=== PATIENT | male | born 1955 | race Caucasian/White ===

== ENCOUNTER 2018-05-02 15:52 | Emergency (ER) | payer SELFPAY ==
[2018-05-02] VITALS (10 sets, daily range): BP systolic 91–157; BP diastolic 58–110; PULSE 111–120; RESP 15–28; TEMP 36.8–37.7; O2SAT 89–100; BMI 18.8
[2018-05-02] MEDS: Midazolam 2 MG/2 ML Syringe IV ×2 (15:52→18:49)
--- NOTE | 2018-05-02 16:00 | EKG12_ITS ---
Test Reason : Blood Pressure : / mmHG Vent. Rate : 111 BPM Atrial Rate : 117 BPM P-R Int : 128 ms QRS Dur : 068 ms QT Int : 480 ms P-R-T Axes : 043 053 072 degrees QTc Int : 652 ms Sinus tachycardia Low voltage QRS Nonspecific ST and T wave abnormality Abnormal ECG Confirmed by FELICITAS MAHER, LOUISA ([id number]), editorial assistant LALO RASHID ([id number] on 05/07/2018 9:44:56 AM Referred By: CLEVELAND/MONAE Confirmed By:LOUISA POLK MD
--- NOTE | 2018-05-02 16:07 | RAD_ITS ---
STUDY: X-RAY CHEST REASON FOR EXAM: Male, 63 years old. Status post fall 2 days ago with swelling and edema to the face TECHNIQUE: Single AP portable view of the chest. COMPARISON: None. FINDINGS: There is a massive amounts of subcutaneous emphysema throughout the soft tissues of the chest and neck. Unsure if there is also pneumomediastinum. Pneumothorax cannot be excluded. Lungs appear to be hyperinflated with flattened hemidiaphragms. Normal size heart. Normal mediastinum and april. Normal visualized pulmonary arteries. Normal visualized aortic arch and descending thoracic aorta. Normal visualized thoracic spine. Normal visualized ribs, clavicles, and shoulders. There is no demonstrated abnormality of the visualized soft tissue structures of the upper abdomen. RAD/Chest 1 View (Portable) IMPRESSION: Massive amounts of subcutaneous emphysema seen throughout the soft tissues of the chest and neck as well as the abdomen. Pneumothorax and pneumomediastinum cannot be excluded. Recommend CT chest to further evaluate. N.B. : The above information has been verbally conveyed by Ash Ricardo DO to Meng Barrios MD, on 05/02/2018 17:08:37 (ET). Electronically Signed: Ash Ricardo DO at 17:09 EST Tel , Service support ,
[2018-05-02] MEDS: Rocuronium Bromide 50 MG/5 ML Vial 40 MG IV (16:20)
[2018-05-02] MEDS: Etomidate 20 MG/10 ML Vial IV (16:20)
--- NOTE | 2018-05-02 16:35 | RAD_ITS ---
STUDY: X-RAY CHEST REASON FOR EXAM: Male, 63 years old. ET tube placement with NG-tube placement TECHNIQUE: Single AP portable view of the chest. COMPARISON: Chest x-ray earlier FINDINGS: ET tube has been placed with tip terminating roughly 3 cm from the noreen. Enteric tube is seen with tip below the left hemidiaphragm. Remainder is unchanged as compared to exam from roughly 30 minutes earlier. RAD/Chest 1 View (Portable) IMPRESSION: As above Electronically Signed: Ash Ricardo DO at 16:52 EST Tel , Service support ,
--- NOTE | 2018-05-02 16:43 | CT_ITS ---
STUDY: CT CHEST WITHOUT CONTRAST REASON FOR EXAM: Male, 63 years old. Fall. Facial swelling and edema. Extensive crepitus RADIATION DOSAGE (If Supplied By Facility): CTDIvol = ( 8.93 ) mGy, DLP = ( 343.80 ) mGycm TECHNIQUE: Transaxial imaging was performed without the administration of intravenous contrast material. Individualized dose optimization techniques were used for this CT. COMPARISON: Plain films earlier FINDINGS: Appropriate positioning of ET tube and enteric tube. As seen on plain film, massive amounts of subcutaneous emphysema seen throughout the soft tissues of the chest, arms and neck and face. Extensive pneumomediastinum. There is possible pneumopericardium. Extensive air tracking into the neck region. There is a large right pneumothorax. No evidence of left-sided pneumothorax. There is left lower lobe and left upper lobe airspace disease however. There is pneumoperitoneum as well within or around the stomach, pancreas and kidneys. CT/Chest without Contrast IMPRESSION: 1. Massive amounts of subcutaneous emphysema seen throughout the tissues and muscles of the chest, arms, neck and face. 2. Moderate to large right pneumothorax. Placement of chest tube is recommended 3. Pneumomediastinum with possible pneumopericardium. 4. Bilateral airspace disease. 5. Pneumoperitoneum. Free air noted around the pancreas and kidneys as well as below the hemidiaphragms. I discussed the chest x-ray findings with the ordering provider, this provider was already aware of the pneumothorax and we discussed on the phone. Electronically Signed: Ash Ricardo DO at 17:39 EST Tel , Service support ,
[2018-05-02 17:05] LABS: Absolute Lymphocyte Count 0.54 X10^3/ul (0.83-4.51); Absolute Neutrophil Count 4.8 X10^3/uL (2.0-7.7); Basophil# 0.02 X10^3/uL; Basophil% 0.4 % (0-1); Eosinophil# 0.03 X10^3/uL; Eosinophils% 0.5 % (0-5); Hematocrit 38.9 % (40-54); Hemoglobin 13.5 g/dl (13.0-16.5); Lymphocyte # 0.54 X10^3/ul (4.0); Lymphocyte % 9.5 % (19-41); Mean Corp Hgb Conc 34.7 g/gl (32-36); Mean Corpuscular Volume 106.6 fL (80-94); Mean Platelet Vol. 11.9 fl (6.2-12.0); Monocyte# 0.25 X10^3/uL; Monocyte% 4.4 % (0-10); Neutrophil # 4.81 X10^3/uL (2.7-7.7); RBC Distribution Width CV 15.6 % (11.6-14.6); RBC Distribution Width SD 60.3 fl (35.1-43.9); Red Blood Count 3.65 M/mm3 (4.6-6.2); White Blood Count 5.7 K/mm3 (4.4-11.0)
--- NOTE | 2018-05-02 17:05 | CT_ITS ---
STUDY: CT BRAIN WITHOUT CONTRAST REASON FOR EXAM: Male, 63 years old. Fall. Edema. RADIATION DOSAGE (If Supplied By Facility): CTDIvol = ( 44.99 ) mGy, DLP = ( 829.85 ) mGycm TECHNIQUE: Transaxial CT imaging of the brain was performed without administration of intravenous contrast material. Individualized dose optimization techniques were used for this CT. COMPARISON: February 18, [address] dated May 03, 1999 and . FINDINGS: There is extensive subcutaneous emphysema throughout the soft tissues of the neck and face and overlying the calvarium. There is a nasal bone fracture. There is mild cerebral atrophy with widening of the extra-axial spaces and ventricular dilatation. Normal white matter tracts of the cerebral hemispheres. Normal basal ganglia and thalami. Normal brainstem. Normal cerebellum. There is no intracranial hemorrhage. There are there is opacification of the left maxillary and ethmoid sinuses. No findings of an acute ischemic infarction. Normal visualized paranasal sinuses. CT/Brain/Head without Contrast IMPRESSION: Chronic involutional changes of the brain. No acute intracranial process. Extensive subcutaneous emphysema likely related to findings within the chest. Nasal bone fracture. Opacification of the left maxillary and ethmoid sinuses consistent with a history of sinusitis. Electronically Signed: Mary Jo Quintana MD at 17:25 EST Tel , Service support ,
[2018-05-02 17:16] LABS: ALB/GLOB Ratio 0.8 RATIO (0.9-2.4); AST(SGOT) 78 U/L (15-37); Alanine Aminotransfer ALT/SGPT 24 U/L (16-61); Alkaline Phosphatase 162 U/L (45-117); Anion Gap 18 (5-15); BUN 26 mg/dL (7-18); BUN/Creat Ratio 17.7 RATIO (10-20); Calcium,Total 7.7 mg/dL (8.5-10.1); Chloride 89 mmol/L (98-107); Creatinine, Serum 1.47 mg/dL (0.70-1.30); EST Glomerular Filtration Rate 51 mL/min (>60); Est Glom Filt Rate - Afr Amer 62 mL/min (>60); Estimated Creatinine Clearance 38.06 ml/min; Globulin 3.9 g/dL (2.2-4.2); Glucose 109 mg/dL (74-106); Potassium 2.8 mmol/L (3.5-5.1); Protein, Total 6.9 g/dL (6.4-8.2); Sodium Level 132 mmol/L (136-145)
[2018-05-02 17:19] LABS: Differential Indicated SCAN CRITERIA MET; POSITIVE COUNT NO; POSITIVE DIFFERENTIAL YES; POSITIVE MORPHOLOGY NO
[2018-05-02 17:31] LABS: International Normalized Ratio 1.4; Partial Thromboplast Time 33.2 Seconds (24.1-36.2); Prothrombin Time (Protime)PT. 17.4 SECONDS (11.7-14.9)
[2018-05-02] MEDS: Propofol 200 MG/20 ML Vial IV BOLUS (17:40)
[2018-05-02 18:16] LABS: Platelet Count 50 K/mm3 (150-450)
[2018-05-02 18:17] LABS: Anisocytosis 1+; Macrocytosis 1+; Platelet Estimate MKD DEC (ADEQ)
--- NOTE | 2018-05-02 18:17 | ED.RN ---
LAB CALL WITH CRITICAL VALUE PLATELET COUNT OF 50. VALUE VERBALLY REPORTED TO AKOSUA RANGEL AND DR. GUTHRIE.
--- NOTE | 2018-05-02 18:45 | RAD_ITS ---
STUDY: X-RAY CHEST REASON FOR EXAM: Male, 63 years old. Pneumothorax. Chest tube placement. TECHNIQUE: Single AP portable view of the chest. COMPARISON: Multiple chest x-rays and chest CT earlier FINDINGS: Stable appearance of ET tube and enteric tube. Placement of right chest tube. Very difficult to evaluate for pneumothorax given the massive amounts of subcutaneous emphysema and pneumomediastinum. However, there appears to be no evidence of a significant right pneumothorax. Remainder is unchanged RAD/Chest 1 View (Portable) IMPRESSION: As above Electronically Signed: Ash Ricardo DO at 19:08 EST Tel , Service support ,
[2018-05-02] MEDS: 0.9% Normal Saline 1,000 ML 1000 ML IV (18:49)
--- NOTE | 2018-05-02 18:59 | ED.DCSUM_ITS ---
- ER Visit Summary Date of Service: 05/02/18 Chief Complaint: Fall and shortness of breath History of Present Illness: The patient is a 63 M who presents after a fall that occurred 2 days ago. Patient states he tripped and fell. Patient denies hitting his head or losing consciousness. Patient thinks he hit his chest. Patient states he has been having some difficulty breathing since the fall. Patient came to the emergency department today because of the increased swelling into his face. Patient denies any nausea or vomiting. Patient denies any recent fevers or chills. Physical Examination: Initial vital signs showed a blood pressure 131/98, temperature of 98.3, heart rate of 115, respiratory rate of 23, and pulse oximeter of 89% on room air. Oral mucosa is pink and moist. There is a large amount of subcutaneous emphysema over the face, neck, chest, upper extremities, and abdomen. Trachea appeared to be midline. Heart was regular and tachycardic with distant heart sounds. Lungs are diminished bilaterally. Abdomen is soft. There is no tenderness. Extremities are intact. There are no foreign bodies noted. There is good range of motion. Strength is 5/5 bilaterally upper and lower extremities. There are no sensory deficits noted. Test Results: Portable chest x-ray was obtained. There is a large amount of subcutaneous air. CT scan of the chest was obtained. There is a large right pneumothorax. There is also pneumomediastinum, pneumopericardium, and pneumoperitoneum along with a large amount of subcutaneous air. CT scan of the brain was obtained. There is no acute intracranial abnormality noted. There is a nasal bone fracture noted. There is subcutaneous air noted in the face and scalp. EKG showed sinus tachycardia with a rate of 111. There is an occasional PVC noted. There are no acute ST or T wave changes. CBC showed a platelet count of 50. White blood cell count and hemoglobin are normal. Comprehensive metabolic profile showed a sodium 132, potassium was 2.8, chloride of 89, BUN of 26, and creatinine of 1.47. INR was 1.4. PTT was 33.2. Troponin was normal. Emergency Department Course and Treatment: Patient was advised of the need for endotracheal intubation to protect his airway. Patient was agreeable with this. The risks and benefits were discussed with the patient and he agreed to this. Patient was given etomidate 20 mg and rocuronium 40 mg IV. A 7.5 endotracheal tube was placed to 26 cm at the lip. There was good color change noted. Breath sounds were equal bilaterally. There was no air noted in the epigastrium. Patient was started on a Versed drip. After the patient returned from CT scan of his chest, a right thoracostomy tube was placed. Patient's was advised of the risks and benefits of the procedure. gave written consent. The right chest wall was anesthetized with 1% plain lidocaine. The right chest wall was prepped and draped in a sterile manner. A small incision was made with a #10 blade. A 28 [place] thoracostomy tube was inserted into the fourth and fifth intercostal space on the right. There is good air return. The tube was sutured in place with 3-0 silk sutures. An occlusive dressing was applied to the chest tube site. Patient required further sedation with propofol 200 mg total. Patient was also given a dose of 10 mg of etomidate after the procedure to maintain sedation. The case was discussed with Dr. Oglesby. He felt that the patient would benefit from transfer to a trauma facility given the pneumopericardium, pneumomediastinum, and pneumoperitoneum. Case was discussed with Dr. Castle at [facility]. She accepted the transfer to the emergency department there. Patient's understood and was agreeable with the plan. All questions were answered. Critical care time: 104 minutes. This was exclusive of procedure time. Disposition: Transfer to [facility] Impression: 1. Right pneumothorax 2. Pneumomediastinum 3. Pneumopericardium 4. Pneumoperitoneum 5. Acute kidney injury 6. Nasal fracture This note was generated with [employer] dictation software. It may contain incorrect words, spelling, and punctuation that were not noted in review of the chart prior to signing ED Disposition - Plan for ED Patient: Disposition: [facility] Diagnosis: Pneumothorax, right, Pneumomediastinum, Pneumopericardium, Nasal fracture, Subcutaneous emphysema due to trauma, Acute kidney injury Referrals: Care Physician,No Primary [Primary Care Provider] -
--- NOTE | 2018-05-02 18:59 | ED.RN ---
pt restless, even after diprovan bolus x2. versed gtt increased slowly. concerned at bedside for patient trying to sit up in bed. versed at max rate, x1 dose of etomidate given. has left for home- will notify when more information of pt's transfer.
[2018-05-02 19:11] LABS: Mucous, Urine 0 SEEN /hpf (<or=2+)
[2018-05-02 19:14] LABS: Color, Urine Amber (Yellow); Glucose, Dipstick Normal (Normal); Ketone-Dipstick 5 mg/dl (Negative); Leukocyte Esterase-Dipstick 100 /ul (Negative); Nitrite-Dipstick Positive (Negative); Occult Blood-Urine 250 /ul (Negative); Protein-Dipstick 100 mg/dl (Negative); Urine Clarity Cloudy (Clear); Urine Urobilinogen 4 mg/dl (Normal)
[2018-05-02 19:15] LABS: Urine Bilirubin Dipstick 3 mg/dL (Negative)
[2018-05-02 19:17] LABS: Red Blood Cells-Urine > 100 SEEN /hpf (0-5); Squamous Epithelial Cells - UA 0-5 SEEN /hpf (0-5); White Blood Cells 0-5 SEEN /hpf (0-5)
[2018-05-02 19:18] LABS: Bacteria 1+ /hpf (None Seen)
[2018-05-02 19:20] LABS: Fine Granular Cast- Urine 0-5 SEEN /lpf (0-5)
[2018-05-02] MEDS: Etomidate 20 MG/10 ML Vial 10 MG IV (20:16)
--- NOTE | 2018-05-02 20:21 | ED.RN ---
spoke with , Cady to inform of pt transfer.
== END 2018-05-02 20:19 | disposition short-term general hospital (02) ==
PROVIDERS: Emergency Provider Emergency Medicine
DX: S27.0XXA Traumatic pneumothorax, initial encounter (principal); T79.7XXA Traumatic subcutaneous emphysema, initial encounter; S26.99XA Other injury of heart, unspecified with or without hemopericardium, initial encounter; S02.2XXA Fracture of nasal bones, initial encounter for closed fracture; N17.9 Acute kidney failure, unspecified; Z79.899 Other long term (current) drug therapy; W01.0XXA Fall on same level from slipping, tripping and stumbling without subsequent striking against object, initial encounter; Y93.01 Activity, walking, marching and hiking; Y92.009 Unspecified place in unspecified non-institutional (private) residence as the place of occurrence of the external cause; Y99.8 Other external cause status
CPT/HCPCS: 31500; 32551; 51702; 70450; 71045; 71250; 80053; 81001; 84484; 85025; 85610; 85730; 93005; 94002; 94760; 96365; 96366; 96375; 96376; 99251; 99285; J7030; A4216; G0463

== ENCOUNTER 2018-06-10 14:53 | Inpatient (IN) | payer MEDICARE, SELFPAY ==
[2018-05-02 15:54] VITALS: BMI 18.8
[2018-06-10 15:33] VITALS: BP 103/67; PULSE 75; RESP 16; TEMP 37.1; O2SAT 98; BMI 19.5
[2018-06-10 15:49] VITALS: O2SAT 94
--- NOTE | 2018-06-10 16:52 | PCM.PROGNOTE ---
<Shawanda Marie - Last Filed: 06/10/18 17:08> Subjective: Patient seen and examined. Transfer today from LTAC to rehab unit for further therapy. He currently complains of diarrhea which he states he has had for the past month while at LTAC. Also complains of itching of arms and legs at bedtime. Denies shortness of breath. Denies other current complaints. - Physical Exam General: Alert, Oriented x3, Cooperative HEENT: Atraumatic, PERRLA, EOMI, Normocephalic, - - Trach intact. Oral: Dry Mucosa Neck: Supple, No JVD, Negative Carotid Bruits Lungs: Diminished, - - Scattered rhonchi Cardiovascular: Regular rate, Regular Rhythm, Normal S1, Normal S2, No murmurs Abdomen: Bowel Sounds Present, Soft, Non Tender, Non-Distended, - - PEG tube in place. Extremities: No clubbing, No cyanosis, No edema, Capillary Refill Less than 3 Seconds Skin: No rashes, No breakdown Musculoskeletal: No Tenderness to Palpation of Joints or Extremities Neurological: Cranial nerves II-XII grossly intact, Neuro grossly intact Psych/Mental Status: Normal Affect, Appropriate Vital Signs Pulse Ox 94 06/10/18 15:49 Oxygen Flow Rate (L/min) 6 Weight: 128 lb 1.417 oz Body Mass Index (BMI) 19.5 Medical Necessity - Tobacco Use Smoking Status: Current every day smoker Assessment/Plan All Active Problems Hypokalemia (Acute) Pancytopenia (Acute) Hypophosphatemia (Acute) Hypomagnesemia (Acute) 1. Debility following lengthy hospitalization/LTAC due to fall related to ETOH abuse resulting in subsequent pneumothorax status post tracheostomy and PEG tube placement-initially presented to [facility] ER 05/02/18 due to fall and shortness of breath. He was intubated and transferred to trauma facility at that time due to pneumopericardium, pneumomediastinum, pneumoperitoneum. Following release from [facility] he was transferred to LTAC where he states he has been for the past month and a half. He is status post PEG tube placement and currently n.p.o. PT/OT/ST. 2. Hypotension-patient on midodrine, continue and follow BPs. 3. Bipolar disorder-continue Seroquel, Lamictal regimen. 4. Chronic alcohol abuse -has not used the past 1.5 months since being hospitalized. Encouraged continued cessation. Continue folic acid, thiamine supplementation. 5. Tobacco dependence-encouraged cessation. Nicotine replacement patch. 6. GERD- Continue famotidine. 7. Moderate protein calorie malnutrition-BMI 19.5. NPO w/ PEG TF. Nutrition consult. DVT prophylaxis- Lovenox sc This patient was seen by BEE BairdC under the supervision of Dr. Mason. <Brenda Mason - Last Filed: 06/10/18 20:20> - Physical Exam Vital Signs Pulse Ox 94 06/10/18 15:49 Oxygen Flow Rate (L/min) 6 Weight: 58.1 kg Body Mass Index (BMI) 19.5 Assessment/Plan This patient was seen in conjunction with Shawanda Marie NP. I have independently interviewed and examined the patient and reviewed pertinent historical, laboratory, and other data. Please refer to her note for patient's presentation, findings, and recommendations. Consult for medical management 63-year-old male with past medical history of alcohol and nicotine dependence who presented to the [facility] ED on 05/02/18 after a fall and was found to be short of breath. Patient was found to have extensive subcutaneous emphysema from the head to toes, presented with pneumopericardium, pneumomediastinum, pneumoperitoneum. Patient was intubated transferred to [facility]. He subsequently got chest tube placement, managed on mechanical ventilator. He also received tracheostomy and PEG tube placement. His stay in [facility] was protracted. He was eventually transferred to LTAC and is being transferred here for acute rehab. Of note is that patient also developed acute C. difficile was being treated for VAP. He is reported to have completed C. diff treatment. He developed hypotension and was on midodrine. Patient denied any complaints at the time of being seen. Physical Exam: Gen: Comfortable, not pale, not jaundiced, alert oriented x3 HEENT: s/p tracheostomy CVS:HS I +II, regular, no murmurs RESP: CTA GI: PEG tube in situ, BS present and normal, soft, nontender, no palpable organs. EXT:No edema ASSESSMENT: 1. Debility 2. Dysphagia status post PEG tube 3. Hypertension, on Midodrine 4. History of chronic alcohol use disorder 5. Moderate protein energy malnutrition secondary to chronic alcohol use 6. Recent tobacco dependence, patient has quit 7. GERD Plan: Continue on symptomatic, conservative treatment Code Visit Inpatient E&M: 10133 Subs Hosp L2
--- NOTE | 2018-06-10 17:08 | PN_ITS ---
<Shawanda Marie - Last Filed: 06/10/18 17:08> Subjective: Patient seen and examined. Transfer today from LTAC to rehab unit for further therapy. He currently complains of diarrhea which he states he has had for the past month while at LTAC. Also complains of itching of arms and legs at bedtime. Denies shortness of breath. Denies other current complaints. - Physical Exam General: Alert, Oriented x3, Cooperative HEENT: Atraumatic, PERRLA, EOMI, Normocephalic, - - Trach intact. Oral: Dry Mucosa Neck: Supple, No JVD, Negative Carotid Bruits Lungs: Diminished, - - Scattered rhonchi Cardiovascular: Regular rate, Regular Rhythm, Normal S1, Normal S2, No murmurs Abdomen: Bowel Sounds Present, Soft, Non Tender, Non-Distended, - - PEG tube in place. Extremities: No clubbing, No cyanosis, No edema, Capillary Refill Less than 3 Seconds Skin: No rashes, No breakdown Musculoskeletal: No Tenderness to Palpation of Joints or Extremities Neurological: Cranial nerves II-XII grossly intact, Neuro grossly intact Psych/Mental Status: Normal Affect, Appropriate Vital Signs Pulse Ox 94 06/10/18 15:49 Oxygen Flow Rate (L/min) 6 Weight: 128 lb 1.417 oz Body Mass Index (BMI) 19.5 Medical Necessity - Tobacco Use Smoking Status: Current every day smoker Assessment/Plan All Active Problems Hypokalemia (Acute) Pancytopenia (Acute) Hypophosphatemia (Acute) Hypomagnesemia (Acute) 1. Debility following lengthy hospitalization/[facility] due to fall related to ETOH abuse resulting in subsequent pneumothorax status post tracheostomy and PEG tube placement-initially presented to [facility] ER 05/02/18 due to fall and shortness of breath. He was intubated and transferred to trauma facility at that time due to pneumopericardium, pneumomediastinum, pneumoperitoneum. Following release from [facility] he was transferred to LTAC where he states he has been for the past month and a half. He is status post PEG tube placement and currently n.p.o. PT/OT/ST. 2. Hypotension-patient on midodrine, continue and follow BPs. 3. Bipolar disorder-continue Seroquel, Lamictal regimen. 4. Chronic alcohol abuse -has not used the past 1.5 months since being hospitalized. Encouraged continued cessation. Continue folic acid, thiamine supplementation. 5. Tobacco dependence-encouraged cessation. Nicotine replacement patch. 6. GERD- Continue famotidine. 7. Moderate protein calorie malnutrition-BMI 19.5. NPO w/ PEG TF. Nutrition consult. DVT prophylaxis- Lovenox sc This patient was seen by BEE BairdC under the supervision of Dr. Mason. <Brenda Mason - Last Filed: 06/10/18 20:20> - Physical Exam Vital Signs Pulse Ox 94 06/10/18 15:49 Oxygen Flow Rate (L/min) 6 Weight: 58.1 kg Body Mass Index (BMI) 19.5 Assessment/Plan This patient was seen in conjunction with Shawanda Marie NP. I have independently interviewed and examined the patient and reviewed pertinent historical, laboratory, and other data. Please refer to her note for patient's presentation, findings, and recommendations. Consult for medical management 63-year-old male with past medical history of alcohol and nicotine dependence who presented to the [facility] ED on 05/02/18 after a fall and was found to be short of breath. Patient was found to have extensive subcutaneous emphysema from the head to toes, presented with pneumopericardium, pneumomediastinum, pneumoperitoneum. Patient was intubated transferred to [facility]. He subsequently got chest tube placement, managed on mechanical ventilator. He also received tracheostomy and PEG tube placement. His stay in [facility] was protracted. He was eventually transferred to LTAC and is being transferred here for acute rehab. Of note is that patient also developed acute C. difficile was being treated for VAP. He is reported to have completed C. diff treatment. He developed hypotension and was on midodrine. Patient denied any complaints at the time of being seen. Physical Exam: Gen: Comfortable, not pale, not jaundiced, alert oriented x3 HEENT: s/p tracheostomy CVS:HS I +II, regular, no murmurs RESP: CTA GI: PEG tube in situ, BS present and normal, soft, nontender, no palpable organs. EXT:No edema ASSESSMENT: 1. Debility 2. Dysphagia status post PEG tube 3. Hypertension, on Midodrine 4. History of chronic alcohol use disorder 5. Moderate protein energy malnutrition secondary to chronic alcohol use 6. Recent tobacco dependence, patient has quit 7. GERD Plan: Continue on symptomatic, conservative treatment Code Visit Inpatient E&M: 36988 Subs Hosp L2
--- NOTE | 2018-06-10 18:56 | NURSING ---
pt. transferred from [facility]. admitted to [facility]. Went over calling staff with pt. before trying to get out of bed. Bed is in lowest position, call light within reach. PA attached and Bed alarm on.
[2018-06-10] MEDS: Pivot 1.5 Cal 1,000 ML BOTTLE 360 ML GT ×2 (19:31→22:11)
[2018-06-10 19:45] VITALS: BP 111/69; PULSE 86; RESP 17; TEMP 36.9; O2SAT 94
[2018-06-10 22:00] VITALS: O2SAT 94
[2018-06-10] MEDS: clonazePAM 1 MG Tablet 2 MG GT (22:06)
[2018-06-10] MEDS: lamoTRIgine 25 MG Tablet 12.5 MG GT (22:07)
[2018-06-10] MEDS: MELATONIN 3 MG TABLET 1.5 MG GT (22:10)
[2018-06-10] MEDS: Famotidine 20 MG Tablet GT (22:10)
[2018-06-10] MEDS: Chlorhexidine 480 ML 15 ML PO (22:10)
[2018-06-10] MEDS: Midodrine HCl 5 MG Tablet GT (22:11)
[2018-06-10] MEDS: QUEtiapine 25 MG Tablet 50 MG GT (22:12)
[2018-06-11] VITALS (8 sets, daily range): BP systolic 111–123; BP diastolic 65–85; PULSE 70–89; RESP 16–18; TEMP 36.6–36.8; O2SAT 85–96
[2018-06-11 06:19] LABS: Absolute Lymphocyte Count 1.41 X10^3/ul (0.83-4.51); Absolute Neutrophil Count 9.1 X10^3/uL (2.0-7.7); Basophil# 0.02 X10^3/uL; Basophil% 0.2 % (0-1); Eosinophils% 0.9 % (0-5); Hematocrit 31.9 % (40-54); Hemoglobin 10.2 g/dl (13.0-16.5); Lymphocyte # 1.41 X10^3/ul (4.0); Lymphocyte % 12.8 % (19-41); Mean Corpuscular Hgb 32.2 pg (27.0-32.0); Mean Corpuscular Volume 100.6 fL (80-94); Mean Platelet Vol. 11.2 fl (6.2-12.0); Monocyte# 0.38 X10^3/uL; Monocyte% 3.5 % (0-10); Neutrophil # 9.07 X10^3/uL (2.7-7.7); Neutrophil % 82.5 % (47-70); Platelet Count 223 K/mm3 (150-450); RBC Distribution Width SD 58.5 fl (35.1-43.9); Red Blood Count 3.17 M/mm3 (4.6-6.2)
[2018-06-11] MEDS: Midodrine HCl 5 MG Tablet GT ×3 (06:21→20:45)
[2018-06-11 06:30] LABS: POSITIVE COUNT NO; POSITIVE DIFFERENTIAL NO; POSITIVE MORPHOLOGY NO
[2018-06-11 07:04] LABS: AST(SGOT) 182 U/L (15-37); Alanine Aminotransfer ALT/SGPT 388 U/L (16-61); Albumin, Serum 3.3 g/dL (3.2-5.0); Alkaline Phosphatase 238 U/L (45-117); Anion Gap 6 (5-15); BUN 40 mg/dL (7-18); BUN/Creat Ratio 56.6 RATIO (10-20); Bilirubin, Direct 0.12 mg/dL (0.00-0.30); Calcium,Total 8.9 mg/dL (8.5-10.1); Chloride 103 mmol/L (98-107); Creatinine, Serum 0.71 mg/dL (0.70-1.30); EST Glomerular Filtration Rate 119 mL/min (>60); Est Glom Filt Rate - Afr Amer 144 mL/min (>60); Estimated Creatinine Clearance 86.38 ml/min; Glucose 96 mg/dL (74-106); Magnesium 1.8 mg/dL (1.6-2.6); Potassium 4.3 mmol/L (3.5-5.1); Protein, Total 8.3 g/dL (6.4-8.2); Sodium Level 135 mmol/L (136-145)
[2018-06-11] MEDS: Enoxaparin 40 MG/0.4 ML Syringe SC (08:37)
[2018-06-11] MEDS: Folic Acid 1 MG Tablet GT (08:38)
[2018-06-11] MEDS: lamoTRIgine 25 MG Tablet 12.5 MG GT ×2 (08:40→20:42)
[2018-06-11] MEDS: Famotidine 20 MG Tablet GT ×2 (08:41→20:44)
[2018-06-11] MEDS: Thiamine Hydrochloride 100 MG Tablet GT (08:42)
[2018-06-11] MEDS: Chlorhexidine 480 ML 15 ML PO ×2 (08:42→20:35)
[2018-06-11] MEDS: Pivot 1.5 Cal 1,000 ML BOTTLE 360 ML GT (08:44)
[2018-06-11] MEDS: clonazePAM 1 MG Tablet 2 MG GT ×2 (08:48→20:43)
--- NOTE | 2018-06-11 12:39 | CASEMGMT ---
SW reviewed student social work psychosocial assessment. ANTONY Higgins
--- NOTE | 2018-06-11 12:45 | PCM.HP.STD ---
History of Present Illness Date of Admission: 06/10/18 Chief Complaint: Debility The patient is a 63 year old right-handed male, who was admitted to the rehab unit after a prolonged hospitalization. He initially experienced a fall on May 02, 2018 which resulted in rib fractures and a pneumothorax. He presented to [facility] ER and was sent to [facility], where he experienced a complicated illness including alcohol withdrawal, as well as pneumonia and ultimately required a tracheostomy, PEG tube placement and was initially sent to [facility] in [place]. He did recover, he lives at home with his in a one-story house but he does have a basement laundry room. He was felt appropriate for acute inpatient rehab and was transferred to the [facility] acute inpatient rehab unit. He has no significant complaints now. He still has a tracheostomy tube but he has a speaking valve in during the daytime, but it is out at night. He is still receiving PEG tube feedings, he denies any chest pain or pain with inspiration at this point. He is a prior smoker, he is on a low-dose nicotine patch and he denies any cravings for nicotine at this point. He also understands that he needs to discontinue use of alcohol. Goal of rehab is latter-day of prior level of functional independence Past Medical History Past Medical History (Chronic Problems): Chronic Problems Chronic back pain (Chronic) Colon polyps (Chronic) Bipolar disorder (Chronic) Alcoholism /alcohol abuse (Chronic) started drinking Tequila in 1999 and drinks a fifth a day with beer chasers Urinary and bowel incontinence (Chronic) Smoking addiction (Chronic) Malnutrition (Chronic) Allergies codeine Allergy (Verified 05/02/18 15:59) Itching Home Medications: Ambulatory Orders Medication Instructions Recorded Clonazepam [Klonopin] 2 mg GT BID 01/18/13 Lamotrigine [Lamictal Xr] 25 mg GT DAILY 01/18/13 Quetiapine Fumarate [Seroquel] 25 mg PO DAILY 01/18/13 Zolpidem Tartrate [Ambien] 10 mg PO QHS 02/18/15 Quetiapine Fumarate 50 mg GT QHS 05/02/18 Chlorhexidine 15 mls PO BID 06/10/18 Duoneb 3 ml INHALATION Q6H PRN PRN 06/10/18 Famotidine [Pepcid] 20 mg GT BID 06/10/18 Folic Acid 1 mg GT DAILY 06/10/18 Magnesium Oxide [Mag-Ox 400] 400 mg PO DAILY 06/10/18 Melatonin 1.5 mg GT QHS 06/10/18 Meloxicam [Mobic] 7.5 mg PO DAILY 06/10/18 Midodrine HCl 5 mg GT TID 06/10/18 Nicotine [Nicotine Patch] 1 each TD DAILY 06/10/18 Thiamine Hydrochloride [Vitamin B1] 100 mg GT DAILY 06/10/18 Surgical History: - - colonoscopy and removal of polyp Psychiatric History: Bipolar Smoking Status: Current every day smoker Tobacco Use: Cigarettes Alcohol: Heavy Drugs: None - *Family History Maternal History Items: - - pt unable to give me FH at this time Review of Systems Constitutional: Denies: Chills, Fever, Weight Change HEENT: Reports: Difficulty Swallowing. Denies: Head Aches, Sinus Congestion, Sinus Drainage Cardiovascular: Denies: Chest Pain, Palpitations Respiratory: Reports: Cough Gastrointestinal: Denies: Abdominal Pain, Nausea, Vomiting Genitourinary: Denies: Dysuria Musculoskeletal: Denies: Joint Pain, Joint Tenderness Skin: Denies: Rash, Wounds Neurological: Denies: Numbness, Tingling, Focal weakness Psychiatric: Denies: Anxiety, Depression, Homicidal Ideations, Suicidal Ideations Hematologic/ Lymphatic: Denies: Easy Bruising, Easy Bleeding VTE Information - Inpt Only VTE Present on Admission: Yes VTE Pharm Prophylaxis ordered?: Yes - Physical Exam General: Alert, Oriented x3, Cooperative, No apparent distress HEENT: Atraumatic, PERRLA, EOMI Neck: Supple Lungs: Clear to auscultation Cardiovascular: Regular rate Abdomen: Bowel Sounds Present Extremities: No Calf Tenderness Neurological: Cranial nerves II-XII grossly intact - Tracheostomy site is clear. PEG site is clear. Psych/Mental Status: Normal Affect Vital Signs Temp Pulse Resp BP Pulse Ox 36.8 C 84 17 114/66 92 06/11/18 07:18 06/11/18 07:18 06/11/18 07:18 06/11/18 07:18 06/11/18 09:37 Oxygen Flow Rate (L/min) 3 Oxygen Delivery Method Trach Collar Weight: 58.1 kg Body Mass Index (BMI) 19.5 Intake and Output for Last 24 Hours 06/09/18 06/10/18 06/11/18 23:59 23:59 23:59 Intake Total 560 / 560 Output Total 150 / 150 Balance 560 / 560 -150 / -150 Laboratory Tests Past 24 Hrs 06/11/18 06/11/18 05:34 05:34 WBC 11.0 RBC 3.17 L Hgb 10.2 L Hct 31.9 L MCV 100.6 H MCH 32.2 H MCHC 32.0 RDW 16.0 H RDW Differential 58.5 H Plt Count 223 MPV 11.2 Immature Gran % (Auto) 0.100 Neut % (Auto) 82.5 H Lymph % (Auto) 12.8 L [place] % (Auto) 3.5 Eos % (Auto) 0.9 Baso % (Auto) 0.2 Absolute Neuts (auto) 9.1 H Absolute Lymphs (auto) 1.41 Total Counted Not Reportable Sodium 135 L Potassium 4.3 Chloride 103 Carbon Dioxide 26.0 Anion Gap 6 BUN 40 H Creatinine 0.71 Estim Creat Clear Calc 86.38 Est GFR (MDRD) Af Amer 144 Est GFR (MDRD) Non-Af 119 BUN/Creatinine Ratio 56.6 H Glucose 96 Calcium 8.9 Magnesium 1.8 Total Bilirubin 0.40 Direct Bilirubin 0.12 AST 182 H ALT 388 H Alkaline Phosphatase 238 H Total Protein 8.3 H Albumin 3.3 Globulin 5.0 H Assessment/Plan All Active Problems Hypokalemia (Acute) Pancytopenia (Acute) Hypophosphatemia (Acute) Hypomagnesemia (Acute) Debility status post prolonged hospitalization initially due to rib fractures and pneumothorax complicated by ventilator dependent pneumonia requiring tracheostomy and PEG tube placement. Now improved. Previously functionally independent, goal of rehab is latter-day of prior level of functional independence. Plan: Physical therapy for gait and balance Occupational therapies for ADLs Speech therapy Consult pulmonary for tracheostomy weaning Continue PEG feedings for now as his swallowing mechanism improves can wean from tube feeds DVT prophylaxis: Lovenox Bowel protocol PRN analgesics Tobacco use disorder: Nicotine patch for 1 more week and then discontinue Alcohol use disorder: Currently abstaining
--- NOTE | 2018-06-11 12:48 | CASEMGMT ---
PT does have Health care POA listing his Daughter Anne Kumari as POA. Copy on pt chart. ANTONY Higgins
--- NOTE | 2018-06-11 12:51 | HP.PCM_ITS ---
History of Present Illness Date of Admission: 06/10/18 Chief Complaint: Debility The patient is a 63 year old right-handed male, who was admitted to the rehab unit after a prolonged hospitalization. He initially experienced a fall on May 02, 2018 which resulted in rib fractures and a pneumothorax. He presented to [facility] ER and was sent to [facility], where he experienced a complicated illness including alcohol withdrawal, as well as pneumonia and ultimately required a tracheostomy, PEG tube placement and was initially sent to [facility] in [place]. He did recover, he lives at home with his in a one-story house but he does have a basement laundry room. He was felt appropriate for acute inpatient rehab and was transferred to the [facility] acute inpatient rehab unit. He has no significant complaints now. He still has a tracheostomy tube but he has a speaking valve in during the daytime, but it is out at night. He is still receiving PEG tube feedings, he denies any chest pain or pain with inspiration at this point. He is a prior smoker, he is on a low-dose nicotine patch and he denies any cravings for nicotine at this point. He also understands that he needs to discontinue use of alcohol. Goal of rehab is mu-ism of prior level of functional independence Past Medical History Past Medical History (Chronic Problems): Chronic Problems Chronic back pain (Chronic) Colon polyps (Chronic) Bipolar disorder (Chronic) Alcoholism /alcohol abuse (Chronic) started drinking Tequila in 1999 and drinks a fifth a day with beer chasers Urinary and bowel incontinence (Chronic) Smoking addiction (Chronic) Malnutrition (Chronic) Allergies codeine Allergy (Verified 05/02/18 15:59) Itching Home Medications: Ambulatory Orders Medication Instructions Recorded Clonazepam [Klonopin] 2 mg GT BID 01/18/13 Lamotrigine [Lamictal Xr] 25 mg GT DAILY 01/18/13 Quetiapine Fumarate [Seroquel] 25 mg PO DAILY 01/18/13 Zolpidem Tartrate [Ambien] 10 mg PO QHS 02/18/15 Quetiapine Fumarate 50 mg GT QHS 05/02/18 Chlorhexidine 15 mls PO BID 06/10/18 Duoneb 3 ml INHALATION Q6H PRN PRN 06/10/18 Famotidine [Pepcid] 20 mg GT BID 06/10/18 Folic Acid 1 mg GT DAILY 06/10/18 Magnesium Oxide [Mag-Ox 400] 400 mg PO DAILY 06/10/18 Melatonin 1.5 mg GT QHS 06/10/18 Meloxicam [Mobic] 7.5 mg PO DAILY 06/10/18 Midodrine HCl 5 mg GT TID 06/10/18 Nicotine [Nicotine Patch] 1 each TD DAILY 06/10/18 Thiamine Hydrochloride [Vitamin B1] 100 mg GT DAILY 06/10/18 Surgical History: - - colonoscopy and removal of polyp Psychiatric History: Bipolar Smoking Status: Current every day smoker Tobacco Use: Cigarettes Alcohol: Heavy Drugs: None - *Family History Maternal History Items: - - pt unable to give me FH at this time Review of Systems Constitutional: Denies: Chills, Fever, Weight Change HEENT: Reports: Difficulty Swallowing. Denies: Head Aches, Sinus Congestion, Sinus Drainage Cardiovascular: Denies: Chest Pain, Palpitations Respiratory: Reports: Cough Gastrointestinal: Denies: Abdominal Pain, Nausea, Vomiting Genitourinary: Denies: Dysuria Musculoskeletal: Denies: Joint Pain, Joint Tenderness Skin: Denies: Rash, Wounds Neurological: Denies: Numbness, Tingling, Focal weakness Psychiatric: Denies: Anxiety, Depression, Homicidal Ideations, Suicidal Idea tions Hematologic/ Lymphatic: Denies: Easy Bruising, Easy Bleeding VTE Information - Inpt Only VTE Present on Admission: Yes VTE Pharm Prophylaxis ordered?: Yes - Physical Exam General: Alert, Oriented x3, Cooperative, No apparent distress HEENT: Atraumatic, PERRLA, EOMI Neck: Supple Lungs: Clear to auscultation Cardiovascular: Regular rate Abdomen: Bowel Sounds Present Extremities: No Calf Tenderness Neurological: Cranial nerves II-XII grossly intact - Tracheostomy site is clear. PEG site is clear. Psych/Mental Status: Normal Affect Vital Signs Temp Pulse Resp BP Pulse Ox 36.8 C 84 17 114/66 92 06/11/18 07:18 06/11/18 07:18 06/11/18 07:18 06/11/18 07:18 06/11/18 09:37 Oxygen Flow Rate (L/min) 3 Oxygen Delivery Method Trach Collar Weight: 58.1 kg Body Mass Index (BMI) 19.5 Intake and Output for Last 24 Hours 06/09/18 06/10/18 06/11/18 23:59 23:59 23:59 Intake Total 560 / 560 Output Total 150 / 150 Balance 560 / 560 -150 / -150 Laboratory Tests Past 24 Hrs 06/11/18 06/11/18 05:34 05:34 WBC 11.0 RBC 3.17 L Hgb 10.2 L Hct 31.9 L MCV 100.6 H MCH 32.2 H MCHC 32.0 RDW 16.0 H RDW Differential 58.5 H Plt Count 223 MPV 11.2 Immature Gran % (Auto) 0.100 Neut % (Auto) 82.5 H Lymph % (Auto) 12.8 L [place] % (Auto) 3.5 Eos % (Auto) 0.9 Baso % (Auto) 0.2 Absolute Neuts (auto) 9.1 H Absolute Lymphs (auto) 1.41 Total Counted Not Reportable Sodium 135 L Potassium 4.3 Chloride 103 Carbon Dioxide 26.0 Anion Gap 6 BUN 40 H Creatinine 0.71 Estim Creat Clear Calc 86.38 Est GFR (MDRD) Af Amer 144 Est GFR (MDRD) Non-Af 119 BUN/Creatinine Ratio 56.6 H Glucose 96 Calcium 8.9 Magnesium 1.8 Total Bilirubin 0.40 Direct Bilirubin 0.12 AST 182 H ALT 388 H Alkaline Phosphatase 238 H Total Protein 8.3 H Albumin 3.3 Globulin 5.0 H Assessment/Plan All Active Problems Hypokalemia (Acute) Pancytopenia (Acute) Hypophosphatemia (Acute) Hypomagnesemia (Acute) Debility status post prolonged hospitalization initially due to rib fractures and pneumothorax complicated by ventilator dependent pneumonia requiring tracheostomy and PEG tube placement. Now improved. Previously functionally independent, goal of rehab is mu-ism of prior level of functional independence. Plan: Physical therapy for gait and balance Occupational therapies for ADLs Speech therapy Consult pulmonary for tracheostomy weaning Continue PEG feedings for now as his swallowing mechanism improves can wean from tube feeds DVT prophylaxis: Lovenox Bowel protocol PRN analgesics Tobacco use disorder: Nicotine patch for 1 more week and then discontinue Alcohol use disorder: Currently abstaining
--- NOTE | 2018-06-11 12:52 | REHABEVAL_ITS ---
Admission Information Status Changes from Prescreening?: No changes Identified Actual Problem List:: Infection, Falls, Alteration in Nutrition, Mobility Impaired, Self Care Deficit, Alteration/ Air Exchange, Ineffect.D/C Plan r/t Psy Potential Problem List:: DVT, Bleeding, Infection, UTI, Aspiration, Falls, Skin Integrity, Depression Risk of Complications DVT: LMWH, SIRISHA Hose, Sequential Compression Device Bleeding: Monitor Lab Values, Nursing to Teach Precautions for anti-coagulation therapy., Wound, if applicable, to be assessed every shift., Stroke patients assessed for lethargy or change in status. Infection: Clinical Staff to Monitor for S/S of infection:, S/S of infection include fever, redness, warmth, etc. Urinary Tract Infection: Monitor for frequency, burning, discomfort, or incontinence., Nursing will obtain urine sample for urinalysis and C&S when ordered. Aspiration: Clinical staff will monitor for coughing, drooling, congestion., Speech will evaluate swallowing and dsyphasia., Nursing will monitor patient swallowing during meals. Falls: Patient will be evaluated for Fall Precautions, Patient will be placed on Fall Precautions as indicated per protocol. Skin Breakdown: Nursing will assess skin daily using assessment tool., Nursing will place on Skin Breakdown Precautions as indicated. Pain: Clinical staff will assess patient's pain level per protocol., Medications will be given, if needed, and the pain level reassessed., Other methods: Massage, distraction, decrease stimulus, etc. used PRN. Plan of Care Patient requires physician specializing in physical medicine and rehab oversight to provide close medical supervision of rehab issues including: Pain Management, Sleep Problems, Bowel and Bladder, Medical and co-morbidity Management, DVT prophylaxis, Rehabilitation Leadership, Coordination of treatment team Patient needs Physical Therapy: For a minimum of 1 hour, At least 5 out of 7 days Patient needs Physical Therapy to improve:: Mobility, Mobility, Mobility, Strengthening, Transfers, Stretching, ROM, Endurance, Stairs, Gait, Balance Patient needs Occupational Therapy: For a minimum of 1 hour, At least 5 out of 7 days Patient needs Occupational Therapy to improve ADL's incl.: Eating, Grooming, Bathing, Dressing, Toileting, Toilet transfers, Community Reintegration, Higher functioning activities, Household tasks, Adaptive Equipment, Splinting, Other activities as determined Patient requires speech therapy: For a minimum of 1 hour, At least 5 out of 7 days Patient requires speech therapy for: Swallowing, Cognition, Language Skills, Compensatory Strategies Patient requires 24/ Rehabilitation Nursing for: Pain Issues, Identifying and preventing risk factors, Monitoring and reporting current medical conditions, Assisting with ambulation, transfer, and all ADL's, Teaching patients about disease process and medications, Family teaching, Providing safe environment, Bowel and Bladder Issues, Skin integrity, Medication Management Patient needs Digital Coordinator/ Case Management for: Discharge Planning, Arranging Home Equipment or Services, Family Interventions Patient needs Dietary and Nutrition Services for: Adequate Nutrition, Nutritional Supplements, Nutritional Education Goals Patient will remain: free from falls, or injury at time of discharge. Patient will perform bed mobility at: MOD I level of assist. Patient will complete transfers from bed to chair at: MOD I level of assist. Patient will ambulate: 100 feet, with MOD I assist, with LRD Patient will complete upper body dressing at: MOD I level of assist. Patient will complete lower body dressing at: MOD I level of assist. Patient will complete toileting at: MOD I level of assist. Patient will perform bathing at: MOD I level of assist. Patient will complete grooming at: MOD I level of assist. Patient will complete home management skills at: MOD I level of assist. Patient will achieve: 12 stairs, at MOD I assist Patient will have pain level of: of 3 or less Patient's skin will: remain intact, free from infection. Patient will receive: adequate nutrition. Discharge Planning Pt Prognosis for Sig. Practical Improv. w/in Reasonable Time: Good Anticipated D/C Destination: Home with Outpt Therapy Was Preadmission Assessment Accurate?: Yes
[2018-06-11] MEDS: Jevity 1.5. 1,000 ML Bottle 320 ML GT ×2 (13:56→18:06)
--- NOTE | 2018-06-11 14:36 | PCM.CONS.PUL ---
Problem List (1) Chronic back pain Status: Chronic (2) Colon polyps Status: Chronic (3) Bipolar disorder Status: Chronic (4) Alcoholism /alcohol abuse Status: Chronic Comment: started drinking Tequila in 1999 and drinks a fifth a day with beer chasers (5) Smoking addiction Status: Chronic (6) Malnutrition Status: Chronic Qualifiers: Malnutrition type: protein-calorie malnutrition Protein-calorie malnutrition severity: mild Qualified Code(s): E44.1 - Mild protein-calorie malnutrition (7) Chronic respiratory failure Status: Chronic Qualifiers: Respiratory failure complication: unspecified whether with hypoxia or hypercapnia Qualified Code(s): J96.10 - Chronic respiratory failure, unspecified whether with hypoxia or hypercapnia Reason for Consult Date of Consultation: 06/11/18 Reason for Consultation: Tracheostomy management History of Present Illness: The patient is a 63 year old M, with past medical history listed below, who presented to [facility] on 06/10/2018 secondary to need for rehab stay. Patient reportedly had experienced a fall on May 02, 2018 with rib fractures and a pneumothorax. Patient had presented to the ER at [facility] and was transferred to [place] for further evaluation. Patient had a complicated course that was reviewed in medical records (over 120 pages) that were sent with the patient. Ultimately, this required a tracheostomy, [facility] Patient has been treated for C. difficile and pneumonia previously. Patient has been transferred to the rehab unit for recovery and hopes to go home. Patient really has no complaints at this time. Patient is reporting that he is been on the PMV through the day. Patient is unaware if he is ever been. Patient states he can cough and it is productive to his mouth. Patient uses a Yankauer to suction it. Patient has no complaints of pain or shortness of breath. Patient does report a history of smoking, but is unaware if he is ever had pulmonary function testing. Patient does have a history of alcoholism in the past, but is not had benzodiazepines in quite some time. Patient is currently on Midodrin secondary to low blood pressure. Patient is also on a nicotine patch and Seroquel. Patient does have a past medical history significant for bipolar disorder. Review of systems otherwise negative x10 systems. Past Medical History Past Medical History (Chronic Problems): Chronic Problems Chronic respiratory failure (Chronic) Chronic back pain (Chronic) Colon polyps (Chronic) Bipolar disorder (Chronic) Alcoholism /alcohol abuse (Chronic) started drinking Tequila in 1999 and drinks a fifth a day with beer chasers Urinary and bowel incontinence (Chronic) Smoking addiction (Chronic) Malnutrition (Chronic) Allergies codeine Allergy (Verified 05/02/18 15:59) Itching Home Medications: Ambulatory Orders Medication Instructions Recorded Clonazepam [Klonopin] 2 mg GT BID 01/18/13 Lamotrigine [Lamictal Xr] 25 mg GT DAILY 01/18/13 Quetiapine Fumarate [Seroquel] 25 mg PO DAILY 01/18/13 Zolpidem Tartrate [Ambien] 10 mg PO QHS 02/18/15 Quetiapine Fumarate 50 mg GT QHS 05/02/18 Chlorhexidine 15 mls PO BID 06/10/18 Duoneb 3 ml INHALATION Q6H PRN PRN 06/10/18 Famotidine [Pepcid] 20 mg GT BID 06/10/18 Folic Acid 1 mg GT DAILY 06/10/18 Magnesium Oxide [Mag-Ox 400] 400 mg PO DAILY 06/10/18 Melatonin 1.5 mg GT QHS 06/10/18 Meloxicam [Mobic] 7.5 mg PO DAILY 06/10/18 Midodrine HCl 5 mg GT TID 06/10/18 Nicotine [Nicotine Patch] 1 each TD DAILY 06/10/18 Thiamine Hydrochloride [Vitamin B1] 100 mg GT DAILY 06/10/18 Surgical History: - - colonoscopy and removal of polyp Psychiatric History: Bipolar Smoking Status: Current every day smoker Tobacco Use: Cigarettes Alcohol: Heavy Drugs: None - *Family History Maternal History Items: - - pt unable to give me FH at this time Review of Systems Comment: See HPI Objective: No chest x-rays available for review. Previous records did show hyperinflation. - Physical Exam General: Alert, Oriented x3, Cooperative, No apparent distress, - - Appears older than stated age. Thin build. Fair voice quality. HEENT: Atraumatic, PERRLA, EOMI, Normocephalic, - - Slight temporal wasting. Oral: Moist Mucosa, No Gingival or Mucosal Lesions/ Ulcerations, - - Edentulous Neck: Supple, No JVD, No Nodes, Trachea Midline, - - Size 6?0 Shiley trach is clean, dry and intact. Lungs: No rhonchi, No wheeze, No rales, Diminished, - - Symmetric expansion. No dullness to percussion. Cardiovascular: Regular rate, Regular Rhythm, Normal S1, Normal S2, No murmurs, No rub noted, No Gallop Abdomen: Bowel Sounds Present, Soft, Non Tender, Non-Distended Extremities: No clubbing, No cyanosis, No edema, Capillary Refill Less than 3 Seconds Skin: No rashes, No breakdown Musculoskeletal: No Tenderness to Palpation of Joints or Extremities Lymphatic: No Cervical, Supraclavicular, or Inguinal Adenopathy Neurological: Cranial nerves II-XII grossly intact, Neuro grossly intact, Motor Exam 5/5 strength throughout Psych/Mental Status: Normal Affect, Appropriate Vital Signs Temp Pulse Resp BP Pulse Ox 36.8 C 84 17 114/66 92 06/11/18 07:18 06/11/18 07:18 06/11/18 07:18 06/11/18 07:18 06/11/18 09:37 Oxygen Flow Rate (L/min) 3 Oxygen Delivery Method Trach Collar Weight: 58.1 kg Body Mass Index (BMI) 19.5 Intake and Output for Last 24 Hours 06/09/18 06/10/18 06/11/18 23:59 23:59 23:59 Intake Total 560 / 560 320 / 320 Output Total 150 / 150 Balance 560 / 560 170 / 170 Laboratory Tests Past 24 Hrs 06/11/18 06/11/18 05:34 05:34 WBC 11.0 RBC 3.17 L Hgb 10.2 L Hct 31.9 L MCV 100.6 H MCH 32.2 H MCHC 32.0 RDW 16.0 H RDW Differential 58.5 H Plt Count 223 MPV 11.2 Immature Gran % (Auto) 0.100 Neut % (Auto) 82.5 H Lymph % (Auto) 12.8 L [place] % (Auto) 3.5 Eos % (Auto) 0.9 Baso % (Auto) 0.2 Absolute Neuts (auto) 9.1 H Absolute Lymphs (auto) 1.41 Total Counted Not Reportable Sodium 135 L Potassium 4.3 Chloride 103 Carbon Dioxide 26.0 Anion Gap 6 BUN 40 H Creatinine 0.71 Estim Creat Clear Calc 86.38 Est GFR (MDRD) Af Amer 144 Est GFR (MDRD) Non-Af 119 BUN/Creatinine Ratio 56.6 H Glucose 96 Calcium 8.9 Magnesium 1.8 Total Bilirubin 0.40 Direct Bilirubin 0.12 AST 182 H ALT 388 H Alkaline Phosphatase 238 H Total Protein 8.3 H Albumin 3.3 Globulin 5.0 H Assessment/Plan All Active Problems Hypokalemia (Acute) Pancytopenia (Acute) Hypophosphatemia (Acute) Hypomagnesemia (Acute) RECOMMENDATIONS: 1. Trach collar as necessary to keep saturations greater than 90% 2. Potential capping of trach for 12 hours starting tomorrow 3. No sputum culture at this time 4. Aggressive pulmonary toileting, no vest given recent rib fractures 5. Likely okay to initiate speech therapy tomorrow with capping trial IMPRESSIONS: 1. Chronic respiratory failure secondary to pneumothorax secondary to rib fractures secondary to fall Patient appears to be in relatively good position at this time. Patient is tolerating PMV during the day and has reasonable voice quality. Patient is able to cough secretions into his mouth indicating that the patient may tolerate a capping trial in the near future. Will attempt to cap his trach tomorrow through the day. Will need aggressive pulmonary toileting. Vest will not be a good option given recent rib fractures. Likely okay to initiate speech therapy tomorrow. Low clinical suspicion for active infection. We will hold off on any chest imaging at this time. 2. Hypertension/bipolar disorder/history of alcohol abuse/tobacco dependence/GERD/malnutrition/debility Complicates care, management, recovery and prognosis. Defer to hospitalist. Likely okay to discontinue thiamine. Code Visit Inpatient E&M: 20113 Init Hosp L3 - Extensive time reviewing records
--- NOTE | 2018-06-11 17:16 | EKG12_ITS ---
Test Reason : CP Blood Pressure : / mmHG Vent. Rate : 077 BPM Atrial Rate : 077 BPM P-R Int : 128 ms QRS Dur : 066 ms QT Int : 384 ms P-R-T Axes : 049 055 079 degrees QTc Int : 434 ms Normal sinus rhythm Normal ECG When compared with ECG of 02-MAY-2018 16:05, No significant change was found Confirmed by CHRIS MAHER, JENNIFER ([id number]), city editor LALO RASHID ([id number] on 06/13/2018 9:57:13 AM Referred By: Elio Scott Confirmed By:JENNIFER PEREZ MD
[2018-06-11] MEDS: MELATONIN 3 MG TABLET 1.5 MG GT (20:43)
[2018-06-11] MEDS: QUEtiapine 25 MG Tablet 50 MG GT (20:44)
--- NOTE | 2018-06-12 01:36 | NURSING ---
Pt found in bed with foam boots and SCDs removed at end of bed. Pt refused staff to reapply boots. Staff expressed significance of foam boots and SCDs but pt continued to refuse.
[2018-06-12 06:20] VITALS: O2SAT 90
--- NOTE | 2018-06-12 06:30 | NURSING ---
pt found with trach pulled and on floor beside bed by staff. SpO2 was 93% and no SOB exhibited. Pt had no signs of distress. Nursing Mail Handlers Supervisor and Respiratory were alerted. Respiratory came to room after talking with Dr Colon. Dr Colon told Respiratory to dress trach site and O2 @ 2L added via nasal cannula. Dr Colon stated he would come to pt room as Dr Colon intended to cap trach this a.m. IS performed x3 and 1500 was reached by pt. Pt tolerated well and is in bed with no s/sx of discomfort or distress.
[2018-06-12 06:35] VITALS: O2SAT 98
[2018-06-12] MEDS: Jevity 1.5. 1,000 ML Bottle 320 ML GT ×4 (06:39→18:22)
[2018-06-12] MEDS: Enoxaparin 40 MG/0.4 ML Syringe SC (06:39)
[2018-06-12] MEDS: Midodrine HCl 5 MG Tablet GT ×3 (06:39→22:30)
--- NOTE | 2018-06-12 06:43 | CPS ---
CALLED AT 0618 TO REHAB UNIT [id number]. NURSING STATING THAT PATIENT HAD REMOVED TRACH SOMETIME WITHIN THE PAST HOUR. ARRIVED AT 0620: TRACH WAS ON FLOOR, PATIENT SATS WERE 90% ON ROOM AIR (WITH TRACH COLLAR STILL RUNNING). INSTRUCTED PER TO DRESS TRACH SITE. XEROFORM DRESSING WITH NON WOVEN GAUZE PLACED AND TAPED. INSTRUCTED PATIENT TO PLACE PRESSURE OVER SITE WHEN COUGHING. PATIENT ALSO PLACED ON NASAL CANNULA AT 3LPM, SATS AT 97% AND DECREASED TO 2LPM. NURSED AWARE.
[2018-06-12 08:00] VITALS: BP 100/66; PULSE 84; RESP 17; TEMP 36.9; O2SAT 95
[2018-06-12] MEDS: Thiamine Hydrochloride 100 MG Tablet GT (08:38)
[2018-06-12] MEDS: Famotidine 20 MG Tablet GT ×2 (08:39→22:30)
[2018-06-12] MEDS: Folic Acid 1 MG Tablet GT (08:39)
[2018-06-12] MEDS: clonazePAM 1 MG Tablet 2 MG GT ×2 (08:39→22:30)
[2018-06-12] MEDS: lamoTRIgine 25 MG Tablet 12.5 MG GT ×2 (08:39→22:29)
[2018-06-12] MEDS: Chlorhexidine 480 ML 15 ML PO ×2 (08:39→22:31)
--- NOTE | 2018-06-12 10:07 | PN_ITS ---
Subjective: Patient did okay overnight. Patient has required minimal nasal cannula oxygen to maintain saturations. This morning, patient pulled out his tracheostomy. Patient appeared to tolerate it well. Dressing was placed and patient was evaluated afterwards. Patient reports slightly worse voice, but no respiratory distress has been reported. - Physical Exam General: Alert, Oriented x3, Cooperative, No apparent distress, - - Appears older than stated age. Speaking in full sentences. HEENT: Atraumatic, PERRLA, EOMI, Normocephalic, - - No scleral icterus or injection noted. Oral: Moist Mucosa, No Gingival or Mucosal Lesions/ Ulcerations Neck: Supple, No JVD, No Nodes, Trachea Midline, - - Ostomy is clean, dry and intact. Lungs: No wheeze, No rales, Diminished, Rhonchi - Scattered, but improved with coughing. Cardiovascular: Regular rate, Regular Rhythm, Normal S1, Normal S2, No murmurs, No rub noted, No Gallop Abdomen: Bowel Sounds Present, Soft, Non Tender, Non-Distended Extremities: No clubbing, No cyanosis, No edema, Capillary Refill Less than 3 Seconds Skin: - - No significant change compared to previous Musculoskeletal: No Tenderness to Palpation of Joints or Extremities Lymphatic: No Cervical, Supraclavicular, or Inguinal Adenopathy Neurological: Cranial nerves II-XII grossly intact, Neuro grossly intact Psych/Mental Status: Normal Affect, Appropriate Vital Signs Temp Pulse Resp BP Pulse Ox 36.6 C 70 18 111/65 98 06/11/18 19:44 06/11/18 22:00 06/11/18 19:44 06/11/18 19:44 06/12/18 06:35 Oxygen Flow Rate (L/min) 2 Oxygen Delivery Method Nasal Cannula Weight: 55.792 kg Body Mass Index (BMI) 19.5 Intake and Output for Last 24 Hours 06/10/18 06/11/18 06/12/18 23:59 23:59 23:59 Intake Total 1120 / 1120 560 / 560 0 / 0 Output Total 500 / 500 550 / 550 Balance 1120 / 1120 60 / 60 -550 / -550 Medical Necessity - Tobacco Use Smoking Status: Current every day smoker Tobacco Use: Cigarettes Assessment/Plan All Active Problems Hypokalemia (Acute) Pancytopenia (Acute) Hypophosphatemia (Acute) Hypomagnesemia (Acute) RECOMMENDATIONS: 1. Nasal cannula oxygen as necessary to keep saturations greater than 90% 2. Continue with dressing, can be changed as necessary for secretions 3. No sputum culture at this time 4. Aggressive pulmonary toileting, no vest given recent rib fractures 5. Will reevaluate patient on Sunday or Sunday for healing IMPRESSIONS: 1. Chronic respiratory failure secondary to pneumothorax secondary to rib fractures secondary to fall Patient was doing well yesterday. Patient has removed his tracheostomy this morning, but appears to be tolerating well. Dressing has been applied and patient is not reporting any respiratory distress. High clinical suspicion the patient will tolerate decannulation and, although not optimal, will proceed with dressing in place. We will reevaluate the wound in 2-3 days to ensure appropriate healing. Incentive spirometer and Acapella to help with secretions. Dressing can be changed if soiled with secretions or daily. 2. Hypertension/bipolar disorder/history of alcohol abuse/tobacco depende nce/GERD/malnutrition/debility Complicates care, management, recovery and prognosis. Defer to hospitalist. Likely okay to discontinue thiamine. Code Visit Inpatient E&M: 45708 Subs Hosp L2
[2018-06-12 11:16] LABS: Bedside Glucose 168 mg/dL (70-110)
[2018-06-12 22:00] VITALS: BP 99/58; PULSE 82; RESP 18; TEMP 36.8; O2SAT 98
[2018-06-12] MEDS: MELATONIN 3 MG TABLET 1.5 MG GT (22:29)
[2018-06-12] MEDS: QUEtiapine 25 MG Tablet 50 MG GT (22:30)
[2018-06-13] MEDS: Enoxaparin 40 MG/0.4 ML Syringe SC (05:35)
[2018-06-13] MEDS: Midodrine HCl 5 MG Tablet GT ×3 (05:35→21:46)
[2018-06-13] MEDS: Jevity 1.5. 1,000 ML Bottle 320 ML GT ×4 (05:36→18:58)
[2018-06-13 06:18] LABS: AST(SGOT) 132 U/L (15-37); Alanine Aminotransfer ALT/SGPT 290 U/L (16-61); Alkaline Phosphatase 201 U/L (45-117); Anion Gap 7 (5-15); BUN 24 mg/dL (7-18); BUN/Creat Ratio 37.2 RATIO (10-20); Bilirubin, Direct 0.16 mg/dL (0.00-0.30); Calcium,Total 9.6 mg/dL (8.5-10.1); Chloride 102 mmol/L (98-107); Creatinine, Serum 0.65 mg/dL (0.70-1.30); EST Glomerular Filtration Rate 132 mL/min (>60); Est Glom Filt Rate - Afr Amer 160 mL/min (>60); Glucose 89 mg/dL (74-106); Potassium 3.8 mmol/L (3.5-5.1); Sodium Level 137 mmol/L (136-145)
[2018-06-13] MEDS: lamoTRIgine 25 MG Tablet 12.5 MG GT ×2 (09:13→21:46)
[2018-06-13] MEDS: Folic Acid 1 MG Tablet GT (09:13)
[2018-06-13] MEDS: Famotidine 20 MG Tablet GT ×2 (09:13→21:46)
[2018-06-13] MEDS: Thiamine Hydrochloride 100 MG Tablet GT (09:13)
[2018-06-13] MEDS: Chlorhexidine 480 ML 15 ML PO ×2 (09:15→21:44)
[2018-06-13] MEDS: clonazePAM 1 MG Tablet 2 MG GT ×2 (09:18→21:45)
[2018-06-13 10:00] VITALS: BP 100/57; PULSE 82; RESP 18; TEMP 36.8; O2SAT 93
--- NOTE | 2018-06-13 12:53 | PN.NEURO_ITS ---
Subjective: Staffed in team meeting. Doing well. is present, questions answered. He apparently inadvertently pulled his trach out yesterday when he was changing his shirt, but has been doing very well from a respiratory standpoint overnight. Pulmonary aware. Speech therapy plans to do a swallow evaluation with liquids today because he is complaining of some urinary frequency which is likely due to the frequency of free water boluses in association with his PEG feedings. Otherwise he is doing very well from the physical therapy and occupational therapy standpoint. He does complain of some pain, due to his mildly elevated liver enzymes he understands that Tylenol is suboptimal, after discussion with the team as well as the patient and his all agreed to a low dose of fentanyl patch, 12.5 mcg. - Physical Exam General: Alert, Oriented x3, Cooperative, No apparent distress HEENT: PERRLA, EOMI Musculoskeletal: No Tenderness to Palpation of Joints or Extremities Neurological: Cranial nerves II-XII grossly intact Psych/Mental Status: Normal Affect, Alert and oriented to time, place, person, mood and affect Vital Signs Temp Pulse Resp BP Pulse Ox 36.8 C 82 18 100/57 L 93 06/13/18 10:00 06/13/18 10:00 06/13/18 10:00 06/13/18 10:00 06/13/18 10:00 Oxygen Flow Rate (L/min) 2 Oxygen Delivery Method Nasal Cannula Weight: 55.792 kg Body Mass Index (BMI) 19.5 Intake and Output for Last 24 Hours 06/11/18 06/12/18 06/13/18 23:59 23:59 23:59 Intake Total 560 / 560 3420 / 3420 1120 / 1120 Output Total 500 / 500 1300 / 1300 500 / 500 Balance 60 / 60 2120 / 2120 620 / 620 Laboratory Tests Past 24 Hrs 06/13/18 05:40 Sodium 137 Potassium 3.8 Chloride 102 Carbon Dioxide 28.0 Anion Gap 7 BUN 24 H Creatinine 0.65 L Estim Creat Clear Calc 90.60 Est GFR (MDRD) Af Amer 160 Est GFR (MDRD) Non-Af 132 BUN/Creatinine Ratio 37.2 H Glucose 89 Calcium 9.6 Total Bilirubin 0.50 Direct Bilirubin 0.16 AST 132 H ALT 290 H Alkaline Phosphatase 201 H Total Protein 8.0 Albumin 3.0 L Globulin 5.0 H Medical Necessity - Tobacco Use Smoking Status: Current every day smoker Tobacco Use: Cigarettes Assessment/Plan All Active Problems Hypokalemia (Acute) Pancytopenia (Acute) Hypophosphatemia (Acute) Hypomagnesemia (Acute) Debility status post prolonged hospitalization initially due to rib fractures and pneumothorax complicated by ventilator dependent pneumonia requiring tracheostomy and PEG tube placement. Now improved. Previously functionally independent, goal of rehab is christianity of prior level of functional independence. Plan: Physical therapy for gait and balance Occupational therapies for ADLs Speech therapy: Today speech therapy plans on reevaluating for possible thin liquids. Consult pulmonary for tracheostomy weaning. 06/13: Trach inadvertently pulled out yesterday by the patient when he was changing his shirt. He has done very well overnight however. Cdl Service Technician aware, continue to monitor. Continue PEG feedings for now as his swallowing mechanism improves can wean from tube feeds DVT prophylaxis: Lovenox Bowel protocol PRN analgesics Tobacco use disorder: Nicotine patch for 1 more week and then discontinue Alcohol use disorder: Currently abstaining Elevated LFTs: Avoid Tylenol although these appear to be improving and are only mildly elevated.
--- NOTE | 2018-06-13 13:04 | CASEMGMT ---
Team meeting held in pt room with pt and in attendance. Pt is receiving PT/OT/ST and progressing with therapy. No d/c date has been set at this time. Pt plans to return home with his at time of d/c and can assist at home as needed. Will continue with treatment plan at this time and reteam on Sunday. ANTONY Higgins
[2018-06-13 18:30] VITALS: O2SAT 98
[2018-06-13] MEDS: QUEtiapine 25 MG Tablet 50 MG GT (21:46)
[2018-06-13] MEDS: MELATONIN 3 MG TABLET 1.5 MG GT (21:46)
[2018-06-13 22:00] VITALS: BP 90/50; PULSE 68; RESP 16; TEMP 36.9; O2SAT 91
[2018-06-14] MEDS: Jevity 1.5. 1,000 ML Bottle 320 ML GT ×2 (05:56→09:11)
[2018-06-14] MEDS: Enoxaparin 40 MG/0.4 ML Syringe SC (05:56)
[2018-06-14] MEDS: Midodrine HCl 5 MG Tablet GT ×3 (05:56→21:32)
--- NOTE | 2018-06-14 06:04 | NURSING ---
O2 sats only 89%. O2 applied at 2L NC. Pt informed that probably once he is up the O2 can come off. No resp distress signs or symptoms
--- NOTE | 2018-06-14 06:06 | NURSING ---
O2 sats up to 94%
[2018-06-14 06:32] VITALS: O2SAT 95
--- NOTE | 2018-06-14 06:55 | NURSING ---
Reviewed and agree with LPNs fims and handoff
[2018-06-14 08:14] VITALS: BP 100/60; PULSE 76; RESP 18; TEMP 36.8; O2SAT 94
[2018-06-14] MEDS: Folic Acid 1 MG Tablet GT (09:11)
[2018-06-14] MEDS: Thiamine Hydrochloride 100 MG Tablet GT (09:11)
[2018-06-14] MEDS: clonazePAM 1 MG Tablet 2 MG GT ×2 (09:11→21:31)
[2018-06-14] MEDS: lamoTRIgine 25 MG Tablet 12.5 MG GT ×2 (09:11→21:31)
[2018-06-14] MEDS: Famotidine 20 MG Tablet GT ×2 (09:11→21:30)
[2018-06-14] MEDS: Chlorhexidine 480 ML 15 ML PO ×2 (09:31→21:29)
--- NOTE | 2018-06-14 12:20 | PCM.PN.PUL ---
Subjective: Patient has done well since his last visit. Patient continues to have a moist cough, but is able to cough secretions into his mouth. Patient was able to be weaned to room air earlier today. - Physical Exam General: Alert, Oriented x3, Cooperative, No apparent distress, - - No conversational dyspnea noted HEENT: Atraumatic, PERRLA, EOMI, Normocephalic Oral: Moist Mucosa, No Gingival or Mucosal Lesions/ Ulcerations Neck: Supple, No JVD, No Nodes, Trachea Midline, - - Ostomy almost completely sealed Lungs: No wheeze, No rales, Diminished, Rhonchi - Improved with cough Cardiovascular: Regular rate, Regular Rhythm, Normal S1, Normal S2, No murmurs, No rub noted, No Gallop Abdomen: Bowel Sounds Present, Soft, Non Tender, Non-Distended Extremities: No clubbing, No cyanosis, No edema Skin: No rashes, No breakdown Musculoskeletal: No Tenderness to Palpation of Joints or Extremities Lymphatic: No Cervical, Supraclavicular, or Inguinal Adenopathy Neurological: Cranial nerves II-XII grossly intact, Neuro grossly intact, Motor Exam 5/5 strength throughout Psych/Mental Status: Alert and oriented to time, place, person, mood and affect Vital Signs Temp Pulse Resp BP Pulse Ox 36.8 C 76 18 100/60 94 06/14/18 08:14 06/14/18 08:14 06/14/18 08:14 06/14/18 08:14 06/14/18 08:14 Oxygen Flow Rate (L/min) 2 Oxygen Delivery Method Room Air Weight: 55.338 kg Body Mass Index (BMI) 19.5 Intake and Output for Last 24 Hours 06/12/18 06/13/18 06/14/18 23:59 23:59 23:59 Intake Total 3420 / 3420 2880 / 2880 580 / 580 Output Total 1300 / 1300 1000 / 1000 450 / 450 Balance 2120 / 2120 1880 / 1880 130 / 130 Medical Necessity - Tobacco Use Smoking Status: Current every day smoker Tobacco Use: Cigarettes Assessment/Plan All Active Problems Hypokalemia (Acute) Pancytopenia (Acute) Hypophosphatemia (Acute) Hypomagnesemia (Acute) RECOMMENDATIONS: 1. Nasal cannula oxygen as necessary to keep saturations greater than 90% 2. Continue with dressing, can be changed as necessary for secretions 3. Walking oximetry prior to discharge 4. Hemodynamically stable on room air. Will sign off from a pulmonary perspective. Please call with any further issues. IMPRESSIONS: 1. Chronic respiratory failure secondary to pneumothorax secondary to rib fractures secondary to fall Patient has been decannulated for 2 days. Tracheostomy appears to be almost completely healed already. Patient does have a moist cough, but no other signs such as fever, chills or other constitutional symptoms have been noted to signify acute infectious process. Patient should have a walking oximetry prior to discharge to be sure that the saturations are controlled. Otherwise, patient currently hemodynamically stable on room air. Will sign off from a critical care/pulmonary perspective. 2. Hypertension/bipolar disorder/history of alcohol abuse/tobacco dependence/GERD/malnutrition/debility Complicates care, management, recovery and prognosis. Defer to hospitalist. Likely okay to discontinue thiamine. Code Visit Inpatient E&M: 30350 Subs Hosp L2
[2018-06-14] MEDS: Jevity 1.5. 1,000 ML Bottle 350 ML GT ×2 (14:57→18:16)
[2018-06-14 20:01] VITALS: BP 106/64; PULSE 74; RESP 16; TEMP 36.6; O2SAT 95
[2018-06-14] MEDS: MELATONIN 3 MG TABLET 1.5 MG GT (21:30)
[2018-06-14] MEDS: QUEtiapine 25 MG Tablet 50 MG GT (21:32)
[2018-06-15] MEDS: Enoxaparin 40 MG/0.4 ML Syringe SC (05:38)
[2018-06-15] MEDS: Midodrine HCl 5 MG Tablet GT ×3 (05:38→22:25)
[2018-06-15] MEDS: Jevity 1.5. 1,000 ML Bottle 350 ML GT ×3 (05:39→14:20)
[2018-06-15 07:00] VITALS: O2SAT 95
[2018-06-15 07:18] VITALS: BP 103/54; PULSE 69; RESP 18; TEMP 36.8; O2SAT 95
[2018-06-15] MEDS: clonazePAM 1 MG Tablet 2 MG GT ×2 (10:49→22:23)
[2018-06-15] MEDS: Folic Acid 1 MG Tablet GT (10:49)
[2018-06-15] MEDS: Famotidine 20 MG Tablet GT ×2 (10:50→22:25)
[2018-06-15] MEDS: lamoTRIgine 25 MG Tablet 12.5 MG GT ×2 (10:50→22:23)
[2018-06-15] MEDS: Chlorhexidine 480 ML 15 ML PO ×2 (10:50→22:29)
[2018-06-15] MEDS: Thiamine Hydrochloride 100 MG Tablet GT (10:50)
[2018-06-15 20:58] VITALS: BP 111/62; PULSE 72; RESP 19; TEMP 36.8; O2SAT 97
[2018-06-15 22:00] VITALS: PULSE 72
[2018-06-15] MEDS: MELATONIN 3 MG TABLET 1.5 MG GT (22:24)
[2018-06-15] MEDS: QUEtiapine 25 MG Tablet 50 MG GT (22:25)
[2018-06-16] MEDS: Midodrine HCl 5 MG Tablet GT ×3 (05:22→21:19)
[2018-06-16] MEDS: Jevity 1.5. 1,000 ML Bottle 350 ML GT ×3 (05:22→14:42)
[2018-06-16] MEDS: Enoxaparin 40 MG/0.4 ML Syringe SC (05:22)
[2018-06-16 06:50] VITALS: O2SAT 90
[2018-06-16 10:00] VITALS: BP 115/60; PULSE 76; RESP 19; TEMP 36.8; O2SAT 96
[2018-06-16] MEDS: lamoTRIgine 25 MG Tablet 12.5 MG GT ×2 (10:48→21:21)
[2018-06-16] MEDS: Folic Acid 1 MG Tablet GT (10:48)
[2018-06-16] MEDS: Thiamine Hydrochloride 100 MG Tablet GT (10:49)
[2018-06-16] MEDS: Famotidine 20 MG Tablet GT ×2 (10:49→21:20)
[2018-06-16] MEDS: Chlorhexidine 480 ML 15 ML PO ×2 (10:50→21:20)
[2018-06-16] MEDS: clonazePAM 1 MG Tablet 2 MG GT ×2 (10:53→21:21)
--- NOTE | 2018-06-16 15:07 | NURSING ---
changed dressing to trach site, cleaned stoma with NS, reapplied gauze dressing and paper tape, site clean dry, intact, no S/S of infection, pt tolerated well.
[2018-06-16 19:19] VITALS: BP 106/61; PULSE 80; RESP 16; TEMP 36.8; O2SAT 98
[2018-06-16] MEDS: QUEtiapine 25 MG Tablet 50 MG GT (21:19)
[2018-06-16] MEDS: MELATONIN 3 MG TABLET 1.5 MG GT (21:20)
[2018-06-16] MEDS: hydrOXYzine 10 MG Tablet GT (21:46)
[2018-06-16 22:00] VITALS: PULSE 80
[2018-06-17 05:55] VITALS: O2SAT 91
[2018-06-17 06:05] LABS: Anion Gap 7 (5-15); BUN 18 mg/dL (7-18); Calcium,Total 9.3 mg/dL (8.5-10.1); Chloride 104 mmol/L (98-107); Creatinine, Serum 0.67 mg/dL (0.70-1.30); EST Glomerular Filtration Rate 128 mL/min (>60); Est Glom Filt Rate - Afr Amer 155 mL/min (>60); Estimated Creatinine Clearance 87.18 ml/min; Glucose 86 mg/dL (74-106); Potassium 3.9 mmol/L (3.5-5.1); Sodium Level 139 mmol/L (136-145)
[2018-06-17] MEDS: Enoxaparin 40 MG/0.4 ML Syringe SC (06:24)
[2018-06-17] MEDS: Midodrine HCl 5 MG Tablet GT ×3 (06:24→22:33)
[2018-06-17] MEDS: Jevity 1.5. 1,000 ML Bottle 350 ML GT ×3 (06:27→15:00)
[2018-06-17 07:15] VITALS: O2SAT 91
[2018-06-17 09:11] VITALS: BP 100/59; PULSE 85; RESP 18; TEMP 36.4; O2SAT 96
[2018-06-17] MEDS: clonazePAM 1 MG Tablet 2 MG GT ×2 (10:01→22:34)
[2018-06-17] MEDS: Folic Acid 1 MG Tablet GT (10:01)
[2018-06-17] MEDS: lamoTRIgine 25 MG Tablet 12.5 MG GT ×2 (10:02→22:34)
[2018-06-17] MEDS: Thiamine Hydrochloride 100 MG Tablet GT (10:02)
[2018-06-17] MEDS: Famotidine 20 MG Tablet GT ×2 (10:02→22:33)
--- NOTE | 2018-06-17 10:10 | CASEMGMT ---
Social Work: Team meeting held. Patient's and daughter present for team meeting as well. Patient progressing well in therapy and is able to transfer and ambulate at [facility]. Patient is able to perform all ADL's at [facility]. Discussed [facility] and tentative D/C planned for Sunday 06/25. Patient and family agreeable to plan for D/C on Sunday 06/25. Patient to return home with and assistance of children. Will re team on Saturday 06/24 to finalize D/C plan. SW to follow to assist as needed with D/C planning. PLAN: Patient to return home with on Sunday06/25/18. MICHELLE Marrero
[2018-06-17] MEDS: Chlorhexidine 480 ML 15 ML PO ×2 (11:31→22:33)
--- NOTE | 2018-06-17 13:29 | PN.NEURO_ITS ---
Subjective: No issues overnight. Care discussed with the nursing staff. Staff in the team meeting today. All questions were answered. Further therapy details per PT/ST/OT notes. Pulmonology signed off, was following for post trach issues. Trach site stable. Status post PEG. Has been started on feeding by mouth per ST and pulmonology clearance. - Physical Exam General: Alert HEENT: Normocephalic Neck: Supple Lungs: Normal air movement Cardiovascular: Normal S1, Normal S2 Abdomen: Bowel Sounds Present, - - S/P PEG Extremities: No cyanosis Neurological: Cranial nerves II-XII grossly intact, Deep Tendon Reflexes 2+/4 and Symmetrical, Neuro grossly intact, Motor Exam 5/5 strength throughout, Muscle tone normal, Sensory exam intact to light touch and pain, Coordination normal Psych/Mental Status: Normal Affect Vital Signs Temp Pulse Resp BP Pulse Ox 97.6 F L 85 18 100/59 L 96 06/17/18 09:11 06/17/18 09:11 06/17/18 09:11 06/17/18 09:11 06/17/18 09:11 Oxygen Flow Rate (L/min) 2 Oxygen Delivery Method Room Air Weight: 57.1 kg Body Mass Index (BMI) 19.5 Intake and Output for Last 24 Hours 06/15/18 06/16/18 06/17/18 23:59 23:59 23:59 Intake Total 710 / 710 690 / 690 450 / 450 Output Total 1200 / 1200 1210 / 1210 Balance 710 / 710 -510 / -510 -760 / -760 Laboratory Tests Past 24 Hrs 06/17/18 05:34 Sodium 139 Potassium 3.9 Chloride 104 Carbon Dioxide 28.0 Anion Gap 7 BUN 18 Creatinine 0.67 L Estim Creat Clear Calc 87.18 Est GFR (MDRD) Af Amer 155 Est GFR (MDRD) Non-Af 128 BUN/Creatinine Ratio 27.0 H Glucose 86 Calcium 9.3 Medical Necessity - Tobacco Use Smoking Status: Current every day smoker Tobacco Use: Cigarettes Assessment/Plan All Active Problems Hypokalemia (Acute) Pancytopenia (Acute) Hypophosphatemia (Acute) Hypomagnesemia (Acute) 63-year-old male with PMH EtOH abuse, tobacco abuse, bipolar disorder, admitted to [facility] on 06/10/2018 with debility, for greater than 3 hours therapy daily with a goal of returning back home at or near his prior level of functional independence. Patient had a fall on May 02, 2018, had rib fracture and pneumothorax, initial admission at [facility] ED, and was later transferred to [facility], hospital course there was complicated by alcohol withdrawal, pneumonia requiring tracheostomy and PEG placement. Plan ?PT for gait stability ?OT for ADLs ?Analgesics as needed ?Bowel protocol ?Bipolar mood disorder?on lamotrigine and quetiapine, Klonopin ?EtOH abuse- counseling provided thiamine ?OH?on midodrine ?Tobacco abuse?counseling provided, was a nicotine patch ?Chronic respiratory failure secondary to pneumothorax due to rib fracture secondary to fall-pulmonology consult obtain recommendations followed. Patient pulled out his tracheostomy tube on 06/12/2018, has been decannulated since. Tracheostomy site has been healing well. ?Status post PEG?PEG tube care per nursing, oral feed has been restarted per speech therapy and pulmonology recommendations. Retail Worker consult. Discussed with family the patient might be discharged with the PEG tube and would need outpatient GI/surgery consult for further PEG management. ?GI/DVT prophylaxis?on famotidine/enoxaparin ?Fall precautions ?Further medical management hospitalist recommendation ?Follow-up with PCP, pulmonology and GI/surgery for PEG tube as outpatient on discharge
--- NOTE | 2018-06-17 13:30 | PCM.PN.HOSP ---
Subjective: Patient is a 63-year-old gentleman with a history of chronic alcohol abuse admitted to the inpatient rehab unit with significant debility following hospitalization at [facility] complicated by pneumopericardium pneumomediastinum as well as pneumoperitoneum following traumatic fall Objective: GENERAL: cooperative HEENT: Atraumatic; moist oral mucosa EYES; Anicteric, Normal Conjunctiva NECK; supple, normal thyroid, no distended JVD. RESPIRATORY: Diminished to auscultation bilaterally, CARDIOVASCULAR: Regular S1 S2, no audible murmurs GI: soft, non-tender, normoactive bowel sounds, : No Renal angle tenderness; EXTREMITIES: No edema, no clubbing, no cyanosis. MUSCULOSKELETAL: No Joint Tenderness; no muscle waisting NEURO: Awake; no lateralizing signs. SKIN: No Rash PSYCH; Normal affect Vitals/I&O's: Vital Signs Temp Pulse Resp BP Pulse Ox 97.6 F L 85 18 100/59 L 96 06/17/18 09:11 06/17/18 09:11 06/17/18 09:11 06/17/18 09:11 06/17/18 09:11 Oxygen Flow Rate (L/min) 2 Oxygen Delivery Method Room Air Weight: 57.1 kg Body Mass Index (BMI) 19.5 Intake and Output for Last 24 Hours 06/15/18 06/16/18 06/17/18 23:59 23:59 23:59 Intake Total 710 / 710 690 / 690 450 / 450 Output Total 1200 / 1200 1210 / 1210 Balance 710 / 710 -510 / -510 -760 / -760 Laboratory Results 06/17/18 05:34: Sodium 139, Potassium 3.9, Chloride 104, Carbon Dioxide 28.0, Anion Gap 7, BUN 18, Creatinine 0.67 L, Estim Creat Clear Calc 87.18, Est GFR (MDRD) Af Amer 155, Est GFR (MDRD) Non-Af 128, BUN/Creatinine Ratio 27.0 H, Glucose 86, Calcium 9.3 Current Medications Albuterol/Ipratropium (Duoneb) 3 ml INHALATION Q6H PRN PRN PRN Reason: CONGESTION Bisacodyl (Dulcolax) 10 mg RECTAL .PRN X 1 PRN PRN Reason: Constipation Chlorhexidine Gluconate (Peridex) 15 ml PO BID [facility] Last Admin: 06/17/18 11:31 Dose: 15 ml Clonazepam (Klonopin) 2 mg GT BID [facility] Last Admin: 06/17/18 10:01 Dose: 2 mg Emollient Ointment (Eucerin Intensive Repair) 1 applic TOPICAL 4X/DAY PRN PRN; Protocol PRN Reason: ITCHING Last Admin: 06/14/18 21:42 Dose: 1 applicatio Enoxaparin Sodium (Lovenox) 40 mg SC DAILY@0600 [facility] Last Admin: 06/17/18 06:24 Dose: 40 mg Enteral Nutritional Formula (Jevity 1.5) 350 ml GT 0600,1000,1400,1800 [facility] Last Admin: 06/17/18 10:30 Dose: 350 ml Famotidine (Pepcid) 20 mg GT BID [facility] Last Admin: 06/17/18 10:02 Dose: 20 mg Fentanyl (Duragesic Patch) 12 mcg TRANSDERM. Q3D [facility] Last Admin: 06/16/18 12:51 Dose: 12 mcg Folic Acid (Folic Acid) 1 mg GT DAILY [facility] Last Admin: 06/17/18 10:01 Dose: 1 mg Hydroxyzine HCl (Atarax Tablet) 10 mg GT QHS PRN PRN Reason: ITCHING Last Admin: 06/16/18 21:46 Dose: 10 mg Lamotrigine (Lamictal Chew) 12.5 mg GT BID [facility] Last Admin: 06/17/18 10:02 Dose: 12.5 mg Loperamide HCl (Imodium) 2 mg GT Q2H PRN PRN PRN Reason: Diarrhea Magnesium Hydroxide (Milk Of Magnesia) 30 ml PO .PRN X 1 PRN PRN Reason: Constipation Melatonin (Melatonin) 1.5 mg GT QHS [facility] Last Admin: 06/16/18 21:20 Dose: 1.5 mg Midodrine (Proamatine) 5 mg GT TID [facility] Last Admin: 06/17/18 06:24 Dose: 5 mg Nutritional Formula (Lactose Free) (Ensure Enlive) 120 ml PO 4X/DAY [facility] Quetiapine Fumarate (Seroquel) 50 mg GT QHS [facility] Last Admin: 06/16/18 21:19 Dose: 50 mg Senna/Docusate Sodium (Senokot-S, Christina-Colace) 2 tablet PO BID PRN PRN Reason: CONSTIPATION Thiamine HCl (Vitamin B1) 100 mg GT DAILY [facility] Last Admin: 06/17/18 10:02 Dose: 100 mg Medical Necessity - Tobacco Use Smoking Status: Current every day smoker Tobacco Use: Cigarettes Assessment/Plan All Active Problems Hypokalemia (Acute) Pancytopenia (Acute) Hypophosphatemia (Acute) Hypomagnesemia (Acute) Patient is a 63-year-old gentleman with a history of chronic alcohol abuse admitted to the inpatient rehab unit with significant debility following hospitalization at [facility] complicated by pneumopericardium pneumomediastinum as well as pneumoperitoneum following traumatic fall 1. Physical debility secondary to fall complicated by pneumopericardium pneumomediastinum as well as pneumoperitoneum 2. Abnormal liver function tests ??Residual effect of shock liver monitoring LFTs which are trending down 3. Chronic alcohol abuse counseled on cessation 4. Bipolar disorder patient is on Seroquel as well as Lamictal did continue 5. Tobacco dependence counseled on cessation, offered nicotine patch for tobacco cravings 6. Moderate protein calorie malnutrition with low BMI of 19.5 consult was placed to crew team member 7. GERD patient is on PPI 8. Episodic hypotension patient is on Midodrin 9. DVT prophylaxis SC Lovenox Code Visit Inpatient E&M: 68129 Subs Hosp L2
--- NOTE | 2018-06-17 13:35 | PN_ITS ---
Subjective: Patient is a 63-year-old gentleman with a history of chronic alcohol abuse admitted to the inpatient rehab unit with significant debility following hospitalization at [facility] complicated by pneumopericardium pneumomediastinum as well as pneumoperitoneum following traumatic fall Objective: GENERAL: cooperative HEENT: Atraumatic; moist oral mucosa EYES; Anicteric, Normal Conjunctiva NECK; supple, normal thyroid, no distended JVD. RESPIRATORY: Diminished to auscultation bilaterally, CARDIOVASCULAR: Regular S1 S2, no audible murmurs GI: soft, non-tender, normoactive bowel sounds, : No Renal angle tenderness; EXTREMITIES: No edema, no clubbing, no cyanosis. MUSCULOSKELETAL: No Joint Tenderness; no muscle waisting NEURO: Awake; no lateralizing signs. SKIN: No Rash PSYCH; Normal affect Vitals/I&O's: Vital Signs Temp Pulse Resp BP Pulse Ox 97.6 F L 85 18 100/59 L 96 06/17/18 09:11 06/17/18 09:11 06/17/18 09:11 06/17/18 09:11 06/17/18 09:11 Oxygen Flow Rate (L/min) 2 Oxygen Delivery Method Room Air Weight: 57.1 kg Body Mass Index (BMI) 19.5 Intake and Output for Last 24 Hours 06/15/18 06/16/18 06/17/18 23:59 23:59 23:59 Intake Total 710 / 710 690 / 690 450 / 450 Output Total 1200 / 1200 1210 / 1210 Balance 710 / 710 -510 / -510 -760 / -760 Laboratory Results 06/17/18 05:34: Sodium 139, Potassium 3.9, Chloride 104, Carbon Dioxide 28.0, Anion Gap 7, BUN 18, Creatinine 0.67 L, Estim Creat Clear Calc 87.18, Est GFR (MDRD) Af Amer 155, Est GFR (MDRD) Non-Af 128, BUN/Creatinine Ratio 27.0 H, Glucose 86, Calcium 9.3 Current Medications Albuterol/Ipratropium (Duoneb) 3 ml INHALATION Q6H PRN PRN PRN Reason: CONGESTION Bisacodyl (Dulcolax) 10 mg RECTAL .PRN X 1 PRN PRN Reason: Constipation Chlorhexidine Gluconate (Peridex) 15 ml PO BID [facility] Last Admin: 06/17/18 11:31 Dose: 15 ml Clonazepam (Klonopin) 2 mg GT BID [facility] Last Admin: 06/17/18 10:01 Dose: 2 mg Emollient Ointment (Eucerin Intensive Repair) 1 applic TOPICAL 4X/DAY PRN PRN; Protocol PRN Reason: ITCHING Last Admin: 06/14/18 21:42 Dose: 1 applicatio Enoxaparin Sodium (Lovenox) 40 mg SC DAILY@0600 [facility] Last Admin: 06/17/18 06:24 Dose: 40 mg Enteral Nutritional Formula (Jevity 1.5) 350 ml GT 0600,1000,1400,1800 [facility] Last Admin: 06/17/18 10:30 Dose: 350 ml Famotidine (Pepcid) 20 mg GT BID [facility] Last Admin: 06/17/18 10:02 Dose: 20 mg Fentanyl (Duragesic Patch) 12 mcg TRANSDERM. Q3D [facility] Last Admin: 06/16/18 12:51 Dose: 12 mcg Folic Acid (Folic Acid) 1 mg GT DAILY [facility] Last Admin: 06/17/18 10:01 Dose: 1 mg Hydroxyzine HCl (Atarax Tablet) 10 mg GT QHS PRN PRN Reason: ITCHING Last Admin: 06/16/18 21:46 Dose: 10 mg Lamotrigine (Lamictal Chew) 12.5 mg GT BID [facility] Last Admin: 06/17/18 10:02 Dose: 12.5 mg Loperamide HCl (Imodium) 2 mg GT Q2H PRN PRN PRN Reason: Diarrhea Magnesium Hydroxide (Milk Of Magnesia) 30 ml PO .PRN X 1 PRN PRN Reason: Constipation Melatonin (Melatonin) 1.5 mg GT QHS [facility] Last Admin: 06/16/18 21:20 Dose: 1.5 mg Midodrine (Proamatine) 5 mg GT TID [facility] Last Admin: 06/17/18 06:24 Dose: 5 mg Nutritional Formula (Lactose Free) (Ensure Enlive) 120 ml PO 4X/DAY [facility] Quetiapine Fumarate (Seroquel) 50 mg GT QHS [facility] Last Admin: 06/16/18 21:19 Dose: 50 mg Senna/Docusate Sodium (Senokot-S, Christina-Colace) 2 tablet PO BID PRN PRN Reason: CONSTIPATION Thiamine HCl (Vitamin B1) 100 mg GT DAILY [facility] Last Admin: 06/17/18 10:02 Dose: 100 mg Medical Necessity - Tobacco Use Smoking Status: Current every day smoker Tobacco Use: Cigarettes Assessment/Plan All Active Problems Hypokalemia (Acute) Pancytopenia (Acute) Hypophosphatemia (Acute) Hypomagnesemia (Acute) Patient is a 63-year-old gentleman with a history of chronic alcohol abuse admitted to the inpatient rehab unit with significant debility following hospitalization at [facility] complicated by pneumopericardium pneumomediastinum as well as pneumoperitoneum following traumatic fall 1. Physical debility secondary to fall complicated by pneumopericardium pneumomediastinum as well as pneumoperitoneum 2. Abnormal liver function tests ??Residual effect of shock liver monitoring LFTs which are trending down 3. Chronic alcohol abuse counseled on cessation 4. Bipolar disorder patient is on Seroquel as well as Lamictal did continue 5. Tobacco dependence counseled on cessation, offered nicotine patch for tobacco cravings 6. Moderate protein calorie malnutrition with low BMI of 19.5 consult was placed to economist research assistant 7. GERD patient is on PPI 8. Episodic hypotension patient is on Midodrin 9. DVT prophylaxis SC Lovenox Code Visit Inpatient E&M: 60589 Subs Hosp L2
--- NOTE | 2018-06-17 14:00 | NURSING ---
Dr. arrington aware of liver enzymes trending down and no further orders.
[2018-06-17 20:11] VITALS: BP 101/52; PULSE 69; RESP 18; TEMP 36.6; O2SAT 98
[2018-06-17] MEDS: MELATONIN 3 MG TABLET 1.5 MG GT (22:33)
[2018-06-17] MEDS: QUEtiapine 25 MG Tablet 50 MG GT (22:33)
[2018-06-18] MEDS: Midodrine HCl 5 MG Tablet GT ×3 (06:56→21:57)
[2018-06-18] MEDS: Jevity 1.5. 1,000 ML Bottle 350 ML GT ×3 (06:56→15:16)
[2018-06-18] MEDS: Enoxaparin 40 MG/0.4 ML Syringe SC (06:56)
[2018-06-18 09:49] VITALS: BP 89/55; PULSE 60; RESP 16; TEMP 36.4; O2SAT 95
[2018-06-18] MEDS: Thiamine Hydrochloride 100 MG Tablet GT (09:50)
[2018-06-18] MEDS: Famotidine 20 MG Tablet GT ×2 (09:50→21:57)
[2018-06-18] MEDS: lamoTRIgine 25 MG Tablet 12.5 MG GT ×2 (09:50→21:57)
[2018-06-18] MEDS: Folic Acid 1 MG Tablet GT (09:50)
[2018-06-18] MEDS: Chlorhexidine 480 ML 15 ML PO ×2 (09:51→21:53)
--- NOTE | 2018-06-18 10:04 | NURSING ---
Held 1000 dose of Klonopin pt too sleepy hard to wake up, took medications and went right back to sleep.
--- NOTE | 2018-06-18 14:44 | PCM.PN.NEU ---
Subjective: No issues overnight. Care discussed with nursing staff. - Physical Exam General: Alert HEENT: Normocephalic Neck: Supple Lungs: Normal air movement Cardiovascular: Normal S1, Normal S2 Abdomen: Bowel Sounds Present Extremities: No cyanosis Neurological: Cranial nerves II-XII grossly intact, Deep Tendon Reflexes 2+/4 and Symmetrical, Neuro grossly intact, Motor Exam 5/5 strength throughout, Muscle tone normal, Sensory exam intact to light touch and pain, Coordination normal Psych/Mental Status: Normal Affect Vital Signs Temp Pulse Resp BP Pulse Ox 97.6 F L 60 16 89/55 L 95 06/18/18 09:49 06/18/18 09:49 06/18/18 09:49 06/18/18 09:49 06/18/18 09:49 Oxygen Flow Rate (L/min) 2 Oxygen Delivery Method Room Air Weight: 57.1 kg Body Mass Index (BMI) 19.5 Intake and Output for Last 24 Hours 06/16/18 06/17/18 06/18/18 23:59 23:59 23:59 Intake Total 690 / 690 2009 830 / 830 Output Total 1200 / 1200 2110 / 2110 400 / 400 Balance -510 / -510 -100 / -100 430 / 430 Medical Necessity - Tobacco Use Smoking Status: Current every day smoker Tobacco Use: Cigarettes Assessment/Plan All Active Problems Hypokalemia (Acute) Pancytopenia (Acute) Hypophosphatemia (Acute) Hypomagnesemia (Acute) 63-year-old male with PMH EtOH abuse, tobacco abuse, bipolar disorder, admitted to [facility] on 06/10/2018 with debility, for greater than 3 hours therapy daily with a goal of returning back home at or near his prior level of functional independence. Patient had a fall on May 02, 2018, had rib fracture and pneumothorax, initial admission at [facility] ED, and was later transferred to [facility], hospital course there was complicated by alcohol withdrawal, pneumonia requiring tracheostomy and PEG placement. Plan ?PT for gait stability ?OT for ADLs ?Analgesics as needed ?Bowel protocol ?Bipolar mood disorder?on lamotrigine and quetiapine, Klonopin ?EtOH abuse- counseling provided, on thiamine ?Labs?reviewed, abnormal LFTs, trending down. AST/ALT?182/388 --> 132/290. Probably EtOH induced. Will repeat LFTs. ?OH?on midodrine ?Tobacco abuse?counseling provided, was a nicotine patch ?Chronic respiratory failure secondary to pneumothorax due to rib fracture secondary to fall-pulmonology consult obtain recommendations followed. Patient pulled out his tracheostomy tube on 06/12/2018, has been decannulated since. Tracheostomy site has been healing well. ?Status post PEG?PEG tube care per nursing, oral feed has been restarted per speech therapy and pulmonology recommendations. Crew Leader Gluing consult. Discussed with family the patient might be discharged with the PEG tube and would need outpatient GI/surgery consult for further PEG management. ?GI/DVT prophylaxis?on famotidine/enoxaparin ?Fall precautions ?Further medical management hospitalist recommendation ?Follow-up with PCP, pulmonology and GI/surgery for PEG tube as outpatient on discharge
--- NOTE | 2018-06-18 14:47 | PN.NEURO_ITS ---
Subjective: No issues overnight. Care discussed with nursing staff. - Physical Exam General: Alert HEENT: Normocephalic Neck: Supple Lungs: Normal air movement Cardiovascular: Normal S1, Normal S2 Abdomen: Bowel Sounds Present Extremities: No cyanosis Neurological: Cranial nerves II-XII grossly intact, Deep Tendon Reflexes 2+/4 and Symmetrical, Neuro grossly intact, Motor Exam 5/5 strength throughout, Muscle tone normal, Sensory exam intact to light touch and pain, Coordination normal Psych/Mental Status: Normal Affect Vital Signs Temp Pulse Resp BP Pulse Ox 97.6 F L 60 16 89/55 L 95 06/18/18 09:49 06/18/18 09:49 06/18/18 09:49 06/18/18 09:49 06/18/18 09:49 Oxygen Flow Rate (L/min) 2 Oxygen Delivery Method Room Air Weight: 57.1 kg Body Mass Index (BMI) 19.5 Intake and Output for Last 24 Hours 06/16/18 06/17/18 06/18/18 23:59 23:59 23:59 Intake Total 690 / 690 2009 830 / 830 Output Total 1200 / 1200 2110 / 2110 400 / 400 Balance -510 / -510 -100 / -100 430 / 430 Medical Necessity - Tobacco Use Smoking Status: Current every day smoker Tobacco Use: Cigarettes Assessment/Plan All Active Problems Hypokalemia (Acute) Pancytopenia (Acute) Hypophosphatemia (Acute) Hypomagnesemia (Acute) 63-year-old male with PMH EtOH abuse, tobacco abuse, bipolar disorder, admitted to [facility] on 06/10/2018 with debility, for greater than 3 hours therapy daily with a goal of returning back home at or near his prior level of functional independence. Patient had a fall on May 02, 2018, had rib fracture and pneumothorax, initial admission at [facility] ED, and was later transferred to [facility], hospital course there was complicated by alcohol withdrawal, pneumonia requiring tracheostomy and PEG placement. Plan ?PT for gait stability ?OT for ADLs ?Analgesics as needed ?Bowel protocol ?Bipolar mood disorder?on lamotrigine and quetiapine, Klonopin ?EtOH abuse- counseling provided, on thiamine ?Labs?reviewed, abnormal LFTs, trending down. AST/ALT?182/388 --> 132/290. Probably EtOH induced. Will repeat LFTs. ?OH?on midodrine ?Tobacco abuse?counseling provided, was a nicotine patch ?Chronic respiratory failure secondary to pneumothorax due to rib fracture secondary to fall-pulmonology consult obtain recommendations followed. Patient pulled out his tracheostomy tube on 06/12/2018, has been decannulated since. Tracheostomy site has been healing well. ?Status post PEG?PEG tube care per nursing, oral feed has been restarted per speech therapy and pulmonology recommendations. Hse Coordinator consult. Discussed with family the patient might be discharged with the PEG tube and would need outpatient GI/surgery consult for further PEG management. ?GI/DVT prophylaxis?on famotidine/enoxaparin ?Fall precautions ?Further medical management hospitalist recommendation ?Follow-up with PCP, pulmonology and GI/surgery for PEG tube as outpatient on discharge
[2018-06-18] MEDS: clonazePAM 1 MG Tablet 2 MG GT (21:56)
[2018-06-18] MEDS: MELATONIN 3 MG TABLET 1.5 MG GT (21:57)
[2018-06-18] MEDS: QUEtiapine 25 MG Tablet 50 MG GT (21:57)
[2018-06-18 22:00] VITALS: BP 97/51; PULSE 65; RESP 18; TEMP 36.6; O2SAT 94
[2018-06-18 22:22] LABS: AST(SGOT) 79 U/L (15-37); Alanine Aminotransfer ALT/SGPT 218 U/L (16-61); Alkaline Phosphatase 189 U/L (45-117); Bilirubin, Direct 0.12 mg/dL (0.00-0.30); Globulin 4.6 g/dL (2.2-4.2); Protein, Total 7.6 g/dL (6.4-8.2)
--- NOTE | 2018-06-19 02:53 | NURSING ---
REVIEWED AND AGREE WITH CLERICAL ADMINISTRATIVE ASSISTANT'S FIM AND HANDOFF CHARTING.
[2018-06-19] MEDS: Enoxaparin 40 MG/0.4 ML Syringe SC (05:51)
[2018-06-19] MEDS: Midodrine HCl 5 MG Tablet GT (05:51)
[2018-06-19 07:24] VITALS: BP 94/58; PULSE 76; RESP 16; TEMP 36.7; O2SAT 96
--- NOTE | 2018-06-19 07:46 | RAD_ITS ---
STUDY: SWALLOWING STUDY REASON FOR EXAM: Male, 63 years old. Dysphagia. TECHNIQUE: The examination was performed with Speech Pathology in attendance. Under fluoroscopic observation, the patient ingested thin barium, thick barium, barium pudding, various barium coated foods. FLUOROSCOPY TIME: 3:58 minutes/seconds RADIOLOGIST INVOLVEMENT: Radiologist was present and providing direct supervision. COMPARISON: None. FINDINGS: Fluoroscopy services provided for clinical procedure. Please refer to operating physician's procedure note for additional detail. RAD/Swallowing Function w/Video IMPRESSION: Fluoroscopy services provided for clinical procedure. Please refer to operating physician's procedure note for additional detail. The swallow study findings were discussed with the patient by the speech pathologist at the conclusion of the examination. Please see speech pathology report for more information and recommendations. Electronically Signed: Jeanmarie Garces MD at 15:34 EDT , Service support ,
--- NOTE | 2018-06-19 10:13 | PCM.PN.HOSP ---
Subjective: Patient has been cleared to begin oral feeding. Objective: GENERAL: cooperative HEENT: Atraumatic; EYES; Anicteric, Normal Conjunctiva NECK; supple, normal thyroid, RESPIRATORY: Diminished to auscultation bilaterally, CARDIOVASCULAR: Regular S1 S2, GI: soft, non-tender, normoactive bowel sounds, : No Renal angle tenderness; EXTREMITIES: No edema, no clubbing, no cyanosis. NEURO: Awake; no lateralizing signs. SKIN: No Rash PSYCH; Normal affect Vitals/I&O's: Vital Signs Temp Pulse Resp BP Pulse Ox 98.1 F 76 16 94/58 L 96 06/19/18 07:24 06/19/18 07:24 06/19/18 07:24 06/19/18 07:24 06/19/18 07:24 Oxygen Flow Rate (L/min) 2 Oxygen Delivery Method Room Air Weight: 56.7 kg Body Mass Index (BMI) 19.5 Intake and Output for Last 24 Hours 06/17/18 06/18/18 06/19/18 23:59 23:59 23:59 Intake Total 2009 1190 / 1190 Output Total 2110 / 2110 400 / 400 500 / 500 Balance -100 / -100 790 / 790 -500 / -500 Laboratory Results 06/18/18 21:54: Total Bilirubin 0.30, Direct Bilirubin 0.12, AST 79 H, ALT 218 H, Alkaline Phosphatase 189 H, Total Protein 7.6, Albumin 3.0 L, Globulin 4.6 H Current Medications Albuterol/Ipratropium (Duoneb) 3 ml INHALATION Q6H PRN PRN PRN Reason: CONGESTION Bisacodyl (Dulcolax) 10 mg RECTAL .PRN X 1 PRN PRN Reason: Constipation Chlorhexidine Gluconate (Peridex) 15 ml PO BID [facility] Last Admin: 06/18/18 21:53 Dose: 15 ml Clonazepam (Klonopin) 2 mg GT BID [facility] Last Admin: 06/18/18 21:56 Dose: 2 mg Emollient Ointment (Eucerin Intensive Repair) 1 applic TOPICAL 4X/DAY PRN PRN; Protocol PRN Reason: ITCHING Last Admin: 06/14/18 21:42 Dose: 1 applicatio Enoxaparin Sodium (Lovenox) 40 mg SC DAILY@0600 [facility] Last Admin: 06/19/18 05:51 Dose: 40 mg Enteral Nutritional Formula (Jevity 1.5) 350 ml GT 0600,1000,1400,1800 [facility] Last Admin: 06/19/18 05:51 Dose: Not Given Famotidine (Pepcid) 20 mg GT BID [facility] Last Admin: 06/18/18 21:57 Dose: 20 mg Fentanyl (Duragesic Patch) 12 mcg TRANSDERM. Q3D [facility] Last Admin: 06/16/18 12:51 Dose: 12 mcg Folic Acid (Folic Acid) 1 mg GT DAILY [facility] Last Admin: 06/18/18 09:50 Dose: 1 mg Hydroxyzine HCl (Atarax Tablet) 10 mg GT QHS PRN PRN Reason: ITCHING Last Admin: 06/16/18 21:46 Dose: 10 mg Lamotrigine (Lamictal Chew) 12.5 mg GT BID [facility] Last Admin: 06/18/18 21:57 Dose: 12.5 mg Loperamide HCl (Imodium) 2 mg GT Q2H PRN PRN PRN Reason: Diarrhea Magnesium Hydroxide (Milk Of Magnesia) 30 ml PO .PRN X 1 PRN PRN Reason: Constipation Melatonin (Melatonin) 1.5 mg GT QHS [facility] Last Admin: 06/18/18 21:57 Dose: 1.5 mg Midodrine (Proamatine) 5 mg GT TID [facility] Last Admin: 06/19/18 05:51 Dose: 5 mg Nutritional Formula (Lactose Free) (Ensure Enlive) 120 ml PO 4X/DAY [facility] Last Admin: 06/18/18 21:36 Dose: Not Given Quetiapine Fumarate (Seroquel) 50 mg GT QHS [facility] Last Admin: 06/18/18 21:57 Dose: 50 mg Senna/Docusate Sodium (Senokot-S, Christina-Colace) 2 tablet PO BID PRN PRN Reason: CONSTIPATION Thiamine HCl (Vitamin B1) 100 mg GT DAILY [facility] Last Admin: 06/18/18 09:50 Dose: 100 mg Medical Necessity - Tobacco Use Smoking Status: Current every day smoker Tobacco Use: Cigarettes Assessment/Plan All Active Problems Hypokalemia (Acute) Pancytopenia (Acute) Hypophosphatemia (Acute) Hypomagnesemia (Acute) Patient is a 63-year-old gentleman with a history of chronic alcohol abuse admitted to the inpatient rehab unit with significant debility following hospitalization at [facility] complicated by pneumopericardium pneumomediastinum as well as pneumoperitoneum following traumatic fall 1. Physical debility secondary to fall complicated by pneumopericardium pneumomediastinum as well as pneumoperitoneum. Patient has been admitted to the inpatient rehab unit where he is currently undergoing physical therapy for significant debility patient was started on oral feed on 06/19/2018 2. Abnormal liver function tests ??Residual effect of shock liver monitoring LFTs which are trending down 3. Chronic alcohol abuse counseled on cessation 4. Bipolar disorder patient is on Seroquel as well as Lamictal did continue 5. Tobacco dependence counseled on cessation, offered nicotine patch for tobacco cravings 6. Moderate protein calorie malnutrition with low BMI of 19.5 consult was placed to manufacturing millwright 7. GERD patient is on PPI 8. Episodic hypotension patient is on Midodrin 9. DVT prophylaxis SC Lovenox Code Visit Inpatient E&M: 77622 Subs Hosp L2
[2018-06-19] MEDS: Famotidine 20 MG Tablet GT (10:29)
[2018-06-19] MEDS: Thiamine Hydrochloride 100 MG Tablet GT (10:29)
[2018-06-19] MEDS: lamoTRIgine 25 MG Tablet 12.5 MG GT (10:29)
[2018-06-19] MEDS: Folic Acid 1 MG Tablet GT (10:30)
[2018-06-19] MEDS: clonazePAM 1 MG Tablet 2 MG GT (10:30)
[2018-06-19] MEDS: Chlorhexidine 480 ML 15 ML PO ×2 (10:30→20:49)
[2018-06-19] MEDS: Jevity 1.5. 1,000 ML Bottle 350 ML GT (10:31)
--- NOTE | 2018-06-19 11:59 | NS ---
1.) Rec 350 mL Jevity 1.5 bolus feed if PO intake <50% at meals. Rec additional 350 mL bolus at 2200 for additional nutrition support. Rec 30mL H2O flush before and after each feeding to prevent clogging of tube. Each bolus feed will provide 525 calories, 22 g protein, and 266mL fluid (plus 60mL from flush). 2.) Continue Regular diet with texture as per speech. 3.) Weigh every other day. 4.) Will continue to offer ensure enlive on medpass as tolerated/desired by pt--thicken as needed; likes chocolate. Please call clinical dietitian w/ questions. Megha Morales MS, RDN, LD
--- NOTE | 2018-06-19 13:00 | SP.MBSS_ITS ---
PRIMARY / SECONDARY DIAGNOSIS: dysphagia (R13.12) REFERRING PHYSICIAN: Dr. Robbin Samuel MD CURRENT DIET: mechanical soft textures, nectar thickened liquids; Cuadra Water Protocol DENTITION: upper / lower dentures MENTAL STATUS: WNL RESPIRATORY STATUS: O2 via room air REASON FOR REFERRAL: The Patient is a 63 year old male referred for a modified barium swallow (MBS) study to objectively assess the Patients oropharyngeal swallow function under fluoroscopy secondary to concerns for silent aspiration status post pneumothorax requiring tracheostomy tube placement and recent (unplanned) decannulation. MEDICAL HISTORY: Alcohol abuse, chronic back pain, bipolar disorder, smoking addiction, and malnutrition. PREVIOUS MODIFIED BARIUM SWALLOW STUDY: None. ASSESSMENT PARAMETERS: The Patient participated in a Modified Barium Swallow (MBS) study on 06/19/2018. Dr. Garces was the radiologist present for this evaluation. This study was recorded in the lateral view and images were sent to PACs for storage. Scoring was completed through each trial using the 8-point Penetration-Aspiration Scale (PAS) and Videofluoroscopic Scale Score (VSS), and summarized via the Modified Barium Swallow Impairment Profile (MBSImP) and the Bolus Residue Scale (BRS), with severity scoring through the Dysphagia Severity Rating Scale (DSRS), and recommended diet textures through the International Dysphagia Diet Standardisation Initiative (IDDSI). RESULTS OF THE EVALUATION: The Patient presents with moderate to severe oropharyngeal dysphagia (DSRS: 5) with grade III SILENT aspiration of thin liquids and nectar thickened liquids status post pneumothorax requiring tracheostomy tube placement and recent (unplanned) decannulation. OBJECTIVE ASSESSMENT OF SWALLOW FUNCTION (QUANTITATIVE ? PER TRIAL): PENETRATION / ASPIRATION SCALE (VEE): 1 = does not enter airway 2 = enters airway/above vocal folds/ejected 3 = enters airway/above vocal folds/not ejected 4 = enters airway/contacts vocal folds/ejected 5 = enters airway/contacts vocal folds/not ejected 6 = enters airway/below vocal folds/ejected 7 = enters airway/below vocal folds/not ejected despite effort 8 = enters airway/below vocal folds/no effort VIDEOFLOROSCOPIC SCALE SCORE (VEE): Grade I = aspiration of material that has penetrated into the laryngeal vestibule, intact cough reflex Grade II = aspiration < 10 % of the bolus, intact cough reflex Grade III = aspiration of < 10 % of the bolus, reduced cough reflex or aspiration of > 10 % of the bolus, intact cough reflex Grade IV = aspiration of > 10 % of the bolus, reduced cough reflex PENETRATION / ASPIRATION SCALE (SCORE) WITH VIDEOFLOROSCOPIC SCALE SCORE: Thin liquid - 5 mL tsp.: NA* Thin liquids via cup (single sip): 5 Thin liquids via cup (single sip): 5 Thin liquids via cup (sequential swallows): 7 ? Grade II Thin liquids via cup (chin tuck): 5 Thin liquids via straw (chin tuck): 8 ? Grade III [place] thickened liquids via cup (single sip): 8 ? Grade III [place] thickened liquids via cup (single sip): 5 [place] thickened liquids via cup (single sip): 8* ? Grade III Honey thickened liquids via cup (single sip): 3 Honey thickened liquids via cup (single sip): 3 Pudding via spoon: 1 Regular textured cookie: NA* Honey thickened liquids via cup (single sip): 1 * denotes error during image capturing / upload to PACS OBJECTIVE ASSESSMENT OF SWALLOW FUNCTION (QUANTITATIVE ? AGGREGATE): MODIFIED BARIUM SWALLOW IMPAIRMENT PROFILE (MBSImP) LABIAL SEAL: 0 (of 4) no labial escape TONGUE CONTROL: 2 (of 3) posterior escape < 50% BOLUS PREPARATION / MASTICATION: 1 (of 3) slow prolonged; complete recollection BOLUS TRANSPORT / LINGUAL MOTION: 0 (of 4) brisk tongue motion ORAL RESIDUE: 2 (of 4) residue collection on oral structures INITIATION OF PHARYNGEAL SWALLOW: 3 (of 4) pyriforms SOFT PALATE ELEVATION: 0 (of 4) no bolus between soft palate & pharyngeal wall LARYNGEAL ELEVATION: 1 (of 3) partial superior movement / approximation ANTERIOR HYOID EXCURSION: 1 (of 2) partial movement EPIGLOTTIC MOVEMENT: 1 (of 2) partial inversion LARYNGEAL VESTIBULE CLOSURE: 1 (of 2) incomplete closure PHARYNGEAL STRIPPING WAVE: 0 (of 2) present / complete PE SEGMENT OPENIN (of 3) partial distension / duration / obstruction TONGUE BASE RETRACTION: 1 (of 4) trace column of contrast PHARYNGEAL RESIDUE: 2 (of 4) collection of residue ESOPHAGEAL BOLUS CLEARANCE: could not view BOLUS RESIDUE SCALE (BRS): 4 (of 6) residue in valleculae and piriform sinus DYSPHAGIA SEVERITY RATING SCALE (DSRS): 5 (moderate-severe) OBJECTIVE ASSESSMENT OF SWALLOW FUNCTION (QUALITATIVE): ORAL PREPARATORY PHASE: mild (albeit effective) mastication inefficiency with prolonged mastication; sufficient anterior oral containment; preserved management of breathing / bolus formation. ORAL TRANSITIONAL PHASE: sufficient bolus transportation; suboptimal oral clearance without side specific consolidation premature posterior bolus loss particularly during trials of less viscous textures. PHARYNGEAL PHASE: mild pharyngeal dyssynchrony contributing to prandial penetration / subsequent aspiration; reduced hyolaryngeal excursion and duration with insufficient laryngeal vestibule pressure generated to expel penetrated material; mild pharyngeal dysmotility primarily attributed to poor anterior hyoid excursion and elevation leading to suboptimal epiglottic deflection and reduced pharyngoesophageal segment opening and residue collecting in the vallecula and pyriforms; no signs of velopharyngeal impairments; prandial / post prandial SILENT aspiration of thin and nectar thickened liquids. ESOPHAGEAL PHASE: no obvious esophageal phase abnormalities observed. CONTRIBUTING / COMPLICATING FACTORS AND NOTABLE FINDINGS: very weak cued volitional cough intensity generated to expel penetrated material / tracheobronchial aspiration (dystussia vs. atussia), with very weak (x1) / absent (x3) cough in response to tracheobronchial aspiration (atussia). Scar tissue at previous tracheostomy site particularly following aspiration events, with barium outlining location. RESPONSE TO STRATEGIES: Insufficient effects noted from a variety of compensatory strategies implemented across the study (chin tuck, effort swallow, 3 second preparatory swallow, cued cough). RECOMMENDATIONS AND CONSIDERATIONS: The Patient was noted to SILENTLY aspirate with thin liquids, with clinical assessment at bedside relying on identification of classic overt signs and symptoms of aspiration considered unreliable. Would strongly discourage advancement past honey thickened liquids without completion of a repeat modified barium swallow study due to the extent of aspirate identified that was SILENT in nature. Recommend a repeat modified barium swallow study within 3 - 6 weeks(if clinically appropriate) to further assess the presence and extent of silent and overt aspiration prior to advancement to a less restrictive diet. Recommend continued implementation of the Cuadra Free Water Protocol (FFWP) with continued Patient and family education likely indicated. The Patient requires continued skilled speech-language intervention targeting diet texture management and training / implementation of recommended compensatory strategies; training and implementation of recommended oropharyngeal strengthening exercises to facilitate improved laryngeal vestibule closure / pressure, considerations for implementation of neuromuscular electrical stimulation (NMES) / VitalStim; continued training, implementation, and Patient / caregiver education regarding implementation of the Cuadra Free Water Protocol (FFWP); Patient and caregiver training targeting meal preparation / thickened liquid preparation if unable to advance to baseline diet textures prior to discharge. Results and recommendations were discussed with the Patient immediately following MBS completion, with the Patient verbalizing understanding and agreement with all recommendations and education provided. DIET TEXTURE RECOMMENDATIONS: Will recommend a regular ? soft textured (IDDSI: 6), honey thickened liquid (IDDSI: 3) diet RECOMMENDED COMPENSATORY STRATEGIES: Supervision, reduced bolus volume / rate of ingestion, seated upright at 90 degrees during PO intake, remain upright for 30-60 minutes post meal (GERD precaution), medications one at a time with a liquid chaser. IMAGE COUNT: [id number] Travon Brown M.A., CCC-MAP COMPILER MBSImP Certified, LSVT Certified [facility] Speech-Language Pathology Department [email or web address]
[2018-06-19] MEDS: Midodrine HCl 5 MG Tablet PO ×2 (13:07→20:53)
--- NOTE | 2018-06-19 16:00 | NURSING ---
Dr Dumont aware and agrees with dieticians tube feed recommendations. 2200 Jevity to be given d/t pt's weight.
--- NOTE | 2018-06-19 17:41 | NURSING ---
Reviewed and agree with SALES DRIVER's FIMS and handoff charting
[2018-06-19 19:24] VITALS: BP 108/62; PULSE 67; RESP 16; TEMP 36.6; O2SAT 96
[2018-06-19] MEDS: Famotidine 20 MG Tablet PO (20:50)
[2018-06-19] MEDS: MELATONIN 3 MG TABLET 1.5 MG PO (20:50)
[2018-06-19] MEDS: lamoTRIgine 25 MG Tablet 12.5 MG PO (20:51)
[2018-06-19] MEDS: clonazePAM 1 MG Tablet 2 MG PO (20:52)
[2018-06-19] MEDS: QUEtiapine 25 MG Tablet 50 MG PO (20:53)
[2018-06-19 22:00] VITALS: RESP 16
[2018-06-20 06:40] LABS: Anion Gap 6 (5-15); BUN 22 mg/dL (7-18); BUN/Creat Ratio 28.5 RATIO (10-20); Chloride 104 mmol/L (98-107); Creatinine, Serum 0.77 mg/dL (0.70-1.30); EST Glomerular Filtration Rate 108 mL/min (>60); Est Glom Filt Rate - Afr Amer 130 mL/min (>60); Estimated Creatinine Clearance 77.73 ml/min; Glucose 83 mg/dL (74-106); Potassium 3.7 mmol/L (3.5-5.1); Sodium Level 138 mmol/L (136-145)
[2018-06-20] MEDS: Enoxaparin 40 MG/0.4 ML Syringe SC (06:47)
[2018-06-20] MEDS: Midodrine HCl 5 MG Tablet PO ×3 (06:47→20:36)
[2018-06-20] MEDS: Jevity 1.5. 1,000 ML Bottle 350 ML GT ×2 (08:30→20:39)
[2018-06-20] MEDS: lamoTRIgine 25 MG Tablet 12.5 MG PO ×2 (09:35→20:38)
[2018-06-20] MEDS: Thiamine Hydrochloride 100 MG Tablet PO (09:35)
[2018-06-20] MEDS: Famotidine 20 MG Tablet PO ×2 (09:35→20:37)
[2018-06-20] MEDS: Folic Acid 1 MG Tablet PO (09:35)
[2018-06-20] MEDS: Chlorhexidine 480 ML 15 ML PO (09:41)
[2018-06-20] MEDS: clonazePAM 1 MG Tablet 2 MG PO ×2 (09:41→20:38)
[2018-06-20 10:00] VITALS: BP 101/59; PULSE 72; RESP 16; TEMP 36.6; O2SAT 100
--- NOTE | 2018-06-20 10:59 | PCM.PN.NEU ---
Subjective: No issues overnight. Care discussed with the nursing staff. - Physical Exam General: Alert HEENT: Normocephalic Neck: Supple Lungs: Normal air movement Cardiovascular: Normal S1, Normal S2 Abdomen: Bowel Sounds Present Extremities: No cyanosis Neurological: Cranial nerves II-XII grossly intact, Deep Tendon Reflexes 2+/4 and Symmetrical, Neuro grossly intact, Motor Exam 5/5 strength throughout, Muscle tone normal, Sensory exam intact to light touch and pain, Coordination normal Psych/Mental Status: Normal Affect Vital Signs Temp Pulse Resp BP Pulse Ox 97.9 F 72 16 101/59 L 100 06/20/18 10:00 06/20/18 10:00 06/20/18 10:00 06/20/18 10:00 06/20/18 10:00 Oxygen Flow Rate (L/min) 2 Oxygen Delivery Method Room Air Weight: 56.7 kg Body Mass Index (BMI) 19.5 Intake and Output for Last 24 Hours 06/18/18 06/19/18 06/20/18 23:59 23:59 23:59 Intake Total 1190 / 1190 1190 / 1190 120 / 120 Output Total 400 / 400 800 / 800 200 / 200 Balance 790 / 790 390 / 390 -80 / -80 Laboratory Tests Past 24 Hrs 06/20/18 06:12 Sodium 138 Potassium 3.7 Chloride 104 Carbon Dioxide 28.0 Anion Gap 6 BUN 22 H Creatinine 0.77 Estim Creat Clear Calc 77.73 Est GFR (MDRD) Af Amer 130 Est GFR (MDRD) Non-Af 108 BUN/Creatinine Ratio 28.5 H Glucose 83 Calcium 9.0 Medical Necessity - Tobacco Use Smoking Status: Current every day smoker Tobacco Use: Cigarettes Assessment/Plan All Active Problems Hypokalemia (Acute) Pancytopenia (Acute) Hypophosphatemia (Acute) Hypomagnesemia (Acute) 63-year-old male with PMH EtOH abuse, tobacco abuse, bipolar disorder, admitted to [facility] on 06/10/2018 with debility, for greater than 3 hours therapy daily with a goal of returning back home at or near his prior level of functional independence. Patient had a fall on May 02, 2018, had rib fracture and pneumothorax, initial admission at [facility] ED, and was later transferred to [facility], hospital course there was complicated by alcohol withdrawal, pneumonia requiring tracheostomy and PEG placement. Plan ?PT for gait stability ?OT for ADLs ?Analgesics as needed ?Bowel protocol ?Modified barium swallow done on 06/19/2018 reported to show silent aspiration?on honey thickened liquid, speech therapy following ?Bipolar mood disorder?on lamotrigine and quetiapine, Klonopin ?EtOH abuse- counseling provided, on thiamine ?Labs?reviewed, abnormal LFTs, trending down. AST/ALT?182/388 --> 132/290-->79/218. Probably EtOH induced. GI follow up as outpatient ?OH?on midodrine ?Tobacco abuse?counseling provided, was a nicotine patch ?Chronic respiratory failure secondary to pneumothorax due to rib fracture secondary to fall-pulmonology consult obtain recommendations followed. Patient pulled out his tracheostomy tube on 06/12/2018, has been decannulated since. Tracheostomy site has been healing well. ?Status post PEG?PEG tube care per nursing, oral feed has been restarted per speech therapy and pulmonology recommendations. [employer] Operator consult. Discussed with family the patient might be discharged with the PEG tube and would need outpatient GI/surgery consult for further PEG management. ?GI/DVT prophylaxis?on famotidine/enoxaparin ?Fall precautions ?Further medical management hospitalist recommendation ?Follow-up with PCP, pulmonology and GI/surgery for PEG tube as outpatient on discharge
[2018-06-20 20:21] VITALS: BP 99/57; PULSE 83; RESP 16; TEMP 36.6; O2SAT 98
[2018-06-20] MEDS: QUEtiapine 25 MG Tablet 50 MG PO (20:36)
[2018-06-20] MEDS: MELATONIN 3 MG TABLET 1.5 MG PO (20:37)
[2018-06-20 22:00] VITALS: PULSE 83; RESP 16
[2018-06-21] MEDS: Enoxaparin 40 MG/0.4 ML Syringe SC (06:33)
[2018-06-21] MEDS: Midodrine HCl 5 MG Tablet PO ×3 (06:35→20:23)
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
[2018-06-21 08:43] VITALS: BP 104/58; RESP 16; TEMP 36.7; O2SAT 97
[2018-06-21] MEDS: Thiamine Hydrochloride 100 MG Tablet PO (08:45)
[2018-06-21] MEDS: lamoTRIgine 25 MG Tablet 12.5 MG PO ×2 (08:45→20:21)
[2018-06-21] MEDS: Famotidine 20 MG Tablet PO ×2 (08:45→20:20)
[2018-06-21] MEDS: Folic Acid 1 MG Tablet PO (08:45)
[2018-06-21] MEDS: Chlorhexidine 480 ML 15 ML PO ×2 (08:45→20:21)
[2018-06-21] MEDS: clonazePAM 1 MG Tablet 2 MG PO ×2 (08:49→19:59)
[2018-06-21] MEDS: Jevity 1.5. 1,000 ML Bottle 350 ML GT ×2 (08:51→20:21)
--- NOTE | 2018-06-21 10:21 | PCM.PN.HOSP ---
Subjective: Patient seen, per nursing staff patient also for tolerated his oral diet with his abnormal liver function tests continue to improve Objective: GENERAL: cooperative HEENT: Atraumatic; EYES; Anicteric, Normal Conjunctiva NECK; supple, normal thyroid, RESPIRATORY: Diminished to auscultation bilaterally, CARDIOVASCULAR: Regular S1 S2, GI: soft, non-tender, normoactive bowel sounds, : No Renal angle tenderness; EXTREMITIES: No edema, no clubbing, no cyanosis. NEURO: Awake; no lateralizing signs. SKIN: No Rash PSYCH; Normal affect Vitals/I&O's: Vital Signs Temp Pulse Resp BP Pulse Ox 98.1 F 83 16 104/58 L 97 06/21/18 08:43 06/20/18 22:00 06/21/18 08:43 06/21/18 08:43 06/21/18 08:43 Oxygen Flow Rate (L/min) 2 Oxygen Delivery Method Room Air Weight: 57.4 kg Body Mass Index (BMI) 19.5 Intake and Output for Last 24 Hours 06/19/18 06/20/18 06/21/18 23:59 23:59 23:59 Intake Total 1190 / 1190 1080 / 1080 800 / 800 Output Total 800 / 800 800 / 800 950 / 950 Balance 390 / 390 280 / 280 -150 / -150 Current Medications Albuterol/Ipratropium (Duoneb) 3 ml INHALATION Q6H PRN PRN PRN Reason: CONGESTION Bisacodyl (Dulcolax) 10 mg RECTAL .PRN X 1 PRN PRN Reason: Constipation Chlorhexidine Gluconate (Peridex) 15 ml PO BID [facility] Last Admin: 06/21/18 08:45 Dose: 15 ml Clonazepam (Klonopin) 2 mg PO BID [facility] Last Admin: 06/21/18 08:49 Dose: 2 mg Emollient Ointment (Eucerin Intensive Repair) 1 applic TOPICAL 4X/DAY PRN PRN; Protocol PRN Reason: ITCHING Last Admin: 06/20/18 06:51 Dose: 1 applicatio Enoxaparin Sodium (Lovenox) 40 mg SC DAILY@0600 [facility] Last Admin: 06/21/18 06:33 Dose: 40 mg Enteral Nutritional Formula (Jevity 1.5) 350 ml GT QHS [facility] Last Admin: 06/20/18 20:39 Dose: 350 ml Enteral Nutritional Formula (Jevity 1.5) 350 ml GT TIDCM [facility] Last Admin: 06/21/18 08:51 Dose: 350 ml Famotidine (Pepcid) 20 mg PO BID [facility] Last Admin: 06/21/18 08:45 Dose: 20 mg Fentanyl (Duragesic Patch) 12 mcg TRANSDERM. Q3D [facility] Last Admin: 06/19/18 12:55 Dose: 12 mcg Folic Acid (Folic Acid) 1 mg PO DAILY [facility] Last Admin: 06/21/18 08:45 Dose: 1 mg Hydroxyzine HCl (Atarax Tablet) 10 mg PO QHS PRN PRN Reason: ITCHING Lamotrigine (Lamictal Chew) 12.5 mg PO BID [facility] Last Admin: 06/21/18 08:45 Dose: 12.5 mg Loperamide HCl (Imodium) 2 mg PO Q2H PRN PRN PRN Reason: Diarrhea Magnesium Hydroxide (Milk Of Magnesia) 30 ml PO .PRN X 1 PRN PRN Reason: Constipation Melatonin (Melatonin) 1.5 mg PO QHS [facility] Last Admin: 06/20/18 20:37 Dose: 1.5 mg Midodrine (Proamatine) 5 mg PO TID [facility] Last Admin: 06/21/18 06:35 Dose: 5 mg Nutritional Formula (Lactose Free) (Ensure Enlive) 120 ml PO 4X/DAY [facility] Last Admin: 06/21/18 08:49 Dose: Not Given Quetiapine Fumarate (Seroquel) 50 mg PO QHS [facility] Last Admin: 06/20/18 20:36 Dose: 50 mg Senna/Docusate Sodium (Senokot-S, Christina-Colace) 2 tablet PO BID PRN PRN Reason: CONSTIPATION Thiamine HCl (Vitamin B1) 100 mg PO DAILY [facility] Last Admin: 06/21/18 08:45 Dose: 100 mg Medical Necessity - Tobacco Use Smoking Status: Current every day smoker Tobacco Use: Cigarettes Assessment/Plan All Active Problems Hypokalemia (Acute) Pancytopenia (Acute) Hypophosphatemia (Acute) Hypomagnesemia (Acute) Patient is a 63-year-old gentleman with a history of chronic alcohol abuse admitted to the inpatient rehab unit with significant debility following hospitalization at [facility] complicated by pneumopericardium pneumomediastinum as well as pneumoperitoneum following traumatic fall 1. Physical debility secondary to fall complicated by pneumopericardium pneumomediastinum as well as pneumoperitoneum. Patient has been admitted to the inpatient rehab unit where he is currently undergoing physical therapy for significant debility patient was started on oral feed on 06/19/2018 2. Abnormal liver function tests ??Residual effect of shock liver monitoring LFTs which are trending down 3. Chronic alcohol abuse counseled on cessation 4. Bipolar disorder patient is on Seroquel as well as Lamictal did continue 5. Tobacco dependence counseled on cessation, offered nicotine patch for tobacco cravings 6. Moderate protein calorie malnutrition with low BMI of 19.5 consult was placed to supervisor nut processing 7. GERD patient is on PPI 8. Episodic hypotension patient is on Midodrin 9. DVT prophylaxis SC Lovenox Code Visit Inpatient E&M: 96403 Subs Hosp L2
--- NOTE | 2018-06-21 11:37 | PCM.PN.NEU ---
Subjective: Per nursing no issues overnight. Patient denies any issues at this time. - Physical Exam General: Alert, Oriented x3, Cooperative HEENT: Atraumatic, PERRLA, EOMI, Normocephalic Neck: Supple, No JVD, Negative Carotid Bruits Lungs: Clear to auscultation, Normal air movement Cardiovascular: Regular rate, Regular Rhythm, Normal S1, Normal S2 Abdomen: Bowel Sounds Present, Soft, Non Tender Extremities: No edema, Capillary Refill Less than 3 Seconds Musculoskeletal: No Tenderness to Palpation of Joints or Extremities Neurological: Cranial nerves II-XII grossly intact Psych/Mental Status: Normal Affect, Appropriate, Alert and oriented to time, place, person, mood and affect Vital Signs Temp Pulse Resp BP Pulse Ox 98.1 F 83 16 104/58 L 97 06/21/18 08:43 06/20/18 22:00 06/21/18 08:43 06/21/18 08:43 06/21/18 08:43 Oxygen Flow Rate (L/min) 2 Oxygen Delivery Method Room Air Weight: 57.4 kg Body Mass Index (BMI) 19.5 Intake and Output for Last 24 Hours 06/19/18 06/20/18 06/21/18 23:59 23:59 23:59 Intake Total 1190 / 1190 1080 / 1080 830 / 830 Output Total 800 / 800 800 / 800 950 / 950 Balance 390 / 390 280 / 280 -120 / -120 Medical Necessity - Tobacco Use Smoking Status: Current every day smoker Tobacco Use: Cigarettes Assessment/Plan All Active Problems Hypokalemia (Acute) Pancytopenia (Acute) Hypophosphatemia (Acute) Hypomagnesemia (Acute) 63-year-old male with PMH EtOH abuse, tobacco abuse, bipolar disorder, admitted to [facility] on 06/10/2018 with debility, for greater than 3 hours therapy daily with a goal of returning back home at or near his prior level of functional independence. Patient had a fall on May 02, 2018, had rib fracture and pneumothorax, initial admission at [facility] ED, and was later transferred to [facility], hospital course there was complicated by alcohol withdrawal, pneumonia requiring tracheostomy and PEG placement. Plan ?PT for gait stability ?OT for ADLs -ST dysphagia ?Analgesics as needed ?Bowel protocol ?Modified barium swallow done on 06/19/2018 reported to show silent aspiration?on honey thickened liquid, speech therapy following ?Bipolar mood disorder?on lamotrigine and quetiapine, Klonopin ?EtOH abuse- counseling provided, on thiamine ?Labs?reviewed, abnormal LFTs, trending down. AST/ALT?182/388 --> 132/290-->79/218. Probably EtOH induced. GI follow up as outpatient ?OH?on midodrine ?Tobacco abuse?counseling provided, was a nicotine patch ?Chronic respiratory failure secondary to pneumothorax due to rib fracture secondary to fall-pulmonology consult obtain recommendations followed. Patient pulled out his tracheostomy tube on 06/12/2018, has been decannulated since. Tracheostomy site has been healing well. ?Status post PEG?PEG tube care per nursing, oral feed has been restarted per speech therapy and pulmonology recommendations. Assembly Hand consult. Discussed with family the patient might be discharged with the PEG tube and would need outpatient GI/surgery consult for further PEG management. ?GI/DVT prophylaxis?on famotidine/enoxaparin ?Fall precautions ?Further medical management hospitalist recommendation ?Follow-up with PCP, pulmonology and GI/surgery for PEG tube as outpatient on discharge
--- NOTE | 2018-06-21 11:40 | PN.NEURO_ITS ---
Subjective: Per nursing no issues overnight. Patient denies any issues at this time. - Physical Exam General: Alert, Oriented x3, Cooperative HEENT: Atraumatic, PERRLA, EOMI, Normocephalic Neck: Supple, No JVD, Negative Carotid Bruits Lungs: Clear to auscultation, Normal air movement Cardiovascular: Regular rate, Regular Rhythm, Normal S1, Normal S2 Abdomen: Bowel Sounds Present, Soft, Non Tender Extremities: No edema, Capillary Refill Less than 3 Seconds Musculoskeletal: No Tenderness to Palpation of Joints or Extremities Neurological: Cranial nerves II-XII grossly intact Psych/Mental Status: Normal Affect, Appropriate, Alert and oriented to time, place, person, mood and affect Vital Signs Temp Pulse Resp BP Pulse Ox 98.1 F 83 16 104/58 L 97 06/21/18 08:43 06/20/18 22:00 06/21/18 08:43 06/21/18 08:43 06/21/18 08:43 Oxygen Flow Rate (L/min) 2 Oxygen Delivery Method Room Air Weight: 57.4 kg Body Mass Index (BMI) 19.5 Intake and Output for Last 24 Hours 06/19/18 06/20/18 06/21/18 23:59 23:59 23:59 Intake Total 1190 / 1190 1080 / 1080 830 / 830 Output Total 800 / 800 800 / 800 950 / 950 Balance 390 / 390 280 / 280 -120 / -120 Medical Necessity - Tobacco Use Smoking Status: Current every day smoker Tobacco Use: Cigarettes Assessment/Plan All Active Problems Hypokalemia (Acute) Pancytopenia (Acute) Hypophosphatemia (Acute) Hypomagnesemia (Acute) 63-year-old male with PMH EtOH abuse, tobacco abuse, bipolar disorder, admitted to [facility] on 06/10/2018 with debility, for greater than 3 hours therapy daily with a goal of returning back home at or near his prior level of functional independence. Patient had a fall on May 02, 2018, had rib fracture and pneumothorax, initial admission at [facility] ED, and was later transferred to [facility], hospital course there was complicated by alcohol withdrawal, pneumonia requiring tracheostomy and PEG placement. Plan ?PT for gait stability ?OT for ADLs -ST dysphagia ?Analgesics as needed ?Bowel protocol ?Modified barium swallow done on 06/19/2018 reported to show silent aspiration?on honey thickened liquid, speech therapy following ?Bipolar mood disorder?on lamotrigine and quetiapine, Klonopin ?EtOH abuse- counseling provided, on thiamine ?Labs?reviewed, abnormal LFTs, trending down. AST/ALT?182/388 --> 132/290-->79/218. Probably EtOH induced. GI follow up as outpatient ?OH?on midodrine ?Tobacco abuse?counseling provided, was a nicotine patch ?Chronic respiratory failure secondary to pneumothorax due to rib fracture secondary to fall-pulmonology consult obtain recommendations followed. Patient pulled out his tracheostomy tube on 06/12/2018, has been decannulated since. Tracheostomy site has been healing well. ?Status post PEG?PEG tube care per nursing, oral feed has been restarted per speech therapy and pulmonology recommendations. Web Art Director consult. Discussed with family the patient might be discharged with the PEG tube and would need outpatient GI/surgery consult for further PEG management. ?GI/DVT prophylaxis?on famotidine/enoxaparin ?Fall precautions ?Further medical management hospitalist recommendation ?Follow-up with PCP, pulmonology and GI/surgery for PEG tube as outpatient on discharge
--- NOTE | 2018-06-21 14:36 | NURSING ---
peg tube feeding and cleansing completed with patient and at this time.
[2018-06-21 19:50] VITALS: BP 115/75; PULSE 60; RESP 16; TEMP 36.6; O2SAT 94
[2018-06-21] MEDS: QUEtiapine 25 MG Tablet 50 MG PO (20:20)
[2018-06-21] MEDS: MELATONIN 3 MG TABLET 1.5 MG PO (20:20)
[2018-06-22] MEDS: Midodrine HCl 5 MG Tablet PO ×3 (06:00→21:06)
[2018-06-22] MEDS: Enoxaparin 40 MG/0.4 ML Syringe SC (06:00)
[2018-06-22 07:00] VITALS: BP 93/50; PULSE 66; RESP 18; TEMP 36.9; O2SAT 94
[2018-06-22] MEDS: Folic Acid 1 MG Tablet PO (08:39)
[2018-06-22] MEDS: clonazePAM 1 MG Tablet 2 MG PO ×2 (08:39→21:10)
[2018-06-22] MEDS: Thiamine Hydrochloride 100 MG Tablet PO (08:39)
[2018-06-22] MEDS: Famotidine 20 MG Tablet PO ×2 (08:39→21:06)
[2018-06-22] MEDS: lamoTRIgine 25 MG Tablet 12.5 MG PO ×2 (08:39→21:06)
[2018-06-22] MEDS: Jevity 1.5. 1,000 ML Bottle 350 ML GT ×2 (08:42→21:01)
[2018-06-22] MEDS: Chlorhexidine 480 ML 15 ML PO ×2 (09:07→21:05)
[2018-06-22 20:50] VITALS: BP 89/50; PULSE 64; RESP 20; TEMP 36.9; O2SAT 96
[2018-06-22] MEDS: QUEtiapine 25 MG Tablet 50 MG PO (21:05)
[2018-06-22] MEDS: MELATONIN 3 MG TABLET 1.5 MG PO (21:06)
[2018-06-22 21:11] VITALS: BP 98/57; PULSE 54
[2018-06-23] MEDS: Enoxaparin 40 MG/0.4 ML Syringe SC (06:03)
[2018-06-23] MEDS: Midodrine HCl 5 MG Tablet PO ×3 (06:03→22:46)
[2018-06-23] MEDS: lamoTRIgine 25 MG Tablet 12.5 MG PO ×2 (08:01→22:48)
[2018-06-23] MEDS: clonazePAM 1 MG Tablet 2 MG PO ×2 (08:01→22:49)
[2018-06-23] MEDS: Folic Acid 1 MG Tablet PO (08:01)
[2018-06-23] MEDS: Thiamine Hydrochloride 100 MG Tablet PO (08:01)
[2018-06-23] MEDS: Famotidine 20 MG Tablet PO ×2 (08:01→22:47)
[2018-06-23] MEDS: Chlorhexidine 480 ML 15 ML PO (08:10)
[2018-06-23 10:00] VITALS: BP 94/57; PULSE 57; RESP 16; TEMP 36.7; O2SAT 97
--- NOTE | 2018-06-23 11:34 | PN_ITS ---
Subjective: Patient seen and appears comfortable at rest. Per nursing staff he is eating more than 50% of his food. He still remains on thickened liquids. Objective: GENERAL: cooperative HEENT: Atraumatic; EYES; Anicteric, Normal Conjunctiva NECK; supple, normal thyroid, RESPIRATORY: Diminished to auscultation bilaterally, CARDIOVASCULAR: Regular S1 S2, GI: soft, non-tender, normoactive bowel sounds, : No Renal angle tenderness; EXTREMITIES: No edema, no clubbing, no cyanosis. NEURO: Awake; no lateralizing signs. SKIN: No Rash PSYCH; Normal affect Vitals/I&O's: Vital Signs Temp Pulse Resp BP Pulse Ox 98.5 F 54 L 20 H 98/57 L 96 06/22/18 20:50 06/22/18 21:11 06/22/18 20:50 06/22/18 21:11 06/22/18 20:50 Oxygen Flow Rate (L/min) 2 Oxygen Delivery Method Room Air Weight: 57.4 kg Body Mass Index (BMI) 19.5 Intake and Output for Last 24 Hours 06/21/18 06/22/18 06/23/18 23:59 23:59 23:59 Intake Total 2300 / 2300 2870 / 2870 490 / 490 Output Total 1200 / 1200 1200 / 1200 Balance 1100 / 1100 1670 / 1670 490 / 490 Current Medications Albuterol/Ipratropium (Duoneb) 3 ml INHALATION Q6H PRN PRN PRN Reason: CONGESTION Bisacodyl (Dulcolax) 10 mg RECTAL .PRN X 1 PRN PRN Reason: Constipation Chlorhexidine Gluconate (Peridex) 15 ml PO BID [facility] Last Admin: 06/23/18 08:10 Dose: 15 ml Clonazepam (Klonopin) 2 mg PO BID [facility] Last Admin: 06/23/18 08:01 Dose: 2 mg Emollient Ointment (Eucerin Intensive Repair) 1 applic TOPICAL 4X/DAY PRN PRN; Protocol PRN Reason: ITCHING Last Admin: 06/20/18 06:51 Dose: 1 applicatio Enoxaparin Sodium (Lovenox) 40 mg SC DAILY@0600 [facility] Last Admin: 06/23/18 06:03 Dose: 40 mg Enteral Nutritional Formula (Jevity 1.5) 350 ml GT QHS [facility] Last Admin: 06/22/18 21:01 Dose: 350 ml Enteral Nutritional Formula (Jevity 1.5) 350 ml GT TIDCM [facility] Last Admin: 06/23/18 07:56 Dose: Not Given Famotidine (Pepcid) 20 mg PO BID [facility] Last Admin: 06/23/18 08:01 Dose: 20 mg Fentanyl (Duragesic Patch) 12 mcg TRANSDERM. Q3D [facility] Last Admin: 06/22/18 13:23 Dose: 12 mcg Folic Acid (Folic Acid) 1 mg PO DAILY [facility] Last Admin: 06/23/18 08:01 Dose: 1 mg Hydroxyzine HCl (Atarax Tablet) 10 mg PO QHS PRN PRN Reason: ITCHING Lamotrigine (Lamictal Chew) 12.5 mg PO BID [facility] Last Admin: 06/23/18 08:01 Dose: 12.5 mg Loperamide HCl (Imodium) 2 mg PO Q2H PRN PRN PRN Reason: Diarrhea Magnesium Hydroxide (Milk Of Magnesia) 30 ml PO .PRN X 1 PRN PRN Reason: Constipation Melatonin (Melatonin) 1.5 mg PO QHS [facility] Last Admin: 06/22/18 21:06 Dose: 1.5 mg Midodrine (Proamatine) 5 mg PO TID [facility] Last Admin: 06/23/18 06:03 Dose: 5 mg Nutritional Formula (Lactose Free) (Ensure Enlive) 120 ml PO 4X/DAY [facility] Last Admin: 06/23/18 07:56 Dose: Not Given Quetiapine Fumarate (Seroquel) 50 mg PO QHS [facility] Last Admin: 06/22/18 21:05 Dose: 50 mg Senna/Docusate Sodium (Senokot-S, Christina-Colace) 2 tablet PO BID PRN PRN Reason: CONSTIPATION Thiamine HCl (Vitamin B1) 100 mg PO DAILY [facility] Last Admin: 06/23/18 08:01 Dose: 100 mg Medical Necessity - Tobacco Use Smoking Status: Current every day smoker Tobacco Use: Cigarettes Assessment/Plan All Active Problems Hypokalemia (Acute) Pancytopenia (Acute) Hypophosphatemia (Acute) Hypomagnesemia (Acute) Patient is a 63-year-old gentleman with a history of chronic alcohol abuse admitted to the inpatient rehab unit with significant debility following hospitalization at [facility] complicated by pneumopericardium pneumomediastinum as well as pneumoperitoneum following traumatic fall 1. Physical debility secondary to fall complicated by pneumopericardium pneumomediastinum as well as pneumoperitoneum. Patient has been admitted to the inpatient rehab unit where he is currently undergoing physical therapy for significant debility patient was started on oral feed on 06/19/2018 2. Abnormal liver function tests ??Residual effect of shock liver monitoring LFTs which are trending down 3. Chronic alcohol abuse counseled on cessation 4. Bipolar disorder patient is on Seroquel as well as Lamictal did continue 5. Tobacco dependence counseled on cessation, offered nicotine patch for tobacco cravings 6. Moderate protein calorie malnutrition with low BMI of 19.5 consult was placed to cash reconciliation specialist 7. GERD patient is on PPI 8. Episodic hypotension patient is on Midodrin 9. DVT prophylaxis SC Lovenox Disposition: Plan is for patient to be discharged home on 06/25/2018 Code Visit Inpatient E&M: 55077 Subs Hosp L2
[2018-06-23 19:28] VITALS: BP 121/69; PULSE 69; RESP 18; TEMP 36.8; O2SAT 98
[2018-06-23] MEDS: Jevity 1.5. 1,000 ML Bottle 350 ML GT (22:37)
[2018-06-23] MEDS: QUEtiapine 25 MG Tablet 50 MG PO (22:45)
[2018-06-23] MEDS: MELATONIN 3 MG TABLET 1.5 MG PO (22:47)
[2018-06-24] MEDS: Midodrine HCl 5 MG Tablet PO ×3 (06:03→21:06)
[2018-06-24] MEDS: Enoxaparin 40 MG/0.4 ML Syringe SC (06:03)
[2018-06-24 06:32] LABS: Anion Gap 8 (5-15); BUN 24 mg/dL (7-18); BUN/Creat Ratio 29.2 RATIO (10-20); Calcium,Total 9.1 mg/dL (8.5-10.1); Chloride 107 mmol/L (98-107); Creatinine, Serum 0.82 mg/dL (0.70-1.30); EST Glomerular Filtration Rate 100 mL/min (>60); Est Glom Filt Rate - Afr Amer 121 mL/min (>60); Estimated Creatinine Clearance 73.89 ml/min; Glucose 88 mg/dL (74-106); Sodium Level 139 mmol/L (136-145)
[2018-06-24 07:23] VITALS: BP 90/65; PULSE 66; RESP 12; TEMP 36.8; O2SAT 96
[2018-06-24] MEDS: clonazePAM 1 MG Tablet 2 MG PO ×2 (08:53→21:05)
[2018-06-24] MEDS: Folic Acid 1 MG Tablet PO (08:53)
[2018-06-24] MEDS: lamoTRIgine 25 MG Tablet 12.5 MG PO ×2 (08:54→21:06)
[2018-06-24] MEDS: Famotidine 20 MG Tablet PO ×2 (08:54→21:06)
[2018-06-24] MEDS: Thiamine Hydrochloride 100 MG Tablet PO (08:55)
--- NOTE | 2018-06-24 10:28 | NURSING ---
pt refusing am bolus of Jevity this morning. pt stated he did not need the feed and does not eat much for breakfast at home.
--- NOTE | 2018-06-24 11:48 | CASEMGMT ---
Addendum entered by Becky Garay 06/24/18 12:15: Therapy recommending straight cane. Pt requesting she be given script and she will get cane for pt. Nursing notified. ANTONY Higgins Original Note: Team meeting held today with pt, and daughter present. Pt is receiving PT/OT/ST and progressing well. D/C date set for tomorrow 06/25/18. Pt will not need tube feeding and states she has had training on flushing the peg tube and she feels comfortable with this. Therapy will provided a home exercise plan for pt and outpt ST is recommended. Pt is agreeable to outpt pt and would like to use [facility]. Pt stating she can transport to appointments. SW met with pt and and daughter after team meeting and reviewed discharge plan. All are agreeable to discharge home tomorrow with outpt ST at [facility]. SW provided resources for PCP as pt does not have a PCP at this time. Pt dgt received list of area PCPs and states she will call to find an accepting PCP. [facility] then spoke with pt and family regarding alcohol abuse. Pt acknowledges that he has a drinking problem and that this was the cause of health problems. Pt also stating that he has not drank for the last two months because of hospitalization and he does not plan to drink when he returns home. SW encouraged and dgt to remove all alcohol from pt home prior to his return and they state it has already been removed. Information on 180 provided to pt and dgt took this resource for pt. Referral made to [facility] and they will call pt to set up appointment. No other d/c needs at this time. Plan: D/C home with spouse on 06/25/18 with outpt Speech ANTONY Higgins
--- NOTE | 2018-06-24 11:51 | PCM.PN.NEU ---
Subjective: Per nursing no issues overnight. Team meeting held this am. Per therapy patient is Independent with all transfers and self care. Per Speech will continue with honey thickened liquids, soft diet and Cuadra water protocol D/T continues to silent aspiration from barium swallow assessment on 06/19/2018. Per patient Fentanyl 12 mcg ineffective for chronic back pain and Tylenol has been effective in the past. Patient has been eating >50% of meals majority of the time except for some times during breakfast, which he states he did not usually eat breakfast prior to admission. Plan is to discharge home on 06/25/2018. - Physical Exam General: Alert, Oriented x3, Cooperative HEENT: Atraumatic, PERRLA Oral: Moist Mucosa Neck: Supple, No JVD Lungs: Clear to auscultation, Normal air movement Cardiovascular: Regular rate, Regular Rhythm Abdomen: Bowel Sounds Present, Soft, Non Tender Musculoskeletal: No Tenderness to Palpation of Joints or Extremities Neurological: Cranial nerves II-XII grossly intact, Deep Tendon Reflexes 2+/4 and Symmetrical, Neuro grossly intact, Motor Exam 5/5 strength throughout, Coordination normal Psych/Mental Status: Normal Affect, Appropriate, Alert and oriented to time, place, person, mood and affect Vital Signs Temp Pulse Resp BP Pulse Ox 98.3 F 66 12 90/65 96 06/24/18 07:23 06/24/18 07:23 06/24/18 07:23 06/24/18 07:23 06/24/18 07:23 Oxygen Flow Rate (L/min) 2 Oxygen Delivery Method Room Air Weight: 57.3 kg Body Mass Index (BMI) 19.5 Intake and Output for Last 24 Hours 06/22/18 06/23/18 06/24/18 23:59 23:59 23:59 Intake Total 2870 / 2870 1650 / 1650 270 / 270 Output Total 1200 / 1200 1100 / 1100 200 / 200 Balance 1670 / 1670 550 / 550 70 / 70 Laboratory Tests Past 24 Hrs 06/24/18 06:00 Sodium 139 Potassium 4.0 Chloride 107 Carbon Dioxide 24.0 Anion Gap 8 BUN 24 H Creatinine 0.82 Estim Creat Clear Calc 73.89 Est GFR (MDRD) Af Amer 121 Est GFR (MDRD) Non-Af 100 BUN/Creatinine Ratio 29.2 H Glucose 88 Calcium 9.1 Medical Necessity - Tobacco Use Smoking Status: Current every day smoker Tobacco Use: Cigarettes Assessment/Plan All Active Problems Hypokalemia (Acute) Pancytopenia (Acute) Hypophosphatemia (Acute) Hypomagnesemia (Acute) 63-year-old male with PMH EtOH abuse, tobacco abuse, bipolar disorder, admitted to [facility] on 06/10/2018 with debility, for greater than 3 hours therapy daily with a goal of returning back home at or near his prior level of functional independence. Patient had a fall on May 02, 2018, had rib fracture and pneumothorax, initial admission at [facility] ED, and was later transferred to [facility] course there was complicated by alcohol withdrawal, pneumonia requiring tracheostomy and PEG placement. Jevity Bolus discontinued, continue to flush peg with sterile water to keep patent BID. Fentanyl patch discontinued and started PRN Tylenol for chronic back pain. Plan ?PT for gait stability ?OT for ADLs -ST dysphagia ?Analgesics as needed ?Bowel protocol ?Modified barium swallow done on 06/19/2018 reported to show silent aspiration?on honey thickened liquid, speech therapy following ?Bipolar mood disorder?on lamotrigine and quetiapine, Klonopin ?EtOH abuse- counseling provided, on thiamine ?Labs?reviewed, abnormal LFTs, trending down. AST/ALT?182/388 --> 132/290-->79/218. Probably EtOH induced. GI follow up as outpatient ?OH?on midodrine ?Tobacco abuse?counseling provided, was a nicotine patch ?Chronic respiratory failure secondary to pneumothorax due to rib fracture secondary to fall-pulmonology consult obtain recommendations followed. Patient pulled out his tracheostomy tube on 06/12/2018, has been decannulated since. Tracheostomy site has been healing well. ?Status post PEG?PEG tube care per nursing, Jevity Bolus discontinued. Continue Operations Agent consult. Discussed with family the patient might be discharged with the PEG tube and would need outpatient GI/surgery consult for further PEG management. ?GI/DVT prophylaxis?on famotidine/enoxaparin ?Fall precautions ?Further medical management hospitalist recommendation ?Follow-up with PCP, pulmonology and GI/surgery for PEG tube as outpatient on discharge
--- NOTE | 2018-06-24 14:46 | PCM.DC ---
- Discharge Diagnoses Current Active Problems: Current Active and Chronic Problems Chronic respiratory failure (Chronic) Reason(s) for Visit for Discharge Instructions: Debility secondary to chronic respiratory failure You will use the following diet at home:: Regular - Supervision; seated at 90 degrees; pills w/ liquids Your food should be the consistency of: Soft (bite-sized & easy to chew/swallow) Your liquids should be the consistency of: Honey Thick - Cuadra water protocol Discharge Activity: Return to Normal Activity, May Drive, May Shower Weight Bearing Status: Weight bearing as tolerated Call your doctor if you observe: Fever of 101 or Higher, Coldness, Increased Pain, Numbness or Tingling, Inability to urinate, Inability to have a bowel movement, Shortness of breath, Dizziness, Fainting spells, Chest pain, Prolonged hiccoughing, Increased palpitations (irregular heartbeat), Calf discomfort, Uncontrolled pain Allergies/Adverse Reactions: Allergies codeine Allergy (Verified 05/02/18 15:59) Itching Medications to take at Discharge Acetaminophen [Tylenol] 500 mg PO Q4H PRN PRN tablet 06/24/18 Chlorhexidine 15 mls PO BID #0 06/24/18 Clonazepam [Klonopin] 2 mg PO BID tablet 06/24/18 Famotidine [Pepcid] 20 mg PO BID #0 06/24/18 Folic Acid 1 mg PO DAILY #0 06/24/18 Lamotrigine [Lamictal Xr] 25 mg PO DAILY #0 06/24/18 Melatonin 1.5 mg PO QHS #0 06/24/18 Midodrine HCl 5 mg PO TID #0 06/24/18 Quetiapine Fumarate 50 mg PO QHS #0 06/24/18 Thiamine Hydrochloride [Vitamin B1] 100 mg PO DAILY #0 06/24/18 Primary Care Physician: Care Physician,No Primary [Primary Care Provider] - Test Results: Test results from this visit will be discussed in further detail at your follow-up appointment, if applicable. Please Follow Up With: Audie Issa DO When: Please Follow Up With: Jeni Grajeda NP-C When: Please Follow Up With: [facility] Proposed Discharge Date: 06/25/18
--- NOTE | 2018-06-24 14:51 | DCINST_ITS ---
- Discharge Diagnoses Current Active Problems: Current Active and Chronic Problems Chronic respiratory failure (Chronic) Reason(s) for Visit for Discharge Instructions: Debility secondary to chronic respiratory failure You will use the following diet at home:: Regular - Supervision; seated at 90 degrees; pills w/ liquids Your food should be the consistency of: Soft (bite-sized & easy to chew/swallow) Your liquids should be the consistency of: Honey Thick - Cuadra water protocol Discharge Activity: Return to Normal Activity, May Drive, May Shower Weight Bearing Status: Weight bearing as tolerated Call your doctor if you observe: Fever of 101 or Higher, Coldness, Increased Pain, Numbness or Tingling, Inability to urinate, Inability to have a bowel movement, Shortness of breath, Dizziness, Fainting spells, Chest pain, Prolonged hiccoughing, Increased palpitations (irregular heartbeat), Calf discomfort, Uncontrolled pain Allergies/Adverse Reactions: Allergies codeine Allergy (Verified 05/02/18 15:59) Itching Medications to take at Discharge Acetaminophen [Tylenol] 500 mg PO Q4H PRN PRN tablet 06/24/18 Chlorhexidine 15 mls PO BID #0 06/24/18 Clonazepam [Klonopin] 2 mg PO BID tablet 06/24/18 Famotidine [Pepcid] 20 mg PO BID #0 06/24/18 Folic Acid 1 mg PO DAILY #0 06/24/18 Lamotrigine [Lamictal Xr] 25 mg PO DAILY #0 06/24/18 Melatonin 1.5 mg PO QHS #0 06/24/18 Midodrine HCl 5 mg PO TID #0 06/24/18 Quetiapine Fumarate 50 mg PO QHS #0 06/24/18 Thiamine Hydrochloride [Vitamin B1] 100 mg PO DAILY #0 06/24/18 Primary Care Physician: Care Physician,No Primary [Primary Care Provider] - Test Results: Test results from this visit will be discussed in further detail at your follow- up appointment, if applicable. Please Follow Up With: Audie Issa DO When: Please Follow Up With: Jeni Grajeda NP-C When: Please Follow Up With: [facility] Proposed Discharge Date: 06/25/18
--- NOTE | 2018-06-24 15:04 | PCM.RU.DC ---
Rehab Discharge Summary DATE OF ADMISSION: 06/10/18 DATE OF DISCHARGE: 06/25/2018 - Rehab Diagnosis Debility secondary to chronic respiratory failure - Physical Exam General: Alert, Oriented x3, Cooperative HEENT: Atraumatic, PERRLA Oral: Moist Mucosa Neck: Supple, No JVD Lungs: Clear to auscultation, Normal air movement Cardiovascular: Regular rate, Regular Rhythm Abdomen: Bowel Sounds Present, Soft, Non Tender Extremities: No clubbing, No cyanosis, No edema Neurological: Cranial nerves II-XII grossly intact, Deep Tendon Reflexes 2+/4 and Symmetrical, Neuro grossly intact, Motor Exam 5/5 strength throughout, Coordination normal Psych/Mental Status: Normal Affect, Appropriate, Alert and oriented to time, place, person, mood and affect Vital Signs Temp Pulse Resp BP Pulse Ox 98.3 F 66 12 90/65 96 06/24/18 07:23 06/24/18 07:23 06/24/18 07:23 06/24/18 07:23 06/24/18 07:23 Oxygen Flow Rate (L/min) 2 Oxygen Delivery Method Room Air Weight: 57.3 kg Body Mass Index (BMI) 19.5 Intake and Output for Last 24 Hours 06/22/18 06/23/18 06/24/18 23:59 23:59 23:59 Intake Total 2870 / 2870 1650 / 1650 270 / 270 Output Total 1200 / 1200 1100 / 1100 200 / 200 Balance 1670 / 1670 550 / 550 70 / 70 Laboratory Tests Past 24 Hrs 06/24/18 06:00 Sodium 139 Potassium 4.0 Chloride 107 Carbon Dioxide 24.0 Anion Gap 8 BUN 24 H Creatinine 0.82 Estim Creat Clear Calc 73.89 Est GFR (MDRD) Af Amer 121 Est GFR (MDRD) Non-Af 100 BUN/Creatinine Ratio 29.2 H Glucose 88 Calcium 9.1 Discharge Diet: Soft diet, Swallowing Precautions, - - honey thickened liquids, rosenberg water protocol, Supervision; seated at 90 degrees; pills w/ liquids Discharge Activity: Return to Normal Activity, May Drive, May Shower Weight Bearing Status: Weight bearing as tolerated - with cane Call your doctor if you observe: Fever of 101 or Higher, Coldness, Increased Pain, Numbness or Tingling, Inability to urinate, Inability to have a bowel movement, Shortness of breath, Dizziness, Fainting spells, Chest pain, Prolonged hiccoughing, Increased palpitations (irregular heartbeat), Calf discomfort, Uncontrolled pain Home Medications: Medications to take at Discharge Acetaminophen [Tylenol] 500 mg PO Q4H PRN PRN tablet 06/24/18 Chlorhexidine 15 mls PO BID #0 06/24/18 Clonazepam [Klonopin] 2 mg PO BID tablet 06/24/18 Famotidine [Pepcid] 20 mg PO BID #0 06/24/18 Folic Acid 1 mg PO DAILY #0 06/24/18 Lamotrigine [Lamictal Xr] 25 mg PO DAILY #0 06/24/18 Melatonin 1.5 mg PO QHS #0 06/24/18 Midodrine HCl 5 mg PO TID #0 06/24/18 Quetiapine Fumarate 50 mg PO QHS #0 06/24/18 Thiamine Hydrochloride [Vitamin B1] 100 mg PO DAILY #0 06/24/18 Primary Care Physician: Care Physician,No Primary [Primary Care Provider] - Please Follow Up With: Audie Issa DO When: Please Follow Up With: Jeni Grajeda NP-Todd When: Please Follow Up With: [facility]-Speech Therapy Disposition: Home - outpatient speech therapy Patient Condition:: Stable Rehab Course The patient is a 63 year old male with PMH EtOH abuse, tobacco abuse, bipolar disorder, tracheostomy and peg placement admitted to [facility] on 06/10/2018 with debility, for greater than 3 hours therapy daily with a goal of returning back home at or near his prior level of functional independence. Patient tolerated therapies well. Jevity Bolus discontinued, continue to flush peg with sterile water to keep patent BID. Patient to follow-up with PCP and Pulmonary Jeni Grajeda NP-C. as outpatient for further evaluation and management. ] Meaningful Use Info Meaningful Use Diagnoses (Choose all that apply): None applicable
--- NOTE | 2018-06-24 15:08 | DS.PCM_ITS ---
Rehab Discharge Summary DATE OF ADMISSION: 06/10/18 DATE OF DISCHARGE: 06/25/2018 - Rehab Diagnosis Debility secondary to chronic respiratory failure - Physical Exam General: Alert, Oriented x3, Cooperative HEENT: Atraumatic, PERRLA Oral: Moist Mucosa Neck: Supple, No JVD Lungs: Clear to auscultation, Normal air movement Cardiovascular: Regular rate, Regular Rhythm Abdomen: Bowel Sounds Present, Soft, Non Tender Extremities: No clubbing, No cyanosis, No edema Neurological: Cranial nerves II-XII grossly intact, Deep Tendon Reflexes 2+/4 and Symmetrical, Neuro grossly intact, Motor Exam 5/5 strength throughout, Coordination normal Psych/Mental Status: Normal Affect, Appropriate, Alert and oriented to time, place, person, mood and affect Vital Signs Temp Pulse Resp BP Pulse Ox 98.3 F 66 12 90/65 96 06/24/18 07:23 06/24/18 07:23 06/24/18 07:23 06/24/18 07:23 06/24/18 07:23 Oxygen Flow Rate (L/min) 2 Oxygen Delivery Method Room Air Weight: 57.3 kg Body Mass Index (BMI) 19.5 Intake and Output for Last 24 Hours 06/22/18 06/23/18 06/24/18 23:59 23:59 23:59 Intake Total 2870 / 2870 1650 / 1650 270 / 270 Output Total 1200 / 1200 1100 / 1100 200 / 200 Balance 1670 / 1670 550 / 550 70 / 70 Laboratory Tests Past 24 Hrs 06/24/18 06:00 Sodium 139 Potassium 4.0 Chloride 107 Carbon Dioxide 24.0 Anion Gap 8 BUN 24 H Creatinine 0.82 Estim Creat Clear Calc 73.89 Est GFR (MDRD) Af Amer 121 Est GFR (MDRD) Non-Af 100 BUN/Creatinine Ratio 29.2 H Glucose 88 Calcium 9.1 Discharge Diet: Soft diet, Swallowing Precautions, - - honey thickened liquids, rosenberg water protocol, Supervision; seated at 90 degrees; pills w/ liquids Discharge Activity: Return to Normal Activity, May Drive, May Shower Weight Bearing Status: Weight bearing as tolerated - with cane Call your doctor if you observe: Fever of 101 or Higher, Coldness, Increased Pain, Numbness or Tingling, Inability to urinate, Inability to have a bowel movement, Shortness of breath, Dizziness, Fainting spells, Chest pain, Prolonged hiccoughing, Increased palpitations (irregular heartbeat), Calf discomfort, Uncontrolled pain Home Medications: Medications to take at Discharge Acetaminophen [Tylenol] 500 mg PO Q4H PRN PRN tablet 06/24/18 Chlorhexidine 15 mls PO BID #0 06/24/18 Clonazepam [Klonopin] 2 mg PO BID tablet 06/24/18 Famotidine [Pepcid] 20 mg PO BID #0 06/24/18 Folic Acid 1 mg PO DAILY #0 06/24/18 Lamotrigine [Lamictal Xr] 25 mg PO DAILY #0 06/24/18 Melatonin 1.5 mg PO QHS #0 06/24/18 Midodrine HCl 5 mg PO TID #0 06/24/18 Quetiapine Fumarate 50 mg PO QHS #0 06/24/18 Thiamine Hydrochloride [Vitamin B1] 100 mg PO DAILY #0 06/24/18 Primary Care Physician: Care Physician,No Primary [Primary Care Provider] - Please Follow Up With: Audie Issa DO When: Please Follow Up With: Jeni Grajeda NP-Todd When: Please Follow Up With: [email or web address] Therapy Disposition: Home - outpatient speech therapy Patient Condition:: Stable Rehab Course The patient is a 63 year old male with PMH EtOH abuse, tobacco abuse, bipolar disorder, tracheostomy and peg placement admitted to [facility] on 06/10/2018 with debility, for greater than 3 hours therapy daily with a goal of returning back home at or near his prior level of functional independence. Patient tolerated therapies well. Jevity Bolus discontinued, continue to flush peg with sterile water to keep patent BID. Patient to follow- up with PCP and Pulmonary Jeni Grajeda NP-C. as outpatient for further evaluation and management. ] Meaningful Use Info Meaningful Use Diagnoses (Choose all that apply): None applicable
--- NOTE | 2018-06-24 16:13 | DS.PCM_ITS ---
Rehab Discharge Summary DATE OF ADMISSION: 06/10/18 DATE OF DISCHARGE: 06/25/2018 - Rehab Diagnosis Debility secondary to chronic respiratory failure Subjective: Denies any questions or concerns. Discussed plan for discharge and medications and denies need for prescriptions for discharge. - Physical Exam General: Oriented x3, Cooperative, No apparent distress HEENT: Atraumatic, PERRLA Neck: Supple, No JVD Lungs: Clear to auscultation, Normal air movement Cardiovascular: Regular rate, Regular Rhythm, Normal S1, Normal S2 Abdomen: Bowel Sounds Present, Soft, Non Tender Extremities: No clubbing, No cyanosis, No edema Neurological: Cranial nerves II-XII grossly intact, Deep Tendon Reflexes 2+/4 and Symmetrical, Motor Exam 5/5 strength throughout, Coordination normal Psych/Mental Status: Normal Affect, Appropriate, Alert and oriented to time, place, person, mood and affect Vital Signs Temp Pulse Resp BP Pulse Ox 98.3 F 66 12 90/65 96 06/24/18 07:23 06/24/18 07:23 06/24/18 07:23 06/24/18 07:23 06/24/18 07:23 Oxygen Flow Rate (L/min) 2 Oxygen Delivery Method Room Air Weight: 57.3 kg Body Mass Index (BMI) 19.5 Intake and Output for Last 24 Hours 06/22/18 06/23/18 06/24/18 23:59 23:59 23:59 Intake Total 2870 / 2870 1650 / 1650 270 / 270 Output Total 1200 / 1200 1100 / 1100 200 / 200 Balance 1670 / 1670 550 / 550 70 / 70 Laboratory Tests Past 24 Hrs 06/24/18 06:00 Sodium 139 Potassium 4.0 Chloride 107 Carbon Dioxide 24.0 Anion Gap 8 BUN 24 H Creatinine 0.82 Estim Creat Clear Calc 73.89 Est GFR (MDRD) Af Amer 121 Est GFR (MDRD) Non-Af 100 BUN/Creatinine Ratio 29.2 H Glucose 88 Calcium 9.1 Discharge Diet: Swallowing Precautions - honey thickend liquids, rosenberg water protocol, sit up at 90 degress for all meals Discharge Activity: Return to Normal Activity, May Drive, May Shower Weight Bearing Status: Weight bearing as tolerated - with cane Call your doctor if you observe: Fever of 101 or Higher, Coldness, Increased Pain, Numbness or Tingling, Inability to urinate, Inability to have a bowel movement, Shortness of breath, Dizziness, Fainting spells, Chest pain, Prolonged hiccoughing, Increased palpitations (irregular heartbeat), Calf discomfort, Uncontrolled pain Home Medications: Medications to take at Discharge Acetaminophen [Tylenol] 500 mg PO Q4H PRN PRN tablet 06/24/18 Chlorhexidine 15 mls PO BID #0 06/24/18 Clonazepam [Klonopin] 2 mg PO BID tablet 06/24/18 Famotidine [Pepcid] 20 mg PO BID #0 06/24/18 Folic Acid 1 mg PO DAILY #0 06/24/18 Lamotrigine [Lamictal Xr] 25 mg PO DAILY #0 06/24/18 Melatonin 1.5 mg PO QHS #0 06/24/18 Midodrine HCl 5 mg PO TID #0 06/24/18 Quetiapine Fumarate 50 mg PO QHS #0 06/24/18 Thiamine Hydrochloride [Vitamin B1] 100 mg PO DAILY #0 06/24/18 Primary Care Physician: Care Physician,No Primary [Primary Care Provider] - Please Follow Up With: Audie Issa DO When: Please Follow Up With: Jeni Grajeda NP-C When: Please Follow Up With: [facility]-Speech Therapy Disposition: Home - outpatient speech therapy Patient Condition:: Stable Rehab Course The patient is a 63 year old M [he patient male with PMH EtOH abuse, tobacco abuse, bipolar disorder, tracheostomy and peg placement admitted to [facility] on 06/10/2018 with debility, for greater than 3 hours therapy daily with a goal of returning back home at or near his prior level of functional independence. Patient tolerated therapies well. Trach was dislodged by patient on 06/12/2018 and patient was not not in acute distress. Spool Sander Dr. Colon consulted on this patient and the trach was not reinserted and patient remained hemodynamically stable. Jevity Bolus discontinued, continue to flush peg with sterile water to keep patent BID. Patient is tolerating soft diet with honey thickened liquids and will be discharged home with this consistency due to swallowing evaluation assessment on 06/19/2017 demonstrated silent aspiration. was educated by nursing and speech therapy in regards to honey thickened liquids, diet consistency and Rosenberg water protocol. Patient to follow-up with PCP and Pulmonary Jeni Grajeda [employer] STUFFER-C as outpatient for further evaluation and management. Meaningful Use Info Meaningful Use Diagnoses (Choose all that apply): None applicable
[2018-06-24 21:00] VITALS: PULSE 70; RESP 16; O2SAT 97
[2018-06-24] MEDS: MELATONIN 3 MG TABLET 1.5 MG PO (21:06)
[2018-06-24] MEDS: QUEtiapine 25 MG Tablet 50 MG PO (21:06)
[2018-06-24 21:34] VITALS: BP 103/68; PULSE 70; RESP 16; TEMP 36.8; O2SAT 97
--- NOTE | 2018-06-25 04:38 | NURSING ---
reviewed and agree with global process owner documentation and fims charting
[2018-06-25] MEDS: Enoxaparin 40 MG/0.4 ML Syringe SC (06:27)
[2018-06-25] MEDS: Midodrine HCl 5 MG Tablet PO (06:27)
[2018-06-25 07:30] VITALS: BP 90/53; PULSE 57; RESP 16; TEMP 36.6; O2SAT 96
[2018-06-25] MEDS: clonazePAM 1 MG Tablet 2 MG PO (09:13)
[2018-06-25] MEDS: lamoTRIgine 25 MG Tablet 12.5 MG PO (09:13)
[2018-06-25] MEDS: Famotidine 20 MG Tablet PO (09:13)
[2018-06-25] MEDS: Folic Acid 1 MG Tablet PO (09:14)
[2018-06-25] MEDS: Thiamine Hydrochloride 100 MG Tablet PO (09:14)
[2018-06-25 10:45] VITALS: BP 90/53; PULSE 57; RESP 16; TEMP 36.6; O2SAT 96
--- NOTE | 2018-06-25 10:45 | NURSING ---
Discharged to home, aware of how to flush peg tube and has demonstrated appropriately, verbalized understanding to appts and medications and time regimen. Patient and also verbalized understanding to thickened liquid order. Trach care instruct verbalized.
== END 2018-06-25 10:45 | disposition home or self-care (01) | DRG 948 ==
PROVIDERS: Internal Medicine; Psychiatry & Neurology Neurology; Admitting Provider Psychiatry & Neurology Neurology; Referring Provider Psychiatry & Neurology Neurology
DX: R53.81 Other malaise (principal); J96.10 Chronic respiratory failure, unspecified whether with hypoxia or hypercapnia; E44.0 Moderate protein-calorie malnutrition; Z68.1 Body mass index [BMI] 19.9 or less, adult; T85.628A Displacement of other specified internal prosthetic devices, implants and grafts, initial encounter; Z93.1 Gastrostomy status; I95.9 Hypotension, unspecified; K21.9 Gastro-esophageal reflux disease without esophagitis; F10.11 Alcohol abuse, in remission; F31.9 Bipolar disorder, unspecified; I10 Essential (primary) hypertension; Z87.891 Personal history of nicotine dependence; G89.29 Other chronic pain; Z87.01 Personal history of pneumonia (recurrent); Z91.81 History of falling; Z87.81 Personal history of (healed) traumatic fracture; Y82.8 Other medical devices associated with adverse incidents; Y92.129 Unspecified place in nursing home as the place of occurrence of the external cause; R74.8 Abnormal levels of other serum enzymes
CPT/HCPCS: 36415; 74230; 80048; 80076; 82962; 83735; 85025; 92507; 92523; 92526; 92610; 92611; 93005; 97110; 97116; 97162; 97166; 97530; 97535; 97802; 97803; 99406

== ENCOUNTER → 2018-07-01 | Outpatient (CLI) | payer MEDICARE, SELFPAY ==
[2018-06-10 15:33] VITALS: BMI 19.5
[2018-07-01 17:17] LABS: Absolute Lymphocyte Count 2.11 X10^3/ul (0.83-4.51); Absolute Neutrophil Count 4.6 X10^3/uL (2.0-7.7); Basophil# 0.04 X10^3/uL; Basophil% 0.6 % (0-1); Eosinophil# 0.06 X10^3/uL; Eosinophils% 0.8 % (0-5); Hematocrit 37.3 % (40-54); Hemoglobin 12.2 g/dl (13.0-16.5); Lymphocyte # 2.11 X10^3/ul (4.0); Mean Corp Hgb Conc 32.7 g/gl (32-36); Mean Corpuscular Hgb 31.5 pg (27.0-32.0); Mean Corpuscular Volume 96.4 fL (80-94); Mean Platelet Vol. 10.5 fl (6.2-12.0); Monocyte# 0.42 X10^3/uL; Monocyte% 5.8 % (0-10); Neutrophil # 4.63 X10^3/uL (2.7-7.7); Neutrophil % 63.7 % (47-70); Platelet Count 191 K/mm3 (150-450); RBC Distribution Width CV 14.9 % (11.6-14.6); RBC Distribution Width SD 50.2 fl (35.1-43.9); Red Blood Count 3.87 M/mm3 (4.6-6.2); White Blood Count 7.3 K/mm3 (4.4-11.0)
[2018-07-01 17:18] LABS: POSITIVE COUNT NO; POSITIVE DIFFERENTIAL NO; POSITIVE MORPHOLOGY NO
[2018-07-01 18:05] LABS: ALB/GLOB Ratio 0.7 RATIO (0.9-2.4); AST(SGOT) 28 U/L (15-37); Alanine Aminotransfer ALT/SGPT 54 U/L (16-61); Albumin, Serum 3.4 g/dL (3.2-5.0); Alkaline Phosphatase 155 U/L (45-117); Anion Gap 6 (5-15); BUN 12 mg/dL (7-18); BUN/Creat Ratio 14.9 RATIO (10-20); Calcium,Total 9.3 mg/dL (8.5-10.1); Chloride 108 mmol/L (98-107); Creatinine, Serum 0.81 mg/dL (0.70-1.30); EST Glomerular Filtration Rate 102 mL/min (>60); Est Glom Filt Rate - Afr Amer 124 mL/min (>60); Globulin 4.6 g/dL (2.2-4.2); Glucose 85 mg/dL (74-106); PSA,Total - Annual Screen 1.67 ng/mL (0.00-4.00); Potassium 4.3 mmol/L (3.5-5.1); Sodium Level 143 mmol/L (136-145); Thyroid Stim Hormone (TSH) 1.57 uIU/mL (0.358-3.74)
[2018-07-03 12:12] LABS: Hep C Antibodies 0.1 s/co ratio (0.0-0.9)
== END | disposition home or self-care (01) ==
LOC: POLAB3 17:01
PROVIDERS: Family Provider Family Medicine Geriatric Medicine; PCP Family Medicine Geriatric Medicine; Visit Provider Family Medicine Geriatric Medicine
DX: R53.83 Other fatigue (principal); Z12.5 Encounter for screening for malignant neoplasm of prostate; Z13.89 Encounter for screening for other disorder
CPT/HCPCS: 36415; 80053; 84153; 84443; 85025; 86803; G0103

== ENCOUNTER 2018-11-15 21:17 | Emergency (ER) | payer SELFPAY ==
[2018-07-18 14:16] VITALS: BMI 19.3
[2018-11-15 21:18] VITALS: BP 127/77; PULSE 73; RESP 16; TEMP 36.6; O2SAT 94; BMI 18.1
--- NOTE | 2018-11-15 22:20 | CT_ITS ---
HISTORY:CONFUSION AFTER FALLING AND DRINKING,FALL CONFUSION AFTER FALLING AND DRINKING,FALL TECHNIQUE: Multiple axial images were obtained of the brain without intravenous contrast. A radiation dose optimization technique was used for this scan. IV Contrast dosage and agent: None. COMPARISON: May 02, 2018 FINDINGS: # of images incl. paperwork: 254 INFARCT: None HEMORRHAGE: None PARENCHYMAL ATTENUATION:Cortical and cerebellar atrophy similar to prior study Mild periventricular white matter low density compatible with chronic small vessel ischemic change MASS: None MIDLINE SHIFT: None BASAL CISTERNS: Patent VENTRICLES: Normal in size and configuration for age PARANASAL SINUSES:Clear MASTOID AIR CELLS: Clear ORBITS:No acute pathology CALVARIUM: No acute pathology OTHER TISSUES: No acute pathology ASPECTS Score for Acute Strokes: 10 CT/Brain/Head without Contrast IMPRESSION: No acute intracranial pathology. Chronic changes as discussed in prior study Individualized dose optimization techniques were used for this CT. at 2310 Reported and signed by: Cheyanne Wells DO Electronically Signed: Cheyanne Wells DO at 23:09 EDT Tel , Service support ,
--- NOTE | 2018-11-15 22:21 | EKG12_ITS ---
Test Reason : DYSRHYTHMIA Blood Pressure : / mmHG Vent. Rate : 058 BPM Atrial Rate : 058 BPM P-R Int : 136 ms QRS Dur : 064 ms QT Int : 438 ms P-R-T Axes : 058 072 074 degrees QTc Int : 429 ms Sinus bradycardia with Premature atrial complexes Otherwise normal ECG Confirmed by CHRIS MAHER, JENNIFER ([id number]), news assignment editor AKIN IGLESIAS ([id number]) on 11/18/2018 8:55:31 AM Referred By: MATEO Confirmed By:JENNIFER PEREZ MD
--- NOTE | 2018-11-15 22:21 | ED.DCSUM_ITS ---
History of Present Illness Chief Complaint: Fall Narrative: Patient is a 63-year-old male who presents with weakness and a fall. He had gotten up to go to the bathroom and needed assistance getting back to the kitchen counter. He told family that he could not stand. The put him in her Rollator and helped him to the living room where he tried to stand up and fell. The patient does not believe he injured anything. He denies any pain. He does have chronic back pain but this is at baseline and unchanged. He was unable to stand on his own. He had told EMS that he is drinking tequila however family states that there is no tequila in the house and they are unable to find any as well. The patient states I must of hidden it. Family denies any recent illness such as fevers cough vomiting diarrhea. Patient denies any chest pain or shortness of breath. He is treated for bipolar and takes benzodiazepi dav and melatonin but no other medications denies history of heart disease stroke diabetes hypertension. Past Medical History - Allergies and Home Meds Allergies/Adverse Reactions: Allergies codeine Allergy (Verified 11/15/18 21:18) Itching Primary Care Physician: Jules Rust Chi, MD [Primary Care Provider] - Past Medical History: - - Bipolar Surgical History: - - colonoscopy and removal of polyp Smoking Status: Current every day smoker - Family History Maternal Family History: Reports: - - pt unable to give me FH at this time Review of Systems All systems negative except as indicated Musculoskeletal: Reports: Back pain Neurological: Reports: Weakness Physical Exam Vital Signs/Narrative: Vital Signs Temp Pulse Resp BP Pulse Ox 11/15/18 21:18 98 F 73 16 127/77 H 94 Inital Vital Signs reviewed: Yes General: No Acute Distress Head: Normocephalic, Atraumatic Eyes: EOMI ENT: Moist mucous membranes Neck: Supple Cardiovascular: Regular rate, Regular rhythm Respiratory: No distress, CTA bilaterally Abdomen: Soft, Nontender, Nondistended Back: Nontender Extremities: Nontender Skin: Normal color Neurological: - - Drowsy but oriented x3 answers all questions appropriately he does have delayed slowed speech with slurring he is oriented to age place and month Psychological: Normal affect Diagnostic/Tx/Re-eval Impressions Brain CT 11/15/18 22:20 IMPRESSION: No acute intracranial pathology. Chronic changes as discussed in prior study Individualized dose optimization techniques were used for this CT. at 2310 Reported and signed by: Cheyanne Wells DO Electronically Signed: Cheyanne Wells DO at 23:09 EDT Tel , Service support , Chest X-Ray 11/15/18 22:27 IMPRESSION: No radiographic evidence of acute cardiopulmonary disease. at 2247 Reported and signed by: Cheyanne Wells DO Electronically Signed: Cheyanne Wells DO at 22:46 EDT Tel , Service support , 11/15/18 22:20 Brain/Head without Contrast [CT] Stat 11/15/18 22:27 Chest 1 View (Portable) [RAD] Stat Laboratory Results 11/15/18 11/15/18 11/15/18 22:40 22:40 22:40 WBC 5.8 RBC 4.41 L Hgb 15.1 Hct 45.2 MCV 102.5 H MCH 34.2 H MCHC 33.4 RDW Std Deviation 50.4 H RDW Coeff of Marlyn 13.2 Plt Count TNP MPV 11.8 Immature Gran % (Auto) 0.200 Neut % (Auto) 38.3 L Lymph % (Auto) 52.6 H [place] % (Auto) 6.0 Eos % (Auto) 1.9 Baso % (Auto) 1.0 Absolute Neuts (auto) 2.2 Absolute Lymphs (auto) 3.07 Nucleated RBC % 0 Differential Comment SCANNNED Platelet Estimate ADEQUATE Sodium 139 Potassium 5.2 H Chloride 103 Carbon Dioxide 25.0 Anion Gap 11 BUN 13 Creatinine 0.66 L Estim Creat Clear Calc 88.92 Est GFR (MDRD) Af Amer 157 Est GFR (MDRD) Non-Af 129 BUN/Creatinine Ratio 19.8 Glucose 71 L Calcium 8.5 Total Bilirubin 0.80 AST 61 H ALT 32 Alkaline Phosphatase 90 Total Protein 7.7 Albumin 3.5 Globulin 4.2 Albumin/Globulin Ratio 0.8 L Ethyl Alcohol 281.0 - Medical Decision Making Patient was worked up as above. Alcohol did return at 281. Therefore his presentation is consistent with acute alcohol intoxication. We will observe for now. is called back asking when she can pick him up. Nursing ambulate the patient without any difficulty. Patient will be discharged in the care of his . ED Disposition - Plan for ED Patient: Disposition: Home or Assisted Living Diagnosis: Acute alcohol intoxication Instructions: Alcohol Overdose Referrals: Jules Rust Chi, MD [Primary Care Provider] -
--- NOTE | 2018-11-15 22:27 | RAD_ITS ---
HISTORY:WEAKNESS, PAIN S/P FALL OFF OF COUCH TONIGHT AFTER DRINKING ALCOHOL WEAKNESS, PAIN S/P FALL OFF OF COUCH TONIGHT AFTER DRINKING ALCOHOL EXAM: XR Chest 1 View: COMPARISON: None FINDINGS: # of images incl. paperwork: 1 LINES/DEVICES: None. LUNGS: Radiographically clear. No consolidation, edema or effusion. No pneumothorax. MEDIASTINUM AND CARDIOVASCULAR STRUCTURES: Cardiac silhouette not enlarged. BONES AND SOFT TISSUES: Unremarkable. RAD/Chest 1 View (Portable) IMPRESSION: No radiographic evidence of acute cardiopulmonary disease. at 2247 Reported and signed by: Cheyanne Wells DO Electronically Signed: Cheyanne Wells DO at 22:46 EDT Tel , Service support ,
[2018-11-15 23:03] LABS: Absolute Lymphocyte Count 3.07 X10^3/uL (0.83-4.51); Absolute Neutrophil Count 2.2 X10^3/uL (2.0-7.7); Basophil# 0.06 X10^3/uL; Eosinophil# 0.11 X10^3/uL; Eosinophils% 1.9 % (0-5); Hematocrit 45.2 % (40-54); Hemoglobin 15.1 g/dL (13.0-16.5); Lymphocyte # 3.07 X10^3/ul (4.0); Lymphocyte % 52.6 % (19-41); Mean Corp Hgb Conc 33.4 g/dL (32-36); Mean Corpuscular Hgb 34.2 pg (27.0-32.0); Mean Corpuscular Volume 102.5 fL (80-94); Mean Platelet Vol. 11.8 fl (6.2-12.0); Monocyte# 0.35 X10^3/uL; NRBC Flagged by Analyzer 0 % (0-5); Neutrophil # 2.24 X10^3/uL (2.7-7.7); Neutrophil % 38.3 % (47-70); POSITIVE COUNT YES; RBC Distribution Width CV 13.2 % (11.6-14.6); RBC Distribution Width SD 50.4 fl (35.1-43.9); Red Blood Count 4.41 M/mm3 (4.6-6.2); White Blood Count 5.8 K/mm3 (4.4-11.0)
[2018-11-15 23:07] LABS: ALB/GLOB Ratio 0.8 RATIO (0.9-2.4); AST(SGOT) 61 U/L (15-37); Alanine Aminotransfer ALT/SGPT 32 U/L (16-61); Albumin, Serum 3.5 g/dL (3.2-5.0); Alkaline Phosphatase 90 U/L (45-117); Anion Gap 11 (5-15); BUN 13 mg/dL (7-18); BUN/Creat Ratio 19.8 RATIO (10-20); Calcium,Total 8.5 mg/dL (8.5-10.1); Chloride 103 mmol/L (98-107); Creatinine, Serum 0.66 mg/dL (0.70-1.30); EST Glomerular Filtration Rate 129 mL/min (>60); Est Glom Filt Rate - Afr Amer 157 mL/min (>60); Estimated Creatinine Clearance 88.92 ml/min; Globulin 4.2 g/dL (2.2-4.2); Glucose 71 mg/dL (74-106); Potassium 5.2 mmol/L (3.5-5.1); Protein, Total 7.7 g/dL (6.4-8.2); Sodium Level 139 mmol/L (136-145)
[2018-11-15 23:09] LABS: Differential Indicated SCAN CRITERIA MET
[2018-11-15 23:21] LABS: Platelet Estimate ADEQUATE (ADEQ)
[2018-11-15 23:28] VITALS: BP 115/72; PULSE 61; RESP 16; O2SAT 98
[2018-11-15 23:37] LABS: Differential Comment SCANNNED
== END 2018-11-16 00:57 | disposition home or self-care (01) ==
PROVIDERS: Emergency Provider Emergency Medicine; Family Provider Family Medicine Geriatric Medicine; PCP Family Medicine Geriatric Medicine
DX: F10.129 Alcohol abuse with intoxication, unspecified (principal); M54.9 Dorsalgia, unspecified; G89.29 Other chronic pain; F31.9 Bipolar disorder, unspecified; Z79.899 Other long term (current) drug therapy; F17.200 Nicotine dependence, unspecified, uncomplicated
CPT/HCPCS: 70450; 71045; 80053; 80320; 85025; 93005; 99285; A4216; G0480

== ENCOUNTER 2019-02-09 21:27 | Emergency (ER) | payer SELFPAY ==
[2019-02-09 21:28] VITALS: BP 132/111; PULSE 97; RESP 23; TEMP 36.7; O2SAT 100; BMI 17.9
[2019-02-09] MEDS: 0.9% Normal Saline 1,000 ML 150 ML IV (22:17)
[2019-02-09 22:21] LABS: Absolute Lymphocyte Count 0.83 X10^3/uL (0.83-4.51); Absolute Neutrophil Count 2.8 X10^3/uL (2.0-7.7); Basophil# 0.06 X10^3/uL; Basophil% 1.4 % (0-1); Eosinophils% 2.4 % (0-5); Hematocrit 46.1 % (40-54); Hemoglobin 16.3 g/dL (13.0-16.5); Lymphocyte # 0.83 X10^3/ul (4.0); Lymphocyte % 19.8 % (19-41); Mean Corp Hgb Conc 35.4 g/dL (32-36); Mean Corpuscular Hgb 36.1 pg (27.0-32.0); Mean Platelet Vol. 11.9 fl (6.2-12.0); Monocyte# 0.37 X10^3/uL; Monocyte% 8.8 % (0-10); NRBC Flagged by Analyzer 0 % (0-5); Neutrophil # 2.83 X10^3/uL (2.7-7.7); Neutrophil % 67.4 % (47-70); POSITIVE COUNT YES; Platelet Count 128 K/mm3 (150-450); RBC Distribution Width CV 14.6 % (11.6-14.6); RBC Distribution Width SD 55.3 fl (35.1-43.9); Red Blood Count 4.52 M/mm3 (4.6-6.2); White Blood Count 4.2 K/mm3 (4.4-11.0)
[2019-02-09 22:22] LABS: Differential Indicated SCAN CRITERIA MET
[2019-02-09 22:28] VITALS: BP 124/101; PULSE 77; RESP 22; O2SAT 99
[2019-02-09 22:48] LABS: Differential Comment SCANNED
[2019-02-09 23:14] LABS: Anion Gap 12 (5-15); BUN 7 mg/dL (7-18); BUN/Creat Ratio 9.6 RATIO (10-20); Calcium,Total 8.5 mg/dL (8.5-10.1); Chloride 103 mmol/L (98-107); Creatinine, Serum 0.73 mg/dL (0.70-1.30); EST Glomerular Filtration Rate 115 mL/min (>60); Est Glom Filt Rate - Afr Amer 139 mL/min (>60); Estimated Creatinine Clearance 77.36 ml/min; Glucose 81 mg/dL (74-106); Potassium 3.6 mmol/L (3.5-5.1); Sodium Level 141 mmol/L (136-145)
--- NOTE | 2019-02-09 23:33 | ED.DCSUM_ITS ---
History of Present Illness Chief Complaint: ETOH Intox Informant: Patient, Rehabilitation Counselor Onset: Today Narrative: Patient brought in by EMS secondary to alcohol intoxication. Patient is a regular drinker. He states he had 3 shots of tequila today. He called the squad earlier today because he felt shaky but declined transport. He still was not feeling well tonight so called squad again. Patient does report having nausea but no vomiting. He denies pain. He has had no falls or injuries. - Past Medical History (1) Alcoholism /alcohol abuse Status: Chronic Comment: started drinking Tequila in 1999 and drinks a fifth a day with beer chasers (2) Bipolar disorder Status: Chronic (3) Chronic back pain Status: Chronic (4) Smoking addiction Status: Chronic Past Medical History - Allergies and Home Meds Allergies/Adverse Reactions: Allergies codeine Allergy (Verified 02/09/19 21:32) Itching Primary Care Physician: Jules Rust Chi, MD [Primary Care Provider] - Doctors: Dr. Herron Prior records reviewed: Yes Surgical History: - - colonoscopy and removal of polyp Smoking Status: Current every day smoker - Family History Maternal Family History: Reports: - - pt unable to give me FH at this time Review of Systems General: Denies: Chills, Fever Eyes: Denies: Visual changes - bilaterally ENT: Denies: Bilateral ear pain Cardiovascular: Denies: Chest pain, Palpitations Respiratory: Denies: Dyspnea, Cough Gastrointestinal: Reports: Nausea. Denies: Abdominal pain, Vomiting, Diarrhea Genitourinary: Denies: Dysuria Musculoskeletal: Reports: Myalgias, Back pain. Denies: Neck pain, Extremity Pain Skin: Denies: Rash Neurological: Denies: Headache Hematologic: Denies: Easy bruising Allergy: Denies: Uticaria Physical Exam Vital Signs/Narrative: Vital Signs Temp Pulse Resp BP Pulse Ox 02/09/19 22:28 77 22 H 124/101 H 99 02/09/19 21:28 98.1 F 97 23 H 132/111 H 100 Inital Vital Signs reviewed: Yes General: Well nourished, Well developed Head: Normocephalic ENT: Moist mucous membranes Neck: Supple Cardiovascular: Regular rate, Regular rhythm Respiratory: No distress, CTA bilaterally Abdomen: Soft, Nontender, Nondistended, Hypoactive bowel sounds Extremities: Nontender, No edema Skin: Normal color, No rash Neurological: Alert, Oriented x3, - - No focal neurologic deficit Psychological: Normal affect Diagnostic/Tx/Re-eval Laboratory Results 02/09/19 02/09/19 02/09/19 22:10 22:10 22:10 WBC 4.2 L RBC 4.52 L Hgb 16.3 Hct 46.1 MCV 102.0 H MCH 36.1 H MCHC 35.4 RDW Std Deviation 55.3 H RDW Coeff of Marlyn 14.6 Plt Count 128 L MPV 11.9 Immature Gran % (Auto) 0.200 Neut % (Auto) 67.4 Lymph % (Auto) 19.8 [place] % (Auto) 8.8 Eos % (Auto) 2.4 Baso % (Auto) 1.4 H Absolute Neuts (auto) 2.8 Absolute Lymphs (auto) 0.83 Nucleated RBC % 0 Differential Comment SCANNED Sodium Cancelled Potassium Cancelled Chloride Cancelled Carbon Dioxide Cancelled Anion Gap Cancelled BUN Cancelled Creatinine Cancelled Estim Creat Clear Calc Cancelled Est GFR (MDRD) Af Amer Cancelled Est GFR (MDRD) Non-Af Cancelled BUN/Creatinine Ratio Cancelled Glucose Cancelled Calcium Cancelled Ethyl Alcohol 40.0 02/09/19 23:00 WBC RBC Hgb Hct MCV MCH MCHC RDW Std Deviation RDW Coeff of Marlyn Plt Count MPV Immature Gran % (Auto) Neut % (Auto) Lymph % (Auto) [place] % (Auto) Eos % (Auto) Baso % (Auto) Absolute Neuts (auto) Absolute Lymphs (auto) Nucleated RBC % Differential Comment Sodium 141 Potassium 3.6 Chloride 103 Carbon Dioxide 26.0 Anion Gap 12 BUN 7 Creatinine 0.73 Estim Creat Clear Calc 77.36 Est GFR (MDRD) Af Amer 139 Est GFR (MDRD) Non-Af 115 BUN/Creatinine Ratio 9.6 L Glucose 81 Calcium 8.5 Ethyl Alcohol - Medical Decision Making Patient was placed on monitor and storage bin tender. Has had occasional PVCs but no other irregularities. He denies chest pain or shortness of breath. Patient was given fluids and Zofran. On repeat evaluation patient states overall he is not feel good. When I asked him specifically how he does not feel good he is not able to give me an answer. He denies pain or shortness of breath. He denies nausea at this time. Patient states he does feel as if he can go home. I did advise him that he may be developing a viral gastro-infection as we have been seeing a lot of this in the area. As I am leaving the room he tells me he thinks he needs some more Klonopin. He thinks Dr. Herron writes this for him. When I asked when his last dose was he said just a couple hours ago. He will not be given an additional dose at this time but was instead encouraged to call Dr. Herron tomorrow. ED Disposition - Plan for ED Patient: Disposition: Home or Assisted Living Diagnosis: Malaise Instructions: VIRAL SYNDROME (Adult) Prescriptions: Ondansetron [Zofran Odt] 4 mg PO Q8H PRN PRN #10 tablet PRN Reason: Nausea Referrals: Jules Rust Chi, MD [Primary Care Provider] - 3-5 Days if not improving
[2019-02-09 23:47] VITALS: BP 145/100; PULSE 89; RESP 23; O2SAT 98
[2019-02-09] MEDS: Ondansetron 4 MG/2 ML Vial IV (23:48)
--- NOTE | 2019-02-10 00:18 | ED.RN ---
Assisted PT in making a call to his . She will come and pick him up. Asked PT if she was sober to drive and he said she was. Wheelchair to lobby when ride gets here.
== END 2019-02-10 00:46 | disposition home or self-care (01) ==
PROVIDERS: Emergency Provider Emergency Medicine; Family Provider Family Medicine Geriatric Medicine; PCP Family Medicine Geriatric Medicine
DX: R53.81 Other malaise (principal); F10.229 Alcohol dependence with intoxication, unspecified; Y90.9 Presence of alcohol in blood, level not specified; I49.3 Ventricular premature depolarization; F31.9 Bipolar disorder, unspecified; M54.9 Dorsalgia, unspecified; G89.29 Other chronic pain; Z79.899 Other long term (current) drug therapy; F17.200 Nicotine dependence, unspecified, uncomplicated
CPT/HCPCS: 36415; 80048; 80320; 85025; 96361; 96374; 99285; J7030; A4216; G0480; J2405

== ENCOUNTER 2019-07-17 19:50 | Inpatient (IN) | payer MEDICARE, SELFPAY ==
--- NOTE | 2019-07-17 19:54 | ED.RN ---
notified of pt
[2019-07-17 19:55] VITALS: BP 114/87; PULSE 82; RESP 14; TEMP 37; O2SAT 99; BMI 16.9
--- NOTE | 2019-07-17 20:03 | CT_ITS ---
STUDY: CT BRAIN WITHOUT CONTRAST REASON FOR EXAM: Male, 64 years old. ALTERED MENTAL STATUS, POSITIONING LIMITED RADIATION DOSAGE (If Supplied By Facility): CTDIvol = ( 44.99 ) mGy, DLP = ( 880.47 ) mGycm TECHNIQUE: Transaxial CT imaging of the brain was performed without administration of intravenous contrast material. Individualized dose optimization techniques were used for this CT. COMPARISON: No relevant priors. FINDINGS: Normal soft tissue structures. Normal calvarium. Bilateral cataracts. There is moderate cerebral atrophy with widening of the extra-axial spaces and ventricular dilatation. There are areas of decreased attenuation within the white matter tracts of the supratentorial brain, consistent with microvascular disease changes. Normal basal ganglia and thalami. Normal brainstem. Normal cerebellum. There is no intracranial hemorrhage. There are no findings of an acute ischemic infarction. Normal visualized paranasal sinuses. CT/Brain/Head without Contrast IMPRESSION: Chronic involutional changes of the brain. Electronically Signed: Juan David Regan MD at 21:43 EDT , Service support ,
--- NOTE | 2019-07-17 20:03 | RAD_ITS ---
STUDY: X-RAY CHEST REASON FOR EXAM: Male, 64 years old. ALTERED MENTAL STATUS, UNRESPONSIVE TECHNIQUE: Single frontal view of the chest. COMPARISON: November 15, 2018 FINDINGS: Lungs are hyper aerated. The lungs are clear and expanded. There is no demonstrated pleural abnormality. Normal size heart. Normal mediastinum and april. Normal visualized pulmonary arteries. Normal visualized aortic arch and descending thoracic aorta. Normal visualized thoracic spine. Multiple old rib fractures on the left. There is no demonstrated abnormality of the visualized soft tissue structures of the upper abdomen. RAD/Chest 1 View (Portable) IMPRESSION: COPD. Electronically Signed: Juan David Regan MD at 22:00 EDT , Service support ,
[2019-07-17] MEDS: 0.9% Normal Saline 1,000 ML 1000 ML IV (20:09)
--- NOTE | 2019-07-17 20:16 | ED.RN ---
PATIENTS DAUGHTER DAVE HOU PHONE #: [phone]
[2019-07-17 20:20] LABS: Absolute Lymphocyte Count 0.82 X10^3/uL (0.83-4.51); Absolute Neutrophil Count 7.9 X10^3/uL (2.0-7.7); Basophil# 0.02 X10^3/uL; Basophil% 0.2 % (0-1); Hematocrit 45.4 % (40-54); Hemoglobin 15.2 g/dL (13.0-16.5); Lymphocyte # 0.82 X10^3/ul (4.0); Lymphocyte % 8.4 % (19-41); Mean Corp Hgb Conc 33.5 g/dL (32-36); Mean Corpuscular Hgb 34.8 pg (27.0-32.0); Mean Corpuscular Volume 103.9 fL (80-94); Mean Platelet Vol. 11.7 fl (6.2-12.0); Monocyte# 0.97 X10^3/uL; NRBC Flagged by Analyzer 0 % (0-5); Neutrophil # 7.87 X10^3/uL (2.7-7.7); POSITIVE COUNT YES; Platelet Count 122 K/mm3 (150-450); RBC Distribution Width CV 14.6 % (11.6-14.6); RBC Distribution Width SD 55.8 fl (35.1-43.9); Red Blood Count 4.37 M/mm3 (4.6-6.2); White Blood Count 9.7 K/mm3 (4.4-11.0)
[2019-07-17 20:23] LABS: Differential Indicated SCAN CRITERIA MET
[2019-07-17 20:27] LABS: International Normalized Ratio 1.3; Partial Thromboplast Time 29.6 Seconds (24.1-36.2); Prothrombin Time (Protime)PT. 15.9 SECONDS (11.7-14.9)
--- NOTE | 2019-07-17 20:29 | ED.RN ---
THIS RN SPOKE WITH DAUGHTER DAVE AND GOT A BRIEF HISTORY OF EVENTS AND MEDICAL HISTORY. SHE STATES HE HAS RUN OUT OF HIS CLONAZEPAM AND HAS BEEN MORE MANIC THE PAST FEW DAYS. STATES HE IS AN ALCOHOLIC. THEY BUY HIM ONE 750 ML BOTTLE OF ALCOHOL PER WEEK. SHE STATES HE FREQUENTLY FALLS AND WHEN SHE WENT TO VISIT HIM AT 6PM TONIGHT AFTER NOT HEARING FROM HIM SINCE 8 PM YESTERDAY AND HIM NOT ANSWERING PHONE CALLS. SHE IS UNSURE HOW LONG HE HAS BEEN LAYING ON THE GROUND. SHE STATES HER AND HER SISTER WERE POTENTIALLY DISCUSSING HOSPICE FOR HIM.
[2019-07-17 20:35] LABS: ALB/GLOB Ratio 0.8 RATIO (0.9-2.4); AST(SGOT) 40 U/L (15-37); Alanine Aminotransfer ALT/SGPT 19 U/L (16-61); Albumin, Serum 3.9 g/dL (3.2-5.0); Alkaline Phosphatase 97 U/L (45-117); Anion Gap 10 (5-15); BUN 18 mg/dL (7-18); BUN/Creat Ratio 18.2 RATIO (10-20); Calcium,Total 9.7 mg/dL (8.5-10.1); Chloride 103 mmol/L (98-107); Creatinine, Serum 0.99 mg/dL (0.70-1.30); EST Glomerular Filtration Rate 81 mL/min (>60); Est Glom Filt Rate - Afr Amer 98 mL/min (>60); Estimated Creatinine Clearance 51.77 ml/min; Globulin 4.7 g/dL (2.2-4.2); Glucose 93 mg/dL (74-106); Lipase 66 U/L (73-393); Potassium 3.9 mmol/L (3.5-5.1); Protein, Total 8.6 g/dL (6.4-8.2); Sodium Level 139 mmol/L (136-145)
[2019-07-17 20:42] LABS: Bacteria 0 SEEN /hpf (None Seen); Squamous Epithelial Cells - UA 0 SEEN /hpf (0-5)
[2019-07-17 20:44] LABS: Platelet Estimate SLT DEC (ADEQ); Platelet Morphology LARGE
[2019-07-17 20:45] LABS: Color, Urine Yellow (Yellow); Glucose, Dipstick Normal (Normal); Leukocyte Esterase-Dipstick Negative /ul (Negative); Nitrite-Dipstick Negative (Negative); Occult Blood-Urine 150 /ul (Negative); Protein-Dipstick 30 mg/dl (Negative); Specific Gravity, Urine 1.025 (1.002-1.030); Urine Bilirubin Dipstick Negative (Negative); Urine Clarity Cloudy (Clear); Urine Urobilinogen 1 mg/dl (Normal)
[2019-07-17 20:45] LABS: Anisocytosis 1+; Macrocytosis 1+
[2019-07-17 20:51] LABS: Lactic Acid 2.7 mmol/L (0.4-1.9)
--- NOTE | 2019-07-17 20:51 | ED.RN ---
ALCTIC OF 2.7 REPORTED TO . VERBALIZES UNDERSTANDING
[2019-07-17 20:52] LABS: Ketone-Dipstick 150 mg/dl (Negative)
[2019-07-17 21:00] LABS: Calcium Oxalate Crystals Ur RARE /hpf (<or=2+); Hyaline Cast 0-5 SEEN /lpf (0-5); Mucous, Urine 1+ /hpf (<or=2+)
--- NOTE | 2019-07-17 21:02 | ED.VIS.GEN ---
History of Present Illness Chief Complaint: Unresponsive Informant: Family, [employer] Mechanical Specialist Narrative: She is brought to the emergency department by EMS with altered mental status. It is been reported the patient's about 2 weeks ago. He has a history of alcoholism. He ran out of his clonazepam a couple days ago per the daughter. They do by his alcohol for him so that they can help limit how much she is ingesting. They state that they's last spoke to him last night on the phone around 8 PM. They have been trying to reach him every 1/2 hour during the day but were unsuccessful. Nursing notes some red tellez of his back as if he has been laying for some time. Patient cannot provide any meaningful history or participate in the exam. Past Medical History - Allergies and Home Meds Allergies/Adverse Reactions: Allergies codeine Allergy (Verified 07/17/19 19:58) Itching Surgical History: - - colonoscopy and removal of polyp Smoking Status: Current every day smoker - Family History Maternal Family History: Reports: - - pt unable to give me FH at this time Paternal Family History: Reports: Heart Disease Review of Systems ROS: Unable to Obtain - Unable due to current mental status Physical Exam Vital Signs/Narrative: Vital Signs Temp Pulse Resp BP Pulse Ox 07/17/19 19:55 98.6 F 82 14 114/87 H 99 Inital Vital Signs reviewed: Yes General: Well developed, Cachectic, No Acute Distress Head: Normocephalic, Trauma - Small left forehead contusion Eyes: Perrl, EOMI ENT: No rhinorrhea, Dry mucous membranes Neck: Supple, Nontender Cardiovascular: Regular rate, Regular rhythm, No murmurs Respiratory: No distress, CTA bilaterally, Chest nontender Abdomen: Soft, Nontender, Nondistended, Normal bowel sounds Back: Nontender, Normal Inspection Extremities: Nontender, No edema Skin: Normal color, Trauma - He has some erythema of the back and sacral region as well as the left shoulder and elbow. I do not see any skin breakdown. Neurological: Lethargic - Patient is lethargic. He opens eyes to voice. He cannot follow commands, - - Patient does move all 4 extremities. Diagnostic/Tx/Re-eval - Rhythm Strip Rhythm Strip: Sinus Rhythm Rate: 89 - Medical Decision Making Daughter tells me they have entertain the idea of hospice/palliative care for him especially since the passing of his . However that has not been done as of this ED visit. Patient clinically looks extremely dry and cachectic. He cannot provide any meaningful information to the history or the exam. He received IV fluids. CPK is just over 1100. His lactic acid 2.7. CT of the head negative. Chest x-ray negative. Each time we have attempted an EKG he brings his arms up and starts shaking them. This precludes getting an adequate EKG. Not sure why this of all things would cause such as response from him. On the monitor is clearly sinus. Patient is at high risk for withdrawal from both benzodiazepines and alcohol. I do not think he has withdrawal at this time. He is not tachycardic he does not have a tremor. Do not know exactly what is causing this encephalopathy. It is probably multifactorial. Plan is admission. - Critical Care Time Critical care time (excluding procedures): 30-74 minutes - 35 min ED Disposition - Plan for ED Patient: Disposition: Acute Care [facility] Diagnosis: Dehydration, Alcoholism, Elevated lactic acid level, Altered mental status, Rhabdomyolysis
[2019-07-17 21:03] LABS: Amorphous Sediment 1+; White Blood Cells 0-5 SEEN /hpf (0-5)
[2019-07-17 21:04] LABS: Red Blood Cells-Urine 0-5 SEEN /hpf (0-5)
[2019-07-17 21:06] LABS: Transitional Epithelial - Ur 0-5 SEEN /hpf (0-5)
[2019-07-17 21:09] VITALS: BP 137/98; PULSE 92; RESP 19; O2SAT 99
[2019-07-17 21:11] LABS: CPK Total, Creatine Kinase 1117 U/L (39-308); Phosphorus 2.7 mg/dL (2.5-4.9)
[2019-07-17 21:12] LABS: Amphetamine Urine VISTA NEGATIVE (<1000 ng/mL); Barbiturate Urine VISTA NEGATIVE (< 200 ng/mL); Benzodiazepine Urine VISTA NEGATIVE (< 200 ng/mL); Cocaine Urine VISTA NEGATIVE (< 300 ng/mL); Ecstacy Urine VISTA NEGATIVE (< 500 ng/mL); Methadone Urine VISTA NEGATIVE (< 300 ng/mL); PCP Urine VISTA NEGATIVE (< 25 ng/mL); THC Urine VISTA POSITIVE (< 50 ng/mL); Vista UDS pH Range 5
[2019-07-17 21:36] VITALS: BP 141/87; PULSE 93; RESP 21; TEMP 36.8; O2SAT 96
--- NOTE | 2019-07-17 22:03 | HP.PCM_ITS ---
Problem List (1) Acute encephalopathy Status: Acute (2) Dehydration Status: Acute (3) Elevated lactic acid level Status: Acute (4) Altered mental status Status: Inactive (5) Rhabdomyolysis Status: Acute (6) Chronic respiratory failure Status: Chronic Qualifiers: Respiratory failure complication: unspecified whether with hypoxia or hypercapnia Qualified Code(s): J96.10 - Chronic respiratory failure, unspecified whether with hypoxia or hypercapnia (7) Hypokalemia Status: Inactive (8) Chronic back pain Status: Chronic (9) Colon polyps Status: Chronic (10) Bipolar disorder Status: Chronic Qualifiers: Active/Remission status: in remission of unspecified degree Qualified Code(s): F31.70 - Bipolar disorder, currently in remission, most recent episode unspecified (11) Alcoholism /alcohol abuse Status: Chronic Comment: started drinking Tequila in 1999 and drinks a fifth a day with beer chasers (12) Urinary and bowel incontinence Status: Chronic (13) Smoking addiction Status: Chronic (14) Malnutrition Status: Chronic Qualifiers: Malnutrition type: protein-calorie malnutrition Protein-calorie malnutrition severity: mild Qualified Code(s): E44.1 - Mild protein-calorie malnutrition (15) Pancytopenia Status: Inactive (16) Hypophosphatemia Status: Inactive (17) Hypomagnesemia Status: Inactive History of Present Illness Date of Admission: 07/17/19 Chief Complaint: altered mental status The patient is a 64 year old M with a significant history of alcoholism who presented to emergency department because of altered mental status. The last time patient daughter heard from patient was around 8 PM of 07/16/2019. Her daughter made multiple attempts to reach patient by phone. Patient lives at [place] and her daughter lives at [place]. Her daughter stopped by around 6 PM of 07/17/2019 and noticed that patient was on the floor and was not following commands. Also patient was not talking.. Patient was subsequently brought to the emergency department by squad. The emergency department his lactic acid was elevated. Also his CPK was elevated. Per daughter patient was 'suicidal' on 07/13/2019. Patient has had increased depression following her dying on June 28, 2019. Reportedly like patient, patient's who is now was a heavy drinker and from cirrhosis of the liver. HPI was obtained from daughter and the emergency department doctor since patient is not talking. Past Medical History Past Medical History (Chronic Problems): Chronic Problems (Last Reviewed 07/18/19 @ 03:[address] Justice Youssef MD) Chronic respiratory failure (Chronic) Chronic back pain (Chronic) Colon polyps (Chronic) Bipolar disorder (Chronic) Alcoholism /alcohol abuse (Chronic) started drinking Tequila in 1999 and drinks a fifth a day with beer chasers Urinary and bowel incontinence (Chronic) Smoking addiction (Chronic) Malnutrition (Chronic) Medical History: Medical History (Last Reviewed 07/18/19 @ 03:[address] Justice Youssef MD) Chronic respiratory failure (Chronic) J96.10 Hypokalemia (Acute) E87.6 Chronic back pain (Chronic) M54.9, G89.29 Colon polyps (Chronic) Bipolar disorder (Chronic) F31.9 Alcoholism /alcohol abuse (Chronic) F10.20 started drinking Tequila in 1999 and drinks a fifth a day with beer chasers Urinary and bowel incontinence (Chronic) R32, R15.9 Smoking addiction (Chronic) F17.200 Malnutrition (Chronic) E46 Pancytopenia (Acute) D61.818 Hypophosphatemia (Acute) E83.39 Hypomagnesemia (Acute) E83.42 Allergies codeine Allergy (Verified 07/17/19 19:58) Itching Home Medications: Ambulatory Orders Medication Instructions Recorded Melatonin 10 mg PO QHS PRN 11/15/18 Clonazepam [Klonopin] 1 mg PO BID 07/17/19 Surgical History: Surgical History (Last Reviewed 07/18/19 @ 03:[address] Justice Youssef MD) Hx of knee surgery Z98.890 Surgical History: - - colonoscopy and removal of polyp Psychiatric History: Bipolar Smoking Status: Current every day smoker Alcohol: Heavy - *Family History Maternal History Items: Cancer, - Paternal History Items: Heart Disease Review of Systems Unable to obtain accurate/complete ROS d/t: encephalopathy. hpi obtained from [facility]; best attempt ROS is as in hpi. VTE Information - Inpt Only VTE Present on Admission: No VTE Mechan Device Prophylaxis: None VTE Pharm Prophylaxis ordered?: Yes Patient Problems: Active and Suspected Problems (Last Reviewed 07/18/19 @ 03:[address] Justice Youssef MD) Dehydration (Acute) Elevated lactic acid level (Acute) Rhabdomyolysis (Acute) Acute encephalopathy (Acute) - Physical Exam Vitals/I&O's: Vital Signs Temp Pulse Resp BP Pulse Ox 98.2 F 93 21 H 141/87 H 96 07/17/19 21:36 07/17/19 21:36 07/17/19 21:36 07/17/19 21:36 07/17/19 21:36 Oxygen Delivery Method Room Air Weight: 49.2 kg Body Mass Index (BMI) 16.9 Finger Stick Blood Glucose 99 Intake and Output for Last 24 Hours 07/15/19 07/16/19 07/17/19 23:59 23:59 23:59 Intake Total 1000 / 1000 Balance 1000 / 1000 General: Disoriented, Lethargic, - - Not following commands HEENT: Normocephalic, - - Erythema at left upper eyelid. Oral: Dry Mucosa Neck: Supple, Trachea Midline Lungs: Clear to auscultation, Normal air movement Cardiovascular: Regular rate, Normal S1, Normal S2, No murmurs Abdomen: Bowel Sounds Present, Soft, Non Tender Extremities: No edema, Capillary Refill Less than 3 Seconds Skin: No rashes, No breakdown Musculoskeletal: No Tenderness to Palpation of Joints or Extremities Neurological: - - Not following commands. Repeated movements of lips and tongue. Psych/Mental Status: Flat Affect, Depressed Laboratory Results 07/17/19 20:00: WBC 9.7, RBC 4.37 L, Hgb 15.2, Hct 45.4, MCV 103.9 H, MCH 34.8 H , MCHC 33.5, RDW Std Deviation 55.8 H, RDW Coeff of Marlyn 14.6, Plt Count 122 L, MPV 11.7, Immature Gran % (Auto) 0.400, Neut % (Auto) 81.0 H, Lymph % (Auto) 8.4 L, Reynolds % (Auto) 10.0, Eos % (Auto) 0.0, Baso % (Auto) 0.2, Absolute Neuts (auto) 7.9 H, Absolute Lymphs (auto) 0.82 L, Nucleated RBC % 0, Platelet Estimate SLT DEC, Plt Morphology Comment LARGE, Anisocytosis 1+, Macrocytosis 1+ 07/17/19 20:00: PT 15.9 H, INR 1.3, APTT 29.6 07/17/19 20:00: Sodium 139, Potassium 3.9, Chloride 103, Carbon Dioxide 26.0, Anion Gap 10, BUN 18, Creatinine 0.99, Estim Creat Clear Calc 51.77, Est GFR (MDRD) Af Amer 98, Est GFR (MDRD) Non-Af 81, BUN/Creatinine Ratio 18.2, Glucose 93, Calcium 9.7, Magnesium 2.0, Total Bilirubin 0.90, AST 40 H, ALT 19, Alkaline Phosphatase 97, Troponin I < 0.015, Total Protein 8.6 H, Albumin 3.9, Globulin 4.7 H, Albumin/Globulin Ratio 0.8 L, Lipase 66 L 07/17/19 20:00: Phosphorus 2.7, Total Creatine Kinase 1117 H 07/17/19 20:00: Lactic Acid 2.7 H* 07/17/19 20:00: Ethyl Alcohol 4.0 07/17/19 20:38: Urine Color Yellow, Urine Clarity Cloudy, Urine pH 6.0, Ur Specific [employer] 1.025, Urine Protein 30 H, Urine Glucose (UA) Normal, Urine Ketones 150 H, Urine Occult Blood 150 H, Urine Nitrite Negative, Urine Bilirubin Negative, Urine Urobilinogen 1 H, Ur Leukocyte Esterase Negative, Urine RBC 0-5 SEEN, Urine WBC 0-5 SEEN, Ur Squamous Epith Cells 0 SEEN, Ur Transition Epith Cell 0-5 SEEN, Calcium Oxalate Crystal RARE, Amorphous Sediment 1+, Urine Bacteria 0 SEEN, Hyaline Casts 0-5 SEEN, Urine Mucus 1+ 07/17/19 20:38: Urine Opiates Screen NEGATIVE, Urine Methadone Screen NEGATIVE, Ur Barbiturates Screen NEGATIVE, Ur Phencyclidine Scrn NEGATIVE, Ur Amphetamines Screen NEGATIVE, U Methamphetamin-MDMA NEGATIVE, U Benzodiazepines Scrn NEGATIVE, Urine Cocaine Screen NEGATIVE, U Cannabinoids Screen POSITIVE H, Ur Drug Screen Comment Current Medications Sodium Chloride () 1,000 mls @ 250 mls/hr IV .Q4H HERNESTO Assessment/Plan All Active Problems (Last Reviewed 07/18/19 @ 03:[address] Jutsice Youssef MD) Dehydration (Acute) Elevated lactic acid level (Acute) Rhabdomyolysis (Acute) Acute encephalopathy (Acute) The patient is a 64 year old M with a significant history of alcoholism who presented to emergency department because of altered mental status consistent with acute encephalopathy. Acute encephalopathy Etiology unclear. CT head showed chronic involutional changes of the brain. We will get MRI of his brain. Ad[facility] to [facility]. Rhabdomyolysis. A CPK on presentation was 1117. Received IV hydration at the emergency department. We will continue IV hydration. We will trend CPK. Lactic acidosis Like secondary to dehydration. IV hydration as above. Trend. Dehydration BUN is 18, upper limit of normal. However patient is cachectic so this may represent elevated BUN. IV hydration as above Adult failure to thrive Patient lives by himself and is unable to take care of himself. His on June 28, 2019. Per daughter patient has been very depressed since then. N.p.o. for now. Speech therapy consult for swallow eval. Discussed with daughter who is a POA and is agreeable to hospice. Hospice consult. Alcoholism Per daughter last time the patient drank was on 07/15/2019. He drank half a bottle of hard liquor. Also patient is on home clonazepam which reportedly the bottle was empty. Will put on CIWA protocol. IV thiamine and IV folic acid ordered. Severe protein calorie malnutrition. BMI of 17. Cachectic. N.p.o. for now because of acute encephalopathy. Abnormal urinalysis: Urine with ketones treatment due to dehydration. Also with occult blood. For now hospice to see patients no further work-up at this time. Major depression Per daughter patient was suicidal on 07/13/2019. Appears not to have the energy to commit any suicide at this time. Clinical monitoring DVT Prophylaxis Subcutaneous Lovenox. Inpatient E&M: 39975 Init Hosp L3
[2019-07-17 22:36] VITALS: BP 141/80; PULSE 100; RESP 18; TEMP 37.3; O2SAT 98
[2019-07-17] MEDS: 0.9% Normal Saline 1,000 ML 250 ML IV (22:37)
[2019-07-17 23:01] VITALS: BMI 16.2
--- NOTE | 2019-07-17 23:18 | NURSING ---
Daughter states that the patient's passed on June 28, 2019, and patient has been declining since. Daughter talked to him at 1999 on 07/16/19 and he appeared fine but forgetful. Then daughter was unable to reach the patient throughout the day today despite calling him every 30 minutes so she came to check on him.
--- NOTE | 2019-07-17 23:27 | NURSING ---
Daughter was given the fax number for [facility] and also the phone number for the floor if she wants to check on her father. She lives in [place] and will try to find POA papers and get copies for us.
--- NOTE | 2019-07-17 23:31 | MRI_ITS ---
STUDY: MRI BRAIN WITHOUT CONTRAST REASON FOR EXAM: Male, 64 years old. unresponsive -- found unresponsive TECHNIQUE: Standardized multiplanar fat and water weighted pulse sequences were obtained. COMPARISON: CT brain from today. FINDINGS: There is disproportionate ventricular enlargement with prominence of the anterior horns and temporal tips of the bilateral lateral ventricles. There is confluent periventricular hyperintensity cloaking the lateral ventricles. There is thinning with bowing of the corpus callosum. There is moderate enlargement of the third ventricle. The findings are highly suggestive of normal pressure hydrocephalus (NPH). There are a limited number of small white matter hyperintensities, distributed throughout the deep white matter tracts of the cerebral hemispheres, consistent with mild chronic white matter ischemic changes. There is no evidence for recent intracranial ischemia or other cause of cytotoxic edema on diffusion weighted imaging (DWI). Normal bilateral basal ganglia. Normal thalami. There is no extra-axial fluid accumulation. Normal flow voids within the major intracranial circulation suggesting patency by spin echo criteria. Normal sella turcica, pituitary gland, infundibular stalk, optic chiasm and hypothalamus. Normal tectal plate and pineal gland. Normal midbrain, joon and medulla. Normal cerebellum. Normal basal cisterns. Normal bilateral temporal bones. Normal bilateral internal auditory canals. No demonstrated orbital abnormality, within the constraints of a routine brain study. Normal visualized paranasal sinuses. Normal calvarium and skull base. Normal visualized soft tissue structures. Normal visualized upper cervical spine. MRI/Brain without Contrast IMPRESSION: Central atrophy versus normal pressure hydrocephalus. Otherwise no acute disease. Electronically Signed: Juan David Regan MD at 18:28 EDT , Service support ,
[2019-07-17 23:45] VITALS: BP 149/89; PULSE 89; RESP 20; TEMP 37.2; O2SAT 96
[2019-07-18] MEDS: 0.9% Normal Saline 1,000 ML 100 ML IV ×3 (01:01→20:37)
[2019-07-18 01:26] LABS: Reflex Lactate? Y
[2019-07-18 02:22] LABS: Lactic Acid 0.6 mmol/L (0.4-1.9)
[2019-07-18 04:10] VITALS: BP 142/87; PULSE 91; RESP 17; TEMP 37.2; O2SAT 94
[2019-07-18 05:58] LABS: Absolute Lymphocyte Count 1.31 X10^3/uL (0.83-4.51); Absolute Neutrophil Count 8.8 X10^3/uL (2.0-7.7); Basophil# 0.04 X10^3/uL; Basophil% 0.4 % (0-1); Hematocrit 42.5 % (40-54); Hemoglobin 14.4 g/dL (13.0-16.5); Lymphocyte # 1.31 X10^3/ul (4.0); Lymphocyte % 11.5 % (19-41); Mean Corp Hgb Conc 33.9 g/dL (32-36); Mean Corpuscular Hgb 35.2 pg (27.0-32.0); Mean Corpuscular Volume 103.9 fL (80-94); Mean Platelet Vol. 11.5 fl (6.2-12.0); Monocyte# 1.11 X10^3/uL; Monocyte% 9.8 % (0-10); NRBC Flagged by Analyzer 0 % (0-5); Neutrophil # 8.84 X10^3/uL (2.7-7.7); Neutrophil % 77.8 % (47-70); Platelet Count 104 K/mm3 (150-450); RBC Distribution Width CV 14.4 % (11.6-14.6); RBC Distribution Width SD 55.4 fl (35.1-43.9); Red Blood Count 4.09 M/mm3 (4.6-6.2); White Blood Count 11.4 K/mm3 (4.4-11.0)
[2019-07-18 06:20] LABS: Anion Gap 11 (5-15); BUN 14 mg/dL (7-18); BUN/Creat Ratio 17.4 RATIO (10-20); Calcium,Total 9.1 mg/dL (8.5-10.1); Chloride 107 mmol/L (98-107); Creatinine, Serum 0.81 mg/dL (0.70-1.30); EST Glomerular Filtration Rate 102 mL/min (>60); Est Glom Filt Rate - Afr Amer 124 mL/min (>60); Estimated Creatinine Clearance 60.31 ml/min; Glucose 78 mg/dL (74-106); Sodium Level 141 mmol/L (136-145)
--- NOTE | 2019-07-18 07:59 | PCM.PN.HOSP ---
Patient Problems: Active and Suspected Problems (Last Reviewed 07/18/19 @ 03:[address] Justice Youssef MD) Dehydration (Acute) Elevated lactic acid level (Acute) Rhabdomyolysis (Acute) Acute encephalopathy (Acute) Vitals/I&O's: Vital Signs Temp Pulse Resp BP Pulse Ox 98.9 F 91 17 142/87 H 94 07/18/19 04:10 07/18/19 04:10 07/18/19 04:10 07/18/19 04:10 07/18/19 04:10 Oxygen Delivery Method Room Air Weight: 103 lb 6.349 oz Body Mass Index (BMI) 16.2 Finger Stick Blood Glucose 99 Intake and Output for Last 24 Hours 07/16/19 07/17/19 07/18/19 23:59 23:59 23:59 Intake Total 1000 / 1000 53.67 / 53.67 Output Total 100 / 100 Balance 1000 / 900 -46.33 / -46.33 Laboratory Results 07/17/19 20:00: WBC 9.7, RBC 4.37 L, Hgb 15.2, Hct 45.4, MCV 103.9 H, MCH 34.8 H, MCHC 33.5, RDW Std Deviation 55.8 H, RDW Coeff of Marlyn 14.6, Plt Count 122 L, MPV 11.7, Immature Gran % (Auto) 0.400, Neut % (Auto) 81.0 H, Lymph % (Auto) 8.4 L, Elk % (Auto) 10.0, Eos % (Auto) 0.0, Baso % (Auto) 0.2, Absolute Neuts (auto) 7.9 H, Absolute Lymphs (auto) 0.82 L, Nucleated RBC % 0, Platelet Estimate SLT DEC, Plt Morphology Comment LARGE, Anisocytosis 1+, Macrocytosis 1+ 07/17/19 20:00: PT 15.9 H, INR 1.3, APTT 29.6 07/17/19 20:00: Sodium 139, Potassium 3.9, Chloride 103, Carbon Dioxide 26.0, Anion Gap 10, BUN 18, Creatinine 0.99, Estim Creat Clear Calc 51.77, Est GFR (MDRD) Af Amer 98, Est GFR (MDRD) Non-Af 81, BUN/Creatinine Ratio 18.2, Glucose 93, Calcium 9.7, Magnesium 2.0, Total Bilirubin 0.90, AST 40 H, ALT 19, Alkaline Phosphatase 97, Troponin I < 0.015, Total Protein 8.6 H, Albumin 3.9, Globulin 4.7 H, Albumin/Globulin Ratio 0.8 L, Lipase 66 L 07/17/19 20:00: Phosphorus 2.7, Total Creatine Kinase 1117 H 07/17/19 20:00: Lactic Acid 2.7 H* 07/17/19 20:00: Ethyl Alcohol 4.0 07/17/19 20:38: Urine Color Yellow, Urine Clarity Cloudy, Urine pH 6.0, Ur Specific [employer] 1.025, Urine Protein 30 H, Urine Glucose (UA) Normal, Urine Ketones 150 H, Urine Occult Blood 150 H, Urine Nitrite Negative, Urine Bilirubin Negative, Urine Urobilinogen 1 H, Ur Leukocyte Esterase Negative, Urine RBC 0-5 SEEN, Urine WBC 0-5 SEEN, Ur Squamous Epith Cells 0 SEEN, Ur Transition Epith Cell 0-5 SEEN, Calcium Oxalate Crystal RARE, Amorphous Sediment 1+, Urine Bacteria 0 SEEN, Hyaline Casts 0-5 SEEN, Urine Mucus 1+ 07/17/19 20:38: Urine Opiates Screen NEGATIVE, Urine Methadone Screen NEGATIVE, Ur Barbiturates Screen NEGATIVE, Ur Phencyclidine Scrn NEGATIVE, Ur Amphetamines Screen NEGATIVE, U Methamphetamin-MDMA NEGATIVE, U Benzodiazepines Scrn NEGATIVE, Urine Cocaine Screen NEGATIVE, U Cannabinoids Screen POSITIVE H, Ur Drug Screen Comment 07/18/19 01:45: Lactic Acid 0.6 07/18/19 05:34: WBC 11.4 H, RBC 4.09 L, Hgb 14.4, Hct 42.5, MCV 103.9 H, MCH 35.2 H, MCHC 33.9, RDW Std Deviation 55.4 H, RDW Coeff of Marlyn 14.4, Plt Count 104 L, MPV 11.5, Immature Gran % (Auto) 0.500, Neut % (Auto) 77.8 H, Lymph % (Auto) 11.5 L, Elk % (Auto) 9.8, Eos % (Auto) 0.0, Baso % (Auto) 0.4, Absolute Neuts (auto) 8.8 H, Absolute Lymphs (auto) 1.31, Nucleated RBC % 0 07/18/19 05:34: Sodium 141, Potassium 4.0, Chloride 107, Carbon Dioxide 23.0, Anion Gap 11, BUN 14, Creatinine 0.81, Estim Creat Clear Calc 60.31, Est GFR (MDRD) Af Amer 124, Est GFR (MDRD) Non-Af 102, BUN/Creatinine Ratio 17.4, Glucose 78, Calcium 9.1 07/18/19 05:34: CK Isoenzymes Pending, CK-MM (CK-3) Pending, CK-MB (CK-2) Pending, CK-BB (CK-1) Pending Current Medications Dextrose (D50w Syringe) 0 gm IV X1 PRN; Protocol PRN Reason: Hypoglycemia Enoxaparin Sodium (Lovenox) 40 mg SC DAILY HERNESTO Glucagon () 1 mg IM .X1 PRN PRN Reason: Hypoglycemia Sodium Chloride () 1,000 mls @ 100 mls/hr IV .Q10H HER[facility]STO Last Infusion: 07/18/19 01:17 Dose: 100 mls/hr Documented by: Thiamine HCl 200 mg/ Sodium (Chloride) 52 mls @ 200 mls/hr IV DAILY [facility] Last Infusion: 07/18/19 01:17 Dose: Infused Documented by: Folic Acid 1 mg/ Sodium (Chloride) 50.2 mls @ 200 mls/hr IV DAILY HERNESTO Lorazepam (Ativan) 2 mg IV Q2H PRN PRN; Protocol PRN Reason: CIWA score > 8 but <15 Lorazepam (Ativan) 2 mg IV UD PRN; Protocol PRN Reason: CIWA score >/=15. Lorazepam (Ativan) 1 mg IV X1 PRN PRN Reason: SEIZURES Nutritional Formula (Lactose Free) (Ensure Enlive) 120 ml PO 4X/DAY HERNESTO Ondansetron HCl (Zofran) 4 mg IV Q8H PRN PRN PRN Reason: NAUSEA/VOMITING Sodium Chloride () 10 - 40 ml IV UD PRN PRN Reason: SALINE FLUSH STROKE Vital Signs/Narrative: Vital Signs Temp Pulse Resp BP Pulse Ox 07/18/19 04:10 98.9 F 91 17 142/87 H 94 Medical Necessity - Tobacco Use Smoking Status: Current every day smoker Assessment/Plan All Active Problems (Last Reviewed 07/18/19 @ 03:[address] Justice Youssef MD) Dehydration (Acute) Elevated lactic acid level (Acute) Rhabdomyolysis (Acute) Acute encephalopathy (Acute)
[2019-07-18 08:55] VITALS: BP 134/89; PULSE 72; RESP 18; TEMP 37.2; O2SAT 95
[2019-07-18] MEDS: Enoxaparin 40 MG/0.4 ML Syringe SC (08:55)
--- NOTE | 2019-07-18 09:20 | CASEMGMT ---
AKOSUA PRASAD cpoke to daughter Anne via phone to complete CM assessment due to patient being confused. RN CM introduced self and role at [facility]. Daughter willing to participate in assessment and is able to answer all questions appropriately. Care providers, pharmacy, and demographics verified. Daughter unsure of discharge plans, states patient is severely depressed since at the beginning of the month. Per daughter patient not eating or bathing at home. Daughter states she has no further needs or concerns at this time. CM to follow for discharge planning needs that may arise. PCP: Barrera Specialists: Gopal, psychiatry Preferred Pharmacy: [facility] Insurance: [facility] Prescription Benefit: yes Living Will/HPOA: yes, daughter Anne Kumari LNOK: daughter Living Arrangements: Patient lives alone in 1 story home with 2 steps and railing to enter the home. Patient independent before becoming severely depressed. Transportation: daughter DME/HHC: Per daughter patient has shower chair, raised toilet seat, cane, grab bars, hand held shower, walker, rollator. Patient has been to rehab unit in the past. Disposition Plan: TBD Deb ZAPIEN, RN, CM
--- NOTE | 2019-07-18 11:56 | CASEMGMT ---
Addendum entered by Deb Valdes 07/18/19 14:39: HCPOA found on pt's echart. SW printed off copy, placed on pt's chart. Original Note: Social Work Note SW reviewed chart, pt has history of Bipolar, Alcohol use, pt's daughter thinks pt is severely depressed, pt's recently two weeks ago. At this time, pt is only alert and orientated to self, unable to talk, and is incoherent. SW discussed with charge nurse, physician in rounds that pt may benefit from [facility] seeing pt or pt being evaluated by crisis for derrick psych placement. At this time, pt is not coherent enough to participate in assessment. Pt would need to be medically cleared for [facility] or Crisis to evaluate pt. SW to continue to follow. Deb Valeds [employer]KE DECORATOR, STEAMING MACHINE OPERATOR
--- NOTE | 2019-07-18 13:14 | PCM.PROGNOTE ---
<Shawanda Marie - Last Filed: 07/18/19 13:27> Patient Problems: Active and Suspected Problems (Last Reviewed 07/18/19 @ 03:[address] Justice Youssef MD) Dehydration (Acute) Elevated lactic acid level (Acute) Rhabdomyolysis (Acute) Acute encephalopathy (Acute) Subjective: Patient seen and examined. Nonverbal this morning. Pulling at blankets, appears restless. - Physical Exam Vitals/I&O's: Vital Signs Temp Pulse Resp BP Pulse Ox 99.0 F 72 18 134/89 H 95 07/18/19 08:55 07/18/19 08:55 07/18/19 08:55 07/18/19 08:55 07/18/19 08:55 Oxygen Delivery Method Room Air Weight: 103 lb 6.349 oz Body Mass Index (BMI) 16.2 Finger Stick Blood Glucose 99 Intake and Output for Last 24 Hours 07/16/19 07/17/19 07/18/19 23:59 23:59 23:59 Intake Total 1000 / 1000 2040.87 / 2040.87 Output Total 700 / 700 Balance 1000 / 900 1340.87 / 1340.87 General: Alert, Confused, - - Unkempt HEENT: Atraumatic, PERRLA, EOMI, Normocephalic Oral: Dry Mucosa Neck: Supple, No JVD, Negative Carotid Bruits Lungs: Clear to auscultation, Normal air movement Cardiovascular: Regular rate, Regular Rhythm, Normal S1, Normal S2, No murmurs Abdomen: Bowel Sounds Present, Soft, Non Tender, Non-Distended Extremities: No clubbing, No cyanosis, No edema, Capillary Refill Less than 3 Seconds Skin: No rashes, No breakdown Musculoskeletal: No Tenderness to Palpation of Joints or Extremities, Cachexia, Muscle Wasting Neurological: Cranial nerves II-XII grossly intact Psych/Mental Status: Flat Affect Laboratory Results 07/17/19 20:00: WBC 9.7, RBC 4.37 L, Hgb 15.2, Hct 45.4, MCV 103.9 H, MCH 34.8 H, MCHC 33.5, RDW Std Deviation 55.8 H, RDW Coeff of Marlyn 14.6, Plt Count 122 L, MPV 11.7, Immature Gran % (Auto) 0.400, Neut % (Auto) 81.0 H, Lymph % (Auto) 8.4 L, Aiken % (Auto) 10.0, Eos % (Auto) 0.0, Baso % (Auto) 0.2, Absolute Neuts (auto) 7.9 H, Absolute Lymphs (auto) 0.82 L, Nucleated RBC % 0, Platelet Estimate SLT DEC, Plt Morphology Comment LARGE, Anisocytosis 1+, Macrocytosis 1+ 07/17/19 20:00: PT 15.9 H, INR 1.3, APTT 29.6 07/17/19 20:00: Sodium 139, Potassium 3.9, Chloride 103, Carbon Dioxide 26.0, Anion Gap 10, BUN 18, Creatinine 0.99, Estim Creat Clear Calc 51.77, Est GFR (MDRD) Af Amer 98, Est GFR (MDRD) Non-Af 81, BUN/Creatinine Ratio 18.2, Glucose 93, Calcium 9.7, Magnesium 2.0, Total Bilirubin 0.90, AST 40 H, ALT 19, Alkaline Phosphatase 97, Troponin I < 0.015, Total Protein 8.6 H, Albumin 3.9, Globulin 4.7 H, Albumin/Globulin Ratio 0.8 L, Lipase 66 L 07/17/19 20:00: Phosphorus 2.7, Total Creatine Kinase 1117 H 07/17/19 20:00: Lactic Acid 2.7 H* 07/17/19 20:00: Ethyl Alcohol 4.0 07/17/19 20:38: Urine Color Yellow, Urine Clarity Cloudy, Urine pH 6.0, Ur Specific [place] 1.025, Urine Protein 30 H, Urine Glucose (UA) Normal, Urine Ketones 150 H, Urine Occult Blood 150 H, Urine Nitrite Negative, Urine Bilirubin Negative, Urine Urobilinogen 1 H, Ur Leukocyte Esterase Negative, Urine RBC 0-5 SEEN, Urine WBC 0-5 SEEN, Ur Squamous Epith Cells 0 SEEN, Ur Transition Epith Cell 0-5 SEEN, Calcium Oxalate Crystal RARE, Amorphous Sediment 1+, Urine Bacteria 0 SEEN, Hyaline Casts 0-5 SEEN, Urine Mucus 1+ 07/17/19 20:38: Urine Opiates Screen NEGATIVE, Urine Methadone Screen NEGATIVE, Ur Barbiturates Screen NEGATIVE, Ur Phencyclidine Scrn NEGATIVE, Ur Amphetamines Screen NEGATIVE, U Methamphetamin-MDMA NEGATIVE, U Benzodiazepines Scrn NEGATIVE, Urine Cocaine Screen NEGATIVE, U Cannabinoids Screen POSITIVE H, Ur Drug Screen Comment 07/18/19 01:45: Lactic Acid 0.6 07/18/19 05:34: WBC 11.4 H, RBC 4.09 L, Hgb 14.4, Hct 42.5, MCV 103.9 H, MCH 35.2 H, MCHC 33.9, RDW Std Deviation 55.4 H, RDW Coeff of Marlyn 14.4, Plt Count 104 L, MPV 11.5, Immature Gran % (Auto) 0.500, Neut % (Auto) 77.8 H, Lymph % (Auto) 11.5 L, Aiken % (Auto) 9.8, Eos % (Auto) 0.0, Baso % (Auto) 0.4, Absolute Neuts (auto) 8.8 H, Absolute Lymphs (auto) 1.31, Nucleated RBC % 0 07/18/19 05:34: Sodium 141, Potassium 4.0, Chloride 107, Carbon Dioxide 23.0, Anion Gap 11, BUN 14, Creatinine 0.81, Estim Creat Clear Calc 60.31, Est GFR (MDRD) Af Amer 124, Est GFR (MDRD) Non-Af 102, BUN/Creatinine Ratio 17.4, Glucose 78, Calcium 9.1 07/18/19 05:34: CK Isoenzymes Pending, CK-MM (CK-3) Pending, CK-MB (CK-2) Pending, CK-BB (CK-1) Pending Current Medications Dextrose (D50w Syringe) 0 gm IV X1 PRN; Protocol PRN Reason: Hypoglycemia Enoxaparin Sodium (Lovenox) 40 mg SC DAILY [facility] Last Admin: 07/18/19 08:55 Dose: 40 mg Documented by: Glucagon () 1 mg IM .X1 PRN PRN Reason: Hypoglycemia Sodium Chloride () 1,000 mls @ 100 mls/hr IV .Q10H [facility] Last Admin: 07/18/19 10:40 Dose: 100 mls/hr Documented by: Thiamine HCl 200 mg/ Sodium (Chloride) 52 mls @ 200 mls/hr IV DAILY [facility] Last Infusion: 07/18/19 09:10 Dose: Infused Documented by: Folic Acid 1 mg/ Sodium (Chloride) 50.2 mls @ 200 mls/hr IV DAILY [facility] Last Infusion: 07/18/19 09:50 Dose: Infused Documented by: Lorazepam (Ativan) 2 mg IV Q2H PRN PRN; Protocol PRN Reason: CIWA score > 8 but <15 Lorazepam (Ativan) 2 mg IV UD PRN; Protocol PRN Reason: CIWA score >/=15. Lorazepam (Ativan) 1 mg IV X1 PRN PRN Reason: SEIZURES Nutritional Formula (Lactose Free) (Ensure Enlive) 120 ml PO 4X/DAY [facility] Last Admin: 07/18/19 08:54 Dose: Not Given Documented by: Ondansetron HCl (Zofran) 4 mg IV Q8H PRN PRN PRN Reason: NAUSEA/VOMITING Sodium Chloride () 10 - 40 ml IV UD PRN PRN Reason: SALINE FLUSH Medical Necessity - Tobacco Use Smoking Status: Current every day smoker Assessment/Plan All Active Problems (Last Reviewed 07/18/19 @ 03:[address] Justice Youssef MD) Dehydration (Acute) Elevated lactic acid level (Acute) Rhabdomyolysis (Acute) Acute encephalopathy (Acute) 1. Acute metabolic encephalopathy, complicated by severe depression-patient currently nonverbal however following commands. Very flat affect. MRI of brain pending. UA unremarkable for infection. Brain CT without acute process. Chest x-ray without acute process. Psychiatric evaluation. 2. Acute traumatic rhabdomyolysis secondary to immobilization-IV fluids. Repeat CK. 3. Lactic acidosis-suspect reactive secondary to #2. No evidence of infection. Lactic acidosis resolved. 4. Severe protein calorie malnutrition-nutrition consult. 5. Adult failure to thrive- PT/OT. Case management consult. Patient appears very unkempt, cachectic. 6. Chronic alcoholism- CIWA/Ativan protocol. [facility] to assess patient. 7. Severe depression/bipolar with recent suicidal ideations 07/13/2019 per daughter-patient nonverbal at this time. Monitor closely. Patient to be evaluated by crisis for [facility] psych placement. DVT prophylaxis- Lovenox in This patient was seen by MERCED Baird under the supervision of Dr. Cooper. <Zach Cooper - Last Filed: 07/18/19 14:14> Subjective: Patient is noncommunicative and nonverbal. Lethargic, disoriented to time place and person. And delirium with pulling up blankets. He opens eyes with difficulty on verbal command or tactile stimulation. - Physical Exam Vitals/I&O's: Vital Signs Temp Pulse Resp BP Pulse Ox 99.0 F 72 18 134/89 H 95 07/18/19 08:55 07/18/19 08:55 07/18/19 08:55 07/18/19 08:55 07/18/19 08:55 Oxygen Delivery Method Room Air Weight: 103 lb 6.349 oz Body Mass Index (BMI) 16.2 Finger Stick Blood Glucose 99 Intake and Output for Last 24 Hours 07/16/19 07/17/19 07/18/19 23:59 23:59 23:59 Intake Total 1000 / 1000 2040.87 / 2040.87 Output Total 700 / 700 Balance 1000 / 900 1340.87 / 1340.87 General: Confused, Disoriented, Lethargic, Non-Cooperative, - HEENT: Atraumatic, PERRLA, EOMI, Normocephalic Oral: Dry Mucosa Neck: Supple, No JVD, Negative Carotid Bruits Lungs: Clear to auscultation, No rhonchi, No wheeze, No rales, Diminished - Air entry diminished most probably for decreased respiratory effort Cardiovascular: Regular rate, Regular Rhythm, Normal S1, Normal S2, No murmurs Abdomen: Bowel Sounds Present, Soft, Non Tender, Non-Distended Musculoskeletal: No Tenderness to Palpation of Joints or Extremities, Cachexia, Muscle Wasting, - - Subcutaneous fat loss and muscle atrophy. Psych/Mental Status: Flat Affect Laboratory Results 07/17/19 20:00: WBC 9.7, RBC 4.37 L, Hgb 15.2, Hct 45.4, MCV 103.9 H, MCH 34.8 H, MCHC 33.5, RDW Std Deviation 55.8 H, RDW Coeff of Marlyn 14.6, Plt Count 122 L, MPV 11.7, Immature Gran % (Auto) 0.400, Neut % (Auto) 81.0 H, Lymph % (Auto) 8.4 L, Aiken % (Auto) 10.0, Eos % (Auto) 0.0, Baso % (Auto) 0.2, Absolute Neuts (auto) 7.9 H, Absolute Lymphs (auto) 0.82 L, Nucleated RBC % 0, Platelet Estimate SLT DEC, Plt Morphology Comment LARGE, Anisocytosis 1+, Macrocytosis 1+ 07/17/19 20:00: PT 15.9 H, INR 1.3, APTT 29.6 07/17/19 20:00: Sodium 139, Potassium 3.9, Chloride 103, Carbon Dioxide 26.0, Anion Gap 10, BUN 18, Creatinine 0.99, Estim Creat Clear Calc 51.77, Est GFR (MDRD) Af Amer 98, Est GFR (MDRD) Non-Af 81, BUN/Creatinine Ratio 18.2, Glucose 93, Calcium 9.7, Magnesium 2.0, Total Bilirubin 0.90, AST 40 H, ALT 19, Alkaline Phosphatase 97, Troponin I < 0.015, Total Protein 8.6 H, Albumin 3.9, Globulin 4.7 H, Albumin/Globulin Ratio 0.8 L, Lipase 66 L 07/17/19 20:00: Phosphorus 2.7, Total Creatine Kinase 1117 H 07/17/19 20:00: Lactic Acid 2.7 H* 07/17/19 20:00: Ethyl Alcohol 4.0 07/17/19 20:38: Urine Color Yellow, Urine Clarity Cloudy, Urine pH 6.0, Ur Specific [place] 1.025, Urine Protein 30 H, Urine Glucose (UA) Normal, Urine Ketones 150 H, Urine Occult Blood 150 H, Urine Nitrite Negative, Urine Bilirubin Negative, Urine Urobilinogen 1 H, Ur Leukocyte Esterase Negative, Urine RBC 0-5 SEEN, Urine WBC 0-5 SEEN, Ur Squamous Epith Cells 0 SEEN, Ur Transition Epith Cell 0-5 SEEN, Calcium Oxalate Crystal RARE, Amorphous Sediment 1+, Urine Bacteria 0 SEEN, Hyaline Casts 0-5 SEEN, Urine Mucus 1+ 07/17/19 20:38: Urine Opiates Screen NEGATIVE, Urine Methadone Screen NEGATIVE, Ur Barbiturates Screen NEGATIVE, Ur Phencyclidine Scrn NEGATIVE, Ur Amphetamines Screen NEGATIVE, U Methamphetamin-MDMA NEGATIVE, U Benzodiazepines Scrn NEGATIVE, Urine Cocaine Screen NEGATIVE, U Cannabinoids Screen POSITIVE H, Ur Drug Screen Comment 07/18/19 01:45: Lactic Acid 0.6 07/18/19 05:34: WBC 11.4 H, RBC 4.09 L, Hgb 14.4, Hct 42.5, MCV 103.9 H, MCH 35.2 H, MCHC 33.9, RDW Std Deviation 55.4 H, RDW Coeff of Marlyn 14.4, Plt Count 104 L, MPV 11.5, Immature Gran % (Auto) 0.500, Neut % (Auto) 77.8 H, Lymph % (Auto) 11.5 L, Aiken % (Auto) 9.8, Eos % (Auto) 0.0, Baso % (Auto) 0.4, Absolute Neuts (auto) 8.8 H, Absolute Lymphs (auto) 1.31, Nucleated RBC % 0 07/18/19 05:34: Sodium 141, Potassium 4.0, Chloride 107, Carbon Dioxide 23.0, Anion Gap 11, BUN 14, Creatinine 0.81, Estim Creat Clear Calc 60.31, Est GFR (MDRD) Af Amer 124, Est GFR (MDRD) Non-Af 102, BUN/Creatinine Ratio 17.4, Glucose 78, Calcium 9.1 07/18/19 05:34: CK Isoenzymes Pending, CK-MM (CK-3) Pending, CK-MB (CK-2) Pending, CK-BB (CK-1) Pending Current Medications Dextrose (D50w Syringe) 0 gm IV X1 PRN; Protocol PRN Reason: Hypoglycemia Enoxaparin Sodium (Lovenox) 40 mg SC DAILY [facility] Last Admin: 07/18/19 08:55 Dose: 40 mg Documented by: Glucagon () 1 mg IM .X1 PRN PRN Reason: Hypoglycemia Sodium Chloride () 1,000 mls @ 100 mls/hr IV .Q10H [facility] Last Admin: 07/18/19 10:40 Dose: 100 mls/hr Documented by: Thiamine HCl 200 mg/ Sodium (Chloride) 52 mls @ 200 mls/hr IV DAILY [facility] Last Infusion: 07/18/19 09:10 Dose: Infused Documented by: Folic Acid 1 mg/ Sodium (Chloride) 50.2 mls @ 200 mls/hr IV DAILY [facility] Last Infusion: 07/18/19 09:50 Dose: Infused Documented by: Lorazepam (Ativan) 2 mg IV Q2H PRN PRN; Protocol PRN Reason: CIWA score > 8 but <15 Lorazepam (Ativan) 2 mg IV UD PRN; Protocol PRN Reason: CIWA score >/=15. Lorazepam (Ativan) 1 mg IV X1 PRN PRN Reason: SEIZURES Nutritional Formula (Lactose Free) (Ensure Enlive) 120 ml PO 4X/DAY [facility] Last Admin: 07/18/19 13:22 Dose: Not Given Documented by: Ondansetron HCl (Zofran) 4 mg IV Q8H PRN PRN PRN Reason: NAUSEA/VOMITING Sodium Chloride () 10 - 40 ml IV UD PRN PRN Reason: SALINE FLUSH Assessment/Plan This patient was seen in conjunction with Shawanda ZAMARRIPA. I have independently interviewed and examined the patient and reviewed pertinent history, examination findings, laboratory and plan of management. I have reviewed the note and agree with the documented findings with the few additional points. In brief, patient has history of chronic alcohol use and dependence, substance use and dependence with cannabinoids, major depression and anxiety admitted with altered mental status, delirium, consistent with acute encephalopathy on baseline major depression. Patient had lactic acid is 2.7, acute rhabdomyolysis from prolonged laying, CK 1117. Patient has has ongoing volume resuscitation. UA negative of pyuria, WBC 0-5, RBC 0-5, ketones 150 suggestive of starvation/decrease calorie intake. Patient has severe protein calorie malnutrition with diffuse muscle atrophy and subcutaneous fat loss. History of chronic alcohol use and dependence. Discussed with telephonic case manager and nursing staff. Patient history of bipolar disorder with major depression. Patient also had suicidal ideation 07/13/2019. Once patient is more verbal and communicative, will call mental health crisis and possible [facility] psych placement. I have discussed my assessment with Shawanda ZAMARRIPA and orders have been reviewed. Inpatient E&M: 19518 Subs Hosp L2
[2019-07-18 14:46] VITALS: BP 123/65; PULSE 72; RESP 18; TEMP 36.9; O2SAT 95
[2019-07-18] MEDS: LORazepam 2 MG/ML Syringe IV (16:25)
--- NOTE | 2019-07-18 17:14 | PCA ---
pt off floor
[2019-07-18] MEDS: 0.9% Saline Lock 10 ML Syringe IV (18:11)
[2019-07-18 20:09] VITALS: BP 109/71; PULSE 92; RESP 18; TEMP 36.6; O2SAT 95
[2019-07-19] MEDS: LORazepam 2 MG/ML Syringe IV (00:20)
[2019-07-19 03:03] VITALS: BP 131/74; PULSE 84; RESP 17; TEMP 36.9; O2SAT 93
[2019-07-19] MEDS: 0.9% Normal Saline 1,000 ML 100 ML IV (06:01)
[2019-07-19 08:01] VITALS: O2SAT 94
--- NOTE | 2019-07-19 08:13 | NURSING ---
spoke with [facility], patient information faxed over and [facility] to call daughter Anne.
[2019-07-19 08:30] LABS: Hematocrit 37.5 % (40-54); Hemoglobin 12.3 g/dL (13.0-16.5); Mean Corp Hgb Conc 32.8 g/dL (32-36); Mean Corpuscular Hgb 34.5 pg (27.0-32.0); Mean Platelet Vol. 12.3 fl (6.2-12.0); POSITIVE COUNT YES; RBC Distribution Width CV 14.8 % (11.6-14.6); RBC Distribution Width SD 57.3 fl (35.1-43.9); Red Blood Count 3.57 M/mm3 (4.6-6.2); White Blood Count 7.1 K/mm3 (4.4-11.0)
[2019-07-19 08:35] LABS: Scan Indicated on CBC? Y/N YES- FLAGS NOTED
[2019-07-19 09:04] LABS: Differential Comment SCANNED
[2019-07-19] MEDS: Enoxaparin 40 MG/0.4 ML Syringe SC (09:36)
[2019-07-19 09:45] VITALS: BP 92/57; PULSE 74; RESP 16; TEMP 36.7; O2SAT 93
--- NOTE | 2019-07-19 10:39 | NURSING ---
spoke with Shawanda Marie about consulting crisis for derrick-psych consult for depression. called crisis and spoke with Ann-Marie who reported that they cannot eval for derrick-psych until the pt has been medically cleared for DC. primary RN and Shawanda Marie [employer]ITTER notified.
[2019-07-19 10:40] LABS: CPK Total, Creatine Kinase 2413 U/L (39-308)
--- NOTE | 2019-07-19 12:43 | PN_ITS ---
<Shawanda Marie - Last Filed: 07/19/19 12:53> Patient Problems: Active and Suspected Problems (Last Reviewed 07/18/19 @ 03:[address] Justice Youssef MD) Dehydration (Acute) Elevated lactic acid level (Acute) Rhabdomyolysis (Acute) Acute encephalopathy (Acute) Subjective: Patient seen and examined. More alert and talkative today. Denies symptoms or complaints. Tearful during assessment and states he is not going to get drunk again. - Physical Exam Vitals/I&O's: Vital Signs Temp Pulse Resp BP Pulse Ox 98.0 F 74 16 92/57 L 93 07/19/19 09:45 07/19/19 09:45 07/19/19 09:45 07/19/19 09:45 07/19/19 09:45 Oxygen Delivery Method Room Air Weight: 103 lb 6.349 oz Body Mass Index (BMI) 16.2 Finger Stick Blood Glucose 99 Intake and Output for Last 24 Hours 07/17/19 07/18/19 07/19/19 23:59 23:59 23:59 Intake Total 1000 / 1000 2904.20 / 2904.20 1042.2 / 1042.2 Output Total 900 / 900 600 / 600 Balance 1000 / 900 2004.20 / 2003.20 442.2 / 442.2 General: Alert, Cooperative, No apparent distress HEENT: Atraumatic, PERRLA, EOMI, Normocephalic Oral: Dry Mucosa Neck: Supple, No JVD, Negative Carotid Bruits Lungs: Clear to auscultation, Normal air movement Cardiovascular: Regular rate, No murmurs Abdomen: Bowel Sounds Present, Soft, Non Tender, Non-Distended Extremities: No clubbing, No cyanosis, No edema, Capillary Refill Less than 3 Seconds Skin: No rashes, No breakdown Musculoskeletal: No Tenderness to Palpation of Joints or Extremities, Cachexia, Muscle Wasting Neurological: Cranial nerves II-XII grossly intact Psych/Mental Status: Flat Affect, Impulsive Microbiology Past 72 Hours 07/18/19 10:38 Urine Catheter - Catheter Urine Culture - Preliminary Culture exhibits no growth. Laboratory Results 07/19/19 08:14: WBC 7.1, RBC 3.57 L, Hgb 12.3 L, Hct 37.5 L, MCV 105.0 H, MCH 34.5 H, MCHC 32.8, RDW Std Deviation 57.3 H, RDW Coeff of Marlyn 14.8 H, Plt Count TNP, MPV 12.3 H, Differential Comment SCANNED 07/19/19 08:14: Total Creatine Kinase 2413 H Current Medications Dextrose (D50w Syringe) 0 gm IV X1 PRN; Protocol PRN Reason: Hypoglycemia Dicyclomine HCl (Bentyl) 20 mg PO Q6H PRN PRN PRN Reason: abdominal discomfort Enoxaparin Sodium (Lovenox) 40 mg SC DAILY [facility] Last Admin: 07/19/19 09:36 Dose: 40 mg Documented by: Glucagon () 1 mg IM .X1 PRN PRN Reason: Hypoglycemia Haloperidol Lactate (Haldol) 1 mg IM Q6H PRN PRN PRN Reason: AGITATION Hydroxyzine Pamoate (Vistaril Pamoate Capsule) 50 mg PO Q4H PRN PRN PRN Reason: mild anxiety Sodium Chloride () 1,000 mls @ 100 mls/hr IV .Q10H [facility] Last Admin: 07/19/19 06:01 Dose: 100 mls/hr Documented by: Thiamine HCl 200 mg/ Sodium (Chloride) 52 mls @ 200 mls/hr IV DAILY [facility] Last Infusion: 07/19/19 10:43 Dose: Infused Documented by: Folic Acid 1 mg/ Sodium (Chloride) 50.2 mls @ 200 mls/hr IV DAILY [facility] Last Infusion: 07/19/19 09:48 Dose: Infused Documented by: Loperamide HCl (Imodium) 2 mg PO Q4H PRN PRN PRN Reason: LOOSE STOOLS Lorazepam (Ativan) 2 mg IV Q2H PRN PRN; Protocol PRN Reason: CIWA score > 8 but <15 Last Admin: 07/19/19 00:20 Dose: 2 mg Documented by: Lorazepam (Ativan) 2 mg IV UD PRN; Protocol PRN Reason: CIWA score >/=15. Lorazepam (Ativan) 1 mg IV X1 PRN PRN Reason: SEIZURES Nutritional Formula (Lactose Free) (Ensure Enlive) 120 ml PO 4X/DAY [facility] Last Admin: 07/19/19 09:29 Dose: Not Given Documented by: Ondansetron HCl (Zofran) 4 mg IV Q8H PRN PRN PRN Reason: NAUSEA/VOMITING Sodium Chloride () 10 - 40 ml IV UD PRN PRN Reason: SALINE FLUSH Last Admin: 07/18/19 18:11 Dose: 10 ml Documented by: Trazodone HCl (Desyrel) 100 mg PO QHS PRN PRN Reason: INSOMNIA Medical Necessity - Tobacco Use Smoking Status: Current every day smoker Assessment/Plan All Active Problems (Last Reviewed 07/18/19 @ 03:[address] Justice Youssef MD) Dehydration (Acute) Elevated lactic acid level (Acute) Rhabdomyolysis (Acute) Acute encephalopathy (Acute) 1. Acute metabolic encephalopathy, complicated by severe depression-MRI of brain demonstrates central atrophy versus normal pressure hydrocephalus, no acute disease. UA unremarkable for infection. Brain CT without acute process. Chest x-ray without acute process. Patient is more alert and talking today. Will discuss with daughter discharge plans. 2. Acute traumatic rhabdomyolysis secondary to immobilization-IV fluids. Trend CK. 3. Lactic acidosis-suspect reactive secondary to #2. No evidence of infection. Lactic acidosis resolved. 4. Severe protein calorie malnutrition-nutrition consult. 5. Adult failure to thrive- PT/OT. Case management consult. Patient appears very unkempt, cachectic. 6. Chronic alcoholism- CIWA/Ativan protocol. [employer] to assess patient. 7. Severe depression/bipolar with recent suicidal ideations 07/13/2019 per daughter-patient denies suicidal ideations currently or recently. We will continue to reassess. Will discuss with patient and daughter initiating SSRI. DVT prophylaxis- Lovenox sc This patient was seen by MERCED Baird under the supervision of Dr. Cooper. <Zach Cooper - Last Filed: 07/19/19 14:59> Subjective: Seen and examined together with DALLIN Mayberry. Patient is more awake and alert today. He is coherent and comprehensive. As mentioned above, patient was tear ful during our interview. Objective: Physical exam General: alert awake and oriented x3. HEENT: Atraumatic, PERRLA, EOMI, Normocephalic Oral: moist mucosa. Neck: Supple, No JVD, Negative Carotid Bruits Lungs: Clear to auscultation, No rhonchi, No wheeze, No rales, Air entry bilaterally equal. Cardiovascular: Regular rate, Regular Rhythm, Normal S1, Normal S2, No murmurs Abdomen: Bowel Sounds Present, Soft, Non Tender, Non-Distended Musculoskeletal: No Tenderness to Palpation of Joints or Extremities, Cachexia, Muscle Wasting, - - Subcutaneous fat loss and muscle atrophy. Neuro exam: Cranial nerves intact. No focal neurological deficit. Psych/Mental Status: Flat Affect - Physical Exam Vitals/I&O's: Vital Signs Temp Pulse Resp BP Pulse Ox 98.4 F 70 16 94/53 L 97 07/19/19 14:07 07/19/19 14:07 07/19/19 14:07 07/19/19 14:07 07/19/19 14:07 Oxygen Delivery Method Room Air Weight: 103 lb 6.349 oz Body Mass Index (BMI) 16.2 Finger Stick Blood Glucose 99 Intake and Output for Last 24 Hours 07/17/19 07/18/19 07/19/19 23:59 23:59 23:59 Intake Total 1000 / 1000 2904.20 / 2904.20 1292.2 / 1292.2 Output Total 900 / 900 700 / 700 Balance 1000 / 900 2003.20 / 2003. 592.2 / 592.2 Microbiology Past 72 Hours 07/18/19 10:38 Urine Catheter - Catheter Urine Culture - Preliminary Culture exhibits no growth. Laboratory Results 07/19/19 08:14: WBC 7.1, RBC 3.57 L, Hgb 12.3 L, Hct 37.5 L, MCV 105.0 H, MCH 34.5 H, MCHC 32.8, RDW Std Deviation 57.3 H, RDW Coeff of Marlyn 14.8 H, Plt Count TNP, MPV 12.3 H, Differential Comment SCANNED 07/19/19 08:14: Total Creatine Kinase 2413 H Current Medications Dextrose (D50w Syringe) 0 gm IV X1 PRN; Protocol PRN Reason: Hypoglycemia Dicyclomine HCl (Bentyl) 20 mg PO Q6H PRN PRN PRN Reason: abdominal discomfort Enoxaparin Sodium (Lovenox) 40 mg SC DAILY [facility] Last Admin: 07/19/19 09:36 Dose: 40 mg Documented by: Fluoxetine HCl (Prozac) 20 mg PO DAILY [facility] Glucagon () 1 mg IM .X1 PRN PRN Reason: Hypoglycemia Haloperidol Lactate (Haldol) 1 mg IM Q6H PRN PRN PRN Reason: AGITATION Hydroxyzine Pamoate (Vistaril Pamoate Capsule) 50 mg PO Q4H PRN PRN PRN Reason: mild anxiety Sodium Chloride () 1,000 mls @ 100 mls/hr IV .Q10H [facility] Last Admin: 07/19/19 06:01 Dose: 100 mls/hr Documented by: Thiamine HCl 200 mg/ Sodium (Chloride) 52 mls @ 200 mls/hr IV DAILY [facility] Last Infusion: 07/19/19 10:43 Dose: Infused Documented by: Folic Acid 1 mg/ Sodium (Chloride) 50.2 mls @ 200 mls/hr IV DAILY [facility] Last Infusion: 07/19/19 09:48 Dose: Infused Documented by: Loperamide HCl (Imodium) 2 mg PO Q4H PRN PRN PRN Reason: LOOSE STOOLS Lorazepam (Ativan) 2 mg IV Q2H PRN PRN; Protocol PRN Reason: CIWA score > 8 but <15 Last Admin: 07/19/19 00:20 Dose: 2 mg Documented by: Lorazepam (Ativan) 2 mg IV UD PRN; Protocol PRN Reason: CIWA score >/=15. Lorazepam (Ativan) 1 mg IV X1 PRN PRN Reason: SEIZURES Nutritional Formula (Lactose Free) (Ensure Enlive) 120 ml PO 4X/DAY [facility] Last Admin: 07/19/19 14:00 Dose: 120 ml Documented by: Olanzapine (Zyprexa Zydis) 5 mg PO DAILY [facility] Ondansetron HCl (Zofran) 4 mg IV Q8H PRN PRN PRN Reason: NAUSEA/VOMITING Sodium Chloride () 10 - 40 ml IV UD PRN PRN Reason: SALINE FLUSH Last Admin: 07/18/19 18:11 Dose: 10 ml Documented by: Assessment/Plan This patient was seen in conjunction with EVENT PRODUCERShawanda. I have independently interviewed and examined the patient and reviewed pertinent history, examination findings, laboratory and plan of management. I have reviewed the note and agree with the documented findings with the few additional points. In brief, patient has history of chronic alcohol use and dependence, substance use and dependence with cannabinoids, major depression and anxiety admitted with altered mental status, delirium, consistent with acute encephalopathy most probably metabolic/toxic on baseline major depression. Patient had lactic acid is 2.7, acute rhabdomyolysis from prolonged laying, CK 1117. Patient was volume resuscitated. Acute encephalopathy resolved. UA negative of pyuria, WBC 0-5, RBC 0-5, ketones 150 suggestive of starvation/decrease calorie intake. Acute traumatic rhabdomyolysis secondary to immobilization: Total CK level has increased, reason unclear although he is well hydrated. Continue IV fluid normal saline and repeat CK tomorrow a.m. Patient has severe protein calorie malnutrition with diffuse muscle atrophy and subcutaneous fat loss. History of chronic alcohol use and dependence. Discussed with machine adjuster leader case trim and nursing staff. Patient history of bipolar disorder with major depression. Patient also had suicidal ideation 07/13/2019. Patient does not have suicidal ideation, thoughts, plan and denies suicidal attempt in the past. Her daughter was updated about hospital course and management plan. Possible SNF or [facility]. I have discussed my assessment with Shawanda ZAMARRIPA and orders have been reviewed. Inpatient E&M: 58991 Subs Hosp L2
--- NOTE | 2019-07-19 13:31 | CASEMGMT ---
Social Work Consult: Mental Health Informant: Caio Mayberry Chief Complaint: Patient with history of suicidal thoughts per medical team. Patient is poor historian. Patient stating to have short-term memory loss. Marital/Social History: as of June 27, 2019 per patient daughter, Anne. Patient stating that patient spouse left patient a couple months ago. Patient stating to have been to spouse for 38 years. Anne clarifying that patient was to spouse for 37 years before spouse passing. Patient has two adult daughters that live out of the area. Anne is Health Care Power of deputy attorney general and lives in [place], [place]. Living Situation: Lives alone. Patient stating now I live alone. Support/Resources: Follows with psychiatrist, Dr. Herron. Anne unsure when the last time patient saw psychiatrist. Patient unsure as well. Anne stating that patient did recently run out of medication, Clonazepam. Anne stating to have planned to call Dr. Herron to obtain refill but patient needed to come to the hospital. History: None Education/Employment History: Disability. Patient stating to have completed the 10th grade. Patient denies any concerns with comprehension, reading or writing. Mental Health Treatment/History: Patient reports history of depression. Patient denies history of Bi-polar. Patient daughter stating that patient has a history of Bi-polar. Patient with history of mediation to manage mental health and is stating to be compliant with medications. Patient denies any history of inpatient psychiatric placement. Patient stating to currently be in counseling but unsure where, did not clarify with daughter as to where patient is in counseling at this time. Triggers/Stressors: Patient stating well my left me. This public health social worker did attempt to clarify that patient spouse , patient stating she is alive. Coping Skills: Patient denies any current coping skills. Abuse Issues: Denies Substance Abuse Hx: Patient stating to smoke 1-2 joints a day. Patient clarifying joints as THC. Patient stating to drink a half of a 5th of Tequila a day. Per patient daughter patient has cut back a lot and only has 1 750ml bottle of Tequila a week as this is all that patient family is purchasing for patient. Patient denies any history of AA groups or rehab for substance abuse. Patient stating to also smoke tobacco daily. Patient denies any other substance abuse. Risk to Self/Others: Patient denies any active suicidal thoughts or plans. Patient denies any history of suicide attempts or plans. Per patient daughterAnne patient has suicidal tendencies. Anne stating that patient has a plan to complete suicide in 2007 but decided against this due to wanting to live for family and provide. Anne stating that patient has been down and depressed due to spouse passing and patient was making suicidal comments this past Sunday and Sunday (July 11) but patient did not have a plan and stated to want to live due to two adult daughters. Anne stating there are no firearms or pills for patient to overdose on in the home. Patient stating that the past week patient declined and would not care for self. Anne stating that patient was upset on Sunday and tearful about spouse passing. Patient denies any homicidal thoughts/plans. Mental Status Exam: A&Ox2. Patient oriented to person and place. Patient is not sure of the date or month. Patient aware that patient is in the hospital and that this story writer is a public health social worker and that patient had two daughters. Patient able to have conversation and appearing to be recalling well until speaking about spouse. Patient believes that spouse is still living. Confirming with patient daughterAnne that spouse on June 27, 2019. Anne stating to not be surprised by patient current forgetfulness due to history of depression/Bi-polar as Anne is stating that patient has been depressed since spouse passed. Anne stating that patient has a history of short-term memory loss. Patient was unsure of something and did attribute this to short-term memory loss. Patient did not, however acknowledge patient spouse passing at any point. Appearance/General Behavior: Calm. Directable. Mood/Affect: Depressed. Communication Pattern: Responds to questions. Thoughts Process: Reporting to have auditory and visual hallucinations. Patient stating to here voices but only mumbling. Patient stating to not hear voices often. Patient stating to see bizarre dreams. Patient denies any paranoia. Assessment: Met with patient in room. Introduced self as well as public health social worker role. Patient is agreeable to speaking with this public health social worker. Patient is pleasantly confused with this public health social worker. Patient is a poor historian. A phone conversation was had with patient daughterAnne. Anne was able to clarify parts of assessment as seen above and noted accordingly. Anne was not present during assessment. Patient stating to be aware that patient is currently not able to care for self. Patient is aware that patient currently lives alone and that patient spouse is not present there but patient believes that patient spouse left me versus patient spouse passing away. Patient stating she survives. Patient denies seeing spouse in awhile. Patient denies feeling depressed or being down. Patient with PHQ-9 score of 1/27 with only concern being not able to sleep sometimes. This public health social worker broaching discharge plan with patient as possible senior care placement. Patient stating please don't. Was able to go over therapy notes with patient and clarify that patient currently requires 2 people to assist to ambulate 3 feet. Patient understanding and stating to be open to senior care placement for short term and strengthening. This public health social worker inquiring if patient has ever been in a senior care. Patient stating yes but not has a patient. Patient stating to have visited friends in the past. This public health social worker inquiring if patient has a preference of senior care. Patient stating Nursing this public health social worker stating that there is not a SNF in the area that is called nursing patient stating there is. This public health social worker clarifying if patient needs to speak with a nurse, patient denies and did not elaborate further. Active support provided to patient. Collaborating with Caio Mayberry plans to call patient psychiatrist on Sunday due to Sunday being a holiday to clarify medication regiment and possible plan for further medication management as patient has been depressed. Patient is difficult to assess due to current confusion. Patient is unable to return to home as patient is not able to care for self. Plan is for patient to discharge to a senior care under skilled services. Plan is to cancel crisis consult and hospice consult, this public health social worker updated charge nurse on this. Plan would also be for the SNF to follow up will facilitating further mental health services for patient. Telephone call to patient daughterAnne. Introduced self and public health social worker role. Anne's comments added to above assessment for clarity. Anne stating to be agreeable to senior care placement and collaborating with patient psychiatrist as patient mental health needs further follow-up. Anne thanking this public health social worker and medical team. Anne to bring patient dentures to ED entrance and to ask for this public health social worker so this public health social worker can provide Anne with list of area nursing homes. Anne stating to want to keep patient local as Anne will be coming to check in patient cat's often and will be able to check in with patient at that point. Support provided. PLAN: skilled nursing placement. Social Work to continue to follow as needed. Cristy Barnes MSW, MESHA
[2019-07-19] MEDS: Sertraline 50 MG Tablet PO (14:00)
[2019-07-19 14:07] VITALS: BP 94/53; PULSE 70; RESP 16; TEMP 36.9; O2SAT 97
[2019-07-19 14:07] LABS: Creatine Kinase MB 0 % (0-3); Creatine Kinase MM 100 % (97-100); Macro I 0 % (Not Observed); Macro II 0 % (Not Observed)
[2019-07-19] MEDS: 0.9% Normal Saline 1,000 ML 999 ML IV (16:40)
[2019-07-19 16:55] VITALS: BP 108/60; BP 108/68; PULSE 90; RESP 16; TEMP 37.1; O2SAT 95
[2019-07-19] MEDS: 0.9% Normal Saline 1,000 ML 150 ML IV (17:58)
--- NOTE | 2019-07-19 18:00 | CASEMGMT ---
Social Work Met with patient daughter, Anne outside hospital. Anne providing this high school social studies teacher with bag of patient belongings to give to patient. This high school social studies teacher providing patient with list of area nursing homes. Anne plans to speak with sister this weekend and come up with first choice for skilled nursing. Anne also providing this high school social studies teacher will copy of Health Care Power of [employer] Us[employer] paperwork. Anne with no further questions. Will continue to follow as needed. Cristy Barnes MSW, MESHA
[2019-07-19 19:54] VITALS: BP 100/56; PULSE 82; RESP 16; TEMP 37.1; O2SAT 96
[2019-07-20] VITALS (13 sets, daily range): BP systolic 91–153; BP diastolic 3–89; PULSE 60–86; RESP 14–23; TEMP 36.3–37.4; O2SAT 94–100
[2019-07-20] MEDS: 0.9% Normal Saline 1,000 ML 150 ML IV ×3 (00:19→13:42)
[2019-07-20 01:07] LABS: Creatine Kinase BB 0 % (0); Creatine Kinase,Total,Serum 1594 U/L (41-331)
[2019-07-20 05:38] LABS: Hematocrit 35.6 % (40-54); Mean Corp Hgb Conc 33.7 g/dL (32-36); Mean Corpuscular Hgb 34.3 pg (27.0-32.0); Mean Corpuscular Volume 101.7 fL (80-94); Mean Platelet Vol. 11.9 fl (6.2-12.0); POSITIVE COUNT YES; Platelet Count 86 K/mm3 (150-450); RBC Distribution Width CV 14.1 % (11.6-14.6); RBC Distribution Width SD 53.1 fl (35.1-43.9); White Blood Count 5.4 K/mm3 (4.4-11.0)
[2019-07-20 06:08] LABS: Anion Gap 9 (5-15); BUN 9 mg/dL (7-18); BUN/Creat Ratio 16.4 RATIO (10-20); CPK Total, Creatine Kinase 1426 U/L (39-308); Calcium,Total 7.6 mg/dL (8.5-10.1); Chloride 111 mmol/L (98-107); Creatinine, Serum 0.55 mg/dL (0.70-1.30); EST Glomerular Filtration Rate 159 mL/min (>60); Est Glom Filt Rate - Afr Amer 193 mL/min (>60); Estimated Creatinine Clearance 88.83 ml/min; Glucose 87 mg/dL (74-106); Potassium 2.8 mmol/L (3.5-5.1); Sodium Level 141 mmol/L (136-145)
[2019-07-20 08:52] LABS: Magnesium 1.1 mg/dL (1.6-2.6)
[2019-07-20] MEDS: Potassium Chloride 10mEq/100mL 10 MEQ/100 ML IV.SOLN. 100 MEQ IV BOLUS ×6 (09:38→22:47)
[2019-07-20] MEDS: FLUoxetine 20 MG Capsule PO (09:43)
[2019-07-20] MEDS: Enoxaparin 40 MG/0.4 ML Syringe SC (09:45)
--- NOTE | 2019-07-20 12:54 | PN_ITS ---
<Shawanda Marie - Last Filed: 07/20/19 13:04> Patient Problems: Active and Suspected Problems (Last Reviewed 07/18/19 @ 03:[address] Justice Youssef MD) Dehydration (Acute) Elevated lactic acid level (Acute) Rhabdomyolysis (Acute) Acute encephalopathy (Acute) Subjective: Patient seen and examined. Resting comfortably in bed. No acute events overnight. - Physical Exam Vitals/I&O's: Vital Signs Temp Pulse Resp BP Pulse Ox 98.3 F 79 16 117/81 H 95 07/20/19 09:33 07/20/19 09:33 07/20/19 09:33 07/20/19 09:33 07/20/19 12:30 Oxygen Delivery Method Room Air Weight: 103 lb 6.349 oz Body Mass Index (BMI) 16.2 Finger Stick Blood Glucose 99 Intake and Output for Last 24 Hours 07/18/19 07/19/19 07/20/19 23:59 23:59 23:59 Intake Total 2904.20 / 2904.20 3592.2 / 3592.2 2247.83 / 2247.83 Output Total 900 / 900 850 / 850 750 / 750 Balance / 2742.2 / 2742.2 1497.83 / 1497.83 General: Alert, Cooperative, No apparent distress HEENT: Atraumatic, PERRLA, EOMI, Normocephalic Oral: Dry Mucosa Neck: Supple, No JVD, Negative Carotid Bruits Lungs: Clear to auscultation, Normal air movement Cardiovascular: Regular rate, No murmurs Abdomen: Bowel Sounds Present, Soft, Non Tender, Non-Distended Extremities: No clubbing, No cyanosis, No edema, Capillary Refill Less than 3 Seconds Skin: No rashes, No breakdown Musculoskeletal: No Tenderness to Palpation of Joints or Extremities Neurological: Cranial nerves II-XII grossly intact, Neuro grossly intact Psych/Mental Status: Normal Affect, Appropriate Microbiology Past 72 Hours 07/18/19 10:38 Urine Catheter - Catheter Urine Culture - Final Culture exhibits no growth. 07/17/19 20:36 Blood Culture (Wb) - Anticubital Right Blood Culture - Preliminary No growth in 48 hours. 07/17/19 20:00 Blood Culture (Wb) - Anticubital Right Blood Culture - Preliminary No growth in 48 hours. Laboratory Results 07/18/19 05:34: CK Isoenzymes 1594 H, CK-MM (CK-3) 100, CK-MB (CK-2) 0, CK-BB (CK-1) 0, Macro CK Type I 0, Macro CK Type II 0 07/20/19 05:16: WBC 5.4, RBC 3.50 L, Hgb 12.0 L, Hct 35.6 L, MCV 101.7 H, MCH 34.3 H, MCHC 33.7, RDW Std Deviation 53.1 H, RDW Coeff of Marlyn 14.1, Plt Count 86 L, MPV 11.9 07/20/19 05:16: Sodium 141, Potassium 2.8 L, Chloride 111 H, Carbon Dioxide 21.0, Anion Gap 9, BUN 9, Creatinine 0.55 L, Estim Creat Clear Calc 88.83, Est GFR (MDRD) Af Amer 193, Est GFR (MDRD) Non-Af 159, BUN/Creatinine Ratio 16.4, Glucose 87, Calcium 7.6 L, Total Creatine Kinase 1426 H 07/20/19 05:16: Magnesium 1.1 L Current Medications Dextrose (D50w Syringe) 0 gm IV X1 PRN; Protocol PRN Reason: Hypoglycemia Dicyclomine HCl (Bentyl) 20 mg PO Q6H PRN PRN PRN Reason: abdominal discomfort Enoxaparin Sodium (Lovenox) 40 mg SC DAILY [facility] Last Admin: 07/20/19 09:45 Dose: 40 mg Documented by: Fluoxetine HCl (Prozac) 20 mg PO DAILY [facility] Last Admin: 07/20/19 09:43 Dose: 20 mg Documented by: Glucagon () 1 mg IM .X1 PRN PRN Reason: Hypoglycemia Haloperidol Lactate (Haldol) 1 mg IM Q6H PRN PRN PRN Reason: AGITATION Hydroxyzine Pamoate (Vistaril Pamoate Capsule) 50 mg PO Q4H PRN PRN PRN Reason: mild anxiety Thiamine HCl 200 mg/ Sodium (Chloride) 52 mls @ 200 mls/hr IV DAILY [facility] Last Infusion: 07/20/19 09:30 Dose: Infused Documented by: Folic Acid 1 mg/ Sodium (Chloride) 50.2 mls @ 200 mls/hr IV DAILY [facility] Last Infusion: 05/23/20 09:48 Dose: Infused Documented by: Sodium Chloride () 1,000 mls @ 150 mls/hr IV .Q6H40M [facility] Last Admin: 07/20/19 06:43 Dose: 150 mls/hr Documented by: Potassium Chloride () 10 meq in 100 mls @ 100 mls/hr IV BOLUS Q1H [facility] Stop: 07/20/19 12:59 Last Admin: 07/20/19 12:28 Dose: 100 mls/hr Documented by: Loperamide HCl (Imodium) 2 mg PO Q4H PRN PRN PRN Reason: LOOSE STOOLS Lorazepam (Ativan) 2 mg IV Q2H PRN PRN; Protocol PRN Reason: CIWA score > 8 but <15 Last Admin: 07/19/19 00:20 Dose: 2 mg Documented by: Lorazepam (Ativan) 2 mg IV UD PRN; Protocol PRN Reason: CIWA score >/=15. Lorazepam (Ativan) 1 mg IV X1 PRN PRN Reason: SEIZURES Nutritional Formula (Lactose Free) (Ensure Enlive) 120 ml PO 4X/DAY [facility] Last Admin: 07/20/19 09:15 Dose: Not Given Documented by: Olanzapine (Zyprexa Zydis) 5 mg PO DAILY [facility] Ondansetron HCl (Zofran) 4 mg IV Q8H PRN PRN PRN Reason: NAUSEA/VOMITING Sodium Chloride () 10 - 40 ml IV UD PRN PRN Reason: SALINE FLUSH Last Admin: 07/18/19 18:11 Dose: 10 ml Documented by: Medical Necessity - Tobacco Use Smoking Status: Current every day smoker Assessment/Plan All Active Problems (Last Reviewed 07/18/19 @ 03:[address] Justice Youssef MD) Dehydration (Acute) Elevated lactic acid level (Acute) Rhabdomyolysis (Acute) Acute encephalopathy (Acute) 1. Acute metabolic encephalopathy, complicated by severe depression-MRI of brain demonstrates central atrophy versus normal pressure hydrocephalus, no acute disease. UA unremarkable for infection. Brain CT without acute process. Chest x-ray without acute process. Mental status improved. Plan for discharge to SNF with psychiatry follow-up, discussed with patient's daughter. 2. Acute traumatic rhabdomyolysis secondary to immobilization-IV fluids. CK now trending down. 3. Lactic acidosis-suspect reactive secondary to #2. No evidence of infection. Lactic acidosis resolved. 4. Severe protein calorie malnutrition-nutrition consult. 5. Adult failure to thrive- PT/OT. Case management consult. Patient appears very unkempt, cachectic. 6. Chronic alcoholism- CIWA/Ativan protocol. [employer] to assess patient. 7. Severe depression/bipolar with recent suicidal ideations 07/13/2019 per daughter-patient denies suicidal ideations currently or recently. Initiated on fluoxetine and olanzapine. Patient has followed with Dr. Herron, psychiatry in the past. Will attempt to call office Sunday to discuss any additional recommendations and ongoing follow-up at SNF. DVT prophylaxis- Lovenox ny Discharge planning: SNF with psychiatry follow-up pending acceptance. This patient was seen by MERCED Baird under the supervision of Dr. Cooper. <Zach Cooper - Last Filed: 07/20/19 13:57> Subjective: Seen and examined. Patient is awake and alert. Is more comprehensive. Objective: On physical exam General: alert awake and oriented x3. HEENT: Atraumatic, PERRLA, EOMI, Normocephalic Oral: moist mucosa. Neck: Supple, No JVD, Negative Carotid Bruits Lungs: Clear to auscultation, No rhonchi, No wheeze, No rales, Air entry bilaterally equal. Cardiovascular: Regular rate, Regular Rhythm, Normal S1, Normal S2, No murmurs Abdomen: Bowel Sounds Present, Soft, Non Tender, Non-Distended Musculoskeletal: No Tenderness to Palpation of Joints or Extremities, Cachexia, Muscle Wasting, Subcutaneous fat loss and muscle atrophy. Neuro exam: Cranial nerves intact. No focal neurological deficit. Psych/Mental Status: Flat Affect - Physical Exam Vitals/I&O's: Vital Signs Temp Pulse Resp BP Pulse Ox 98.3 F 79 16 117/81 H 95 07/20/19 09:33 07/20/19 09:33 07/20/19 09:33 07/20/19 09:33 07/20/19 12:30 Oxygen Delivery Method Room Air Weight: 103 lb 6.349 oz Body Mass Index (BMI) 16.2 Finger Stick Blood Glucose 99 Intake and Output for Last 24 Hours 07/18/19 07/19/19 07/20/19 23:59 23:59 23:59 Intake Total 2904.20 / 2904.20 3592.2 / 3592.2 3794.50 / 3794.50 Output Total 900 / 900 850 / 850 1550 / 1550 Balance 2003. 2742.2 / 2742.2 2244.50 / 2244.50 Microbiology Past 72 Hours 07/18/19 10:38 Urine Catheter - Catheter Urine Culture - Final Culture exhibits no growth. 07/17/19 20:36 Blood Culture (Wb) - Anticubital Right Blood Culture - Preliminary No growth in 48 hours. 07/17/19 20:00 Blood Culture (Wb) - Anticubital Right Blood Culture - Preliminary No growth in 48 hours. Laboratory Results 07/18/19 05:34: CK Isoenzymes 1594 H, CK-MM (CK-3) 100, CK-MB (CK-2) 0, CK-BB (CK-1) 0, Macro CK Type I 0, Macro CK Type II 0 07/20/19 05:16: WBC 5.4, RBC 3.50 L, Hgb 12.0 L, Hct 35.6 L, MCV 101.7 H, MCH 34.3 H, MCHC 33.7, RDW Std Deviation 53.1 H, RDW Coeff of Marlyn 14.1, Plt Count 86 L, MPV 11.9 07/20/19 05:16: Sodium 141, Potassium 2.8 L, Chloride 111 H, Carbon Dioxide 21.0, Anion Gap 9, BUN 9, Creatinine 0.55 L, Estim Creat Clear Calc 88.83, Est GFR (MDRD) Af Amer 193, Est GFR (MDRD) Non-Af 159, BUN/Creatinine Ratio 16.4, Glucose 87, Calcium 7.6 L, Total Creatine Kinase 1426 H 07/20/19 05:16: Magnesium 1.1 L Current Medications Dextrose (D50w Syringe) 0 gm IV X1 PRN; Protocol PRN Reason: Hypoglycemia Dicyclomine HCl (Bentyl) 20 mg PO Q6H PRN PRN PRN Reason: abdominal discomfort Enoxaparin Sodium (Lovenox) 40 mg SC DAILY [facility] Last Admin: 07/20/19 09:45 Dose: 40 mg Documented by: Fluoxetine HCl (Prozac) 20 mg PO DAILY [facility] Last Admin: 07/20/19 09:43 Dose: 20 mg Documented by: Glucagon () 1 mg IM .X1 PRN PRN Reason: Hypoglycemia Haloperidol Lactate (Haldol) 1 mg IM Q6H PRN PRN PRN Reason: AGITATION Hydroxyzine Pamoate (Vistaril Pamoate Capsule) 50 mg PO Q4H PRN PRN PRN Reason: mild anxiety Thiamine HCl 200 mg/ Sodium (Chloride) 52 mls @ 200 mls/hr IV DAILY [facility] Last Infusion: 07/20/19 09:30 Dose: Infused Documented by: Folic Acid 1 mg/ Sodium (Chloride) 50.2 mls @ 200 mls/hr IV DAILY [facility] Last Admin: 07/20/19 13:37 Dose: 200 mls/hr Documented by: Sodium Chloride () 1,000 mls @ 150 mls/hr IV .Q6H40M [facility] Last Admin: 07/20/19 13:42 Dose: 150 mls/hr Documented by: Loperamide HCl (Imodium) 2 mg PO Q4H PRN PRN PRN Reason: LOOSE STOOLS Lorazepam (Ativan) 2 mg IV Q2H PRN PRN; Protocol PRN Reason: CIWA score > 8 but <15 Last Admin: 07/19/19 00:20 Dose: 2 mg Documented by: Lorazepam (Ativan) 2 mg IV UD PRN; Protocol PRN Reason: CIWA score >/=15. Lorazepam (Ativan) 1 mg IV X1 PRN PRN Reason: SEIZURES Nutritional Formula (Lactose Free) (Ensure Enlive) 120 ml PO 4X/DAY [facility] Last Admin: 07/20/19 13:42 Dose: Not Given Documented by: Olanzapine (Zyprexa Zydis) 5 mg PO DAILY [facility] Last Admin: 07/20/19 13:38 Dose: 5 mg Documented by: Ondansetron HCl (Zofran) 4 mg IV Q8H PRN PRN PRN Reason: NAUSEA/VOMITING Potassium Chloride (Potassium Chl Soln) 40 meq PO DAILY [facility] Stop: 07/20/19 20:01 Sodium Chloride () 10 - 40 ml IV UD PRN PRN Reason: SALINE FLUSH Last Admin: 07/18/19 18:11 Dose: 10 ml Documented by: Assessment/Plan This patient was seen in conjunction with STERILIZATION TECHShawanda. I have independently interviewed and examined the patient and reviewed pertinent history, examination findings, laboratory and plan of management. I have reviewed the note and agree with the documented findings with the few additional points. In brief, patient has history of chronic alcohol use and dependence, substance use and dependence with cannabinoids, major depression and anxiety admitted with altered mental status, delirium, consistent with acute encephalopathy most probably metabolic/toxic on baseline major depression and acute rhabdomyolysis from prolonged laying. Acute encephalopathy resolved. UA negative of pyuria, WBC 0-5, RBC 0-5, ketones 150 suggestive of starvation/decrease calorie intake. Acute traumatic rhabdomyolysis secondary to immobilization:Patient had lactic acid is 2.7, acute rhabdomyolysis from prolonged laying, CK 1117. Patient was volume resuscitated. Repeat CK at 2413, 1426; improving. Continue IV fluid normal saline Patient has severe protein calorie malnutrition with diffuse muscle atrophy and subcutaneous fat loss. History of chronic alcohol use and dependence. Discussed with case coordinator and nursing staff. Patient history of bipolar disorder with major depression. Patient also had suicidal ideation 07/13/2019. Patient does not have suicidal ideation, thoughts, plan and denies suicidal attempt in the past. Her daughter was updated about hospital course and management plan. Possible SNF or [facility]. I have discussed my assessment with STERILIZATION TECHShawanda and orders have been reviewed. Inpatient E&M: 68101 Subs Hosp L2
[2019-07-20] MEDS: OLANZapine 5 MG/TAB TAB.RAPDIS PO (13:38)
[2019-07-20] MEDS: Magnesium Sulfate 4gm/100mL 4 GM/100 ML IV.SOLN. IV (16:16)
[2019-07-20] MEDS: 0.9% Saline Lock 10 ML Syringe IV (18:02)
[2019-07-20] MEDS: LORazepam 2 MG/ML Syringe 1 MG IV (18:03)
[2019-07-20] MEDS: Phenobarbital Sodium 130 MG/ML Vial 60 MG IV (18:17)
--- NOTE | 2019-07-20 18:23 | CCHN_ITS ---
Hospitalist Note Rapid Response Note (17:57): The patient had onset of seizures, confusion, primarily upper extremities per nursing staff who witnessed. Seizure activity lasted < 2 minutes. Patient upon evaluation confused, but moving all extremities and not following certain commands/requests, RRR, Diminished BS BL, > bases, PERRLA, no evidence of loss o f bowel or bladder and no tongue biting noted. Requested ativan be administered and also phenobarbital 60 mg IV x 1. Patient with CT head upon admission and recent MRI brain. Discussed with primary Hospitalist team Dr. Cooper/Shawanda Marie. Patient transferred to the ICU, maintained NPO, aspiration/fall/seizure precautions, mag being given, will obtain phos, repeat BMP this evening given abnormalities, will request EEG be performed. Once performed will then need to consult [facility] neurology to have the EEG read. Will start phenobarbital IV 30 mg q 8 hours given patient weight. Daughter updated on these events and plan of care and she was amenable.
[2019-07-20 18:26] LABS: Bedside Glucose 87 mg/dL (70-110)
--- NOTE | 2019-07-20 18:27 | NURSING ---
1804- her pt yell out as this rn was going to pt's room and started having seizure-like activities- pt was unresponsive and project assistant was intitiated-
[2019-07-20] MEDS: 0.9% Normal Saline 1,000 ML 100 ML IV (18:58)
[2019-07-20 20:53] LABS: Anion Gap 8 (5-15); BUN 5 mg/dL (7-18); BUN/Creat Ratio 8.3 RATIO (10-20); Chloride 109 mmol/L (98-107); Creatinine, Serum 0.61 mg/dL (0.70-1.30); EST Glomerular Filtration Rate 142 mL/min (>60); Est Glom Filt Rate - Afr Amer 172 mL/min (>60); Estimated Creatinine Clearance 80.09 ml/min; Glucose 87 mg/dL (74-106); Phosphorus 2.1 mg/dL (2.5-4.9); Potassium 2.8 mmol/L (3.5-5.1); Sodium Level 143 mmol/L (136-145); T4 Free Direct 1.54 ng/dL (0.76-1.46); Thyroid Stim Hormone (TSH) 3.58 uIU/mL (0.358-3.74)
[2019-07-20 21:09] LABS: Magnesium 2.1 mg/dL (1.6-2.6)
[2019-07-21] VITALS (17 sets, daily range): BP systolic 105–130; BP diastolic 64–83; PULSE 59–84; RESP 13–18; TEMP 36.3–37.6; O2SAT 92–99
[2019-07-21] MEDS: Potassium Chloride 10mEq/100mL 10 MEQ/100 ML IV.SOLN. 100 MEQ IV BOLUS ×2 (00:06→01:08)
[2019-07-21] MEDS: 0.9% Saline Lock 10 ML Syringe IV ×4 (00:07→18:31)
[2019-07-21] MEDS: Phenobarbital Sodium 65 MG/ML Vial 30 MG IV ×3 (02:30→18:31)
[2019-07-21] MEDS: 0.9% Normal Saline 1,000 ML 100 ML IV ×2 (05:03→14:57)
[2019-07-21 05:40] LABS: Anion Gap 8 (5-15); BUN 3 mg/dL (7-18); BUN/Creat Ratio 5.3 RATIO (10-20); CPK Total, Creatine Kinase 700 U/L (39-308); Calcium,Total 7.7 mg/dL (8.5-10.1); Chloride 111 mmol/L (98-107); Creatinine, Serum 0.57 mg/dL (0.70-1.30); EST Glomerular Filtration Rate 153 mL/min (>60); Est Glom Filt Rate - Afr Amer 185 mL/min (>60); Estimated Creatinine Clearance 98.68 ml/min; Glucose 74 mg/dL (74-106); Magnesium 1.8 mg/dL (1.6-2.6); Phosphorus 5.5 mg/dL (2.5-4.9); Potassium 3.6 mmol/L (3.5-5.1); Sodium Level 143 mmol/L (136-145)
[2019-07-21 05:41] LABS: Hematocrit 35.7 % (40-54); Mean Corp Hgb Conc 33.6 g/dL (32-36); Mean Corpuscular Hgb 34.7 pg (27.0-32.0); Mean Corpuscular Volume 103.2 fL (80-94); Mean Platelet Vol. 10.7 fl (6.2-12.0); Platelet Count 107 K/mm3 (150-450); RBC Distribution Width CV 14.6 % (11.6-14.6); RBC Distribution Width SD 55.3 fl (35.1-43.9); Red Blood Count 3.46 M/mm3 (4.6-6.2); White Blood Count 3.5 K/mm3 (4.4-11.0)
--- NOTE | 2019-07-21 07:33 | PCM.CON.CC ---
Problem List (1) Dehydration Status: Acute (2) Altered mental status Status: Acute Qualifiers: Altered mental status type: transient alteration of awareness Qualified Code(s): R40.4 - Transient alteration of awareness (3) Rhabdomyolysis Status: Acute Qualifiers: Rhabdomyolysis type: non-traumatic Qualified Code(s): M62.82 - Rhabdomyolysis (4) Acute encephalopathy Status: Acute (5) Hypokalemia Status: Resolved (6) Chronic back pain Status: Chronic Qualifiers: Back pain location: low back pain Back pain laterality: midline Sciatica presence: without sciatica Qualified Code(s): M54.5 - Low back pain; G89.29 - Other chronic pain (7) Bipolar disorder Status: Chronic Qualifiers: Active/Remission status: in remission of unspecified degree Qualified Code(s): F31.70 - Bipolar disorder, currently in remission, most recent episode unspecified (8) Alcoholism /alcohol abuse Status: Chronic Comment: started drinking Tequila in 1999 and drinks a fifth a day with beer chasers (9) Urinary and bowel incontinence Status: Chronic (10) Smoking addiction Status: Chronic (11) Pancytopenia Status: Inactive Reason for Consult Date of Consultation: 07/21/19 Reason for Consultation: Possible seizure History of Present Illness: The patient is a 64 year old M, with past medical history listed below, who presented to [facility] on 07/17/2019 secondary to altered mental status. Patient reportedly lost his 2 weeks ago to cirrhosis and has been drinking significantly. Patient reportedly also takes clonazepam at baseline. Patient did not answer his phone, so a well visit was obtained. Patient was unable to provide any additional history on presentation to the ER. In the ER, patient had red tellez on his back indicating probable lying for an extended period of time. Patient appeared dehydrated. Laboratory work-up was relatively unremarkable. Patient had adequate blood pressure and oxygenation. There was some concern for rhabdomyolysis and possible alcohol withdrawal, so patient was admitted to the floor for further evaluation. Yesterday at approximately 5 PM, patient reportedly had acute onset of seizures with shaking of bilateral upper extremities for less than 2 minutes, confusion and decreased mental status. Patient was evaluated by the hospitalist and there was some concern for postictal state. Patient was made n.p.o. and placed on seizure precautions. EEG was ordered. Patient was initiated on phenobarbital. Patient's next of kin were contacted and were okay with DNR Comfort Care arrest no intubation. After discussion with next of kin, evaluation by [facility] psych would be appropriate per nursing report. This morning, patient has been doing well. No seizure activity has been noted overnight. Patient remains confused and is unable to provide much additional information. Patient states that he has no recollection of being admitted to the hospital. Patient does not report any history of seizure activity with alcohol withdrawal previously. Patient reports she has lost some weight, but is unable to quantify. Patient is unaware of his diagnosis of bipolar disorder and does not take any medications at baseline per his report. Patient is stating that his last alcohol intake was last evening. Unable to obtain a reliable review of systems at this time. Past Medical History Past Medical History (Chronic Problems): Chronic Problems (Last Reviewed 07/18/19 @ 03:[address] Justice Youssef MD) Chronic respiratory failure (Chronic) Chronic back pain (Chronic) Colon polyps (Chronic) Bipolar disorder (Chronic) Alcoholism /alcohol abuse (Chronic) started drinking Tequila in 1999 and drinks a fifth a day with beer chasers Urinary and bowel incontinence (Chronic) Smoking addiction (Chronic) Malnutrition (Chronic) Medical History: Medical History (Last Reviewed 07/18/19 @ 03:[address] Justice Youssef MD) Chronic respiratory failure (Chronic) J96.10 Hypokalemia (Inactive) E87.6 Chronic back pain (Chronic) M54.9, G89.29 Colon polyps (Chronic) Bipolar disorder (Chronic) F31.9 Alcoholism /alcohol abuse (Chronic) F10.20 started drinking Tequila in 1999 and drinks a fifth a day with beer chasers Urinary and bowel incontinence (Chronic) R32, R15.9 Smoking addiction (Chronic) F17.200 Malnutrition (Chronic) E46 Pancytopenia (Inactive) D61.818 Hypophosphatemia (Inactive) E83.39 Hypomagnesemia (Inactive) E83.42 Allergies codeine Allergy (Verified 07/17/19 19:58) Itching Home Medications: Ambulatory Orders Medication Instructions Recorded Melatonin 10 mg PO QHS PRN 11/15/18 Clonazepam [Klonopin] 1 mg PO BID 07/17/19 Surgical History: Surgical History (Last Reviewed 07/18/19 @ 03:[address] Justice Youssef MD) Hx of knee surgery Z98.890 Surgical History: - - colonoscopy and removal of polyp Psychiatric History: Bipolar Smoking Status: Current every day smoker Alcohol: Heavy - *Family History Maternal History Items: Cancer, - Paternal History Items: Heart Disease Review of Systems Unable to obtain accurate/complete ROS d/t: See HPI Patient Problems: Active and Suspected Problems (Last Reviewed 07/18/19 @ 03:[address] Justice Youssef MD) Dehydration (Acute) Elevated lactic acid level (Acute) Altered mental status (Acute) Rhabdomyolysis (Acute) Acute encephalopathy (Acute) Objective: Patient has had an MRI showing central atrophy versus normal pressure hydrocephalus. No strokes were noted. Chest x-ray shows hyperinflation with no acute infiltrate. No EEG is available for review. - Physical Exam Vitals/I&O's: Vital Signs Temp Pulse Resp BP Pulse Ox 36.3 C L 69 14 125/69 H 97 07/21/19 05:00 07/21/19 06:00 07/21/19 06:00 07/21/19 06:00 07/21/19 06:00 Oxygen Delivery Method Room Air Weight: 54 kg Body Mass Index (BMI) 16.2 Finger Stick Blood Glucose 99 Intake and Output for Last 24 Hours 07/19/19 07/20/19 07/21/19 23:59 23:59 23:59 Intake Total 3592.2 / 3592.2 5037.20 / 5037.20 1713.3333 / 1713.3333 Output Total 850 / 850 3150 / 4450 1850 / 1850 Balance 2742.2 / 2742.2 1887.20 / 587.20 -136.6667 / -136.6667 General: Alert, No apparent distress, Confused, Disoriented, - - Answers appropriately. Oriented to self only. HEENT: Atraumatic, PERRLA, EOMI, Normocephalic, - - No scleral icterus or injection noted Oral: Moist Mucosa, No Gingival or Mucosal Lesions/ Ulcerations Neck: Supple, No JVD, No Nodes, Trachea Midline Lungs: No rhonchi, No wheeze, No rales, Diminished, - - Symmetric expansion. Cardiovascular: Regular rate, Regular Rhythm, Normal S1, Normal S2, No murmurs, No rub noted, No Gallop Abdomen: Bowel Sounds Present, Soft, Non Tender, Non-Distended Extremities: No clubbing, No cyanosis, No edema, Capillary Refill Less than 3 Seconds, - - No asterixis appreciated Skin: No rashes, No breakdown Musculoskeletal: No Tenderness to Palpation of Joints or Extremities Lymphatic: No Cervical, Supraclavicular, or Inguinal Adenopathy Neurological: Cranial nerves II-XII grossly intact, Neuro grossly intact, Motor Exam 5/5 strength throughout Psych/Mental Status: Appropriate, Flat Affect Microbiology Past 72 Hours 07/18/19 10:38 Urine Catheter - Catheter Urine Culture - Final Culture exhibits no growth. 07/17/19 20:36 Blood Culture (Wb) - Anticubital Right Blood Culture - Preliminary No growth in 48 hours. 07/17/19 20:00 Blood Culture (Wb) - Anticubital Right Blood Culture - Preliminary No growth in 48 hours. Laboratory Results 07/20/19 05:16: Magnesium 1.1 L 07/20/19 17:59: POC Glucose 87 07/20/19 20:12: Magnesium 2.1 07/20/19 20:12: Sodium 143, Potassium 2.8 L, Chloride 109 H, Carbon Dioxide 26.0, Anion Gap 8, BUN 5 L, Creatinine 0.61 L, Estim Creat Clear Calc 80.09, Est GFR (MDRD) Af Amer 172, Est GFR (MDRD) Non-Af 142, BUN/Creatinine Ratio 8.3 L, Glucose 87, Calcium 8.0 L, Phosphorus 2.1 L, TSH 3.58, Free T4 1.54 H 07/21/19 05:10: Sodium 143, Potassium 3.6, Chloride 111 H, Carbon Dioxide 24.0, Anion Gap 8, BUN 3 L, Creatinine 0.57 L, Estim Creat Clear Calc 98.68, Est GFR (MDRD) Af Amer 185, Est GFR (MDRD) Non-Af 153, BUN/Creatinine Ratio 5.3 L, Glucose 74, Calcium 7.7 L, Phosphorus 5.5 H, Magnesium 1.8, Total Creatine Kinase 700 H 07/21/19 05:30: WBC 3.5 L, RBC 3.46 L, Hgb 12.0 L, Hct 35.7 L, MCV 103.2 H, MCH 34.7 H, MCHC 33.6, RDW Std Deviation 55.3 H, RDW Coeff of Marlyn 14.6, Plt Count 107 L, MPV 10.7 Clinical Impression(s) from Imaging Studies Brain CT 07/17/19 20:03 IMPRESSION: Chronic involutional changes of the brain. Electronically Signed: Juan David Regan MD at 21:43 EDT , Service support , Chest X-Ray 07/17/19 20:03 IMPRESSION: COPD. Electronically Signed: Juan David Regan MD at 22:00 EDT , Service support , Brain MRI 07/17/19 23:31 IMPRESSION: Central atrophy versus normal pressure hydrocephalus. Otherwise no acute disease. Electronically Signed: Juan David Regan MD at 18:28 EDT , Service support , Current Medications Acetaminophen (Tylenol) 650 mg RECTAL Q4H PRN PRN PRN Reason: Pain Score 1-10/Temp > 100.7 F Acetaminophen (Tylenol) 650 mg PO Q6H PRN PRN PRN Reason: Pain Score 1-10/Temp > 100.7 F Albuterol Sulfate (Ventolin Aerosols) 2.5 mg INHALATION Q2H PRN PRN PRN Reason: SOB/Wheezing Bisacodyl (Dulcolax) 5 mg PO DAILY PRN PRN PRN Reason: Constipation Dextrose (D50w Syringe) 0 gm IV X1 PRN; Protocol PRN Reason: Hypoglycemia Dicyclomine HCl (Bentyl) 20 mg PO Q6H PRN PRN PRN Reason: abdominal discomfort Enoxaparin Sodium (Lovenox) 40 mg SC DAILY [facility] Last Admin: 07/20/19 09:45 Dose: 40 mg Documented by: Fluoxetine HCl (Prozac) 20 mg PO DAILY [facility] Last Admin: 07/20/19 09:43 Dose: 20 mg Documented by: Gabapentin (Neurontin) 300 mg PO Q8H PRN PRN PRN Reason: moderate to severe anxiety Glucagon () 1 mg IM .X1 PRN PRN Reason: Hypoglycemia Haloperidol Lactate (Haldol) 1 mg IM Q6H PRN PRN PRN Reason: AGITATION Hydroxyzine Pamoate (Vistaril Pamoate Capsule) 50 mg PO Q4H PRN PRN PRN Reason: mild anxiety Thiamine HCl 200 mg/ Sodium (Chloride) 52 mls @ 200 mls/hr IV DAILY [facility] Last Infusion: 07/20/19 09:30 Dose: Infused Documented by: Folic Acid 1 mg/ Sodium (Chloride) 50.2 mls @ 200 mls/hr IV DAILY [facility] Last Infusion: 07/20/19 13:53 Dose: Infused Documented by: Sodium Chloride () 1,000 mls @ 100 mls/hr IV .Q10H [facility] Last Admin: 07/21/19 05:03 Dose: 100 mls/hr Documented by: Loperamide HCl (Imodium) 2 mg PO Q4H PRN PRN PRN Reason: LOOSE STOOLS Lorazepam (Ativan) 2 mg IV Q2H PRN PRN; Protocol PRN Reason: CIWA score > 8 but <15 Last Admin: 07/19/19 00:20 Dose: 2 mg Documented by: Lorazepam (Ativan) 2 mg IV UD PRN; Protocol PRN Reason: CIWA score >/=15. Lorazepam (Ativan) 1 mg IV X1 PRN PRN Reason: SEIZURES Last Admin: 07/20/19 18:03 Dose: 1 mg Documented by: Nitroglycerin (Nitrostat) 0.4 mg SUBLINGUAL Q5M PRN PRN Reason: CARDIAC/CHEST PAIN Nutritional Formula (Lactose Free) (Ensure Enlive) 120 ml PO 4X/DAY [facility] Last Admin: 07/20/19 21:00 Dose: Not Given Documented by: Olanzapine (Zyprexa Zydis) 5 mg PO DAILY [facility] Last Admin: 07/20/19 13:38 Dose: 5 mg Documented by: Ondansetron HCl (Zofran) 4 mg IV Q8H PRN PRN PRN Reason: NAUSEA/VOMITING Phenobarbital (Phenobarbital) 30 mg IV Q8H [facility] Last Admin: 07/21/19 02:30 Dose: 30 mg Documented by: Prochlorperazine Edisylate (Compazine Iv) 5 mg IV Q4H PRN PRN PRN Reason: Breakthrough Nausea/Vomiting Sodium Chloride () 10 - 40 ml IV UD PRN PRN Reason: SALINE FLUSH Last Admin: 07/21/19 02:30 Dose: 20 ml Documented by: Assessment/Plan Active and Suspected Problems (Last Reviewed 07/18/19 @ 03:[address] Justice Youssef MD) Dehydration (Acute) Elevated lactic acid level (Acute) Altered mental status (Acute) Rhabdomyolysis (Acute) Acute encephalopathy (Acute) RECOMMENDATIONS: 1. Await EEG, with subsequent neuro consult 2. Continue with alcohol withdrawal protocol/CIWA 3. Psychiatric evaluation prior to discharge 4. Likely okay to transfer from the intensive care unit if the EEG shows no seizure activity. IMPRESSIONS: 1. Acute metabolic encephalopathy/possible seizure activity MRI was not suggestive of an acute infarct and patient may have some central atrophy secondary to chronic alcoholism. Unclear if seizure activity was real, but hospitalist did report a postictal type of phenomenon. This may have been secondary to alcohol withdrawal indicating delirium tremens. Patient is unable to provide much additional history, but reportedly has been smoking since age 12 been drinking excessively for several years. EEG has been ordered, but does not appear to have been completed/interpreted. Patient is appropriate, but remains confused at this time. 2. Acute rhabdomyolysis Clinical suspicion for rhabdomyolysis secondary to immobilization. CKs have been trending down. Likely okay to discontinue lactates and CKs as they are close to appropriate levels at this time. 3. Adult failure to thrive/severe protein calorie malnutrition Likely secondary to acute alcoholism. Patient does have an extensive smoking history, so occult malignancy may also be a consideration. This should be worked up as an outpatient as it will not change his acute care. Dietitian has been consulted. 4. Chronic alcohol intake with possible delirium tremens/severe depression Patient with a long history of alcohol intake. Patient is on CIWA/Ativan protocol, but was initiated on phenobarb overnight. Patient does not have significant tremor at this time. Patient should be evaluated by crisis prior to discharge. 5. Probable COPD/debility/possible untreated bipolar 1/poor historian Complicates care, management, recovery and prognosis. Does not appear to be an acute exacerbation of COPD at this time. Saturating well on room air. PRN bronchodilators are likely sufficient. Do not believe patient requires any steroid therapy at this time. Inpatient E&M: 12822 Init Hosp L3
[2019-07-21] MEDS: OLANZapine 5 MG/TAB TAB.RAPDIS PO (12:18)
[2019-07-21] MEDS: FLUoxetine 20 MG Capsule PO (12:18)
[2019-07-21] MEDS: Enoxaparin 40 MG/0.4 ML Syringe SC (12:27)
--- NOTE | 2019-07-21 12:53 | PCM.PROGNOTE ---
<Shawanda Marie - Last Filed: 07/21/19 13:00> Patient Problems: Active and Suspected Problems (Last Reviewed 07/18/19 @ 03:[address] Justice Youssef MD) Dehydration (Acute) Elevated lactic acid level (Acute) Altered mental status (Acute) Rhabdomyolysis (Acute) Acute encephalopathy (Acute) Subjective: Patient seen and examined. Resting comfortably in bed. No further seizure activity overnight or this morning. EEG completed this morning, results pending. - Physical Exam Vitals/I&O's: Vital Signs Temp Pulse Resp BP Pulse Ox 99.5 F H 73 16 130/83 H 96 07/21/19 12:00 07/21/19 12:00 07/21/19 12:00 07/21/19 12:00 07/21/19 12:00 Oxygen Delivery Method Room Air Weight: 119 lb 0.794 oz Body Mass Index (BMI) 16.2 Finger Stick Blood Glucose 99 Intake and Output for Last 24 Hours 07/19/19 07/20/19 07/21/19 23:59 23:59 23:59 Intake Total 3592.2 / 3592.2 5037.20 / 5037.20 2366.6633 / 2366.6633 Output Total 850 / 850 3150 / 4450 1850 / 1850 Balance 2742.2 / 2742.2 1887.20 / 587.20 516.6633 / 516.6633 General: - - Drowsy, no apparent distress HEENT: Atraumatic, PERRLA, EOMI, Normocephalic Oral: Dry Mucosa Neck: Supple, No JVD, Negative Carotid Bruits Lungs: Clear to auscultation, Normal air movement Cardiovascular: Regular rate, No murmurs Abdomen: Bowel Sounds Present, Soft, Non Tender, Non-Distended Extremities: No clubbing, No cyanosis, No edema, Capillary Refill Less than 3 Seconds Skin: No rashes, No breakdown Musculoskeletal: No Tenderness to Palpation of Joints or Extremities Neurological: Cranial nerves II-XII grossly intact Psych/Mental Status: Flat Affect Microbiology Past 72 Hours 07/18/19 10:38 Urine Catheter - Catheter Urine Culture - Final Culture exhibits no growth. 07/17/19 20:36 Blood Culture (Wb) - Anticubital Right Blood Culture - Preliminary No growth in 48 hours. 07/17/19 20:00 Blood Culture (Wb) - Anticubital Right Blood Culture - Preliminary No growth in 48 hours. Laboratory Results 07/20/19 17:59: POC Glucose 87 07/20/19 20:12: Magnesium 2.1 07/20/19 20:12: Sodium 143, Potassium 2.8 L, Chloride 109 H, Carbon Dioxide 26.0, Anion Gap 8, BUN 5 L, Creatinine 0.61 L, Estim Creat Clear Calc 80.09, Est GFR (MDRD) Af Amer 172, Est GFR (MDRD) Non-Af 142, BUN/Creatinine Ratio 8.3 L, Glucose 87, Calcium 8.0 L, Phosphorus 2.1 L, TSH 3.58, Free T4 1.54 H 07/21/19 05:10: Sodium 143, Potassium 3.6, Chloride 111 H, Carbon Dioxide 24.0, Anion Gap 8, BUN 3 L, Creatinine 0.57 L, Estim Creat Clear Calc 98.68, Est GFR (MDRD) Af Amer 185, Est GFR (MDRD) Non-Af 153, BUN/Creatinine Ratio 5.3 L, Glucose 74, Calcium 7.7 L, Phosphorus 5.5 H, Magnesium 1.8, Total Creatine Kinase 700 H 07/21/19 05:30: WBC 3.5 L, RBC 3.46 L, Hgb 12.0 L, Hct 35.7 L, MCV 103.2 H, MCH 34.7 H, MCHC 33.6, RDW Std Deviation 55.3 H, RDW Coeff of Maryln 14.6, Plt Count 107 L, MPV 10.7 Current Medications Acetaminophen (Tylenol) 650 mg RECTAL Q4H PRN PRN PRN Reason: Pain Score 1-10/Temp > 100.7 F Acetaminophen (Tylenol) 650 mg PO Q6H PRN PRN PRN Reason: Pain Score 1-10/Temp > 100.7 F Albuterol Sulfate (Ventolin Aerosols) 2.5 mg INHALATION Q2H PRN PRN PRN Reason: SOB/Wheezing Bisacodyl (Dulcolax) 5 mg PO DAILY PRN PRN PRN Reason: Constipation Dextrose (D50w Syringe) 0 gm IV X1 PRN; Protocol PRN Reason: Hypoglycemia Dicyclomine HCl (Bentyl) 20 mg PO Q6H PRN PRN PRN Reason: abdominal discomfort Enoxaparin Sodium (Lovenox) 40 mg SC DAILY [facility] Last Admin: 07/21/19 12:27 Dose: 40 mg Documented by: Fluoxetine HCl (Prozac) 20 mg PO DAILY [facility] Last Admin: 07/21/19 12:18 Dose: 20 mg Documented by: Gabapentin (Neurontin) 300 mg PO Q8H PRN PRN PRN Reason: moderate to severe anxiety Glucagon () 1 mg IM .X1 PRN PRN Reason: Hypoglycemia Haloperidol Lactate (Haldol) 1 mg IM Q6H PRN PRN PRN Reason: AGITATION Hydroxyzine Pamoate (Vistaril Pamoate Capsule) 50 mg PO Q4H PRN PRN PRN Reason: mild anxiety Thiamine HCl 200 mg/ Sodium (Chloride) 52 mls @ 200 mls/hr IV DAILY [facility] Last Infusion: 07/20/19 09:30 Dose: Infused Documented by: Folic Acid 1 mg/ Sodium (Chloride) 50.2 mls @ 200 mls/hr IV DAILY [facility] Last Infusion: 07/20/19 13:53 Dose: Infused Documented by: Sodium Chloride () 1,000 mls @ 100 mls/hr IV .Q10H [facility] Last Infusion: 07/21/19 07:59 Dose: 100 mls/hr Documented by: Loperamide HCl (Imodium) 2 mg PO Q4H PRN PRN PRN Reason: LOOSE STOOLS Lorazepam (Ativan) 2 mg IV Q2H PRN PRN; Protocol PRN Reason: CIWA score > 8 but <15 Last Admin: 07/19/19 00:20 Dose: 2 mg Documented by: Lorazepam (Ativan) 2 mg IV UD PRN; Protocol PRN Reason: CIWA score >/=15. Lorazepam (Ativan) 1 mg IV X1 PRN PRN Reason: SEIZURES Last Admin: 07/20/19 18:03 Dose: 1 mg Documented by: Nitroglycerin (Nitrostat) 0.4 mg SUBLINGUAL Q5M PRN PRN Reason: CARDIAC/CHEST PAIN Nutritional Formula (Lactose Free) (Ensure Enlive) 120 ml PO 4X/DAY [facility] Last Admin: 07/20/19 21:00 Dose: Not Given Documented by: Olanzapine (Zyprexa Zydis) 5 mg PO DAILY [facility] Last Admin: 07/21/19 12:18 Dose: 5 mg Documented by: Ondansetron HCl (Zofran) 4 mg IV Q8H PRN PRN PRN Reason: NAUSEA/VOMITING Phenobarbital (Phenobarbital) 30 mg IV Q8H [facility] Last Admin: 07/21/19 12:26 Dose: 30 mg Documented by: Prochlorperazine Edisylate (Compazine Iv) 5 mg IV Q4H PRN PRN PRN Reason: Breakthrough Nausea/Vomiting Sodium Chloride () 10 - 40 ml IV UD PRN PRN Reason: SALINE FLUSH Last Admin: 07/21/19 02:30 Dose: 20 ml Documented by: Medical Necessity - Tobacco Use Smoking Status: Current every day smoker Assessment/Plan All Active Problems (Last Reviewed 07/18/19 @ 03:[address] Justice Youssef MD) Dehydration (Acute) Elevated lactic acid level (Acute) Altered mental status (Acute) Rhabdomyolysis (Acute) Acute encephalopathy (Acute) Hypokalemia (Resolved) 1. Acute metabolic encephalopathy, complicated by severe depression, also concern for possible new onset seizure-MRI of brain demonstrates central atrophy versus normal pressure hydrocephalus, no acute disease. UA unremarkable for infection. Brain CT without acute process. Chest x-ray without acute process. Mental status improved. Plan for discharge to SNF with psychiatry follow-up pending further seizure evaluation. 2. New onset seizure-witnessed by RN 07/20/2019 p.m. Patient received Ativan. Seizure precautions. EEG completed, report pending. Will consult [facility] neurology. 3. Acute traumatic rhabdomyolysis secondary to immobilization-IV fluids. CK now trending down. 4. Lactic acidosis-suspect reactive. No evidence of infection. Lactic acidosis resolved. 5. Severe protein calorie malnutrition-nutrition consult. 6. Adult failure to thrive- PT/OT. Case management consult. Patient appears very unkempt, cachectic. 7. Chronic alcoholism-phenobarbital taper initiated. CIWA/Ativan protocol. [employer] to assess patient. 8. Severe depression/bipolar with recent suicidal ideations 07/13/2019 per daughter-patient denies suicidal ideations currently or recently. Initiated on fluoxetine and olanzapine. Patient has followed with Dr. Herron, psychiatry in the past. Will attempt to call office Sunday to discuss any additional recommendations and ongoing follow-up at SNF. DVT prophylaxis- Lovenox sc Discharge planning: SNF with psychiatry follow-up pending acceptance and medically stable. This patient was seen by MERCED Baird under the supervision of Dr. Pope. <Bartolome Pope F - Last Filed: 07/21/19 15:16> - Physical Exam Vitals/I&O's: Vital Signs Temp Pulse Resp BP Pulse Ox 99.7 F H 84 16 115/77 92 07/21/19 15:08 07/21/19 15:08 07/21/19 15:08 07/21/19 15:08 07/21/19 15:08 Oxygen Delivery Method Room Air Weight: 119 lb 0.794 oz Body Mass Index (BMI) 16.2 Finger Stick Blood Glucose 99 Intake and Output for Last 24 Hours 07/19/19 07/20/19 07/21/19 23:59 23:59 23:59 Intake Total 3592.2 / 3592.2 5037.20 / 5037.20 2818.3333 / 2818.3333 Output Total 850 / 850 3150 / 4450 1999 / 1999 Balance 2742.2 / 2742.2 1887.20 / 587.20 818.3333 / 818.3333 Microbiology Past 72 Hours 07/18/19 10:38 Urine Catheter - Catheter Urine Culture - Final Culture exhibits no growth. 07/17/19 20:36 Blood Culture (Wb) - Anticubital Right Blood Culture - Preliminary No growth in 48 hours. 07/17/19 20:00 Blood Culture (Wb) - Anticubital Right Blood Culture - Preliminary No growth in 48 hours. Laboratory Results 07/20/19 17:59: POC Glucose 87 07/20/19 20:12: Magnesium 2.1 07/20/19 20:12: Sodium 143, Potassium 2.8 L, Chloride 109 H, Carbon Dioxide 26.0, Anion Gap 8, BUN 5 L, Creatinine 0.61 L, Estim Creat Clear Calc 80.09, Est GFR (MDRD) Af Amer 172, Est GFR (MDRD) Non-Af 142, BUN/Creatinine Ratio 8.3 L, Glucose 87, Calcium 8.0 L, Phosphorus 2.1 L, TSH 3.58, Free T4 1.54 H 07/21/19 05:10: Sodium 143, Potassium 3.6, Chloride 111 H, Carbon Dioxide 24.0, Anion Gap 8, BUN 3 L, Creatinine 0.57 L, Estim Creat Clear Calc 98.68, Est GFR (MDRD) Af Amer 185, Est GFR (MDRD) Non-Af 153, BUN/Creatinine Ratio 5.3 L, Glucose 74, Calcium 7.7 L, Phosphorus 5.5 H, Magnesium 1.8, Total Creatine Kinase 700 H 07/21/19 05:30: WBC 3.5 L, RBC 3.46 L, Hgb 12.0 L, Hct 35.7 L, MCV 103.2 H, MCH 34.7 H, MCHC 33.6, RDW Std Deviation 55.3 H, RDW Coeff of Marlyn 14.6, Plt Count 107 L, MPV 10.7 Current Medications Acetaminophen (Tylenol) 650 mg RECTAL Q4H PRN PRN PRN Reason: Pain Score 1-10/Temp > 100.7 F Acetaminophen (Tylenol) 650 mg PO Q6H PRN PRN PRN Reason: Pain Score 1-10/Temp > 100.7 F Albuterol Sulfate (Ventolin Aerosols) 2.5 mg INHALATION Q2H PRN PRN PRN Reason: SOB/Wheezing Bisacodyl (Dulcolax) 5 mg PO DAILY PRN PRN PRN Reason: Constipation Dextrose (D50w Syringe) 0 gm IV X1 PRN; Protocol PRN Reason: Hypoglycemia Dicyclomine HCl (Bentyl) 20 mg PO Q6H PRN PRN PRN Reason: abdominal discomfort Enoxaparin Sodium (Lovenox) 40 mg SC DAILY [facility] Last Admin: 07/21/19 12:27 Dose: 40 mg Documented by: Fluoxetine HCl (Prozac) 20 mg PO DAILY [facility] Last Admin: 07/21/19 12:18 Dose: 20 mg Documented by: Gabapentin (Neurontin) 300 mg PO Q8H PRN PRN PRN Reason: moderate to severe anxiety Glucagon () 1 mg IM .X1 PRN PRN Reason: Hypoglycemia Haloperidol Lactate (Haldol) 1 mg IM Q6H PRN PRN PRN Reason: AGITATION Hydroxyzine Pamoate (Vistaril Pamoate Capsule) 50 mg PO Q4H PRN PRN PRN Reason: mild anxiety Thiamine HCl 200 mg/ Sodium (Chloride) 52 mls @ 200 mls/hr IV DAILY [facility] Last Infusion: 07/20/19 09:30 Dose: Infused Documented by: Folic Acid 1 mg/ Sodium (Chloride) 50.2 mls @ 200 mls/hr IV DAILY [facility] Last Admin: 07/21/19 15:00 Dose: 200 mls/hr Documented by: Sodium Chloride () 1,000 mls @ 100 mls/hr IV .Q10H [facility] Last Admin: 07/21/19 14:57 Dose: 100 mls/hr Documented by: Loperamide HCl (Imodium) 2 mg PO Q4H PRN PRN PRN Reason: LOOSE STOOLS Lorazepam (Ativan) 2 mg IV Q2H PRN PRN; Protocol PRN Reason: CIWA score > 8 but <15 Last Admin: 07/19/19 00:20 Dose: 2 mg Documented by: Lorazepam (Ativan) 2 mg IV UD PRN; Protocol PRN Reason: CIWA score >/=15. Lorazepam (Ativan) 1 mg IV X1 PRN PRN Reason: SEIZURES Last Admin: 07/20/19 18:03 Dose: 1 mg Documented by: Nitroglycerin (Nitrostat) 0.4 mg SUBLINGUAL Q5M PRN PRN Reason: CARDIAC/CHEST PAIN Nutritional Formula (Lactose Free) (Ensure Enlive) 120 ml PO 4X/DAY [facility] Last Admin: 07/21/19 15:04 Dose: 120 ml Documented by: Olanzapine (Zyprexa Zydis) 5 mg PO DAILY [facility] Last Admin: 07/21/19 12:18 Dose: 5 mg Documented by: Ondansetron HCl (Zofran) 4 mg IV Q8H PRN PRN PRN Reason: NAUSEA/VOMITING Phenobarbital (Phenobarbital) 30 mg IV Q8H [facility] Last Admin: 07/21/19 12:26 Dose: 30 mg Documented by: Prochlorperazine Edisylate (Compazine Iv) 5 mg IV Q4H PRN PRN PRN Reason: Breakthrough Nausea/Vomiting Sodium Chloride () 10 - 40 ml IV UD PRN PRN Reason: SALINE FLUSH Last Admin: 07/21/19 14:57 Dose: 10 ml Documented by: Addendum: Dr. Pope I personally examined the patient and reviewed the chart. I agree with the above. 64-year-old male presented to the hospital with altered mental status. Per report his daughter was unable to reach him and there is a history of alcoholism so she stopped by his house and noticed that he was on the floor and not following commands therefore EMS was called. He was brought to the hospital was found to have an elevated CPK to 2400, indicating rhabdomyolysis. This has improved to 700 today. Also his mental status and his encephalopathy has improved. He was transferred from [facility] to ICU for the concern of possible seizure. And he did have an EEG performed today which is pending read by [facility] neurology. MRI and CT of his brain were unremarkable. We will continue with alcohol withdrawal protocol since the seizure could possibly be a symptom. We will continue to monitor, and follow-up with speech therapy recommendations as well as obtain PT and OT evaluation for possible placement. Inpatient E&M: 40886 Subs Hosp L2
[2019-07-21] MEDS: Acetaminophen 325 MG Tablet 650 MG PO (15:31)
[2019-07-22] VITALS (11 sets, daily range): BP systolic 128–148; BP diastolic 71–95; PULSE 64–86; RESP 16–18; TEMP 36.7–37.2; O2SAT 92–99
[2019-07-22] MEDS: 0.9% Normal Saline 1,000 ML 100 ML IV ×2 (00:50→14:11)
[2019-07-22] MEDS: Acetaminophen 325 MG Tablet 650 MG PO ×2 (02:44→21:46)
[2019-07-22] MEDS: Gabapentin 300 MG Capsule PO (02:45)
[2019-07-22 06:50] LABS: Magnesium 1.5 mg/dL (1.6-2.6); Phosphorus 2.9 mg/dL (2.5-4.9)
--- NOTE | 2019-07-22 08:12 | PCM.PN.INT ---
Subjective: Patient did well overnight. No acute issues were reported. Patient has been on room air. No seizure activity has been reported by nursing. Patient is alert and oriented and not reporting any issues right now. Objective: EEG completed yesterday showed no epileptiform activity. General: Alert, Oriented x3, Cooperative, No apparent distress, - - Appears older than stated age. No conversational dyspnea. HEENT: Atraumatic, PERRLA, EOMI, Normocephalic, - - No scleral icterus or injection noted Oral: Moist Mucosa, No Gingival or Mucosal Lesions/ Ulcerations Neck: Supple, No JVD, Negative Hepatojugular Reflux, Trachea Midline Lungs: No rhonchi, No wheeze, No rales, Diminished, - - Symmetric expansion. No dullness to percussion. Cardiovascular: Regular rate, Regular Rhythm, Normal S1, Normal S2, No murmurs, No rub noted, No Gallop Abdomen: Bowel Sounds Present, Soft, Non Tender, Non-Distended Extremities: No clubbing, No cyanosis, No edema, Capillary Refill Less than 3 Seconds Skin: No rashes, No breakdown Musculoskeletal: No Tenderness to Palpation of Joints or Extremities, Muscle Wasting Lymphatic: No Cervical, Supraclavicular, or Inguinal Adenopathy Neurological: Cranial nerves II-XII grossly intact, Neuro grossly intact, Motor Exam 5/5 strength throughout Psych/Mental Status: Alert and oriented to time, place, person, mood and affect Vital Signs Temp Pulse Resp BP Pulse Ox 37.2 C 71 18 148/95 H 92 07/22/19 02:38 07/22/19 03:35 07/22/19 02:38 07/22/19 02:38 07/22/19 06:52 Oxygen Delivery Method Room Air Weight: 54 kg Body Mass Index (BMI) 16.2 Finger Stick Blood Glucose 99 Intake and Output for Last 24 Hours 07/20/19 07/21/19 07/22/19 23:59 23:59 23:59 Intake Total 5037.20 / 5037.20 2920.5333 / 2920.5333 988.33 / 988.33 Output Total 3150 / 4450 1999 / 1999 Balance 1887.20 / 587.20 920.5333 / 920.5333 988.33 / 988.33 Labs (Last 48 Hours) 07/20/19 07/20/19 07/20/19 05:16 17:59 20:12 WBC RBC Hgb Hct MCV MCH MCHC RDW Std Deviation RDW Coeff of Marlyn Plt Count MPV Sodium Potassium Chloride Carbon Dioxide Anion Gap BUN Creatinine Estim Creat Clear Calc Est GFR (MDRD) Af Amer Est GFR (MDRD) Non-Af BUN/Creatinine Ratio Glucose Calcium Phosphorus Magnesium 1.1 L 2.1 Total Creatine Kinase TSH Free T4 POC Glucose 87 07/20/19 07/21/19 07/21/19 20:12 05:10 05:30 WBC 3.5 L RBC 3.46 L Hgb 12.0 L Hct 35.7 L MCV 103.2 H MCH 34.7 H MCHC 33.6 RDW Std Deviation 55.3 H RDW Coeff of Marlyn 14.6 Plt Count 107 L MPV 10.7 Sodium 143 143 Potassium 2.8 L 3.6 Chloride 109 H 111 H Carbon Dioxide 26.0 24.0 Anion Gap 8 8 BUN 5 L 3 L Creatinine 0.61 L 0.57 L Estim Creat Clear Calc 80.09 98.68 Est GFR (MDRD) Af Amer 172 185 Est GFR (MDRD) Non-Af 142 153 BUN/Creatinine Ratio 8.3 L 5.3 L Glucose 87 74 Calcium 8.0 L 7.7 L Phosphorus 2.1 L 5.5 H Magnesium 1.8 Total Creatine Kinase 700 H TSH 3.58 Free T4 1.54 H POC Glucose 07/22/19 06:06 WBC RBC Hgb Hct MCV MCH MCHC RDW Std Deviation RDW Coeff of Marlyn Plt Count MPV Sodium Potassium Chloride Carbon Dioxide Anion Gap BUN Creatinine Estim Creat Clear Calc Est GFR (MDRD) Af Amer Est GFR (MDRD) Non-Af BUN/Creatinine Ratio Glucose Calcium Phosphorus 2.9 Magnesium 1.5 L Total Creatine Kinase TSH Free T4 POC Glucose Microbiology 07/18/19 10:38 Urine Catheter - Catheter Urine Culture - Final Culture exhibits no growth. 07/17/19 20:36 Blood Culture (Wb) - Anticubital Right Blood Culture - Preliminary No growth in 48 hours. 07/17/19 20:00 Blood Culture (Wb) - Anticubital Right Blood Culture - Preliminary No growth in 48 hours. Medical Necessity - Tobacco Use Smoking Status: Current every day smoker Assessment/Plan All Active Problems (Last Reviewed 07/18/19 @ 03:[address] Justice Youssef MD) Dehydration (Acute) Elevated lactic acid level (Acute) Altered mental status (Acute) Rhabdomyolysis (Acute) Acute encephalopathy (Acute) Hypokalemia (Resolved) RECOMMENDATIONS: 1. Hemodynamically stable on room air. Will sign off from a critical care perspective 2. Continue with alcohol withdrawal protocol/CIWA 3. Psychiatric evaluation prior to discharge IMPRESSIONS: 1. Acute metabolic encephalopathy/possible seizure activity MRI was not suggestive of an acute infarct and patient may have some central atrophy secondary to chronic alcoholism. Unclear if seizure activity was real, but hospitalist did report a postictal type of phenomenon. This may have been secondary to alcohol withdrawal indicating delirium tremens. Patient is unable to provide much additional history, but reportedly has been smoking since age 12 been drinking excessively for several years. EEG was negative and patient was alert and oriented this morning. Appears appropriate. 2. Acute rhabdomyolysis Clinical suspicion for rhabdomyolysis secondary to immobilization. CKs have been trending down. 3. Adult failure to thrive/severe protein calorie malnutrition Likely secondary to acute alcoholism. Patient does have an extensive smoking history, so occult malignancy may also be a consideration. This should be worked up as an outpatient as it will not change his acute care. Dietitian has been consulted. Patient will be at risk for refeeding syndrome. Electrolytes ordered this morning. Supplement as necessary. 4. Chronic alcohol intake with possible delirium tremens/severe depression Patient with a long history of alcohol intake. Patient is on CIWA/Ativan protocol, but was initiated on phenobarb. This appears to have helped significantly. Patient does not have significant tremor at this time. Patient should be evaluated by crisis prior to discharge. 5. Probable COPD/debility/possible untreated bipolar 1/poor historian Complicates care, management, recovery and prognosis. Does not appear to be an acute exacerbation of COPD at this time. Saturating well on room air. PRN bronchodilators are likely sufficient. Do not believe patient requires any steroid therapy at this time. Patient would benefit from outpatient pulmonary function test for quantification and clarification of lung function, but this would not be urgent given other issues at this time. Inpatient E&M: 96638 Subs Hosp L2
[2019-07-22 09:02] LABS: Anion Gap 6 (5-15); BUN 3 mg/dL (7-18); BUN/Creat Ratio 6.3 RATIO (10-20); Chloride 110 mmol/L (98-107); Creatinine, Serum 0.48 mg/dL (0.70-1.30); EST Glomerular Filtration Rate 188 mL/min (>60); Est Glom Filt Rate - Afr Amer 227 mL/min (>60); Estimated Creatinine Clearance 117.19 ml/min; Glucose 85 mg/dL (74-106); Sodium Level 145 mmol/L (136-145)
[2019-07-22] MEDS: FLUoxetine 20 MG Capsule PO (09:39)
[2019-07-22] MEDS: OLANZapine 5 MG/TAB TAB.RAPDIS PO (09:40)
[2019-07-22] MEDS: Phenobarbital 32.4 MG Tablet 64.8 MG PO (09:41)
--- NOTE | 2019-07-22 10:14 | CASEMGMT ---
Addendum entered by Deb Valdes 07/22/19 15:25: Garima states that she sent referral over to [facility] and staff will call this worker back. Garima states as of Sunday [facility] had no COVID patients. Addendum entered by Deb Valdes 07/22/19 15:09: [facility] received call from Anne stating next choice is [place] and then if they can't accept the next choice is [facility]. [facility] placed a call back to Garima and updated her that pt is agreeable to [place]. [facility] waiting for call back from Garima. Addendum entered by eDb Valdes 07/22/19 14:53: SW received call from Garima at [facility] stating they are not able to accept pt. [facility] has attempted all three SNF that Anne has requested with no one able to accept pt. [facility] placed a call to Anne and updated her that all three facilities that she had wanted are not able to accept pt. [facility] updated Anne that the only two facilities left in [place] are [facility] and [place]. [facility] explained that [place] is a sister facility to [facility] [place] and they allow smoking. Anne states that she knows both [facility] and [place] have had cases of COVID so that is why she didn't want pt to go there. Anne states that she will call her sister to discuss other SNF and then give this worker a call back. Addendum entered by Deb Valdes 07/22/19 14:41: [facility] placed another call to Lou at [facility] regarding referral. Lou states she has no beds available at this time. [facility] placed a call to Garima at [facility] [place] and left message regarding referral. [facility] waiting for call back. Addendum entered by Deb Valdes 07/22/19 14:15: [facility] received message from Lou at [facility] stating she is checking with administrators to see if they are able to accept new admissions. [facility] received message from Natalya at [facility] stating she is not able to accept pt. [facility] placed a call to [facility] [place] and spoke with Garima and provided referral. Garima states is willing to review referral. Original Note: Social Work Note [facility] placed a call to pt's daughter Anne to discuss SNF. Anne states first choice for SNF is [facility], second choice is [facility] and third choice is [facility] [place]. SW placed a call to [facility], left message for Lou asking if [facility] is accepting new admissions yet. [facility] placed a call to Natalya at [facility] and left message regarding referral. SW Faxed referral to [facility]. Pt is medically ready for discharge today once accepted to SNF. Plan: SNF today pending acceptance Deb Valdes PODIATRIC TECHNICIAN, PATTERN RULER
--- NOTE | 2019-07-22 11:18 | PCM.PROGNOTE ---
<Shawanda Marie - Last Filed: 07/22/19 11:25> Patient Problems: Active and Suspected Problems (Last Reviewed 07/18/19 @ 03:[address] Justice Youssef MD) Dehydration (Acute) Elevated lactic acid level (Acute) Altered mental status (Acute) Rhabdomyolysis (Acute) Acute encephalopathy (Acute) Subjective: Patient seen and examined. Alert this morning. Denies current complaints. Agreeable to plan for SNF at discharge. - Physical Exam Vitals/I&O's: Vital Signs Temp Pulse Resp BP Pulse Ox 98.3 F 86 18 141/85 H 98 07/22/19 09:29 07/22/19 10:51 07/22/19 09:29 07/22/19 09:29 07/22/19 09:29 Oxygen Delivery Method Room Air Weight: 119 lb 0.794 oz Body Mass Index (BMI) 16.2 Finger Stick Blood Glucose 99 Intake and Output for Last 24 Hours 07/20/19 07/21/19 07/22/19 23:59 23:59 23:59 Intake Total 5037.20 / 5037.20 2920.5333 / 2920.5333 Output Total 3150 / 4450 1999 Balance 1887.20 / 587.20 920.5333 / 920.5333 General: Alert, Cooperative, No apparent distress HEENT: Atraumatic, PERRLA, EOMI, Normocephalic Neck: Supple, No JVD, Negative Carotid Bruits Lungs: Clear to auscultation, Normal air movement Cardiovascular: Regular rate, No murmurs Abdomen: Bowel Sounds Present, Soft, Non Tender, Non-Distended Extremities: No clubbing, No cyanosis, No edema, Capillary Refill Less than 3 Seconds Skin: No rashes, No breakdown Musculoskeletal: No Tenderness to Palpation of Joints or Extremities Neurological: Cranial nerves II-XII grossly intact, Neuro grossly intact Psych/Mental Status: Flat Affect Microbiology Past 72 Hours 07/18/19 10:38 Urine Catheter - Catheter Urine Culture - Final Culture exhibits no growth. 07/17/19 20:36 Blood Culture (Wb) - Anticubital Right Blood Culture - Preliminary No growth in 48 hours. 07/17/19 20:00 Blood Culture (Wb) - Anticubital Right Blood Culture - Preliminary No growth in 48 hours. Laboratory Results 07/22/19 06:06: Phosphorus 2.9, Magnesium 1.5 L 07/22/19 06:06: Sodium 145, Potassium 3.0 L, Chloride 110 H, Carbon Dioxide 29.0, Anion Gap 6, BUN 3 L, Creatinine 0.48 L, Estim Creat Clear Calc 117.19, Est GFR (MDRD) Af Amer 227, Est GFR (MDRD) Non-Af 188, BUN/Creatinine Ratio 6.3 L, Glucose 85, Calcium 8.0 L Current Medications Acetaminophen (Tylenol) 650 mg RECTAL Q4H PRN PRN PRN Reason: Pain Score 1-10/Temp > 100.7 F Acetaminophen (Tylenol) 650 mg PO Q6H PRN PRN PRN Reason: Pain Score 1-10/Temp > 100.7 F Last Admin: 07/22/19 02:44 Dose: 650 mg Documented by: Albuterol Sulfate (Ventolin Aerosols) 2.5 mg INHALATION Q2H PRN PRN PRN Reason: SOB/Wheezing Bisacodyl (Dulcolax) 5 mg PO DAILY PRN PRN PRN Reason: Constipation Dextrose (D50w Syringe) 0 gm IV X1 PRN; Protocol PRN Reason: Hypoglycemia Dicyclomine HCl (Bentyl) 20 mg PO Q6H PRN PRN PRN Reason: abdominal discomfort Enoxaparin Sodium (Lovenox) 40 mg SC DAILY [facility] Last Admin: 07/22/19 09:42 Dose: Not Given Documented by: Fluoxetine HCl (Prozac) 20 mg PO DAILY [facility] Last Admin: 07/22/19 09:39 Dose: 20 mg Documented by: Gabapentin (Neurontin) 300 mg PO Q8H PRN PRN PRN Reason: moderate to severe anxiety Last Admin: 07/22/19 02:45 Dose: 300 mg Documented by: Glucagon () 1 mg IM .X1 PRN PRN Reason: Hypoglycemia Haloperidol Lactate (Haldol) 1 mg IM Q6H PRN PRN PRN Reason: AGITATION Hydroxyzine Pamoate (Vistaril Pamoate Capsule) 50 mg PO Q4H PRN PRN PRN Reason: mild anxiety Thiamine HCl 200 mg/ Sodium (Chloride) 52 mls @ 200 mls/hr IV DAILY [facility] Last Infusion: 07/22/19 10:11 Dose: Infused Documented by: Folic Acid 1 mg/ Sodium (Chloride) 50.2 mls @ 200 mls/hr IV DAILY [facility] Last Infusion: 07/22/19 09:53 Dose: Infused Documented by: Sodium Chloride () 1,000 mls @ 100 mls/hr IV .Q10H [facility] Last Infusion: 07/22/19 09:53 Dose: 0 mls/hr Documented by: Loperamide HCl (Imodium) 2 mg PO Q4H PRN PRN PRN Reason: LOOSE STOOLS Lorazepam (Ativan) 2 mg IV Q2H PRN PRN; Protocol PRN Reason: CIWA score > 8 but <15 Last Admin: 07/19/19 00:20 Dose: 2 mg Documented by: Lorazepam (Ativan) 2 mg IV UD PRN; Protocol PRN Reason: CIWA score >/=15. Lorazepam (Ativan) 1 mg IV X1 PRN PRN Reason: SEIZURES Last Admin: 07/20/19 18:03 Dose: 1 mg Documented by: Nitroglycerin (Nitrostat) 0.4 mg SUBLINGUAL Q5M PRN PRN Reason: CARDIAC/CHEST PAIN Olanzapine (Zyprexa Zydis) 5 mg PO DAILY [facility] Last Admin: 07/22/19 09:40 Dose: 5 mg Documented by: Ondansetron HCl (Zofran) 4 mg IV Q8H PRN PRN PRN Reason: NAUSEA/VOMITING Phenobarbital (Phenobarbital) 64.8 mg PO BID [facility] Last Admin: 07/22/19 09:41 Dose: 64.8 mg Documented by: Prochlorperazine Edisylate (Compazine Iv) 5 mg IV Q4H PRN PRN PRN Reason: Breakthrough Nausea/Vomiting Sodium Chloride () 10 - 40 ml IV UD PRN PRN Reason: SALINE FLUSH Last Admin: 07/21/19 18:31 Dose: 10 ml Documented by: Medical Necessity - Tobacco Use Smoking Status: Current every day smoker Assessment/Plan All Active Problems (Last Reviewed 07/18/19 @ 03:[address] Justice Youssef MD) Dehydration (Acute) Elevated lactic acid level (Acute) Altered mental status (Acute) Rhabdomyolysis (Acute) Acute encephalopathy (Acute) Hypokalemia (Resolved) 1. Acute metabolic encephalopathy, complicated by severe depression, also concern for possible new onset seizure-MRI of brain demonstrates central atrophy versus normal pressure hydrocephalus, no acute disease. UA unremarkable for infection. Brain CT without acute process. Chest x-ray without acute process. Mental status improved. Plan for discharge to SNF with psychiatry follow-up. 2. New onset seizure-witnessed by RN 07/20/2019 p.m. Patient received Ativan. Seizure precautions. EEG completed, which was reported to be normal. [facility] neurology consulted who does not have any further recommendations at this time, does not recommend initiating antiepileptics unless seizure is recurrent. 3. Acute traumatic rhabdomyolysis secondary to immobilization-IV fluids. CK now trending down. 4. Lactic acidosis-suspect reactive. No evidence of infection. Lactic acidosis resolved. 5. Severe protein calorie malnutrition-nutrition consult. 6. Adult failure to thrive- PT/OT. Case management consult. Patient appears very unkempt, cachectic. 7. Chronic alcoholism-phenobarbital taper initiated. CIWA/Ativan protocol. [employer] to assess patient. 8. Severe depression with recent suicidal ideations 07/13/2019 per daughter/Anxiety-patient denies suicidal ideations currently or recently. Initiated on fluoxetine and olanzapine. Patient has followed with Dr. Herron, psychiatry in the past. Spoke with Dr. Herron this morning regarding psychiatric medications and follow-up. Dr. Herron agrees with current fluoxetine and olanzapine regimen. Recommends discontinuing Klonopin going forward as patient has already been off of this medication for several weeks. Patient may do virtual follow-up in 2 weeks with psychiatry. DVT prophylaxis- Lovenox sc Discharge planning: SNF with psychiatry follow-up pending acceptance and medically stable. This patient was seen by MERCED Baird under the supervision of Dr. Pope. <Bartolome Pope F - Last Filed: 07/22/19 12:33> - Physical Exam Vitals/I&O's: Vital Signs Temp Pulse Resp BP Pulse Ox 98.3 F 86 18 141/85 H 98 07/22/19 09:29 07/22/19 10:51 07/22/19 09:29 07/22/19 09:29 07/22/19 09:29 Oxygen Delivery Method Room Air Weight: 119 lb 0.794 oz Body Mass Index (BMI) 16.2 Finger Stick Blood Glucose 99 Intake and Output for Last 24 Hours 07/20/19 07/21/19 07/22/19 23:59 23:59 23:59 Intake Total 5037.20 / 5037.20 2920.5333 / 2920.5333 2339.53 / 2339.53 Output Total 3150 / 4450 1999 Balance 1887.20 / 587.20 920.5333 / 920.5333 2339.53 / 2339.53 Microbiology Past 72 Hours 07/18/19 10:38 Urine Catheter - Catheter Urine Culture - Final Culture exhibits no growth. 07/17/19 20:36 Blood Culture (Wb) - Anticubital Right Blood Culture - Preliminary No growth in 48 hours. 07/17/19 20:00 Blood Culture (Wb) - Anticubital Right Blood Culture - Preliminary No growth in 48 hours. Laboratory Results 07/22/19 06:06: Phosphorus 2.9, Magnesium 1.5 L 07/22/19 06:06: Sodium 145, Potassium 3.0 L, Chloride 110 H, Carbon Dioxide 29.0, Anion Gap 6, BUN 3 L, Creatinine 0.48 L, Estim Creat Clear Calc 117.19, Est GFR (MDRD) Af Amer 227, Est GFR (MDRD) Non-Af 188, BUN/Creatinine Ratio 6.3 L, Glucose 85, Calcium 8.0 L Current Medications Acetaminophen (Tylenol) 650 mg RECTAL Q4H PRN PRN PRN Reason: Pain Score 1-10/Temp > 100.7 F Acetaminophen (Tylenol) 650 mg PO Q6H PRN PRN PRN Reason: Pain Score 1-10/Temp > 100.7 F Last Admin: 07/22/19 02:44 Dose: 650 mg Documented by: Albuterol Sulfate (Ventolin Aerosols) 2.5 mg INHALATION Q2H PRN PRN PRN Reason: SOB/Wheezing Bisacodyl (Dulcolax) 5 mg PO DAILY PRN PRN PRN Reason: Constipation Dextrose (D50w Syringe) 0 gm IV X1 PRN; Protocol PRN Reason: Hypoglycemia Dicyclomine HCl (Bentyl) 20 mg PO Q6H PRN PRN PRN Reason: abdominal discomfort Enoxaparin Sodium (Lovenox) 40 mg SC DAILY [facility] Last Admin: 07/22/19 09:42 Dose: Not Given Documented by: Fluoxetine HCl (Prozac) 20 mg PO DAILY [facility] Last Admin: 07/22/19 09:39 Dose: 20 mg Documented by: Gabapentin (Neurontin) 300 mg PO Q8H PRN PRN PRN Reason: moderate to severe anxiety Last Admin: 07/22/19 02:45 Dose: 300 mg Documented by: Glucagon () 1 mg IM .X1 PRN PRN Reason: Hypoglycemia Haloperidol Lactate (Haldol) 1 mg IM Q6H PRN PRN PRN Reason: AGITATION Hydroxyzine Pamoate (Vistaril Pamoate Capsule) 50 mg PO Q4H PRN PRN PRN Reason: mild anxiety Thiamine HCl 200 mg/ Sodium (Chloride) 52 mls @ 200 mls/hr IV DAILY [facility] Last Infusion: 07/22/19 10:11 Dose: Infused Documented by: Folic Acid 1 mg/ Sodium (Chloride) 50.2 mls @ 200 mls/hr IV DAILY [facility] Last Infusion: 07/22/19 09:53 Dose: Infused Documented by: Sodium Chloride () 1,000 mls @ 100 mls/hr IV .Q10H [facility] Last Infusion: 07/22/19 12:12 Dose: 100 mls/hr Documented by: Potassium Chloride () 10 meq in 100 mls @ 100 mls/hr IV BOLUS Q1H [facility] Stop: 07/22/19 15:29 Last Admin: 07/22/19 12:10 Dose: 100 mls/hr Documented by: Loperamide HCl (Imodium) 2 mg PO Q4H PRN PRN PRN Reason: LOOSE STOOLS Lorazepam (Ativan) 2 mg IV Q2H PRN PRN; Protocol PRN Reason: CIWA score > 8 but <15 Last Admin: 07/19/19 00:20 Dose: 2 mg Documented by: Lorazepam (Ativan) 2 mg IV UD PRN; Protocol PRN Reason: CIWA score >/=15. Lorazepam (Ativan) 1 mg IV X1 PRN PRN Reason: SEIZURES Last Admin: 07/20/19 18:03 Dose: 1 mg Documented by: Nitroglycerin (Nitrostat) 0.4 mg SUBLINGUAL Q5M PRN PRN Reason: CARDIAC/CHEST PAIN Olanzapine (Zyprexa Zydis) 5 mg PO DAILY [facility] Last Admin: 07/22/19 09:40 Dose: 5 mg Documented by: Ondansetron HCl (Zofran) 4 mg IV Q8H PRN PRN PRN Reason: NAUSEA/VOMITING Phenobarbital (Phenobarbital) 64.8 mg PO BID [facility] Last Admin: 07/22/19 09:41 Dose: 64.8 mg Documented by: Potassium Chloride (K-Dur) 40 meq PO X1 ONE Stop: 07/22/19 17:01 Prochlorperazine Edisylate (Compazine Iv) 5 mg IV Q4H PRN PRN PRN Reason: Breakthrough Nausea/Vomiting Sodium Chloride () 10 - 40 ml IV UD PRN PRN Reason: SALINE FLUSH Last Admin: 07/21/19 18:31 Dose: 10 ml Documented by: Addendum: Dr. Pope I personally examined the patient and reviewed the chart. I agree with the above. 64-year-old male presented to the hospital with altered mental status. Per report his daughter was unable to reach him and there is a history of alcoholism so she stopped by his house and noticed that he was on the floor and not following commands therefore EMS was called. He was brought to the hospital was found to have an elevated CPK to 2400, indicating rhabdomyolysis. This has improved to 700 today. Also his mental status and his encephalopathy has improved. He was transferred from [facility] to ICU for the concern of possible seizure. And he did have an EEG which was unremarkable per neurology. MRI and CT of his brain were unremarkable. We will continue with alcohol withdrawal protocol since the seizure could possibly be a symptom. We will continue to monitor, and follow-up with speech therapy recommendations as well as obtain PT and OT evaluation for possible placement, he is agreeable to SNF placement. Inpatient E&M: 05167 Subs Hosp L2
[2019-07-22] MEDS: Potassium Chloride 10mEq/100mL 10 MEQ/100 ML IV.SOLN. 100 MEQ IV BOLUS ×4 (12:10→15:22)
--- NOTE | 2019-07-22 15:21 | NUR.TO.PHY ---
update given to daughter Anne.
--- NOTE | 2019-07-22 16:26 | CASEMGMT ---
Social Work Note [facility] received call from Chelo at [facility] stating she is able to accept pt today or tomorrow, whenever. CUCA updated physician. CUCA completed convalescent 7000 in HENS. Original on pt's chart. SW in to speak with pt. CUCA introduced self and role at [facility]. Pt is alert and orientated x3. CUCA updated Demetrius that pt's daughter Anne wants pt to go to SNF and requests [facility]. CUCA updated pt that [facility] is able to accept pt today. Pt asked about [facility]. CUCA informed pt that it is his choice but when this worker talked to Anne she had wanted [facility] first and if they were not able to accept to then try [facility]. CUCA updated pt that Anne wanted a SNF right in [place] so she can take care of pt's cat and easily check in with pt while pt is at SNF. Pt agreeable to [facility]. CUAC updated pt that this worker is waiting to hear from physician if pt will discharge today or tomorrow. Pt states understanding. CUCA placed a call to Anne and updated her on acceptance to [facility] and possible discharge today. Anne states she is planning on coming to [place] tomorrow and then will drop off pt's clothes/belongings to [facility] for pt. CUCA faxed HCPOA documents to Chelo at [facility] per her request. CUCA placed green sheet, HENS and COVID transfer tool on pt's chart in the event pt is discharged later today. CUCA placed a call to Chelo and updated her that pt is medically ready for discharge, SW is just waiting for update from physician. CUCA updated RN that pt is able to discharge to [facility] today. Plan: [facility] once medically cleared Deb Valdes [employer], GLOBAL ACCOUNT MANAGER
--- NOTE | 2019-07-22 16:48 | TREXTCA.CO_ITS ---
- Diet 07/21/19 10:33 Diet: Regular Diet Food consistency:: Mechanical Soft/Ground Liquid Consistency:: [place] Thick Is pt able to select menu?: Yes Diet Comments: magic cup each meal 1:1supervision;no straws,small bites/sips,90degrees HOB - Routine Orders/Code Status Enema Type: Fleetz Enema Frequency: Daily PRN Suppository Type: Dulcolax 10mg Suppository Frequency: Daily PRN Routine Lab Work: BMP - Daily X3 days then q week Code [facility]: [facility] - Wound(s) right shoulder blade Wound Type: Abrasion - Suggestions for Active Care Change Position every (hours): 2 Times a day to sit in chair: 3 - Therapies Physical Therapy: Eval and Treat Occupational Therapy: Eval and Treat Speech Therapy: Eval and Treat - Problem/Diagnosis (1) Altered mental status Status: Acute Current Visit: Yes (2) Rhabdomyolysis Status: Acute Current Visit: Yes (3) Acute encephalopathy Status: Acute Current Visit: Yes (4) Alcoholism /alcohol abuse Status: Chronic Comment: started drinking Tequila in 1999 and drinks a fifth a day with beer chasers Current Visit: No (5) Malnutrition Status: Chronic Current Visit: No (6) Hypophosphatemia Status: Acute Current Visit: Yes (7) Hypomagnesemia Status: Acute Current Visit: Yes (8) Seizure Status: Suspected Current Visit: Yes - Allergies/Procedures Done in Hospital Allergies/Adverse Reactions: Allergies codeine Allergy (Verified 07/17/19 19:58) Itching Procedures: Electroencephalogram - Type of Care/Length of Stay Estimated LOS: Convalescent Care Less Than 30 days Type of Care Needed: Skilled Rehab Potential: Fair Prognosis: Fair - Additional Orders/Day of Discharge Additional Orders: Seizure precautions. H&P will serve as current which was dated: 07/17/19 Day of Discharge: 07/23/19 - Dietary and Speech Recommendations Dietitian Recommendations/Changes: Continue Regular diet with ensure enlive on medpass & magic cup TID with meals--consistency/texture per DETECTIVE AND INTELLIGENCE ANALYST. Please consult if more aggressive nutrition support desired--pt wound benefit from TF support for repletion if intake remains overall poor & inadequate. - Follow Up Care Primary Care Physician: Jules Rust Chi, MD [Primary Care Provider] - Please follow up with your Primary Care Physician in: 1 Week Please Follow Up With: Harley Herron MD - Psychology When: Schedule virtual/video follow 2 weeks Please Follow Up With: Galileo Jones MD - Neurology When: 2-4 Weeks
[2019-07-22] MEDS: 0.9% Saline Lock 10 ML Syringe IV (21:13)
[2019-07-22] MEDS: Phenobarbital 32.4 MG Tablet PO (21:15)
[2019-07-23] VITALS (8 sets, daily range): BP systolic 110–130; BP diastolic 71–76; PULSE 60–78; RESP 18; TEMP 36.7–36.9; O2SAT 94–99
[2019-07-23] MEDS: 0.9% Normal Saline 1,000 ML 100 ML IV ×2 (03:22→09:52)
[2019-07-23 06:57] LABS: Hematocrit 39.4 % (40-54); Hemoglobin 13.1 g/dL (13.0-16.5); Mean Corp Hgb Conc 33.2 g/dL (32-36); Mean Corpuscular Hgb 34.3 pg (27.0-32.0); Mean Corpuscular Volume 103.1 fL (80-94); Mean Platelet Vol. 12.2 fl (6.2-12.0); Platelet Count 122 K/mm3 (150-450); RBC Distribution Width CV 14.3 % (11.6-14.6); RBC Distribution Width SD 54.7 fl (35.1-43.9); Red Blood Count 3.82 M/mm3 (4.6-6.2); White Blood Count 3.6 K/mm3 (4.4-11.0)
[2019-07-23 07:19] LABS: Anion Gap 7 (5-15); BUN 6 mg/dL (7-18); BUN/Creat Ratio 10.2 RATIO (10-20); Calcium,Total 8.3 mg/dL (8.5-10.1); Chloride 107 mmol/L (98-107); Creatinine, Serum 0.59 mg/dL (0.70-1.30); EST Glomerular Filtration Rate 147 mL/min (>60); Est Glom Filt Rate - Afr Amer 178 mL/min (>60); Estimated Creatinine Clearance 95.34 ml/min; Glucose 79 mg/dL (74-106); Potassium 3.2 mmol/L (3.5-5.1); Sodium Level 141 mmol/L (136-145)
--- NOTE | 2019-07-23 09:24 | PCM.DC.SUM ---
<Shawanda Marie - Last Filed: 07/23/19 09:29> Discharge Date and Diagnosis Date of Admission: 07/17/19 Date of Discharge: 07/23/19 - Primary Discharge Diagnosis Acute Problems: Active Problems (Last Reviewed 07/18/19 @ 03:[address] Justice Youssef MD) 1. Acute metabolic encephalopathy, complicated by severe depression, also concern for possible new onset seizure 2. New onset seizure- suspected 3. Acute traumatic rhabdomyolysis secondary to immobilization 4. Lactic acidosis-suspect reactive. No evidence of infection. 5. Severe protein calorie malnutrition 6. Adult failure to thrive 7. Chronic alcoholism 8. Severe depression with recent suicidal ideations 07/13/2019 per daughter/Anxiety Suspected Problems: Suspected Problems (Last Reviewed 07/18/19 @ 03:[address] Justice Youssef MD) Seizure (Suspected) - Secondary Discharge Diagnosis Chronic Problems: Chronic Problems (Last Reviewed 07/18/19 @ 03:[address] Justice Youssef MD) Hospital Course and Treatment Imaging Results: Diagnostic Data Brain CT 07/17/19 20:03 IMPRESSION: Chronic involutional changes of the brain. Electronically Signed: Juan David Regan MD at 21:43 EDT , Service support , Chest X-Ray 07/17/19 20:03 IMPRESSION: COPD. Electronically Signed: Juan David Regan MD at 22:00 EDT , Service support , Brain MRI 07/17/19 23:31 IMPRESSION: Central atrophy versus normal pressure hydrocephalus. Otherwise no acute disease. Electronically Signed: Juan David Regan MD at 18:28 EDT , Service support , Dr. Kent- Pulmonary Medicine [facility] neurology Operations: None Procedures: Electroencephalogram Summary of Care Provided: The patient is a 64 year old M admitted 07/17/2019 due to altered mental status. 1. Acute metabolic encephalopathy, complicated by severe depression, also concern for possible new onset seizure-MRI of brain demonstrates central atrophy versus normal pressure hydrocephalus, no acute disease. UA unremarkable for infection. Brain CT without acute process. Chest x-ray without acute process. Mental status improved. Plan for discharge to SNF with psychiatry follow-up. 2. New onset seizure-suspected. Witnessed by RN 07/20/2019 p.m. Patient received Ativan. Seizure precautions. EEG completed, which was reported to be normal. [facility] neurology consulted who does not have any further recommendations at this time, does not recommend initiating antiepileptics unless seizure is recurrent. Outpatient follow-up with neurology. 3. Acute traumatic rhabdomyolysis secondary to immobilization-IV fluids. CK now trending down. 4. Lactic acidosis-suspect reactive. No evidence of infection. Lactic acidosis resolved. 5. Severe protein calorie malnutrition-nutrition consult. 6. Adult failure to thrive- PT/OT. Case management consult. Patient appears very unkempt, cachectic. SNF at discharge for rehab. 7. Chronic alcoholism-phenobarbital taper during admission. CIWA/Ativan protocol. Patient did not display any significant withdrawal symptoms with the exception of possible seizure which may or may not have been related. 8. Severe depression with recent suicidal ideations 07/13/2019 per daughter/Anxiety-patient denies suicidal ideations currently or recently. Initiated on fluoxetine and olanzapine. Patient has followed with Dr. Herron, psychiatry in the past. Spoke with Dr. Herron this morning regarding psychiatric medications and follow-up. Dr. Herron agrees with current fluoxetine and olanzapine regimen. Recommends discontinuing Klonopin going forward as patient has already been off of this medication for several weeks. Patient may do virtual follow-up in 2 weeks with psychiatry. General: Alert, Cooperative, No apparent distress HEENT: Atraumatic, PERRLA, EOMI, Normocephalic Neck: Supple, No JVD, Negative Carotid Bruits Lungs: Clear to auscultation, Normal air movement Cardiovascular: Regular rate, No murmurs Abdomen: Bowel Sounds Present, Soft, Non Tender, Non-Distended Extremities: No clubbing, No cyanosis, No edema, Capillary Refill Less than 3 Seconds Skin: No rashes, No breakdown Musculoskeletal: No Tenderness to Palpation of Joints or Extremities Neurological: Cranial nerves II-XII grossly intact, Neuro grossly intact Psych/Mental Status: Flat Affect Patient seen and examined prior to discharge. Physical assessment as noted above. Patient is stable for discharge with follow up recommendations as noted above. This patient was seen by MERCED Baird under the supervision of Dr. Pope. - Physical Exam Vitals/I&O's: Vital Signs Temp Pulse Resp BP Pulse Ox 98.0 F 68 18 130/74 H 97 07/23/19 03:23 07/23/19 06:17 07/23/19 03:23 07/23/19 03:23 07/23/19 03:23 Oxygen Delivery Method Room Air Weight: 121 lb 4.068 oz Body Mass Index (BMI) 16.2 Finger Stick Blood Glucose 99 Intake and Output for Last 24 Hours 07/21/19 07/22/19 07/23/19 23:59 23:59 23:59 Intake Total 2920.5333 / 2920.5333 3124.53 / 3124.53 1000 / 1000 Output Total 2000 / 2000 200 / 200 Balance 920.5333 / 920.5333 3124.53 / 2924.53 800 / 800 Microbiology Past 72 Hours 07/17/19 20:36 Blood Culture (Wb) - Anticubital Right Blood Culture - Final No growth in 5 days. 07/17/19 20:00 Blood Culture (Wb) - Anticubital Right Blood Culture - Final No growth in 5 days. 07/18/19 10:38 Urine Catheter - Catheter Urine Culture - Final Culture exhibits no growth. Laboratory Results 07/23/19 06:34: WBC 3.6 L, RBC 3.82 L, Hgb 13.1, Hct 39.4 L, MCV 103.1 H, MCH 34.3 H, MCHC 33.2, RDW Std Deviation 54.7 H, RDW Coeff of Marlyn 14.3, Plt Count 122 L, MPV 12.2 H 07/23/19 06:34: Sodium 141, Potassium 3.2 L, Chloride 107, Carbon Dioxide 27.0, Anion Gap 7, BUN 6 L, Creatinine 0.59 L, Estim Creat Clear Calc 95.34, Est GFR (MDRD) Af Amer 178, Est GFR (MDRD) Non-Af 147, BUN/Creatinine Ratio 10.2, Glucose 79, Calcium 8.3 L, Magnesium 2.0 Current Medications Acetaminophen (Tylenol) 650 mg RECTAL Q4H PRN PRN PRN Reason: Pain Score 1-10/Temp > 100.7 F Acetaminophen (Tylenol) 650 mg PO Q6H PRN PRN PRN Reason: Pain Score 1-10/Temp > 100.7 F Last Admin: 07/22/19 21:46 Dose: 650 mg Documented by: Albuterol Sulfate (Ventolin Aerosols) 2.5 mg INHALATION Q2H PRN PRN PRN Reason: SOB/Wheezing Bisacodyl (Dulcolax) 5 mg PO DAILY PRN PRN PRN Reason: Constipation Dextrose (D50w Syringe) 0 gm IV X1 PRN; Protocol PRN Reason: Hypoglycemia Dicyclomine HCl (Bentyl) 20 mg PO Q6H PRN PRN PRN Reason: abdominal discomfort Enoxaparin Sodium (Lovenox) 40 mg SC DAILY [facility] Last Admin: 07/22/19 09:42 Dose: Not Given Documented by: Fluoxetine HCl (Prozac) 20 mg PO DAILY [facility] Last Admin: 07/22/19 09:39 Dose: 20 mg Documented by: Gabapentin (Neurontin) 300 mg PO Q8H PRN PRN PRN Reason: moderate to severe anxiety Last Admin: 07/22/19 02:45 Dose: 300 mg Documented by: Glucagon () 1 mg IM .X1 PRN PRN Reason: Hypoglycemia Haloperidol Lactate (Haldol) 1 mg IM Q6H PRN PRN PRN Reason: AGITATION Hydroxyzine Pamoate (Vistaril Pamoate Capsule) 50 mg PO Q4H PRN PRN PRN Reason: mild anxiety Thiamine HCl 200 mg/ Sodium (Chloride) 52 mls @ 200 mls/hr IV DAILY [facility] Last Infusion: 07/22/19 10:11 Dose: Infused Documented by: Folic Acid 1 mg/ Sodium (Chloride) 50.2 mls @ 200 mls/hr IV DAILY [facility] Last Infusion: 07/22/19 09:53 Dose: Infused Documented by: Sodium Chloride () 1,000 mls @ 100 mls/hr IV .Q10H [facility] Last Admin: 07/23/19 03:22 Dose: 100 mls/hr Documented by: Loperamide HCl (Imodium) 2 mg PO Q4H PRN PRN PRN Reason: LOOSE STOOLS Lorazepam (Ativan) 2 mg IV Q2H PRN PRN; Protocol PRN Reason: CIWA score > 8 but <15 Last Admin: 07/19/19 00:20 Dose: 2 mg Documented by: Lorazepam (Ativan) 2 mg IV UD PRN; Protocol PRN Reason: CIWA score >/=15. Lorazepam (Ativan) 1 mg IV X1 PRN PRN Reason: SEIZURES Last Admin: 07/20/19 18:03 Dose: 1 mg Documented by: Nicotine (Nicoderm Cq (Pbkc)) 21 mg TRANSDERM. DAILY [facility] Last Admin: 07/22/19 21:09 Dose: 21 mg Documented by: Nitroglycerin (Nitrostat) 0.4 mg SUBLINGUAL Q5M PRN PRN Reason: CARDIAC/CHEST PAIN Olanzapine (Zyprexa Zydis) 5 mg PO DAILY [facility] Last Admin: 07/22/19 09:40 Dose: 5 mg Documented by: Ondansetron HCl (Zofran) 4 mg IV Q8H PRN PRN PRN Reason: NAUSEA/VOMITING Phenobarbital (Phenobarbital) 32.4 mg PO BID [facility] Last Admin: 07/22/19 21:15 Dose: 32.4 mg Documented by: Prochlorperazine Edisylate (Compazine Iv) 5 mg IV Q4H PRN PRN PRN Reason: Breakthrough Nausea/Vomiting Sodium Chloride () 10 - 40 ml IV UD PRN PRN Reason: SALINE FLUSH Last Admin: 07/22/19 21:13 Dose: 10 ml Documented by: Home Medications: Medications to take at Discharge Albuterol Aerosols [Ventolin Aerosols] 2.5 mg INHALATION Q2H PRN PRN vial.neb. 07/22/19 Fluoxetine [Prozac] 20 mg PO DAILY #0 cap 07/22/19 Olanzapine [Zyprexa Zydis] 5 mg PO DAILY tab.rapdis 07/22/19 Primary Care Physician: Jules Rust Chi, MD [Primary Care Provider] - Please follow up with your Primary Care Physician in: 1 Week Please Follow Up With: Harley Herron MD - Psychology When: Schedule virtual/video follow 2 weeks Please Follow Up With: Galileo Jones MD - Neurology When: 2-4 Weeks Disposition: Longterm facility Minutes spent on discharge:: 35 Patient Condition:: Stable Medical Necessity - Tobacco Use Smoking Status: Current every day smoker Meaningful Use Info Meaningful Use Diagnoses (Choose all that apply): None applicable <Bartolome Pope - Last Filed: 07/23/19 10:54> Discharge Date and Diagnosis - Secondary Discharge Diagnosis Chronic Problems: Chronic Problems (Last Updated 07/23/19 @ 09:24 by MERCED Baird) Chronic respiratory failure (Chronic) Chronic back pain (Chronic) Colon polyps (Chronic) Bipolar disorder (Chronic) Alcoholism /alcohol abuse (Chronic) started drinking Tequila in 1999 and drinks a fifth a day with beer chasers Urinary and bowel incontinence (Chronic) Smoking addiction (Chronic) Malnutrition (Chronic) Hospital Course and Treatment Summary of Care Provided: The patient is a 64 year old M [] - Physical Exam Vitals/I&O's: Vital Signs Temp Pulse Resp BP Pulse Ox 98.0 F 73 18 129/76 H 97 07/23/19 09:15 07/23/19 09:15 07/23/19 09:15 07/23/19 09:15 07/23/19 09:25 Oxygen Delivery Method Room Air Weight: 121 lb 4.068 oz Body Mass Index (BMI) 16.2 Finger Stick Blood Glucose 99 Intake and Output for Last 24 Hours 07/21/19 07/22/19 07/23/19 23:59 23:59 23:59 Intake Total 2920.5333 / 2920.5333 3124.53 / 3124.53 1752.2 / 1752.2 Output Total 1999 200 / 200 Balance 920.5333 / 920.5333 3124.53 / 2924.53 1552.2 / 1552.2 Microbiology Past 72 Hours 07/17/19 20:36 Blood Culture (Wb) - Anticubital Right Blood Culture - Final No growth in 5 days. 07/17/19 20:00 Blood Culture (Wb) - Anticubital Right Blood Culture - Final No growth in 5 days. 07/18/19 10:38 Urine Catheter - Catheter Urine Culture - Final Culture exhibits no growth. Laboratory Results 07/23/19 06:34: WBC 3.6 L, RBC 3.82 L, Hgb 13.1, Hct 39.4 L, MCV 103.1 H, MCH 34.3 H, MCHC 33.2, RDW Std Deviation 54.7 H, RDW Coeff of Marlyn 14.3, Plt Count 122 L, MPV 12.2 H 07/23/19 06:34: Sodium 141, Potassium 3.2 L, Chloride 107, Carbon Dioxide 27.0, Anion Gap 7, BUN 6 L, Creatinine 0.59 L, Estim Creat Clear Calc 95.34, Est GFR (MDRD) Af Amer 178, Est GFR (MDRD) Non-Af 147, BUN/Creatinine Ratio 10.2, Glucose 79, Calcium 8.3 L, Magnesium 2.0 Current Medications Acetaminophen (Tylenol) 650 mg RECTAL Q4H PRN PRN PRN Reason: Pain Score 1-10/Temp > 100.7 F Acetaminophen (Tylenol) 650 mg PO Q6H PRN PRN PRN Reason: Pain Score 1-10/Temp > 100.7 F Last Admin: 07/22/19 21:46 Dose: 650 mg Documented by: Albuterol Sulfate (Ventolin Aerosols) 2.5 mg INHALATION Q2H PRN PRN PRN Reason: SOB/Wheezing Bisacodyl (Dulcolax) 5 mg PO DAILY PRN PRN PRN Reason: Constipation Dextrose (D50w Syringe) 0 gm IV X1 PRN; Protocol PRN Reason: Hypoglycemia Dicyclomine HCl (Bentyl) 20 mg PO Q6H PRN PRN PRN Reason: abdominal discomfort Enoxaparin Sodium (Lovenox) 40 mg SC DAILY [facility] Last Admin: 07/23/19 09:43 Dose: Not Given Documented by: Fluoxetine HCl (Prozac) 20 mg PO DAILY [facility] Last Admin: 07/23/19 09:44 Dose: 20 mg Documented by: Gabapentin (Neurontin) 300 mg PO Q8H PRN PRN PRN Reason: moderate to severe anxiety Last Admin: 07/22/19 02:45 Dose: 300 mg Documented by: Glucagon () 1 mg IM .X1 PRN PRN Reason: Hypoglycemia Haloperidol Lactate (Haldol) 1 mg IM Q6H PRN PRN PRN Reason: AGITATION Hydroxyzine Pamoate (Vistaril Pamoate Capsule) 50 mg PO Q4H PRN PRN PRN Reason: mild anxiety Thiamine HCl 200 mg/ Sodium (Chloride) 52 mls @ 200 mls/hr IV DAILY [facility] Last Infusion: 07/23/19 10:29 Dose: Infused Documented by: Folic Acid 1 mg/ Sodium (Chloride) 50.2 mls @ 200 mls/hr IV DAILY [facility] Last Infusion: 07/23/19 10:08 Dose: Infused Documented by: Sodium Chloride () 1,000 mls @ 100 mls/hr IV .Q10H [facility] Last Admin: 07/23/19 09:52 Dose: 100 mls/hr Documented by: Loperamide HCl (Imodium) 2 mg PO Q4H PRN PRN PRN Reason: LOOSE STOOLS Lorazepam (Ativan) 2 mg IV Q2H PRN PRN; Protocol PRN Reason: CIWA score > 8 but <15 Last Admin: 07/19/19 00:20 Dose: 2 mg Documented by: Lorazepam (Ativan) 2 mg IV UD PRN; Protocol PRN Reason: CIWA score >/=15. Lorazepam (Ativan) 1 mg IV X1 PRN PRN Reason: SEIZURES Last Admin: 07/20/19 18:03 Dose: 1 mg Documented by: Nicotine (Nicoderm Cq (Pbkc)) 21 mg TRANSDERM. DAILY [facility] Last Admin: 07/23/19 09:40 Dose: 21 mg Documented by: Nitroglycerin (Nitrostat) 0.4 mg SUBLINGUAL Q5M PRN PRN Reason: CARDIAC/CHEST PAIN Olanzapine (Zyprexa Zydis) 5 mg PO DAILY [facility] Last Admin: 07/23/19 09:44 Dose: 5 mg Documented by: Ondansetron HCl (Zofran) 4 mg IV Q8H PRN PRN PRN Reason: NAUSEA/VOMITING Phenobarbital (Phenobarbital) 32.4 mg PO BID [facility] Last Admin: 07/23/19 09:50 Dose: 32.4 mg Documented by: Prochlorperazine Edisylate (Compazine Iv) 5 mg IV Q4H PRN PRN PRN Reason: Breakthrough Nausea/Vomiting Sodium Chloride () 10 - 40 ml IV UD PRN PRN Reason: SALINE FLUSH Last Admin: 07/22/19 21:13 Dose: 10 ml Documented by: Addendum: Dr. Pope I personally examined the patient and reviewed the chart. I agree with the above. 64-year-old male presented to the hospital with altered mental status. Per report his daughter was unable to reach him and there is a history of alcoholism so she stopped by his house and noticed that he was on the floor and not following commands therefore EMS was called. He was brought to the hospital was found to have an elevated CPK to 2400, indicating rhabdomyolysis. This has improved to 700 today. Also his mental status and his encephalopathy has improved. He was transferred from [facility] to ICU for the concern of possible seizure. And he did have an EEG which was unremarkable per neurology. MRI and CT of his brain were unremarkable. Aside from the first convulsion he has not had any further withdrawal signs or symptoms. We will plan to DC to a SNF today, per neurology and the fact that he has not had any more seizures he does not need to be discharged on phenobarbital. Inpatient E&M: [id number] Disch Hosp
[2019-07-23] MEDS: FLUoxetine 20 MG Capsule PO (09:44)
[2019-07-23] MEDS: OLANZapine 5 MG/TAB TAB.RAPDIS PO (09:44)
[2019-07-23] MEDS: Phenobarbital 32.4 MG Tablet PO (09:50)
[2019-07-23] MEDS: Lidocaine 5% Patch 2 PATCH TOPICAL (11:33)
--- NOTE | 2019-07-23 11:45 | CASEMGMT ---
Social Work Note Pt is discharging to [facility] today. [facility] faxed completed discharge paperwork to Chelo at [facility] including transfer to extended care facility, signed medication list and any scripts. Original in SNF folder and copy on pt's chart. SW had completed convalescent 7000 in [facility] yesterday, original in SNF folder and copy on pt's chart. [facility] placed original COVID-19 transfer communication tool in SNF folder and copy on pt's chart. [facility] spoke with RN, pt is able to transport via wheelchair van. [facility] placed a call to [facility] and arranged transportation via wheelchair van, [facility] states they will send wheelchair van over to [facility] now. Transportation form completed and placed on SNF folder and copy on pt's chart. SW in to speak with pt. Pt is alert and orientated x3. [facility] updated pt that he is being discharged today to [facility] and transport is on their way. SW updated pt that his insurance will not cover wheelchair van so he will get a bill. Pt states understanding. [facility] updated RN on transportation time. [facility] placed a call to Chelo at [facility] and updated her on discharge and transportation time. [facility] placed a call to pt's daughter Anne and updated her on discharge and transportation time. Anne states understanding. Plan: [facility] today with Veronica transporting via wheelchair van. [facility] is sending wheelchair van over now to [facility]. Deb Valdes SCALE MECHANIC, FEATHER EDGER
--- NOTE | 2019-07-23 12:46 | NURSING ---
report called to Steven Glynn
== END 2019-07-23 12:22 | disposition skilled nursing facility (03) | DRG 70 ==
LOC: ED 21:42 → MS3 07-18 01:43 → ICU 07-20 18:06 → MS3 07-21 17:47
PROVIDERS: Family Medicine; Internal Medicine; Internal Medicine Critical Care Medicine; Nurse Practitioner Family; Admitting Provider Hospitalist; Emergency Provider Emergency Medicine; PCP Family Medicine Geriatric Medicine; Visit Provider Family Medicine
DX: G93.41 Metabolic encephalopathy (principal); E43 Unspecified severe protein-calorie malnutrition; Z68.1 Body mass index [BMI] 19.9 or less, adult; E87.2 Acidosis; F32.2 Major depressive disorder, single episode, severe without psychotic features; F10.231 Alcohol dependence with withdrawal delirium; F31.70 Bipolar disorder, currently in remission, most recent episode unspecified; F41.9 Anxiety disorder, unspecified; E86.0 Dehydration; T79.6XXA Traumatic ischemia of muscle, initial encounter; F10.20 Alcohol dependence, uncomplicated; F12.20 Cannabis dependence, uncomplicated; F17.200 Nicotine dependence, unspecified, uncomplicated; M54.9 Dorsalgia, unspecified; G89.29 Other chronic pain; J44.9 Chronic obstructive pulmonary disease, unspecified; R62.7 Adult failure to thrive; R56.9 Unspecified convulsions; Z79.899 Other long term (current) drug therapy
CPT/HCPCS: 36415; 51702; 70450; 70551; 71045; 80048; 80053; 80307; 80320; 81001; 82550; 82552; 82962; 83605; 83690; 83735; 84100; 84439; 84443; 84484; 85025; 85027; 85610; 85730; 87040; 87086; 92507; 92526; 92610; 95819; 97110; 97116; 97162; 97530; 99285; 99406; J7030; J7040; A4216; G0480; J3490

== ENCOUNTER → 2019-09-19 11:27 | Outpatient (CLI) | payer MEDICARE, SELFPAY ==
[2019-07-17 23:01] VITALS: BMI 16.2
[2019-09-19 12:28] LABS: Absolute Lymphocyte Count 1.83 X10^3/uL (0.83-4.51); Absolute Neutrophil Count 3.2 X10^3/uL (2.0-7.7); Basophil# 0.04 X10^3/uL; Basophil% 0.7 % (0-1); Eosinophil# 0.13 X10^3/uL; Eosinophils% 2.3 % (0-5); Hematocrit 41.8 % (40-54); Hemoglobin 13.8 g/dL (13.0-16.5); Lymphocyte # 1.83 X10^3/ul (4.0); Lymphocyte % 32.3 % (19-41); Mean Corpuscular Hgb 32.3 pg (27.0-32.0); Mean Corpuscular Volume 97.9 fL (80-94); Monocyte# 0.51 X10^3/uL; NRBC Flagged by Analyzer 0 % (0-5); Neutrophil # 3.15 X10^3/uL (2.7-7.7); Neutrophil % 55.5 % (47-70); POSITIVE COUNT YES; RBC Distribution Width CV 12.9 % (11.6-14.6); RBC Distribution Width SD 46.5 fl (35.1-43.9); Red Blood Count 4.27 M/mm3 (4.6-6.2); White Blood Count 5.7 K/mm3 (4.4-11.0)
[2019-09-19 13:11] LABS: Differential Indicated SCAN CRITERIA MET
[2019-09-19 13:15] LABS: ALB/GLOB Ratio 0.8 RATIO (0.9-2.4); AST(SGOT) 27 U/L (15-37); Alanine Aminotransfer ALT/SGPT 32 U/L (16-61); Albumin, Serum 3.5 g/dL (3.2-5.0); Alkaline Phosphatase 112 U/L (45-117); Anion Gap 5 (5-15); BUN 19 mg/dL (7-18); BUN/Creat Ratio 17.9 RATIO (10-20); Calcium,Total 9.2 mg/dL (8.5-10.1); Chloride 104 mmol/L (98-107); Creatinine, Serum 1.06 mg/dL (0.70-1.30); EST Glomerular Filtration Rate 74 mL/min (>60); Est Glom Filt Rate - Afr Amer 90 mL/min (>60); Globulin 4.6 g/dL (2.2-4.2); Glucose 73 mg/dL (74-106); PSA,Total - Annual Screen 0.38 ng/mL (0.00-4.00); Potassium 4.1 mmol/L (3.5-5.1); Protein, Total 8.1 g/dL (6.4-8.2); Sodium Level 137 mmol/L (136-145); Thyroid Stim Hormone (TSH) 2.99 uIU/mL (0.358-3.74)
[2019-09-19 13:16] LABS: Platelet Estimate SLT DEC (ADEQ)
[2019-09-19 14:21] LABS: Vitamin D,25 Hydroxy 31.7 ng/mL
== END ==
PROVIDERS: PCP Family Medicine Geriatric Medicine; Visit Provider Family Medicine Geriatric Medicine
DX: E55.9 Vitamin D deficiency, unspecified (principal); R53.83 Other fatigue; Z12.5 Encounter for screening for malignant neoplasm of prostate
CPT/HCPCS: 36415; 80053; 82306; 84153; 84443; 85025; G0103

== ENCOUNTER → 2019-12-17 08:54 | Outpatient (CLI) | payer MEDICARE, SELFPAY ==
[2019-07-17 23:01] VITALS: BMI 16.2
--- NOTE | 2019-12-17 09:02 | AAVD_ITS ---
Reason For Study: AAA Aorta Measurements Aorta Doppler Measurements Proximal aorta measures1.39 x 1.39cm. in cross- Peak systolic flow velocities within the proximal sectional axis. aorta measure 68.3 cm/sec. Proximal aorta measures1.41cm. in longitudinal Peak systolic flow velocities within the mid aorta axis. measure 51.2 cm/sec. Mid aorta measures1.10 x 1.11cm. in cross- Peak systolic flow velocities within the distal sectional axis. aorta measure 46.8 cm/sec. Mid aorta measures1.13cm. in longitudinal axis. Distal aorta measures1.08 x 1.10cm. in cross- sectional axis. Distal aorta measures1.06cm. in longitudinal axis. Left Iliac Artery Left iliac artery measures 0.56 x 0.56 cm. in the cross-sectional axis. Left iliac artery measures 0.55 cm. in the longitudinal axis. Peak systolic velocity in the left iliac artery measures 118 cm/sec. Right Iliac Artery Right iliac artery measures 0.72 x 0.71 cm. in the cross-sectional axis. Right iliac artery measures 0.70 cm. in the longitudinal axis. Peak systolic velocity in the right iliac artery measures 125.3 cm/sec. Procedure Aorta IVC Iliac vasculature or bypass grafts [id number]. Exam performed in department. Interpretation Summary The dimensions of the intra-abdominal aorta appear normal, without evidence of aneurysmal dilatation. The iliac arteries appear normal in size bilaterally. The intra-abdominal aorta and iliac arteries appear to be patent, demonstrating normal, pulsatile arterial flow and normal peak systolic velocities. Ordering Physician: Jules Rust Referring Physician: Jules Rust Chi Performed By: Deb Persaud RVT and Student
== END ==
PROVIDERS: PCP Family Medicine Geriatric Medicine; Referring Provider Family Medicine Geriatric Medicine; Visit Provider Family Medicine Geriatric Medicine
DX: I71.4 Abdominal aortic aneurysm, without rupture (principal)
CPT/HCPCS: 93978

== ENCOUNTER → 2019-12-18 11:23 | Outpatient (CLI) | payer MEDICARE, SELFPAY ==
[2019-07-17 23:01] VITALS: BMI 16.2
--- NOTE | 2019-12-18 12:08 | RAD_ITS ---
STUDY: X-RAY - ABDOMEN/PELVIS REASON FOR EXAM: Male, 64 years old. BOWEL INCONTINENCE TECHNIQUE: 3 frontal images of the abdomen were obtained. COMPARISON: None. FINDINGS: Normal visualized lung bases. There is an unremarkable bowel gas pattern. There is no demonstrated free abdominal air. There are vascular calcifications present. There are diffuse degenerative changes of the visualized lumbar spine. There is a mild dextroscoliosis of the lumbar spine. RAD/Abd Inc Decub and/or Erect IMPRESSION: Nonspecific bowel gas pattern. Degenerative changes of the lumbar spine associated with a dextroscoliosis. Atherosclerosis. Electronically Signed: Mary Jo Quintana MD at 12:25 EDT Tel , Service support ,
[2019-12-18 12:31] LABS: Absolute Lymphocyte Count 1.62 X10^3/uL (0.83-4.51); Absolute Neutrophil Count 3.5 X10^3/uL (2.0-7.7); Basophil# 0.05 X10^3/uL; Basophil% 0.9 % (0-1); Eosinophil# 0.16 X10^3/uL; Eosinophils% 2.7 % (0-5); Hematocrit 42.4 % (40-54); Hemoglobin 13.5 g/dL (13.0-16.5); Lymphocyte # 1.62 X10^3/ul (4.0); Lymphocyte % 27.8 % (19-41); Mean Corp Hgb Conc 31.8 g/dL (32-36); Mean Corpuscular Hgb 29.8 pg (27.0-32.0); Mean Corpuscular Volume 93.6 fL (80-94); Mean Platelet Vol. 11.3 fl (6.2-12.0); Monocyte# 0.49 X10^3/uL; Monocyte% 8.4 % (0-10); NRBC Flagged by Analyzer 0 % (0-5); Neutrophil # 3.49 X10^3/uL (2.7-7.7); Neutrophil % 59.9 % (47-70); Platelet Count 180 K/mm3 (150-450); RBC Distribution Width CV 13.5 % (11.6-14.6); RBC Distribution Width SD 46.8 fl (35.1-43.9); Red Blood Count 4.53 M/mm3 (4.6-6.2); White Blood Count 5.8 K/mm3 (4.4-11.0)
[2019-12-18 12:51] LABS: Vitamin D,25 Hydroxy 23.5 ng/mL
[2019-12-18 12:59] LABS: ALB/GLOB Ratio 0.8 RATIO (0.9-2.4); AST(SGOT) 13 U/L (15-37); Alanine Aminotransfer ALT/SGPT 15 U/L (16-61); Albumin, Serum 3.5 g/dL (3.2-5.0); Alkaline Phosphatase 131 U/L (45-117); Anion Gap 6 (5-15); BUN 8 mg/dL (7-18); BUN/Creat Ratio 8.6 RATIO (10-20); Chloride 105 mmol/L (98-107); Creatinine, Serum 0.92 mg/dL (0.70-1.30); EST Glomerular Filtration Rate 87 mL/min (>60); Est Glom Filt Rate - Afr Amer 105 mL/min (>60); Globulin 4.6 g/dL (2.2-4.2); Glucose 84 mg/dL (74-106); Protein, Total 8.1 g/dL (6.4-8.2); Sodium Level 139 mmol/L (136-145); Thyroid Stim Hormone (TSH) 3.06 uIU/mL (0.358-3.74)
== END ==
LOC: POLAB3 11:23 → RAD 12:07
PROVIDERS: PCP Family Medicine Geriatric Medicine; Visit Provider Family Medicine Geriatric Medicine
DX: R15.9 Full incontinence of feces (principal); R53.83 Other fatigue; E55.9 Vitamin D deficiency, unspecified
CPT/HCPCS: 36415; 74019; 80053; 82306; 84443; 85025

== ENCOUNTER → 2020-09-20 09:30 | Outpatient (CLI) | payer MEDICARE, SELFPAY ==
[2019-07-17 23:01] VITALS: BMI 16.2
[2020-09-20 12:43] LABS: Absolute Lymphocyte Count 1.76 X10^3/uL (0.83-4.51); Absolute Neutrophil Count 4.3 X10^3/uL (2.0-7.7); Basophil# 0.06 X10^3/uL; Basophil% 0.9 % (0-1); Eosinophil# 0.13 X10^3/uL; Eosinophils% 1.9 % (0-5); Hematocrit 43.6 % (40-54); Hemoglobin 14.4 g/dL (13.0-16.5); Lymphocyte # 1.76 X10^3/ul (0.83-4.51); Lymphocyte % 25.7 % (19-41); Mean Corpuscular Hgb 30.5 pg (27.0-32.0); Mean Corpuscular Volume 92.4 fL (80-94); Mean Platelet Vol. 11.3 fl (6.2-12.0); Monocyte# 0.58 X10^3/uL; Monocyte% 8.5 % (0-10); NRBC Flagged by Analyzer 0 % (0-5); Neutrophil # 4.31 X10^3/uL (2.7-7.7); Neutrophil % 62.7 % (47-70); POSITIVE COUNT YES; Platelet Count 142 K/mm3 (150-450); RBC Distribution Width CV 14.3 % (11.6-14.6); RBC Distribution Width SD 48.4 fl (35.1-43.9); Red Blood Count 4.72 M/mm3 (4.6-6.2); White Blood Count 6.9 K/mm3 (4.4-11.0)
[2020-09-20 12:48] LABS: Vitamin D,25 Hydroxy 27.3 ng/mL
[2020-09-20 12:49] LABS: Differential Indicated SCAN CRITERIA MET
[2020-09-20 13:07] LABS: ALB/GLOB Ratio 0.8 RATIO (0.9-2.4); AST(SGOT) 20 U/L (15-37); Alanine Aminotransfer ALT/SGPT 19 U/L (16-61); Albumin, Serum 3.6 g/dL (3.2-5.0); Alkaline Phosphatase 123 U/L (45-117); Anion Gap 7 (5-15); BUN 8 mg/dL (7-18); BUN/Creat Ratio 8.4 RATIO (10-20); Calcium,Total 8.9 mg/dL (8.5-10.1); Chloride 103 mmol/L (98-107); Creatinine, Serum 0.96 mg/dL (0.70-1.30); EST Glomerular Filtration Rate 83 mL/min (>60); Est Glom Filt Rate - Afr Amer 101 mL/min (>60); Globulin 4.3 g/dL (2.2-4.2); Glucose 93 mg/dL (74-106); PSA,Total - Annual Screen 0.52 ng/mL (0.00-4.00); Potassium 3.8 mmol/L (3.5-5.1); Protein, Total 7.9 g/dL (6.4-8.2); Sodium Level 136 mmol/L (136-145); Thyroid Stim Hormone (TSH) 2.99 uIU/mL (0.358-3.74)
== END ==
PROVIDERS: PCP Family Medicine Geriatric Medicine; Visit Provider Family Medicine Geriatric Medicine
DX: R53.83 Other fatigue (principal); Z12.5 Encounter for screening for malignant neoplasm of prostate; E55.9 Vitamin D deficiency, unspecified
CPT/HCPCS: 36415; 80053; 82306; 84153; 84443; 85025; G0103

== ENCOUNTER 2020-12-27 13:44 | Emergency (ER) | payer MEDICARE, SELFPAY ==
[2020-12-27 13:44] VITALS: BP 141/88; PULSE 106; RESP 8; TEMP 36.7; O2SAT 99; BMI 20.7
--- NOTE | 2020-12-27 16:45 | EKG12_ITS ---
Test Reason : NAUSEA/VOMITING Blood Pressure : / mmHG Vent. Rate : 084 BPM Atrial Rate : 084 BPM P-R Int : 126 ms QRS Dur : 076 ms QT Int : 384 ms P-R-T Axes : 067 040 050 degrees QTc Int : 453 ms Normal sinus rhythm Nonspecific ST and T wave abnormality Abnormal ECG Confirmed by FELICITAS MAHER, LOUISA ([id number]), supervising editor news reel AKIN IGLESIAS ([id number]) on 12/29/2020 8:41:47 AM Referred By: BB/DARLIN Confirmed By:LOUISA POLK MD
--- NOTE | 2020-12-27 16:45 | RAD_ITS ---
STUDY: X-RAY CHEST REASON FOR EXAM: Male, 65 years old. Cough. Chest pain. Vomiting and shortness of breath for 3 days. TECHNIQUE: Single AP portable view of the chest. COMPARISON: 07/17/2019. FINDINGS: The lungs are hyperexpanded with chronic interstitial coarsening. Question vague peripheral infiltrates in the lower lungs. There is no demonstrated pleural abnormality. Normal size heart. Normal mediastinum and april. Normal visualized pulmonary arteries. Normal visualized aortic arch and descending thoracic aorta. Normal visualized thoracic spine. Normal visualized ribs, clavicles, and shoulders. There is no demonstrated abnormality of the visualized soft tissue structures of the upper abdomen. RAD/Chest PA and Lateral IMPRESSION: COPD. Question minimal peripheral infiltrates at the lung bases. Electronically Signed: eDnnys Augustine DO at 18:07 EDT Tel [phone], Service support ,
--- NOTE | 2020-12-27 16:46 | EDS_ITS ---
HPI HPI - GI History of Present Illness Chief Complaint: Nausea/Vomiting Informant: patient and friend Nausea/Vomiting/Emesis GI Symptom: Positive for Nausea and Vomiting Onset: Days (3) Quality: Positive for Nonbilious; Negative for Blood streaks, Coffee ground and Hematemesis Severity: Severe (Cannot keep anything down. Now mostly dry heaving a small amount of mucus.) Diarrhea/Melena/Hematochezia GI Symptom: Negative for Diarrhea, Melena and Hematochezia Associated Symptoms Associated Symptoms: Positive for - (Dark concentrated urine with decreased outp ut, about once per day for the last 2); Negative for Dysuria, Frequency, Hematuria and Urgency Narrative Narrative: Patient has been vomiting for the past 3 days. Denies any abdominal pain or diarrhea or melena/bright red blood per rectum with this, he has had some low-grade subjective fevers and after the vomiting started, he has been having terrible heartburn burning substernal up his chest which she has had before after vomiting. He used to be a heavy alcohol user but has been sober for over a year and did not use recently. No other substances. He denies any suspicious food intake or undercooked meats, but his aide states there was some questionable pumpkin pie on the counter that he ate. No known sick contacts. He has also been coughing some since all of these symptoms started but no dyspnea. No history of heart disease. He denies a history of cirrhosis. No other sick contacts. [facility] Medical History Alcoholism /alcohol abuse Bipolar disorder Chronic back pain Chronic respiratory failure Colon polyps Hypokalemia Hypomagnesemia Hypophosphatemia Malnutrition Pancytopenia Smoking addiction Urinary and bowel incontinence Home Medications albuterol sulfate 2.5 mg INHALATION Q2H PRN PRN vial.neb. 07/22/19 [Rx Last Taken Unknown] fluoxetine 20 mg PO DAILY #0 cap 07/22/19 [Rx Last Taken Unknown] olanzapine 5 mg PO DAILY tab.rapdis 07/22/19 [Rx Last Taken Unknown] levofloxacin 500 mg PO DAILY #6 tab 12/27/20 [Rx Last Taken Unknown] ondansetron 8 mg PO Q8H PRN PRN #20 tab 12/27/20 [Rx Last Taken Unknown] Allergy/AdvReac Type Severity Reaction Status Date / Time codeine Allergy Itching Verified 07/17/19 19:58 Surgical History Hx of knee surgery Social History Smoking Status: Current every day smoker tobacco type: cigarettes ROS ROS ED Constitutional Constitutional ED: Reports fever(s) and malaise; Denies body ache(s) or chills Eyes Eyes: Denies change in vision or diplopia ENT ENT ED: Denies rhinorrhea or sore throat Cardiovascular Cardiovascular: Reports as per HPI and chest pain; Denies palpitations Respiratory/Chest Respiratory/Chest: Denies cough or dyspnea Gastrointestinal Gastrointestinal: Reports nausea and vomiting; Denies abdominal pain or diarrhea Genitourinary Genitourinary ED: Denies dysuria or hematuria Musculoskeletal Musculoskeletal: Denies back pain or neck pain Integumentary Denies abscess or rash Neurologic Neurologic: Denies headache(s), paresthesias or weakness Psychiatric Psychiatric: Denies anxiety or suicidal thoughts EXAM Physical Exam Const Vital Signs: 12/27/20 13:44 12/27/20 17:07 12/27/20 19:18 Temperature 98.1 F Temperature Source Temporal Pulse Rate 106 H 83 83 Respiratory Rate 8 L 18 16 Blood Pressure 141/88 H 164/98 H 163/94 H Blood Pressure Mean 105 120 117 Pulse Ox 99 96 96 Oxygen Delivery Method Room Air Room Air Room Air Positive well nourished and well developed General Appearance ED: well developed and NAD HEENT Reports moist mucous membranes normocephalic and atraumatic Eyes PERRL and EOMs intact bilaterally Neck full ROM and supple Resp normal respiratory effort and clear to auscultation bilaterally Cardio regular rate, regular rhythm and no murmurs GI non-tender and non-distended Auscultation: normoactive bowel sounds Palpation: soft; Negative for pulsatile mass Back/Spine no CVA tenderness General Back: other FROM Extremity normal to inspection General Extremety ED: Negative for edema, pulses abnormal or tenderness General Extremity: Negative for edema or pulses abnormal Neuro oriented x3, CN's II-XII intact bilaterally and no sensory deficits noted Sensorium / Orientation: awake and alert Motor Exam: strength 5/5 throughout Skin no rashes or lesions noted and no wounds MDM MDM MDM Narrative Medical decision making narrative: Work-up shows urinary tract infection with a leukocytosis and prerenal azotemia. His chest x-ray shows possibility of mild bibasilar infiltrates. He does not sound like pneumonia clinically however he has COPD and his breath sounds are diffusely diminished. He has been coughing. He is not clinically septic and feeling much better after Zofran and IV fluids, and other than hypertension his other vital signs are normal. He is tolerating oral fluids. He prefers to go home and not stay in the hospital which I am fine with. I sent a culture of his urine and gave him a dose of IV Rocephin followed by a prescription for Levaquin at pneumonia dosing, he was started on that here as well. He does not have symptoms of a COPD exacerbation so I do not think he needs prednisone, Levaquin may be a good choice to help cover both of these infections, and I advised close outpatient follow-up. He is comfortable with that plan. Also prescribe Zofran since it worked well. Lab Data Attestation: I reviewed the patient's lab results. Labs: Laboratory Results - last 24 hr 12/27/20 12/27/20 12/27/20 17:00 17:00 18:45 WBC 18.8 H RBC 5.36 Hgb 16.5 Hct 48.0 MCV 89.6 MCH 30.8 MCHC 34.4 RDW Std Deviation 45.5 H RDW Coeff of Marlyn 14.1 Plt Count 143 L MPV 10.9 Immature Gran % (Auto) 0.400 Neut % (Auto) 85.2 H Lymph % (Auto) 7.7 L Lea % (Auto) 6.5 Eos % (Auto) 0.0 Baso % (Auto) 0.2 Absolute Neuts (auto) 16.1 H Absolute Lymphs (auto) 1.45 Nucleated RBC % 0 Platelet Estimate ADEQUATE RBC Morphology N CHROM Anisocytosis RARE Sodium 132 L Potassium 3.2 L Chloride 90 L Carbon Dioxide 31.0 Anion Gap 11 BUN 29 H Creatinine 1.26 Estim Creat Clear Calc 51.80 Est GFR (MDRD) Af Amer 74 Est GFR (MDRD) Non-Af 61 BUN/Creatinine Ratio 23.0 H Glucose 103 Calcium 9.8 Total Bilirubin 1.00 AST 74 H ALT 30 Alkaline Phosphatase 139 H Troponin I High Sens 43 Total Protein 8.9 H Albumin 4.0 Globulin 4.9 H Albumin/Globulin Ratio 0.8 L Lipase 39 L Urine Color Yellow Urine Clarity Sl. Cloudy Urine pH 6.0 Ur Specific [place] 1.020 Urine Protein 100 H Urine Glucose (UA) Normal Urine Ketones 150 A* Urine Occult Blood 10 H Urine Nitrite Negative Urine Bilirubin Negative Urine Urobilinogen Normal Ur Leukocyte Esterase 500 H Urine RBC 0 SEEN Urine WBC 10-25 SEEN Ur Squamous Epith Cells 0 SEEN Urine Bacteria 1+ Urine Mucus 0 SEEN Radiography Diagnostic Testing: Clinical Impression(s) from Imaging Studies Chest X-Ray 12/27/20 16:45 IMPRESSION: COPD. Question minimal peripheral infiltrates at the lung bases. Electronically Signed: Dennys AugustineDO at 18:07 EDT Tel [phone], Service support , Rhythm Strip Rhythm Strip: Sinus Rhythm Rate: 90 Ectopy: None EKG Initial EKG: Attestation: I personally reviewed and interpreted this EKG as follows: Interpretation: Sinus Rhythm, No Acute Injury Pattern and Non-Specific ST Changes Discharge Plan Triage Chief Complaint: Nausea/Vomiting ED Provider: Vu Kamara Dx/Rx/DC Orders Clinical Impression: Urinary tract infection, Vomiting, Mild dehydration, Pneumonia Instructions: ED Bladder Infection, Male (Adult) Prescriptions: New levofloxacin [levofloxacin] 500 MG tablet 500 mg PO DAILY Qty: 6 RF: 0 ondansetron [ondansetron] 4 MG tablet 8 mg PO Q8H PRN PRN (Reason: Nausea) Qty: 20 RF: 0 No Action albuterol sulfate 2.5 MG/3 ML solution for nebulization 2.5 mg inhalation Q2H PRN PRN (Reason: SOB/Wheezing) RF: 0 fluoxetine 20 MG capsule 20 mg PO DAILY Qty: 0 RF: 0 olanzapine 5 MG/TAB tablet,disintegrating 5 mg PO DAILY RF: 0 Primary Care Provider: Jules Rust Chi Referrals: Jules Rust Chi, MD [Primary Care Provider] - (Within the next week, follow-up and call for appointment) Disposition Disposition: Home, Self Care
[2020-12-27] MEDS: 0.9% Normal Saline 1,000 ML 999 ML IV (17:00)
[2020-12-27] MEDS: Ondansetron 4 MG/2 ML Vial IV ×2 (17:01→20:42)
[2020-12-27] MEDS: Mag Hydrox/Al Hydrox/Simeth 30 ML UDC PO (17:01)
[2020-12-27 17:07] VITALS: BP 164/98; PULSE 83; RESP 18; O2SAT 96
[2020-12-27 17:20] LABS: Absolute Lymphocyte Count 1.45 X10^3/uL (0.83-4.51); Absolute Neutrophil Count 16.1 X10^3/uL (2.0-7.7); Basophil# 0.03 X10^3/uL; Basophil% 0.2 % (0-1); Hemoglobin 16.5 g/dL (13.0-16.5); Lymphocyte # 1.45 X10^3/ul (0.83-4.51); Lymphocyte % 7.7 % (19-41); Mean Corp Hgb Conc 34.4 g/dL (32-36); Mean Corpuscular Hgb 30.8 pg (27.0-32.0); Mean Corpuscular Volume 89.6 fL (80-94); Mean Platelet Vol. 10.9 fl (6.2-12.0); Monocyte# 1.22 X10^3/uL; Monocyte% 6.5 % (0-10); NRBC Flagged by Analyzer 0 % (0-5); Neutrophil # 16.06 X10^3/uL (2.7-7.7); Neutrophil % 85.2 % (47-70); POSITIVE COUNT YES; Platelet Count 143 K/mm3 (150-450); RBC Distribution Width CV 14.1 % (11.6-14.6); RBC Distribution Width SD 45.5 fl (35.1-43.9); Red Blood Count 5.36 M/mm3 (4.6-6.2); White Blood Count 18.8 K/mm3 (4.4-11.0)
[2020-12-27 17:26] LABS: Differential Indicated SCAN CRITERIA MET
[2020-12-27 17:35] LABS: ALB/GLOB Ratio 0.8 RATIO (0.9-2.4); AST(SGOT) 74 U/L (15-37); Alanine Aminotransfer ALT/SGPT 30 U/L (16-61); Alkaline Phosphatase 139 U/L (45-117); Anion Gap 11 (5-15); BUN 29 mg/dL (7-18); Calcium,Total 9.8 mg/dL (8.5-10.1); Chloride 90 mmol/L (98-107); Creatinine, Serum 1.26 mg/dL (0.70-1.30); EST Glomerular Filtration Rate 61 mL/min (>60); Est Glom Filt Rate - Afr Amer 74 mL/min (>60); Globulin 4.9 g/dL (2.2-4.2); Glucose 103 mg/dL (74-106); Lipase 39 U/L (73-393); Potassium 3.2 mmol/L (3.5-5.1); Protein, Total 8.9 g/dL (6.4-8.2); Sodium Level 132 mmol/L (136-145); Troponin-I HS 43 pg/mL (3.0-78.0)
[2020-12-27 17:57] LABS: Anisocytosis RARE; Platelet Estimate ADEQUATE (ADEQ); Red Cell Morphology N CHROM NORMAL (NORM C&C)
[2020-12-27 18:48] LABS: Mucous, Urine 0 SEEN /hpf (<or=2+); Red Blood Cells-Urine 0 SEEN /hpf (0-5); Squamous Epithelial Cells - UA 0 SEEN /hpf (0-5)
[2020-12-27 18:50] LABS: Color, Urine Yellow (Yellow); Glucose, Dipstick Normal (Normal); Leukocyte Esterase-Dipstick 500 /ul (Negative); Nitrite-Dipstick Negative (Negative); Occult Blood-Urine 10 /ul (Negative); Protein-Dipstick 100 mg/dl (Negative); Urine Bilirubin Dipstick Negative (Negative); Urine Clarity Sl. Cloudy (Clear); Urine Urobilinogen Normal (Normal)
[2020-12-27 18:57] LABS: Bacteria 1+ /hpf (None Seen); Ketone-Dipstick 150 mg/dl (Negative); White Blood Cells 10-25 SEEN /hpf (0-5)
[2020-12-27 19:18] VITALS: BP 163/94; PULSE 83; RESP 16; O2SAT 96
[2020-12-27] MEDS: levoFLOXacin 750 MG Tablet PO (20:17)
[2020-12-27] MEDS: Ceftriaxone 1 GM/50 ML BAG IV (20:21)
[2020-12-27 21:01] VITALS: BP 137/85; PULSE 78; RESP 18; O2SAT 95
[2020-12-27 21:03] VITALS: BP 137/85; PULSE 77; RESP 20; O2SAT 95
== END 2020-12-27 21:15 | disposition home or self-care (01) ==
PROVIDERS: Emergency Provider Emergency Medicine; PCP Family Medicine Geriatric Medicine
DX: J44.0 Chronic obstructive pulmonary disease with (acute) lower respiratory infection (principal); J18.9 Pneumonia, unspecified organism; N39.0 Urinary tract infection, site not specified; E86.0 Dehydration; F31.9 Bipolar disorder, unspecified; G89.29 Other chronic pain; Z86.010 Personal history of colon polyps; Z79.899 Other long term (current) drug therapy; F17.210 Nicotine dependence, cigarettes, uncomplicated
CPT/HCPCS: 71046; 80053; 81001; 83690; 84484; 85025; 87077; 87086; 87088; 87186; 87426; 93005; 96361; 96365; 96374; 96376; 99284; J7030; J7050; A4216; J2405

== ENCOUNTER 2021-03-21 08:49 | Outpatient (CLI) | payer MEDICARE, SELFPAY ==
[2021-03-21 16:45] LABS: Absolute Lymphocyte Count 3.19 X10^3/uL (0.83-4.51); Absolute Neutrophil Count 3.4 X10^3/uL (2.0-7.7); Basophil# 0.05 X10^3/uL; Basophil% 0.7 % (0-1); Eosinophil# 0.19 X10^3/uL; Eosinophils% 2.6 % (0-5); Hemoglobin 13.7 g/dL (13.0-16.5); Lymphocyte # 3.19 X10^3/ul (0.83-4.51); Lymphocyte % 43.9 % (19-41); Mean Corp Hgb Conc 31.9 g/dL (32-36); Mean Corpuscular Hgb 29.9 pg (27.0-32.0); Mean Corpuscular Volume 93.9 fL (80-94); Mean Platelet Vol. 10.9 fl (6.2-12.0); Monocyte# 0.47 X10^3/uL; Monocyte% 6.5 % (0-10); NRBC Flagged by Analyzer 0 % (0-5); Neutrophil # 3.35 X10^3/uL (2.7-7.7); Platelet Count 170 K/mm3 (150-450); RBC Distribution Width CV 14.3 % (11.6-14.6); RBC Distribution Width SD 49.4 fl (35.1-43.9); Red Blood Count 4.58 M/mm3 (4.6-6.2); White Blood Count 7.3 K/mm3 (4.4-11.0)
[2021-03-21 17:04] LABS: ALB/GLOB Ratio 0.8 RATIO (0.9-2.4); AST(SGOT) 17 U/L (15-37); Alanine Aminotransfer ALT/SGPT 18 U/L (16-61); Albumin, Serum 3.5 g/dL (3.2-5.0); Alkaline Phosphatase 125 U/L (45-117); Anion Gap 5 (5-15); BUN 6 mg/dL (7-18); BUN/Creat Ratio 5.6 RATIO (10-20); Calcium,Total 8.9 mg/dL (8.5-10.1); Chloride 101 mmol/L (98-107); Creatinine, Serum 1.07 mg/dL (0.70-1.30); EST Glomerular Filtration Rate 73 mL/min (>60); Est Glom Filt Rate - Afr Amer 89 mL/min (>60); Globulin 4.5 g/dL (2.2-4.2); Glucose 83 mg/dL (74-106); Potassium 3.9 mmol/L (3.5-5.1); Sodium Level 137 mmol/L (136-145); Thyroid Stim Hormone (TSH) 2.39 uIU/mL (0.358-3.74)
[2021-03-21 17:21] LABS: Vitamin D,25 Hydroxy 47.9 ng/mL
== END 2021-03-21 23:59 | disposition short-term general hospital (02) ==
PROVIDERS: PCP Family Medicine Geriatric Medicine; Visit Provider Family Medicine Geriatric Medicine
DX: E55.9 Vitamin D deficiency, unspecified (principal); R53.83 Other fatigue
CPT/HCPCS: 36415; 80053; 82306; 84443; 85025

== ENCOUNTER 2021-05-24 14:04 | Emergency (ER) | payer MEDICARE, SELFPAY ==
[2021-05-24 14:05] VITALS: BP 156/138; PULSE 112; RESP 20; TEMP 36.6; O2SAT 99; BMI 18.4
--- NOTE | 2021-05-24 14:33 | EKG12_ITS ---
Test Reason : MENTAL HEALTH Blood Pressure : / mmHG Vent. Rate : 113 BPM Atrial Rate : 113 BPM P-R Int : 124 ms QRS Dur : 068 ms QT Int : 352 ms P-R-T Axes : 063 062 069 degrees QTc Int : 482 ms Sinus tachycardia with Fusion complexes Otherwise normal ECG Confirmed by CHRIS MAHER, JENNIFER ([id number]), medical transcription editor AKIN IGLESIAS ([id number]) on 05/25/2021 1:41:17 PM Referred By: JOSHUA Confirmed By:JENNIFER PEREZ MD
--- NOTE | 2021-05-24 14:34 | CT_ITS ---
STUDY: CT BRAIN WITHOUT CONTRAST REASON FOR EXAM: Male, 66 years old. Change in Mental Status RADIATION DOSAGE (If Supplied By Facility): CTDIvol = ( 44.99 ) mGy, DLP = ( 829.85 ) mGycm TECHNIQUE: Transaxial CT imaging of the brain was performed without administration of intravenous contrast material. Individualized dose optimization techniques were used for this CT. COMPARISON: 07/17/2019 FINDINGS: Normal soft tissue structures. Normal calvarium. There is moderate cerebral atrophy with widening of the extra-axial spaces and ventricular dilatation. There are areas of decreased attenuation within the white matter tracts of the supratentorial brain, consistent with microvascular disease changes. Normal basal ganglia and thalami. Normal brainstem. Normal cerebellum. There is no intracranial hemorrhage. There are no findings of an acute ischemic infarction. Normal visualized paranasal sinuses. CT/Brain/Head without Contrast IMPRESSION: Chronic involutional changes of the brain. Electronically Signed: Sanket King MD at 17:30 EDT ,
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
[2021-05-24] MEDS: Ziprasidone IM 20 MG/ML VIAL IM (15:12)
[2021-05-24 16:33] LABS: Absolute Lymphocyte Count 0.79 X10^3/uL (0.83-4.51); Absolute Neutrophil Count 9.1 X10^3/uL (2.0-7.7); Basophil# 0.01 X10^3/uL; Basophil% 0.1 % (0-1); Hematocrit 42.6 % (40-54); Hemoglobin 14.7 g/dL (13.0-16.5); Lymphocyte # 0.79 X10^3/ul (0.83-4.51); Lymphocyte % 7.2 % (19-41); Mean Corp Hgb Conc 34.5 g/dL (32-36); Mean Corpuscular Hgb 31.1 pg (27.0-32.0); Mean Corpuscular Volume 90.3 fL (80-94); Mean Platelet Vol. 10.6 fl (6.2-12.0); Monocyte# 0.98 X10^3/uL; NRBC Flagged by Analyzer 0 % (0-5); Neutrophil # 9.08 X10^3/uL (2.7-7.7); Neutrophil % 83.2 % (47-70); Platelet Count 217 K/mm3 (150-450); RBC Distribution Width CV 14.5 % (11.6-14.6); RBC Distribution Width SD 47.6 fl (35.1-43.9); Red Blood Count 4.72 M/mm3 (4.6-6.2); White Blood Count 10.9 K/mm3 (4.4-11.0)
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
[2021-05-24 17:04] LABS: ALB/GLOB Ratio 0.9 RATIO (0.9-2.4); AST(SGOT) 157 U/L (15-37); Alanine Aminotransfer ALT/SGPT 83 U/L (16-61); Alkaline Phosphatase 101 U/L (45-117); Anion Gap 16 (5-15); BUN 54 mg/dL (7-18); BUN/Creat Ratio 44.6 RATIO (10-20); Calcium,Total 9.7 mg/dL (8.5-10.1); Chloride 97 mmol/L (98-107); Creatinine, Serum 1.21 mg/dL (0.70-1.30); EST Glomerular Filtration Rate 64 mL/min (>60); Est Glom Filt Rate - Afr Amer 77 mL/min (>60); Estimated Creatinine Clearance 47.51 ml/min; Globulin 4.3 g/dL (2.2-4.2); Glucose 77 mg/dL (74-106); Potassium 3.1 mmol/L (3.5-5.1); Protein, Total 8.3 g/dL (6.4-8.2); Sodium Level 137 mmol/L (136-145)
[2021-05-24 17:44] VITALS: RESP 16
[2021-05-24 17:54] LABS: Bacteria 0 SEEN /hpf (None Seen); Mucous, Urine 0 SEEN /hpf (<or=2+); Red Blood Cells-Urine 0 SEEN /hpf (0-5); Squamous Epithelial Cells - UA 0 SEEN /hpf (0-5)
[2021-05-24 17:59] LABS: Color, Urine Yellow (Yellow); Glucose, Dipstick Normal (Normal); Leukocyte Esterase-Dipstick 100 /ul (Negative); Nitrite-Dipstick Negative (Negative); Occult Blood-Urine 50 /ul (Negative); Protein-Dipstick 30 mg/dl (Negative); Urine Bilirubin Dipstick Negative (Negative); Urine Clarity Clear (Clear); Urine Urobilinogen Normal (Normal)
[2021-05-24 18:15] LABS: Amphetamine Urine VISTA NEGATIVE (<1000 ng/mL); Barbiturate Urine VISTA NEGATIVE (< 200 ng/mL); Benzodiazepine Urine VISTA NEGATIVE (< 200 ng/mL); Cocaine Urine VISTA NEGATIVE (< 300 ng/mL); Ecstacy Urine VISTA NEGATIVE (< 500 ng/mL); Methadone Urine VISTA NEGATIVE (< 300 ng/mL); PCP Urine VISTA NEGATIVE (< 25 ng/mL); THC Urine VISTA POSITIVE (< 50 ng/mL); Vista UDS pH Range 5
[2021-05-24 18:18] LABS: Ketone-Dipstick 150 mg/dl (Negative)
[2021-05-24 18:20] LABS: White Blood Cells 10-25 SEEN /hpf (0-5)
[2021-05-24 18:21] LABS: Transitional Epithelial - Ur 0-5 SEEN /hpf (0-5)
--- NOTE | 2021-05-24 18:29 | CM.ED ---
Social Work Telephone call to [facility], intake. No open geripsych beds. Telephone call to [facility], intake. Clinical information faxed. Will continue to follow. Cristy POOL, MICHELLE
[2021-05-24 18:45] VITALS: BP 145/111; PULSE 122; RESP 16; O2SAT 97
[2021-05-24] MEDS: Haloperidol Lactate 5 MG/ML Vial IM (18:49)
[2021-05-24 19:17] VITALS: RESP 15
--- NOTE | 2021-05-24 19:36 | CM.ED ---
Addendum entered by Marcelle Barnes 05/24/21 19:56: [facility] is currently reviewing clinical information and will get back to this web content & social media manager. Original Note: Social Work Telephone call to [facility], intake. This web content & social media manager checking on status of referral. PLAN: Inpatient psychiatric placement. Will continue to follow. Cristy POOL, MICHELLE
--- NOTE | 2021-05-24 19:46 | CM.ED ---
Social Work Telephone call to [facility]. Case is currently being reviewed. Will continue to follow. Cristy Barnes MSW,MICHELLE
[2021-05-24 21:18] VITALS: RESP 15
--- NOTE | 2021-05-24 22:17 | CM.ED ---
Social Work Telephone call from [facility], patient accepted by Dr. Whitley to the [facility]. Nurse to call report to [phone]. Medical team, patient and patient daughters updated on above. PLAN: [place] POOL, MICHELLE
[2021-05-24 22:19] VITALS: BP 148/115; PULSE 123; RESP 16; O2SAT 98
[2021-05-24] MEDS: DOXEPIN HCL 50 MG CAPSULE 150 MG PO (22:24)
[2021-05-24] MEDS: OLANZapine 2.5 MG Tablet PO (22:24)
[2021-05-24] MEDS: Potassium Chloride Oral Tablet 20 MEQ 40 MEQ PO (22:28)
[2021-05-24] MEDS: LORazepam 2 MG/ML Syringe IM (22:46)
[2021-05-24] MEDS: DiphenhydrAMINE 50 MG/ML Syringe IM (22:46)
[2021-05-25 00:07] VITALS: PULSE 102; RESP 14; O2SAT 93
[2021-05-25 03:00] VITALS: BP 129/78; PULSE 89; RESP 16; O2SAT 93
== END 2021-05-25 03:50 ==
PROVIDERS: Emergency Provider Student in an Organized Health Care Education/Training Program; PCP Family Medicine Geriatric Medicine; Visit Provider Student in an Organized Health Care Education/Training Program
DX: F30.9 Manic episode, unspecified (principal); F12.90 Cannabis use, unspecified, uncomplicated; F17.210 Nicotine dependence, cigarettes, uncomplicated; Z79.899 Other long term (current) drug therapy; G89.29 Other chronic pain; E87.6 Hypokalemia
CPT/HCPCS: 70450; 80053; 80307; 81001; 82077; 85025; 87811; 93005; 96372; 99285; P9612; A4216; J3486

== ENCOUNTER → 2021-06-27 | Outpatient (CLI) | payer MEDICARE, SELFPAY ==
[2021-06-27 12:21] LABS: Absolute Lymphocyte Count 1.55 X10^3/uL (0.83-4.51); Absolute Neutrophil Count 4.2 X10^3/uL (2.0-7.7); Basophil# 0.03 X10^3/uL; Basophil% 0.4 % (0-1); Eosinophil# 0.02 X10^3/uL; Eosinophils% 0.3 % (0-5); Hematocrit 29.3 % (40-54); Hemoglobin 9.2 g/dL (13.0-16.5); Lymphocyte # 1.55 X10^3/ul (0.83-4.51); Lymphocyte % 22.1 % (19-41); Mean Corp Hgb Conc 31.4 g/dL (32-36); Mean Corpuscular Hgb 30.3 pg (27.0-32.0); Mean Corpuscular Volume 96.4 fL (80-94); Mean Platelet Vol. 9.4 fl (6.2-12.0); Monocyte# 1.09 X10^3/uL; Monocyte% 15.6 % (0-10); NRBC Flagged by Analyzer 0 % (0-5); Neutrophil # 4.24 X10^3/uL (2.7-7.7); Neutrophil % 60.6 % (47-70); Platelet Count 267 K/mm3 (150-450); RBC Distribution Width CV 18.6 % (11.6-14.6); RBC Distribution Width SD 64.5 fl (35.1-43.9); Red Blood Count 3.04 M/mm3 (4.6-6.2)
[2021-06-27 13:01] LABS: Anion Gap 8 (5-15); BUN 8 mg/dL (7-18); BUN/Creat Ratio 10.7 RATIO (10-20); Calcium,Total 7.9 mg/dL (8.5-10.1); Chloride 101 mmol/L (98-107); Creatinine, Serum 0.75 mg/dL (0.70-1.30); EST Glomerular Filtration Rate 111 mL/min (>60); Est Glom Filt Rate - Afr Amer 134 mL/min (>60); Glucose 80 mg/dL (74-106); Potassium 3.8 mmol/L (3.5-5.1); Sodium Level 134 mmol/L (136-145)
== END | disposition home or self-care (01) ==
LOC: POLAB3 10:01
PROVIDERS: PCP Family Medicine Geriatric Medicine; Visit Provider Family Medicine Geriatric Medicine
DX: R53.83 Other fatigue (principal)
CPT/HCPCS: 36415; 80048; 85025

== ENCOUNTER → 2021-07-11 | Outpatient (CLI) | payer MEDICARE, SELFPAY ==
[2021-07-11 12:31] LABS: Hematocrit 31.7 % (40-54); Hemoglobin 9.7 g/dL (13.0-16.5); Mean Corp Hgb Conc 30.6 g/dL (32-36); Mean Corpuscular Hgb 30.3 pg (27.0-32.0); Mean Corpuscular Volume 99.1 fL (80-94); Mean Platelet Vol. 9.7 fl (6.2-12.0); Platelet Count 257 K/mm3 (150-450); RBC Distribution Width CV 17.3 % (11.6-14.6); RBC Distribution Width SD 63.5 fl (35.1-43.9); White Blood Count 4.7 K/mm3 (4.4-11.0)
[2021-07-11 13:01] LABS: Syphilis Antibodies Non-reactive; Vitamin B12 415 pg/mL (211-911)
[2021-07-11 13:09] LABS: Valproic Acid (Depakene) Level 75 ug/mL (50-100)
[2021-07-11 13:19] LABS: AST(SGOT) 11 U/L (15-37); Alanine Aminotransfer ALT/SGPT 13 U/L (16-61); Albumin, Serum 2.4 g/dL (3.2-5.0); Alkaline Phosphatase 91 U/L (45-117); Bilirubin, Direct 0.09 mg/dL (0.00-0.30); Globulin 4.7 g/dL (2.2-4.2); Protein, Total 7.1 g/dL (6.4-8.2)
== END | disposition home or self-care (01) ==
PROVIDERS: PCP Family Medicine Geriatric Medicine; Visit Provider Family Medicine Geriatric Medicine
DX: A53.9 Syphilis, unspecified (principal); D64.9 Anemia, unspecified; Z79.899 Other long term (current) drug therapy; Z51.81 Encounter for therapeutic drug level monitoring
CPT/HCPCS: 36415; 80076; 80164; 82607; 82746; 85027; 86780

== ENCOUNTER → 2021-07-18 | Outpatient (CLI) | payer MEDICARE, SELFPAY ==
[2021-07-18 12:35] LABS: Absolute Lymphocyte Count 1.64 X10^3/uL (0.83-4.51); Absolute Neutrophil Count 5.2 X10^3/uL (2.0-7.7); Basophil# 0.05 X10^3/uL; Basophil% 0.7 % (0-1); Eosinophil# 0.04 X10^3/uL; Eosinophils% 0.5 % (0-5); Hematocrit 36.1 % (40-54); Lymphocyte # 1.64 X10^3/ul (0.83-4.51); Lymphocyte % 21.4 % (19-41); Mean Corp Hgb Conc 30.5 g/dL (32-36); Mean Corpuscular Hgb 29.4 pg (27.0-32.0); Mean Corpuscular Volume 96.5 fL (80-94); Mean Platelet Vol. 10.1 fl (6.2-12.0); Monocyte# 0.69 X10^3/uL; NRBC Flagged by Analyzer 0 % (0-5); Neutrophil # 5.24 X10^3/uL (2.7-7.7); Neutrophil % 68.1 % (47-70); Platelet Count 231 K/mm3 (150-450); RBC Distribution Width CV 16.1 % (11.6-14.6); RBC Distribution Width SD 57.1 fl (35.1-43.9); RET-HE 28.4 pg (30-35); Red Blood Count 3.74 M/mm3 (4.6-6.2); Reticulocyte Count 2.75 % (0.5-1.5); White Blood Count 7.7 K/mm3 (4.4-11.0)
[2021-07-18 12:43] LABS: Vitamin B12 475 pg/mL (211-911)
[2021-07-18 13:37] LABS: Ferritin 53 ng/mL (26-388); Iron 64 ug/dL (65-175); Iron Binding Capacity,Total 358 ug/dL (250-450); PERCENT IRON SATURATION 17.9 % (15.0-55.0)
== END | disposition home or self-care (01) ==
LOC: POLAB3 11:20
PROVIDERS: PCP Family Medicine Geriatric Medicine; Visit Provider Family Medicine Geriatric Medicine
DX: D64.9 Anemia, unspecified (principal)
CPT/HCPCS: 36415; 82607; 82728; 82746; 83540; 83550; 85025; 85045

== ENCOUNTER → 2021-08-08 | Outpatient (CLI) | payer MEDICARE, SELFPAY ==
[2021-08-08 12:44] LABS: Absolute Lymphocyte Count 1.77 X10^3/uL (0.83-4.51); Absolute Neutrophil Count 2.4 X10^3/uL (2.0-7.7); Basophil# 0.04 X10^3/uL; Basophil% 0.9 % (0-1); Eosinophil# 0.04 X10^3/uL; Eosinophils% 0.9 % (0-5); Hematocrit 36.5 % (40-54); Hemoglobin 11.4 g/dL (13.0-16.5); Lymphocyte # 1.77 X10^3/ul (0.83-4.51); Mean Corp Hgb Conc 31.2 g/dL (32-36); Mean Corpuscular Hgb 29.3 pg (27.0-32.0); Mean Corpuscular Volume 93.8 fL (80-94); Mean Platelet Vol. 11.2 fl (6.2-12.0); Monocyte% 8.6 % (0-10); NRBC Flagged by Analyzer 0 % (0-5); Neutrophil % 51.4 % (47-70); Platelet Count 183 K/mm3 (150-450); RBC Distribution Width CV 14.9 % (11.6-14.6); RBC Distribution Width SD 51.5 fl (35.1-43.9); Red Blood Count 3.89 M/mm3 (4.6-6.2); White Blood Count 4.7 K/mm3 (4.4-11.0)
== END | disposition home or self-care (01) ==
LOC: POLAB3 10:42
PROVIDERS: PCP Family Medicine Geriatric Medicine; Visit Provider Family Medicine Geriatric Medicine
DX: D64.9 Anemia, unspecified (principal)
CPT/HCPCS: 36415; 85025

== ENCOUNTER → 2021-11-14 | Outpatient (CLI) | payer MEDICARE, SELFPAY ==
[2021-11-14 11:29] LABS: Absolute Lymphocyte Count 2.29 X10^3/uL (0.83-4.51); Absolute Neutrophil Count 3.6 X10^3/uL (2.0-7.7); Basophil# 0.04 X10^3/uL; Basophil% 0.6 % (0-1); Eosinophil# 0.03 X10^3/uL; Eosinophils% 0.4 % (0-5); Hematocrit 43.3 % (40-54); Lymphocyte # 2.29 X10^3/ul (0.83-4.51); Lymphocyte % 33.9 % (19-41); Mean Corp Hgb Conc 32.3 g/dL (32-36); Mean Corpuscular Hgb 28.8 pg (27.0-32.0); Mean Corpuscular Volume 89.1 fL (80-94); Mean Platelet Vol. 10.8 fl (6.2-12.0); Monocyte# 0.74 X10^3/uL; Monocyte% 10.9 % (0-10); NRBC Flagged by Analyzer 0 % (0-5); Neutrophil # 3.64 X10^3/uL (2.7-7.7); Neutrophil % 53.9 % (47-70); Platelet Count 143 K/mm3 (150-450); RBC Distribution Width CV 17.2 % (11.6-14.6); RBC Distribution Width SD 56.8 fl (35.1-43.9); Red Blood Count 4.86 M/mm3 (4.6-6.2); White Blood Count 6.8 K/mm3 (4.4-11.0)
[2021-11-14 11:47] LABS: Vitamin D,25 Hydroxy 58.3 ng/mL
[2021-11-14 12:11] LABS: ALB/GLOB Ratio 0.7 RATIO (0.9-2.4); AST(SGOT) 21 U/L (15-37); Alanine Aminotransfer ALT/SGPT 18 U/L (16-61); Albumin, Serum 3.4 g/dL (3.2-5.0); Alkaline Phosphatase 79 U/L (45-117); Anion Gap 8 (5-15); BUN 15 mg/dL (7-18); BUN/Creat Ratio 14.7 RATIO (10-20); Calcium,Total 9.4 mg/dL (8.5-10.1); Chloride 99 mmol/L (98-107); Creatinine, Serum 1.02 mg/dL (0.70-1.30); EST Glomerular Filtration Rate 77 mL/min (>60); Est Glom Filt Rate - Afr Amer 94 mL/min (>60); Globulin 4.7 g/dL (2.2-4.2); Glucose 105 mg/dL (74-106); PSA,Total - Annual Screen 0.95 ng/mL (0.00-4.00); Potassium 4.7 mmol/L (3.5-5.1); Protein, Total 8.1 g/dL (6.4-8.2); Sodium Level 138 mmol/L (136-145)
== END | disposition home or self-care (01) ==
LOC: POLAB3 09:59
PROVIDERS: PCP Family Medicine Geriatric Medicine; Visit Provider Family Medicine Geriatric Medicine
DX: R53.83 Other fatigue (principal); E55.9 Vitamin D deficiency, unspecified; Z12.5 Encounter for screening for malignant neoplasm of prostate
CPT/HCPCS: 36415; 80053; 82306; 84153; 84443; 85025; G0103

== ENCOUNTER → 2022-02-21 | Outpatient (CLI) | payer MEDICARE, SELFPAY ==
--- NOTE | 2022-02-21 14:44 | ART_ITS ---
Reason For Study: PVD Procedure A bilateral lower extremity continuous wave Doppler with analog waveform analysis,segmental pressures,and ankle brachial indexes without exercise. Left Segmental Pressures Left brachial= 104mmHg. Left thigh = 78mmHg. Left calf = 70mmHg. Left posterior tibial artery = 67mmHg. Left dorsalis pedis artery = 75mmHg. Left digit = 52 mmHg. The left dorsalis pedis waveforms are biphasic. The left posterior tibial artery waveforms are biphasic. Right Segmental Pressures Right brachial= 88mmHg. Right thigh = 87mmHg. Right calf = 78mmHg. Right posterior tibial artery = 72mmHg. Right dorsalis pedis artery = 72mmHg. Right digit = 54 mmHg. The right dorsalis pedis waveforms are biphasic. The right posterior tibial artery waveforms are biphasic. Indices The right ankle brachial index by the dorsalis pedis is 0.69. The right ankle brachial index by the posterior tibial artery is 0.69. The left ankle brachial index by the dorsalis pedis is 0.72. The left ankle brachial index by the posterior tibial artery is 0.64. VL/Lower Ext Art Exam w/o Exercis Interpretation Summary Right POLI 0.69, moderate arterial insufficiency. Doppler/PVR waveforms and segm ental pressures reveal [id number] femoral disease. Left POLI 0.72, moderate arterial insufficiency. Doppler/PVR waveforms and segme ntal pressures reveal [id number] femoral disease Ordering Physician: Grady Driscoll Referring Physician: Jules Rust Chi Performed By: Deb Persaud RVT
== END | disposition home or self-care (01) ==
LOC: CVS 14:42
PROVIDERS: PCP Family Medicine Geriatric Medicine; Referring Provider Podiatrist; Visit Provider Podiatrist
DX: I73.9 Peripheral vascular disease, unspecified (principal); I77.1 Stricture of artery
CPT/HCPCS: 93923

== ENCOUNTER → 2022-05-29 | Outpatient (CLI) | payer MEDICARE, SELFPAY ==
[2022-05-29 17:10] LABS: Absolute Lymphocyte Count 2.48 X10^3/uL (0.83-4.51); Absolute Neutrophil Count 5.5 X10^3/uL (2.0-7.7); Basophil# 0.05 X10^3/uL; Basophil% 0.6 % (0-1); Eosinophil# 0.06 X10^3/uL; Eosinophils% 0.7 % (0-5); Hematocrit 45.4 % (40-54); Hemoglobin 14.9 g/dL (13.0-16.5); Lymphocyte # 2.48 X10^3/ul (0.83-4.51); Lymphocyte % 28.8 % (19-41); Mean Corp Hgb Conc 32.8 g/dL (32-36); Mean Corpuscular Hgb 31.1 pg (27.0-32.0); Mean Corpuscular Volume 94.8 fL (80-94); Mean Platelet Vol. 10.9 fl (6.2-12.0); Monocyte% 5.8 % (0-10); NRBC Flagged by Analyzer 0 % (0-5); Neutrophil # 5.51 X10^3/uL (2.7-7.7); Neutrophil % 63.9 % (47-70); Platelet Count 167 K/mm3 (150-450); RBC Distribution Width SD 48.5 fl (35.1-43.9); Red Blood Count 4.79 M/mm3 (4.6-6.2); White Blood Count 8.6 K/mm3 (4.4-11.0)
[2022-05-29 17:27] LABS: Vitamin D,25 Hydroxy 52.9 ng/mL
[2022-05-29 17:40] LABS: ALB/GLOB Ratio 0.8 RATIO (0.9-2.4); AST(SGOT) 18 U/L (15-37); Alanine Aminotransfer ALT/SGPT 15 U/L (16-61); Albumin, Serum 3.5 g/dL (3.2-5.0); Alkaline Phosphatase 91 U/L (45-117); Anion Gap 5 (5-15); BUN 8 mg/dL (7-18); BUN/Creat Ratio 11.3 RATIO (10-20); Calcium,Total 9.4 mg/dL (8.5-10.1); Chloride 100 mmol/L (98-107); Creatinine, Serum 0.71 mg/dL (0.70-1.30); EST Glomerular Filtration Rate 117 mL/min (>60); Est Glom Filt Rate - Afr Amer 142 mL/min (>60); Globulin 4.6 g/dL (2.2-4.2); Glucose 76 mg/dL (74-106); Potassium 4.2 mmol/L (3.5-5.1); Protein, Total 8.1 g/dL (6.4-8.2); Sodium Level 132 mmol/L (136-145); Thyroid Stim Hormone (TSH) 3.32 uIU/mL (0.358-3.74)
== END | disposition home or self-care (01) ==
LOC: POLAB3 13:47
PROVIDERS: PCP Family Medicine Geriatric Medicine; Visit Provider Family Medicine Geriatric Medicine
DX: E55.9 Vitamin D deficiency, unspecified (principal); R53.83 Other fatigue; Z12.5 Encounter for screening for malignant neoplasm of prostate
CPT/HCPCS: 36415; 80053; 82306; 84443; 85025

== ENCOUNTER → 2022-12-04 | Outpatient (CLI) | payer MEDICARE, SELFPAY ==
[2022-12-04 16:42] LABS: Absolute Lymphocyte Count 2.41 X10^3/uL (0.83-4.51); Absolute Neutrophil Count 3.3 X10^3/uL (2.0-7.7); Basophil# 0.05 X10^3/uL; Basophil% 0.8 % (0-1); Eosinophil# 0.05 X10^3/uL; Eosinophils% 0.8 % (0-5); Hematocrit 44.9 % (40-54); Hemoglobin 14.4 g/dL (13.0-16.5); Lymphocyte # 2.41 X10^3/ul (0.83-4.51); Lymphocyte % 38.1 % (19-41); Mean Corp Hgb Conc 32.1 g/dL (32-36); Mean Corpuscular Hgb 30.4 pg (27.0-32.0); Mean Corpuscular Volume 94.7 fL (80-94); Mean Platelet Vol. 10.2 fl (6.2-12.0); Monocyte# 0.52 X10^3/uL; Monocyte% 8.2 % (0-10); NRBC Flagged by Analyzer 0 % (0-5); Neutrophil # 3.27 X10^3/uL (2.7-7.7); Neutrophil % 51.8 % (47-70); Platelet Count 171 K/mm3 (150-450); RBC Distribution Width CV 14.1 % (11.6-14.6); RBC Distribution Width SD 49.1 fl (35.1-43.9); Red Blood Count 4.74 M/mm3 (4.6-6.2); White Blood Count 6.3 K/mm3 (4.4-11.0)
[2022-12-04 17:10] LABS: Vitamin D,25 Hydroxy 37.1 ng/mL
[2022-12-04 17:22] LABS: ALB/GLOB Ratio 0.7 RATIO (0.9-2.4); AST(SGOT) 18 U/L (15-37); Alanine Aminotransfer ALT/SGPT 14 U/L (16-61); Albumin, Serum 3.5 g/dL (3.2-5.0); Alkaline Phosphatase 93 U/L (45-117); Anion Gap 6 (5-15); BUN 14 mg/dL (7-18); Calcium,Total 9.2 mg/dL (8.5-10.1); Chloride 102 mmol/L (98-107); Creatinine, Serum 0.78 mg/dL (0.70-1.30); EST Glomerular Filtration Rate 105 mL/min (>60); Est Glom Filt Rate - Afr Amer 128 mL/min (>60); Globulin 4.7 g/dL (2.2-4.2); Glucose 91 mg/dL (74-106); PSA,Total - Annual Screen 1.02 ng/mL (0.00-4.00); Potassium 4.3 mmol/L (3.5-5.1); Protein, Total 8.2 g/dL (6.4-8.2); Sodium Level 138 mmol/L (136-145); Thyroid Stim Hormone (TSH) 3.33 uIU/mL (0.358-3.74)
== END | disposition home or self-care (01) ==
LOC: LAB 15:54
PROVIDERS: PCP Family Medicine Geriatric Medicine; Referring Provider Family Medicine Geriatric Medicine; Visit Provider Family Medicine Geriatric Medicine
DX: R53.83 Other fatigue (principal); Z12.5 Encounter for screening for malignant neoplasm of prostate; E55.9 Vitamin D deficiency, unspecified
CPT/HCPCS: 36415; 80053; 82306; 84153; 84443; 85025; G0103

== ENCOUNTER → 2023-06-07 | Outpatient (CLI) | payer MEDICARE, SELFPAY ==
[2023-06-07 17:25] LABS: Absolute Lymphocyte Count 2.55 X10^3/uL (0.83-4.51); Absolute Neutrophil Count 3.8 X10^3/uL (2.0-7.7); Basophil# 0.07 X10^3/uL; Eosinophil# 0.06 X10^3/uL; Eosinophils% 0.8 % (0-5); Hematocrit 43.1 % (40-54); Hemoglobin 13.8 g/dL (13.0-16.5); Lymphocyte # 2.55 X10^3/ul (0.83-4.51); Lymphocyte % 35.4 % (19-41); Mean Corpuscular Hgb 30.9 pg (27.0-32.0); Mean Corpuscular Volume 96.4 fL (80-94); Mean Platelet Vol. 9.9 fl (6.2-12.0); Monocyte# 0.73 X10^3/uL; Monocyte% 10.1 % (0-10); NRBC Flagged by Analyzer 0 % (0-5); Neutrophil # 3.76 X10^3/uL (2.7-7.7); Neutrophil % 52.3 % (47-70); Platelet Count 240 K/mm3 (150-450); RBC Distribution Width CV 14.6 % (11.6-14.6); RBC Distribution Width SD 51.3 fl (35.1-43.9); Red Blood Count 4.47 M/mm3 (4.6-6.2); White Blood Count 7.2 K/mm3 (4.4-11.0)
[2023-06-07 17:39] LABS: Vitamin D,25 Hydroxy 33.3 ng/mL
[2023-06-07 17:53] LABS: ALB/GLOB Ratio 0.8 RATIO (0.9-2.4); AST(SGOT) 19 U/L (15-37); Alanine Aminotransfer ALT/SGPT 24 U/L (16-61); Albumin, Serum 3.6 g/dL (3.2-5.0); Alkaline Phosphatase 104 U/L (45-117); Anion Gap 5 (5-15); BUN 18 mg/dL (7-18); BUN/Creat Ratio 25.6 RATIO (10-20); Calcium,Total 9.5 mg/dL (8.5-10.1); Chloride 101 mmol/L (98-107); EST Glomerular Filtration Rate 118 mL/min (>60); Est Glom Filt Rate - Afr Amer 143 mL/min (>60); Globulin 4.6 g/dL (2.2-4.2); Glucose 88 mg/dL (74-106); Potassium 3.6 mmol/L (3.5-5.1); Protein, Total 8.2 g/dL (6.4-8.2); Sodium Level 134 mmol/L (136-145); Thyroid Stim Hormone (TSH) 3.68 uIU/mL (0.358-3.74)
== END | disposition home or self-care (01) ==
LOC: POLAB3 14:36
PROVIDERS: PCP Family Medicine Geriatric Medicine; Visit Provider Family Medicine Geriatric Medicine
DX: R53.83 Other fatigue (principal); E55.9 Vitamin D deficiency, unspecified
CPT/HCPCS: 36415; 80053; 82306; 84443; 85025